=== PATIENT | female | born 1950 | race Caucasian/White ===

== ENCOUNTER 2017-04-05 18:33 | Inpatient (IN) | payer OTHER ==
[~2017-04-05] VITALS: Ht 167.6 cm; Wt 95.3 kg
--- NOTE | 2017-04-05 18:33 | NUR ---
BIBRA FROM HOME DUE TO SOB X 1 HOUR WITH NO RELIEF AFTER BREATHING TX. PATIENT WITH HX OF ASTHMA. AAO4, APPEARS IN MILD DISTRESS DUE TO SOB. SKIN IS WARM TO TOUCH AND NON DIAPHORETIC. PATIENT IS AFEBRILE. PLACED PT ON O2 WITH RELIEF. IV NOTED ON RFA. GOWNED AND PLACED PT ON TELE MONITOR. PENDING MD JOYNER
[2017-04-05] MEDS ORDERED: Magnesium 1GM/D5W 100ML PREMIX 200 ML IV ONE (18:34)
[2017-04-05] MEDS ORDERED: Magnesium 1GM/D5W 100ML PREMIX 100 ML IV ONE ×2 (18:39→19:03)
[2017-04-05] MEDS ORDERED: methylPREDNISolone SOD SUCC 125 MG/2ML VIAL ONE (18:39)
[2017-04-05] MEDS ORDERED: TERBUTALINE SULFATE 1 MG/ML VIAL ONE (18:39)
--- NOTE | 2017-04-05 18:49 | NUR ---
CALLED NURSING SUP. FOR ICU BED
--- NOTE | 2017-04-05 18:50 | NUR ---
SECURITY CHECKER AT FOR LAB DRAW
[2017-04-05 18:58] LABS: BASOPHILS % (AUTO) 0.1 % (0.0-2.0); EOSINOPHILS % (AUTO) 0.2 % (0.0-6.0); HEMATOCRIT 45 % (33-45); HEMOGLOBIN 14.9 g/dL (11.5-14.8); LYMPHOCYTES # (AUTO) 0.9 /CMM (0.8-4.8); LYMPHOCYTES % (AUTO) 9.4 % (20.0-44.0); MEAN CORPUSCULAR HEMOGLOBIN 32 PG (26.0-33.0); MEAN CORPUSCULAR HGB CONC 33 g/dl (31.0-36.0); MEAN CORPUSCULAR VOLUME 97 fL (82-100); MONOCYTES # (AUTO) 1.1 /CMM (0.1-1.30); MONOCYTES % (AUTO) 11.2 % (2.0-12.0); NEUTROPHILS # (AUTO) 7.7 /CMM (1.8-8.9); NEUTROPHILS % (AUTO) 79.1 % (43.0-81.0); PLATELET COUNT (AUTO) 228 /CMM (150-450); RDW COEFFICIENT OF VARIATION 13.1 (11.5-15.0); RED BLOOD CELL COUNT(AUTO) 4.68 MIL/uL (4.0-5.2); WHITE BLOOD COUNT (AUTO) 9.7 K/uL (4.3-11.0)
[2017-04-05] MEDS ORDERED: methylPREDNISolone SOD SUCC 125 MG/2ML VIAL IV ONE (19:00)
[2017-04-05] MEDS ORDERED: IPRATROPIUM NEB FS 0.5 MG/2.5 ML AMPUL.NEB NEB ONE (19:00)
[2017-04-05] MEDS ORDERED: ALBUTEROL FS 2.5 MG/3 ML VIAL.NEB CONTNEB ONE (19:00)
[2017-04-05] MEDS ORDERED: TERBUTALINE SULFATE 1 MG/ML VIAL SQ ONE (19:00)
--- NOTE | 2017-04-05 19:00 | NUR ---
RT AT BS
[2017-04-05] MEDS ORDERED: IV SET PRIMARY PUMP SET 1 EA INFUS.SET MC ONE ×2 (19:03→22:36)
--- NOTE | 2017-04-05 19:05 | NUR ---
NEXT DOSE OF MAG ENDORSED
[2017-04-05 19:09] LABS: CALCIUM, SERUM 8.5 mg/dL (8.5-10.1); CARBON DIOXIDE 27 mmol/L (21-32); CHLORIDE 101 mmol/L (98-107); CREATININE 0.9 mg/dL (0.6-1.3); GLUCOSE 190 mg/dL (74-106); SODIUM SERUM 137 mmol/L (136-145); UREA NITROGEN, BLOOD 14 mg/dL (7-18)
[2017-04-05 19:09] LABS: ABG BASE EXCESS -2.7 mmol/L; ABG OXYGEN SATURATION 97.9 % (92.0-98.5); ABG PCO2 39.2 mmHg (35.0-45.0); ABG PH 7.371 (7.350-7.450); ABG PO2 128.6 mmHg (75.0-100.0); AaDO2 256.1 mmHg; COHb 2.6 % (0.5-1.5); MetHb 0.5 % (0.0-1.5); O2Hb 94.9 % (94.0-97.0); SITE, ABG Right Radial
--- NOTE | 2017-04-05 19:10 | NUR ---
REPORT GIVEN TO NURSE SIEGEL FOR MYRNA
--- NOTE | 2017-04-05 19:10 | NUR ---
RT AT BEDSIDE - ABG IN PROGRESS.
[2017-04-05 19:12] LABS: INR 0.95 (0.87-1.13); PROTHROMBIN TIME 9.9 SECS (9.5-12.7)
--- NOTE | 2017-04-05 19:12 | NUR ---
CXR IN PROGRESS AT THE BEDSIDE.
[2017-04-05 19:17] LABS: TROPONIN I < 0.017 ng/mL (0.00-0.056)
[2017-04-05] MEDS ORDERED: ATOR10TA PO (19:17)
[2017-04-05] MEDS ORDERED: IPRA12.9 INH (19:17)
[2017-04-05] MEDS ORDERED: METF500T4 PO (19:17)
[2017-04-05] MEDS ORDERED: LEVO100T9 PO (19:17)
[2017-04-05] MEDS ORDERED: FLUT1DIS5 INH (19:17)
[2017-04-05] MEDS ORDERED: MONT10TA22 PO (19:17)
[2017-04-05] MEDS ORDERED: ALBU8.5H2 INH (19:17)
[2017-04-05 19:22] LABS: ALANINE AMINOTRANSFERASE 18 U/L (12-78); ALBUMIN 3.8 g/dL (3.4-5.0); ALKALINE PHOSPHATASE 109 U/L (46-116); ASPARTATE AMINOTRANSFERASE 13 U/L (15-37); B-TYPE NATRIURETIC PEPTIDE 149 PG/ML (0-125); BILIRUBIN,TOTAL 0.2 mg/dL (0.2-1.0)
--- NOTE | 2017-04-05 19:24 | NUR ---
BREATHING TX FINISHED. PT IS SATURATING AT 97% ON RA. PT STILL SOUNDS TIGHT. AUDIBLE WHEEZES NOTED
--- NOTE | 2017-04-05 19:55 | NUR ---
CALLED NURSING SUP. FOR CLARA BED
[2017-04-05 20:00] VITALS: BP 128/64
--- NOTE | 2017-04-05 20:00 | NUR ---
REPORT GIVEN TO NANCY COY
[2017-04-05 20:27] VITALS: BP 128/64
[2017-04-05] MEDS ORDERED: ZOLPIDEM TARTRATE 5 MG TABLET PO PRN (22:00)
[2017-04-05] MEDS ORDERED: FLUTICASONE/SALMETEROL DISKUS IH SCH (22:00)
[2017-04-05] MEDS ORDERED: ONDANSETRON HCL/PF 4 MG/2 ML VIAL IVP PRN (22:00)
[2017-04-05] MEDS ORDERED: MAGNESIUM HYDROXIDE 30 ML UDC PO PRN (22:00)
[2017-04-05] MEDS ORDERED: ACETAMINOPHEN 325 MG TABLET ONE (22:02)
[2017-04-05] MEDS ORDERED: ATORVASTATIN 10 MG TABLET ONE (22:03)
[2017-04-05] MEDS: ATORVASTATIN 10 MG TABLET PO SCH (22:07)
[2017-04-05] MEDS: ACETAMINOPHEN 325 MG TABLET PO PRN (22:07)
[2017-04-05] MEDS ORDERED: LEVOFLOXACIN 500 MG /D5W 100ML 100 ML IV ONE (22:27)
[2017-04-05] MEDS ORDERED: DEXTROSE 50%-WATER 50 ML DISP.SYRIN IV PRN (22:30)
[2017-04-05] MEDS ORDERED: IV NS 0.9% 250 ML IV ONE (22:36)
[2017-04-05] MEDS ORDERED: SECONDARY IV SET 1 EA INFUS.SET MC ONE (22:37)
--- NOTE | 2017-04-05 22:38 | NUR ---
MED NOTE: ALL MEDS ADMINISTERED UNDER UNVERIFIED.
[2017-04-05] MEDS: LEVOFLOXACIN 500 MG /D5W 100ML 500 MG in PREMIX 1 EA IV SCH (22:46)
[2017-04-06] VITALS: BP 112/55
[2017-04-06] MEDS: methylPREDNISolone SOD SUCC 40 MG/ML VIAL IV SCH ×3 (05:00→21:11)
[2017-04-06] MEDS ORDERED: methylPREDNISolone SOD SUCC 40 MG/ML VIAL ONE (05:15)
--- NOTE | 2017-04-06 05:47 | NUR ---
MED NOTE: SOLU-MEDROL ADMINISTERED ON DOWN TIME EMAR.
[2017-04-06 07:10] LABS: HEMATOCRIT 41 % (33-45); HEMOGLOBIN 13.7 g/dL (11.5-14.8); LYMPHOCYTES # (AUTO) 0.4 /CMM (0.8-4.8); LYMPHOCYTES % (AUTO) 7.7 % (20.0-44.0); MEAN CORPUSCULAR HEMOGLOBIN 33 PG (26.0-33.0); MEAN CORPUSCULAR HGB CONC 34 g/dl (31.0-36.0); MEAN CORPUSCULAR VOLUME 96 fL (82-100); MONOCYTES # (AUTO) 0.3 /CMM (0.1-1.30); NEUTROPHILS # (AUTO) 4.3 /CMM (1.8-8.9); NEUTROPHILS % (AUTO) 86.3 % (43.0-81.0); PLATELET COUNT (AUTO) 192 /CMM (150-450); RDW COEFFICIENT OF VARIATION 13.9 (11.5-15.0); RED BLOOD CELL COUNT(AUTO) 4.21 MIL/uL (4.0-5.2)
[2017-04-06 07:29] LABS: CHOLESTEROL 150 mg/dL (<200); HDL CHOLESTEROL 62 mg/dL (40-60); LDL 68 mg/dL (0-99); THYROID STIMULATING HORMONE 0.391 uIU/mL (0.358-3.74); TRIGLYCERIDES 66 mg/dL (30-150)
--- NOTE | 2017-04-06 07:30 | NUR ---
RN INITIAL NOTES PT IN BED, A/O X4, ON NC 3L, TOLERATING WELL, NO SOB OR DISTRESS NOTED. DENIES CHEST PAIN. ON TELE MONITOR WITH SR 85. PT HAS BRP. SKIN CDI. IV ON LFA 20G, SALINE FLUSHED, CDI, NO SIGNS OF INFECTION/INFILTRATION. CALL LIGHT WITHIN EASY REACH, SAFETY MEASURES MAINTAINED, WILL CONTINUE TO MONITOR AND FOLLOW MD ORDERS. PT IN OVERALL STABLE CONDITION.
[2017-04-06 07:38] LABS: ALANINE AMINOTRANSFERASE 25 U/L (12-78); ALBUMIN 3.1 g/dL (3.4-5.0); ALKALINE PHOSPHATASE 93 U/L (46-116); ASPARTATE AMINOTRANSFERASE 14 U/L (15-37); BILIRUBIN,TOTAL 0.2 mg/dL (0.2-1.0); CALCIUM, SERUM 8.3 mg/dL (8.5-10.1); CARBON DIOXIDE 26 mmol/L (21-32); CHLORIDE 104 mmol/L (98-107); CREATININE 0.9 mg/dL (0.6-1.3); GLUCOSE 203 mg/dL (74-106); MAGNESIUM 2.2 mg/dL (1.8-2.4); POTASSIUM 4.7 mmol/L (3.5-5.1); SODIUM SERUM 140 mmol/L (136-145); TOTAL PROTEIN, SERUM 6.3 g/dL (6.4-8.2); UREA NITROGEN, BLOOD 16 mg/dL (7-18)
[2017-04-06 07:41] LABS: TROPONIN I < 0.017 ng/mL (0.00-0.056)
[2017-04-06 08:00] VITALS: BP 122/59
[2017-04-06] MEDS: PANTOPRAZOLE 40 MG TABLET.DR PO SCH (08:29)
[2017-04-06] MEDS: DOCUSATE SODIUM 100 MG CAPSULE PO SCH ×2 (08:29→16:17)
[2017-04-06] MEDS: METFORMIN 500 MG TABLET PO SCH ×2 (08:29→16:17)
[2017-04-06] MEDS: LEVOTHYROXINE SODIUM 100 MCG TABLET PO SCH (08:29)
[2017-04-06] MEDS: BLOOD SUGAR DIAGNOSTIC 1 EACH STRIP IN SCH ×4 (08:29→21:13)
[2017-04-06] MEDS: ACETAMINOPHEN 325 MG TABLET PO PRN (08:41)
[2017-04-06] MEDS: INSULIN REGULAR, HUMAN 100 UNIT/ML 3 ML VIAL SQ PRN ×4 (08:42→21:15)
[2017-04-06] MEDS: FLUTICASONE/SALMETEROL 1 DISK IH SCH ×2 (08:49→21:13)
[2017-04-06] MEDS ORDERED: FLUTICASONE/SALMETEROL DISKUS IH SCH (09:00)
[2017-04-06 12:00] VITALS: BP 109/58
[2017-04-06] MEDS: HYDROCODONE/APAP 5/325MG 1 EACH TABLET PO PRN ×2 (12:14→21:13)
[2017-04-06] MEDS: GUAIFENESIN/CODEINE 10 ML UDC PO PRN ×2 (12:19→23:41)
[2017-04-06 16:00] VITALS: BP 11/59
--- NOTE | 2017-04-06 19:09 | NUR ---
RN CLOSING NOTES PT IN STABLE CONDITION, ALL MD ORDERS CARRIED OUT, TOLERATING NC 3L WELL, IV'S CDI, NO SIGNS OF INFECTION/INFECTION. CALL LIGHT WITHIN EASY REACH, SAFETY MEASURES MAINTAINED, REPORT GIVEN TO NIGHT NURSE FOR MYRNA.
--- NOTE | 2017-04-06 19:30 | NUR ---
CLARA RN INITIAL NOTE RCD PT A/O x4 DX COPD; ON O2 2L VIA NC PT NOTED W/SOB ON EXERTION; PT NOTED TO BE USING INHALERS FROM HOME; EDUCATED PT THAT THERE IS NO ORDER TO USE THOSE WHILE IN THE HOSPITAL PER PT HOSPITAL BREATHING TREATMENTS INEFFECTIVE FOR HER. SKIN INTACT. LFA 20 SL PATENT AND FLUSHING WELL. HOB ELEVATED. BED LOCKED AND IN LOW POSITION. CALL LIGHT WITHIN REACH.
[2017-04-06 20:00] VITALS: BP 132/62
[2017-04-06] MEDS: LEVOFLOXACIN 500 MG /D5W 100ML 500 MG in PREMIX 1 EA IV SCH (21:11)
[2017-04-06] MEDS: MONTELUKAST SODIUM (10MG) 10 MG TABLET PO SCH (21:12)
[2017-04-06] MEDS: ATORVASTATIN 10 MG TABLET PO SCH (21:12)
--- NOTE | 2017-04-06 21:13 | NUR ---
CLARA RN PAIN MGMT PT MEDICATED FOR LOW BACK PAIN THAT PT ATTRIBUTES TO COUGHING; PAIN 4/10. MEDICATED WITH NORCO. EDUCATED PT PAIN MEDICATION IS NECESSARY AND WILL NOT BE ROUTINELY GIVEN TO HER UNLESS NEEDED; PT VERBALIZED UNDERSTANDING. CONTINUE TO MONITOR.
--- NOTE | 2017-04-06 21:15 | NUR ---
CLARA RN BLOD GLUCOSE 230; 4 UNITS REGULAR INSULIN ADMINISTERED. CONTINUE TO MONITOR.
[2017-04-06] MEDS: ALBUTEROL FS 2.5 MG/3 ML VIAL.NEB NEB PRN (21:36)
[2017-04-06] MEDS: IPRATROPIUM NEB FS 0.5 MG/2.5 ML AMPUL.NEB NEB PRN (21:36)
--- NOTE | 2017-04-06 21:40 | NUR ---
CLARA RN PT NOTED WITH RESP DIST ON O2 2L NC BREATHING TX ADMINISTERED BY RT. CONTINUE TO MONITOR.
--- NOTE | 2017-04-06 23:41 | NUR ---
CLARA RN PT NOTED WITH COUGH MEDICATED WITH ROBITUSSIN. CONTINUE TO MONITOR.
[2017-04-07] VITALS (8 sets, daily range): BP systolic 103–124; BP diastolic 53–78
[2017-04-07] MEDS: methylPREDNISolone SOD SUCC 40 MG/ML VIAL IV SCH ×3 (05:39→21:52)
[2017-04-07] MEDS: HYDROCODONE/APAP 5/325MG 1 EACH TABLET PO PRN ×2 (05:39→21:53)
--- NOTE | 2017-04-07 05:39 | NUR ---
CLARA RN PAIN MGMT PT MEDICATED FOR LOW BACK PAIN THAT PT ATTRIBUTES TO COUGHING; PAIN 4/10. MEDICATED WITH NORCO. CONTINUE TO MONITOR. BED ALARM REMAINS ON.
--- NOTE | 2017-04-07 07:00 | NUR ---
CLARA RN CLOSING NOTES PT EXPRESSING SHE IS TIRED AND WAS NOT ABLE TO REST WELL DURING THE NIGHT; PT NOTED WITH INTERMITTENT PERIODS OF SLEEPING. PT DENIES PAIN AT THIS TIME. PT STATES THAT PRIOR TO ADMISSION PT HAS BEEN HAVING PERIODS OF CONFUSION IN BEING UNABLE TO FIND HER HOME AND FORGETTING WORK PASSWORDS; PT VERBALIZES CONFUSION IS DECREASING. WILL ENDORSE TO NEXT SHIFT.
--- NOTE | 2017-04-07 07:38 | NUR ---
CLARA/RN INITIAL NOTES,AM RECEIVED PT ALERT, AWAKE ORIENTED TO PERSON, PLACE, AND TIME. PT RESTING IN BED COMFORTABLY, ON 3 VIA NASAL CANULA,NO ACUTE DISTRESS NOTED AT THIS TIME. PT ON TELE, SINUS. SKIN INTACT, PT ABLE TO AMBULATE. LEFT FA PIV C/D/I, NO S/S OF INFECTION OR INFILTRATION NOTED. ALL NEEDS WILL BE ATTENDED TO, SAFETY MEASURES TAKEN, BED IN LOW POSITION, SIDE RAILS UP, CALL LIGHT WITHIN REACH. WILL CONTINUE CARE.
[2017-04-07] MEDS: DOCUSATE SODIUM 100 MG CAPSULE PO SCH ×2 (08:01→17:42)
[2017-04-07] MEDS: LEVOTHYROXINE SODIUM 100 MCG TABLET PO SCH (08:01)
[2017-04-07] MEDS: PANTOPRAZOLE 40 MG TABLET.DR PO SCH (08:01)
[2017-04-07] MEDS: METFORMIN 500 MG TABLET PO SCH ×2 (08:01→17:42)
[2017-04-07] MEDS: BLOOD SUGAR DIAGNOSTIC 1 EACH STRIP IN SCH ×4 (08:01→21:55)
[2017-04-07] MEDS: INSULIN REGULAR, HUMAN 100 UNIT/ML 3 ML VIAL SQ PRN ×3 (08:02→17:39)
[2017-04-07] MEDS: FLUTICASONE/SALMETEROL 1 DISK IH SCH ×2 (08:04→21:54)
[2017-04-07] MEDS: IPRATROPIUM NEB FS 0.5 MG/2.5 ML AMPUL.NEB NEB PRN ×3 (08:30→13:57)
[2017-04-07] MEDS: ALBUTEROL FS 2.5 MG/3 ML VIAL.NEB NEB PRN ×3 (08:30→13:57)
--- NOTE | 2017-04-07 11:00 | NUR ---
CLARA/RN: PT SEEN BY PHYSICAL THERAPY. PT OUT OF BED AND WALKED IN [place]. SEE PT NOTES FOR DETAILED DESCRIPTION.
--- NOTE | 2017-04-07 18:17 | NUR ---
CLARA/RN ENDING NOTES,AM REPORT WILL BE ENDORSED TO NIGHT NURSE FOR CONTINUATION OF CARE. PT RESTING IN BED ON 2 LITERS NASAL CANULA, NO ACUTE DISTRESS NOTED. ALL NEEDS ATTENDED TO, PT BATHED. SAFETY MEASURES TAKEN, WILL CONTINUE CARE
--- NOTE | 2017-04-07 21:00 | NUR ---
CLARA RN RCD PT A/O x4 W/DX SOB; NSR ON MONITOR. ON O2 2L NC; PT VERBALIZING SHE HAD A ROUGH DAY TODAY AND IS VERY UNHAPPY WITH HOW HER DAY WENT. THEN PT JOKINGLY ASKS FOR A DRINK/WINE. S/W MD AND INFORMED OF PTS PERIODS OF CONFUSION ALTHOUGH PT IS A/O x4 AND MD ORDERED HEAD CT. PT REQUESTING COUGH MEDICATION/ PAIN MEDICINE HOWEVER WISHES TO WAIT UNTIL AFTER CT SHE WOULD LIKE TO GET SOME SLEEP. CONTINUE TO MONITOR.
[2017-04-07] MEDS: ATORVASTATIN 10 MG TABLET PO SCH (21:53)
[2017-04-07] MEDS: GUAIFENESIN/CODEINE 10 ML UDC PO PRN (21:54)
[2017-04-07] MEDS: MONTELUKAST SODIUM (10MG) 10 MG TABLET PO SCH (21:54)
[2017-04-07] MEDS: LEVOFLOXACIN 500 MG /D5W 100ML 500 MG in PREMIX 1 EA IV SCH (21:55)
--- NOTE | 2017-04-07 21:55 | NUR ---
CLARA RN PT NOTED WITH COUGH MEDICATED WITH ROBITUSSIN REQUESTED. CONTINUE TO MONITOR.
[2017-04-08 04:00] VITALS: BP 117/63
[2017-04-08] MEDS: methylPREDNISolone SOD SUCC 40 MG/ML VIAL IV SCH (05:18)
[2017-04-08 06:37] LABS: HEMATOCRIT 40 % (33-45); HEMOGLOBIN 13.6 g/dL (11.5-14.8); LYMPHOCYTES # (AUTO) 0.6 /CMM (0.8-4.8); LYMPHOCYTES % (AUTO) 9.7 % (20.0-44.0); MEAN CORPUSCULAR HEMOGLOBIN 32 PG (26.0-33.0); MEAN CORPUSCULAR HGB CONC 34 g/dl (31.0-36.0); MEAN CORPUSCULAR VOLUME 96 fL (82-100); MONOCYTES # (AUTO) 0.6 /CMM (0.1-1.30); MONOCYTES % (AUTO) 8.9 % (2.0-12.0); NEUTROPHILS # (AUTO) 5.4 /CMM (1.8-8.9); NEUTROPHILS % (AUTO) 81.4 % (43.0-81.0); PLATELET COUNT (AUTO) 183 /CMM (150-450); RDW COEFFICIENT OF VARIATION 13.9 (11.5-15.0); WHITE BLOOD COUNT (AUTO) 6.7 K/uL (4.3-11.0)
[2017-04-08 07:01] LABS: CALCIUM, SERUM 8.4 mg/dL (8.5-10.1); CREATININE 0.9 mg/dL (0.6-1.3); POTASSIUM 4.6 mmol/L (3.5-5.1)
--- NOTE | 2017-04-08 07:05 | NUR ---
CLARA INITIAL NOTE RECEIVED PT A/O X4. ON 2L NC, RESPIRATIONS EVEN AND UNLABORED, NO SOB OR DISTRESS PRESENT. TELE MONITOR REVEALS SINUS BRADYCARDIA, HR= 59. LEFT HAND 22G HL FLUSHED, PATENT, INTACT AND FREE OF REDNESS, SWELLING AND INFLAMMATION. SAFETY MEASURES TAKEN: BED LOCKED AND IN LOW POSITION, SIDE RAILS UP X2, BED ALARM ON AND CALL LIGHT WITHIN REACH, WILL CONTINUE TO MONITOR.
[2017-04-08] MEDS: PANTOPRAZOLE 40 MG TABLET.DR PO SCH (07:47)
[2017-04-08] MEDS: LEVOTHYROXINE SODIUM 100 MCG TABLET PO SCH (07:47)
[2017-04-08] MEDS: BLOOD SUGAR DIAGNOSTIC 1 EACH STRIP IN SCH (07:50)
[2017-04-08] MEDS: INSULIN REGULAR, HUMAN 100 UNIT/ML 3 ML VIAL SQ PRN (07:50)
[2017-04-08 08:00] VITALS: BP 111/60
[2017-04-08] MEDS: METFORMIN 500 MG TABLET PO SCH (08:57)
[2017-04-08] MEDS: DOCUSATE SODIUM 100 MG CAPSULE PO SCH (08:58)
[2017-04-08] MEDS: FLUTICASONE/SALMETEROL 1 DISK IH SCH (08:58)
[2017-04-08] MEDS ORDERED: PRED50TA PO (10:17)
--- NOTE | 2017-04-08 11:30 | NUR ---
CLARA DISCHARGE NOTE PT DISCHARGED TO HOME IN STABLE CONDITION VIA TAXI. VITAL SIGNS STABLE. IV REMOVED. ALL BELONGINGS SENT WITH PATIENT. PRESCRIPTION GIVEN TO PATIENT WELL. DISCHARGE INSTRUCTIONS REVIEWED WITH PATIENT. ALL QUESTIONS ANSWERED.
== END 2017-04-08 11:40 | disposition home or self-care (01) | DRG 191 ==
LOC: ER 18:35 → TELE-TD 19:58
PROVIDERS: ADMIT Internal Medicine; ATTEND Internal Medicine
DX: J44.1 Chronic obstructive pulmonary disease with (acute) exacerbation (principal); E44.0 Moderate protein-calorie malnutrition; T38.0X5A Adverse effect of glucocorticoids and synthetic analogues, initial encounter; F32.9 Major depressive disorder, single episode, unspecified; F41.9 Anxiety disorder, unspecified; F17.210 Nicotine dependence, cigarettes, uncomplicated; E03.9 Hypothyroidism, unspecified; Z68.33 Body mass index [BMI] 33.0-33.9, adult; Y92.89 Other specified places as the place of occurrence of the external cause; E09.9 Drug or chemical induced diabetes mellitus without complications; E78.5 Hyperlipidemia, unspecified; J44.0 Chronic obstructive pulmonary disease with (acute) lower respiratory infection; J20.8 Acute bronchitis due to other specified organisms; I10 Essential (primary) hypertension; E66.9 Obesity, unspecified; Z86.73 Personal history of transient ischemic attack (TIA), and cerebral infarction without residual deficits; Z79.899 Other long term (current) drug therapy; Z79.84 Long term (current) use of oral hypoglycemic drugs
CPT/HCPCS: 36415; 36600; 70450-TC; 71010-TC; 80048-TC; 80053-TC; 80061-TC; 80076-TC; 82962-TC; 83605-TC; 83735-TC; 83880; 84100-TC; 84443-TC; 84484-TC; 85025-TC; 85730-TC; 87040-TC; 87081-TC; 94799-TC; 97001-TC; A4216; A4606; J1815; J1956; J2920; J2930; J3105; J3475; J7050; Z7610

== ENCOUNTER 2017-10-31 19:36 | Inpatient (IN) | payer OTHER ==
[~2017-10-31] VITALS: Ht 157.5 cm; Wt 81.6 kg
[~2017-10-31 19:36] MED LIST: ALBU8.5H8 INH; ATOR10TA PO; FLUT1DIS5 INH; IPRA12.9 INH; LEVO100T9 PO; METF500T4 PO; MONT10TA22 PO; PRED50TA PO
--- NOTE | 2017-10-31 19:45 | NUR ---
TO BED 4 A 66 YO FEMALE PATIENT BBRA; SOB, GRADUAL ONSET X 1 DAY. PATIENT IS TACHYPNEIC WITH LABORED BREATHING. WITH ONGOING BREATHING TREATMENT BY EMS. PLACED ON CARDIAC AND VS MONITORING. GOWNED. DR BATISTA AT BEDSIDE TO EVALUATE PATIENT. RT AT BEDSIDE.
[2017-10-31] MEDS ORDERED: methylPREDNISolone SOD SUCC 125 MG/2ML VIAL ONE (19:47)
[2017-10-31] MEDS ORDERED: ALBUTEROL FS 2.5 MG/0.5 ML VIAL.NEB ONE ×2 (19:51→23:16)
[2017-10-31] MEDS ORDERED: ALBUTEROL FS 2.5 MG/3 ML VIAL.NEB CONTNEB ONE (20:00)
[2017-10-31] MEDS ORDERED: ALBUTEROL FS 2.5 MG/3 ML VIAL.NEB NEB ONE (20:00)
[2017-10-31] MEDS ORDERED: IPRATROPIUM NEB FS 0.5 MG/2.5 ML AMPUL.NEB NEB ONE (20:00)
[2017-10-31] MEDS ORDERED: methylPREDNISolone SOD SUCC 125 MG/2ML VIAL IV ONE (20:00)
[2017-10-31 20:02] LABS: BASOPHILS # (AUTO) 0.1 /CMM (0.0-0.2); BASOPHILS % (AUTO) 0.5 % (0.0-2.0); EOSINOPHILS # (AUTO) 0.1 /CMM (0.0-0.7); EOSINOPHILS % (AUTO) 0.8 % (0.0-6.0); HEMATOCRIT 45 % (33-45); HEMOGLOBIN 15.3 g/dL (11.5-14.8); LYMPHOCYTES # (AUTO) 1.6 /CMM (0.8-4.8); LYMPHOCYTES % (AUTO) 12.3 % (20.0-44.0); MEAN CORPUSCULAR HEMOGLOBIN 33 PG (26.0-33.0); MEAN CORPUSCULAR HGB CONC 34 g/dl (31.0-36.0); MEAN CORPUSCULAR VOLUME 97 fL (82-100); MONOCYTES # (AUTO) 0.9 /CMM (0.1-1.30); NEUTROPHILS # (AUTO) 10.6 /CMM (1.8-8.9); NEUTROPHILS % (AUTO) 79.4 % (43.0-81.0); PLATELET COUNT (AUTO) 253 /CMM (150-450); RDW COEFFICIENT OF VARIATION 13.5 (11.5-15.0); RED BLOOD CELL COUNT(AUTO) 4.64 MIL/uL (4.0-5.2); WHITE BLOOD COUNT (AUTO) 13.3 K/uL (4.3-11.0)
--- NOTE | 2017-10-31 20:12 | NUR ---
Dr Siddiqui revaluated patient, called rt to initiate Bipap inh. ongoing close monitoring.
[2017-10-31 20:14] LABS: CALCIUM, SERUM 8.8 mg/dL (8.5-10.1); CARBON DIOXIDE 29 mmol/L (21-32); CHLORIDE 104 mmol/L (98-107); GLUCOSE 263 mg/dL (74-106); POTASSIUM 3.7 mmol/L (3.5-5.1); SODIUM SERUM 141 mmol/L (136-145); UREA NITROGEN, BLOOD 34 mg/dL (7-18)
[2017-10-31 20:22] LABS: TROPONIN I < 0.017 ng/mL (0.00-0.056)
[2017-10-31 20:27] LABS: ALANINE AMINOTRANSFERASE 30 U/L (12-78); ALBUMIN 3.4 g/dL (3.4-5.0); ALKALINE PHOSPHATASE 87 U/L (46-116); ASPARTATE AMINOTRANSFERASE 11 U/L (15-37); B-TYPE NATRIURETIC PEPTIDE 150 PG/ML (0-125); BILIRUBIN,TOTAL 0.2 mg/dL (0.2-1.0); TOTAL PROTEIN, SERUM 6.3 g/dL (6.4-8.2)
[2017-10-31] MEDS ORDERED: LEVOFLOXACIN 750 MG /D5W 150ML 750 MG in PREMIX 1 EA IV SCH (21:00)
[2017-10-31] MEDS ORDERED: LEVOFLOXACIN 750 MG /D5W 150ML 150 ML IV ONE (21:17)
--- NOTE | 2017-10-31 21:27 | NUR ---
patient refused to be placed on bipap at this time, and reports, "i feel much better. i dont want it. im claustrophobic." Dr Siddiqui at bedside and was notified.
[2017-10-31] MEDS ORDERED: MAGNESIUM HYDROXIDE 30 ML UDC PO PRN (21:30)
[2017-10-31] MEDS ORDERED: Z GUARD REMEDY 2 OZ OINT TP PRN (21:30)
[2017-10-31] MEDS ORDERED: ZOLPIDEM TARTRATE 5 MG TABLET PO PRN (21:30)
[2017-10-31] MEDS ORDERED: ACETAMINOPHEN 325 MG TABLET PO PRN (21:30)
[2017-10-31] MEDS ORDERED: ONDANSETRON HCL/PF 4 MG/2 ML VIAL IVP PRN (21:30)
[2017-10-31] MEDS: ENOXAPARIN SODIUM 40 MG/0.4 ML DISP.SYRIN SQ SCH ×2 (21:30→22:06)
[2017-10-31] MEDS ORDERED: MAG HYDROX/AL HYDROX/SIMETH 30 ML UDC PO PRN (21:30)
[2017-10-31] MEDS ORDERED: DEXTROSE 50%-WATER 50 ML DISP.SYRIN IV PRN (21:30)
[2017-10-31] MEDS ORDERED: HYDROCODONE/APAP 5/325MG 1 EACH TABLET PO PRN (21:30)
[2017-10-31] MEDS: LEVOFLOXACIN 750 MG /D5W 150ML 750 MG in PREMIX 1 EA IV SCH (21:30)
--- NOTE | 2017-10-31 21:40 | NUR ---
Report given to Ed RN for ICU admission and rupesh.
[2017-10-31 21:53] LABS: ABG BASE EXCESS 2.7 mmol/L; ABG OXYGEN SATURATION 97.8 % (92.0-98.5); ABG PCO2 46.1 mmHg (35.0-45.0); ABG PH 7.403 (7.350-7.450); ABG PO2 125.5 mmHg (75.0-100.0); AaDO2 106.7 mmHg; COHb 2.1 % (0.5-1.5); MetHb 0.5 % (0.0-1.5); O2Hb 95.3 % (94.0-97.0); SITE, ABG Left Radial; VENT MODE, BG TX 5L
--- NOTE | 2017-10-31 22:02 | NUR ---
Transferred patient to icu bed via als protocol, no incident noted.
[2017-10-31] MEDS ORDERED: ENOXAPARIN SODIUM 40 MG/0.4 ML DISP.SYRIN SQ ONE (22:05)
[2017-10-31 22:07] VITALS: BP 115/52
--- NOTE | 2017-10-31 22:20 | NUR ---
OVEN BUILDER - NOTES - ADMISSION - PT ADMITTED FROM HOME FOR SOB, COPD EXACERBATION. PT IS AWAKE ALERT AND ORIENTED X 4. PT IS ABLE TO WALK TO BATHROOM, BUT GETS SOB WITH EXERTION, NEEDS 2L NC EVERYWHERE, ALL THE TIME. PT IS ON 2L NC RIGHT NOW TOLERATING WELL, GETTING BREATHING TX. PT IS IN ST 110S, BP WNL. PT IS ON CONSISTENT CARB DIET ABLE TO EAT WELL. PT HAS BATHROOM PRIVILEGES. SKIN IS INTACT. PT HAS L AC 18G AND R AC 20G IV. WILL CONTINUE TO MONITOR
[2017-10-31 22:30] VITALS: BP 107/81
--- NOTE | 2017-10-31 22:38 | NUR ---
RT PT ABG NORMAL INFORMED DR LYNNE DR ORDERED TO BE PLACE ON BIPAP 10/5 RR12 30% O2. PT REFUSING TO BE PLACED ON BIPAP DUE TO CLAUSTROPHOBIA EDUCATED THAT SHE NEEDS IT TO REDUCE WORK OF BREATHING PT STAYED ON BIPAP FOR 20MINS AND REFUSED TO STAY ON IT. PT TRANSFERRED TO ICU WITH BIPAP ON STANDBY
[2017-10-31] MEDS: BLOOD SUGAR DIAGNOSTIC 1 EACH STRIP IN SCH (22:50)
[2017-10-31] MEDS: INSULIN REGULAR, HUMAN 100 UNIT/ML 3 ML VIAL SQ PRN (22:54)
[2017-10-31 23:00] VITALS: BP 124/46
[2017-10-31] MEDS ORDERED: methylPREDNISolone SOD SUCC 40 MG/ML VIAL ONE (23:13)
[2017-10-31] MEDS ORDERED: IPRATROPIUM NEB FS 0.5 MG/2.5 ML AMPUL.NEB ONE (23:16)
[2017-10-31] MEDS: ALBUTEROL FS 2.5 MG/0.5 ML VIAL.NEB NEB PRN (23:19)
[2017-10-31] MEDS: IPRATROPIUM NEB FS 0.5 MG/2.5 ML AMPUL.NEB NEB PRN (23:19)
[2017-10-31] MEDS: methylPREDNISolone SOD SUCC 40 MG/ML VIAL IV SCH (23:22)
[2017-10-31 23:30] VITALS: BP 124/70
--- NOTE | 2017-10-31 23:56 | NUR ---
PT REFUSING LOVENOX INJ, PT EDUCATED ON IMPORTANCE, STILL REFUSING LOVENOX INJ
[2017-11-01] VITALS (17 sets, daily range): BP systolic 106–141; BP diastolic 58–88
[2017-11-01] MEDS ORDERED: methylPREDNISolone SOD SUCC 125 MG/2ML VIAL IV SCH
[2017-11-01] MEDS ORDERED: ALBUTEROL FS 2.5 MG/0.5 ML VIAL.NEB ONE (03:01)
[2017-11-01] MEDS ORDERED: IPRATROPIUM NEB FS 0.5 MG/2.5 ML AMPUL.NEB ONE (03:01)
[2017-11-01] MEDS: IPRATROPIUM NEB FS 0.5 MG/2.5 ML AMPUL.NEB NEB PRN ×2 (03:06→08:23)
[2017-11-01] MEDS: ALBUTEROL FS 2.5 MG/0.5 ML VIAL.NEB NEB PRN ×2 (03:07→08:23)
[2017-11-01] MEDS ORDERED: methylPREDNISolone SOD SUCC 40 MG/ML VIAL ONE (04:39)
[2017-11-01] MEDS: methylPREDNISolone SOD SUCC 40 MG/ML VIAL IV SCH ×4 (05:18→23:37)
[2017-11-01 05:32] LABS: HEMATOCRIT 44 % (33-45); LYMPHOCYTES # (AUTO) 0.4 /CMM (0.8-4.8); LYMPHOCYTES % (AUTO) 4.4 % (20.0-44.0); MEAN CORPUSCULAR HEMOGLOBIN 34 PG (26.0-33.0); MEAN CORPUSCULAR HGB CONC 34 g/dl (31.0-36.0); MEAN CORPUSCULAR VOLUME 99 fL (82-100); MONOCYTES # (AUTO) 0.1 /CMM (0.1-1.30); MONOCYTES % (AUTO) 1.2 % (2.0-12.0); NEUTROPHILS # (AUTO) 8.8 /CMM (1.8-8.9); NEUTROPHILS % (AUTO) 94.4 % (43.0-81.0); PLATELET COUNT (AUTO) 228 /CMM (150-450); RDW COEFFICIENT OF VARIATION 14.2 (11.5-15.0); RED BLOOD CELL COUNT(AUTO) 4.48 MIL/uL (4.0-5.2); WHITE BLOOD COUNT (AUTO) 9.3 K/uL (4.3-11.0)
[2017-11-01 05:48] LABS: CREATININE 0.9 mg/dL (0.6-1.3); MAGNESIUM 2.2 mg/dL (1.8-2.4); PHOSPHORUS 4.1 mg/dL (2.5-4.9); POTASSIUM 4.6 mmol/L (3.5-5.1)
[2017-11-01 05:58] LABS: THYROID STIMULATING HORMONE 0.764 uIU/mL (0.358-3.74)
--- NOTE | 2017-11-01 06:50 | NUR ---
HOGSHEAD WEIGHERPULMONARY DISEASE SPECIALIST NOTES: RECEIVED PATIENT FROM ICU, TRANSFERRED TO TELE FLOOR VIA GURROBERTO, AOX4, APPEARS CALM. BREATHING WITH EVEN EXPANSION, AT RATE OF 22-24/MIN, ON O2 AT 2 LPM VIA NC. AUSCULTATED WHEEZING, HEARD MOSTLY OVER R UPPER LUNG CHANEL. MAINTAINED HOB ELEVATED. ON TELE MONITORING. PROVIDED FOR COMFORT AND SAFETY. WILL CONT TO MONITOR.
--- NOTE | 2017-11-01 07:07 | NUR ---
pt transferred to [facility]-2 tele. pt is stable, vss, nad. pt transferred with monitor and o2 tank
--- NOTE | 2017-11-01 07:25 | NUR ---
RN INITIAL NOTES REPORT RECEIVED AT THE BEDSIDE. PATIENT IS RESTING COMFORTABLY IN BED. NO SOB OR DISTRESS NOTED AT THIS TIME. PATIENT DENIES PAIN, BUT STATES THAT SHE IS HAVING TROUBLE CATCHING HER BREATH. ASSISTED PATIENT TO A SITTING POSITION AND CALLED RT TO DO A BREATHING TREATMENT WHEN ABLE. WILL CALL MD TO CHANGE TREATMENT SCHEDULE IF ABLE. BED IN A LOW POSITION, CALL LIGHT WITHIN PATIENT REACH. WILL CONTINUE TO MONITOR.
--- NOTE | 2017-11-01 07:54 | NUR ---
RN NOTES: BLOOD SUGAR CHECKED AT 301 MG/DL, ADMINISTERED 8 UNITS REGULAR INSULIN PER SCALE. ENDORSED TO IRVIN MIDDLETON FOR MYRNA.
[2017-11-01] MEDS: BLOOD SUGAR DIAGNOSTIC 1 EACH STRIP IN SCH ×4 (07:55→21:50)
[2017-11-01] MEDS: INSULIN REGULAR, HUMAN 100 UNIT/ML 3 ML VIAL SQ PRN ×4 (08:00→22:20)
[2017-11-01] MEDS: LEVOTHYROXINE SODIUM 100 MCG TABLET PO SCH (08:43)
[2017-11-01] MEDS: ATORVASTATIN 10 MG TABLET PO SCH (08:43)
[2017-11-01] MEDS: MONTELUKAST SODIUM (10MG) 10 MG TABLET PO SCH (08:43)
[2017-11-01] MEDS: METFORMIN 500 MG TABLET PO SCH ×2 (08:43→17:25)
--- NOTE | 2017-11-01 09:43 | NUR ---
CALLED DR BRYAN AND ASKED IF PT BREATHING TREATMENT COULD BE CHANGED TO Q4H SCHEDULED. STATES THE CHANGE IS FINE. ORDERS PLACED.
[2017-11-01] MEDS: ALBUTEROL FS 2.5 MG/0.5 ML VIAL.NEB NEB SCH ×4 (11:19→23:07)
[2017-11-01] MEDS: IPRATROPIUM NEB FS 0.5 MG/2.5 ML AMPUL.NEB NEB SCH ×4 (11:20→23:07)
--- NOTE | 2017-11-01 20:00 | NUR ---
MS RN NOTE: PATIENT RESTING IN BED, NO ACUTE DISTRESS NOTED, FAMILY AT BEDSIDE. BREATHING EVEN AND UNLABORED, NO SOB NOTED. IV TO RAC AND LAC IN PLACE. NO S/S OF HYPER/HYPOGLYCEMIA NOTED. BED LOCKED AND IN LOWEST POSITION, CALL LIGHT IN REACH. WILL CONTINUE TO MONITOR.
[2017-11-01] MEDS: ENOXAPARIN SODIUM 40 MG/0.4 ML DISP.SYRIN SQ SCH (21:00)
[2017-11-01] MEDS: LEVOFLOXACIN 750 MG /D5W 150ML 750 MG in PREMIX 1 EA IV SCH (21:49)
--- NOTE | 2017-11-01 22:00 | NUR ---
MS MIDDLETON NOTE: PATIENT BLOOD SUGAR LEVEL 317 MG/DL, PATIENT TO RECEIVE 8 UNITS OF INSULIN PER SLIDING SCALE. NO S/S OF HYPERGLYCEMIA NOTED. WILL CONTINUE TO MONITOR. Addendum: 11/02/17 at 0128 by GEETHA LAWRENCE RN PATIENT ALSO REFUSE LOVENOX, PATIENT STATES THAT SHE DOESN'T NEED BLOOD THINNERS AND THAT SHE IS BRUISING EASILY. EXPLAINED RISK AND BENEFITS, BUT STILL REFUSED MEDICATION.
--- NOTE | 2017-11-02 00:45 | NUR ---
MS RN NOTE: PATIENT NOTED THAT IV TO LAC WAS LEAKING. IV REMOVED, COVERED WITH GAUZE, PRESSURE APPLIED AND SECURED WITH TAPE. PATIENT STILL WITH PATENT IV TO RAC IN PLACE. WILL CONTINUE TO MONITOR.
[2017-11-02] MEDS: ALBUTEROL FS 2.5 MG/0.5 ML VIAL.NEB NEB SCH ×6 (03:37→23:05)
[2017-11-02] MEDS: IPRATROPIUM NEB FS 0.5 MG/2.5 ML AMPUL.NEB NEB SCH ×6 (03:37→23:05)
--- NOTE | 2017-11-02 06:35 | NUR ---
MS RN NOTE: PATIENT RESTING IN BED, NO ACUTE DISTRESS NOTED. BREATHING EVEN AND UNLABORED, NO SOB NOTED. IV TO RAC IN PLACE. PATIENT BLOOD SUGAR LEVEL 238 MG/DL, PATIENT TO RECEIVE 4 UNITS OF INSULIN PER SLIDING SCALE. NO S/S OF HYPER/HYPOGLYCEMIA NOTED. BED LOCKED AND IN LOWEST POSITION, CALL LIGHT IN REACH. WILL ENDORSE TO DAY NURSE TO CONTINUE WITH PLAN OF CARE.
[2017-11-02] MEDS: methylPREDNISolone SOD SUCC 40 MG/ML VIAL IV SCH ×4 (06:37→23:52)
[2017-11-02] MEDS: BLOOD SUGAR DIAGNOSTIC 1 EACH STRIP IN SCH ×4 (06:37→21:00)
[2017-11-02] MEDS: INSULIN REGULAR, HUMAN 100 UNIT/ML 3 ML VIAL SQ PRN ×4 (06:42→21:03)
--- NOTE | 2017-11-02 07:50 | NUR ---
MS RN:INITIAL NOTE RECEIVED PT A/OX3. MS. BRP WITH ASSIST. ON 2L NC SATING AT96%. SKIN INTACT. R AC#20. NO IV FLUIDS RUNNING. NO DISTRESS NOTED. NO SOB NOTED. NO PAIN NOTED. RESTING COMFORTABLY IN BED. CALL LIGHT WITHIN REACH.
[2017-11-02 08:00] VITALS: BP 133/80
[2017-11-02] MEDS: METFORMIN 500 MG TABLET PO SCH ×2 (08:09→17:05)
[2017-11-02] MEDS: ATORVASTATIN 10 MG TABLET PO SCH (08:09)
[2017-11-02] MEDS: LEVOTHYROXINE SODIUM 100 MCG TABLET PO SCH (08:09)
[2017-11-02] MEDS: MONTELUKAST SODIUM (10MG) 10 MG TABLET PO SCH (08:09)
[2017-11-02 08:54] LABS: HEMATOCRIT 40 % (33-45); HEMOGLOBIN 13.5 g/dL (11.5-14.8); LYMPHOCYTES # (AUTO) 0.6 /CMM (0.8-4.8); LYMPHOCYTES % (AUTO) 5.5 % (20.0-44.0); MEAN CORPUSCULAR HEMOGLOBIN 34 PG (26.0-33.0); MEAN CORPUSCULAR HGB CONC 34 g/dl (31.0-36.0); MEAN CORPUSCULAR VOLUME 99 fL (82-100); MONOCYTES # (AUTO) 0.4 /CMM (0.1-1.30); NEUTROPHILS # (AUTO) 10.3 /CMM (1.8-8.9); NEUTROPHILS % (AUTO) 90.5 % (43.0-81.0); PLATELET COUNT (AUTO) 200 /CMM (150-450); RDW COEFFICIENT OF VARIATION 14.4 (11.5-15.0); RED BLOOD CELL COUNT(AUTO) 4.01 MIL/uL (4.0-5.2); WHITE BLOOD COUNT (AUTO) 11.3 K/uL (4.3-11.0)
[2017-11-02 08:56] LABS: CALCIUM, SERUM 8.6 mg/dL (8.5-10.1); CREATININE 0.7 mg/dL (0.6-1.3); MAGNESIUM 2.5 mg/dL (1.8-2.4); PHOSPHORUS 3.3 mg/dL (2.5-4.9); POTASSIUM 4.4 mmol/L (3.5-5.1)
[2017-11-02 16:00] VITALS: BP 154/69
--- NOTE | 2017-11-02 18:39 | NUR ---
MS RN: CLOSING NOTE PT TOOK ALL MEDICATIONS ON TIME. MS. NO ADVERSE REACTIONS NOTED. NO PAIN NOTED. NO SOB NOTED. ON 3L NC SATING AT 94%. BRP WITH ASSIST. USES PORTABLE OXYGEN TANK TO GO TO RESTROOM. R AC #20 SL. NO REDNESS NOTED. NO BLEEDING NOTED. INSULIN GIVEN PER SLIDING SCALE. RESTING COMFORTABLY IN BED. CALL LIGHT WITHIN REACH.
--- NOTE | 2017-11-02 19:57 | NUR ---
Recieving Notes: Recieved Ms. Humphrey sitting on the edge of the bed, alert and orientated X4. Talkative and loud. Noted SOB when convsersing. O2 at 3 liters, O2 dependent at home as well. Smiling and talking about taking a shower and possibly going home tomorrow. . at the bedside at this time stated she could shower with a chair in the shower.
[2017-11-02 20:00] VITALS: BP 112/63
[2017-11-02] MEDS: ENOXAPARIN SODIUM 40 MG/0.4 ML DISP.SYRIN SQ SCH (20:54)
[2017-11-02] MEDS: LEVOFLOXACIN 750 MG /D5W 150ML 750 MG in PREMIX 1 EA IV SCH (21:03)
--- NOTE | 2017-11-02 21:12 | NUR ---
Refusing Lovenox stated it causes her to bruise. Explained the purpose and reason the MD ordered this and she adamentily refused.
[2017-11-03] MEDS: IPRATROPIUM NEB FS 0.5 MG/2.5 ML AMPUL.NEB NEB SCH ×3 (03:11→11:19)
[2017-11-03] MEDS: ALBUTEROL FS 2.5 MG/0.5 ML VIAL.NEB NEB SCH ×3 (03:11→11:19)
--- NOTE | 2017-11-03 03:25 | NUR ---
SLEEPING SOUNDLY AMBIEN TABLET EFFECTIVE RESP EVEN AND UNLABORED
[2017-11-03] MEDS: methylPREDNISolone SOD SUCC 40 MG/ML VIAL IV SCH ×2 (06:24→12:28)
[2017-11-03] MEDS: INSULIN REGULAR, HUMAN 100 UNIT/ML 3 ML VIAL SQ PRN ×2 (06:26→12:25)
--- NOTE | 2017-11-03 06:46 | NUR ---
QUIET AND UNEVENTFUL NIGHT. AFTER BEING GIVEN AN AMBIEN SHE SLPT, WAKING UP EASILY THIS AM. PATIENT IS TALKATIVE AND ANXIOUS, RECIEVING SOLUMEDROL.SPEAKIK OF GOING HOME TODAY NOTED SHE WILL AT TIMES BECOME SOB AND WILL REQUISTE A RESP TX WHICH DOES HELP
--- NOTE | 2017-11-03 07:10 | NUR ---
RN NOTES: PATIENT AOX4. RESTING IN BED. NO SIGNS OF DISTRESS NOTED. DENIES PAIN, NO SOB ON 2 L NASAL CANNULA. IV SITE PATENT AND INTACT.BED IN LOWEST LOCKED POSITION. WILL CONTINUE TO MONITOR
[2017-11-03] MEDS: BLOOD SUGAR DIAGNOSTIC 1 EACH STRIP IN SCH ×2 (07:30→12:27)
[2017-11-03 08:00] VITALS: BP 129/81
[2017-11-03 08:22] LABS: HEMATOCRIT 39 % (33-45); HEMOGLOBIN 13.2 g/dL (11.5-14.8); LYMPHOCYTES # (AUTO) 0.6 /CMM (0.8-4.8); MEAN CORPUSCULAR HEMOGLOBIN 33 PG (26.0-33.0); MEAN CORPUSCULAR HGB CONC 34 g/dl (31.0-36.0); MEAN CORPUSCULAR VOLUME 99 fL (82-100); MONOCYTES # (AUTO) 0.4 /CMM (0.1-1.30); MONOCYTES % (AUTO) 3.9 % (2.0-12.0); NEUTROPHILS # (AUTO) 8.9 /CMM (1.8-8.9); NEUTROPHILS % (AUTO) 90.1 % (43.0-81.0); PLATELET COUNT (AUTO) 187 /CMM (150-450); RDW COEFFICIENT OF VARIATION 13.9 (11.5-15.0); RED BLOOD CELL COUNT(AUTO) 3.94 MIL/uL (4.0-5.2); WHITE BLOOD COUNT (AUTO) 9.9 K/uL (4.3-11.0)
[2017-11-03 08:49] LABS: CALCIUM, SERUM 8.7 mg/dL (8.5-10.1); CREATININE 0.7 mg/dL (0.6-1.3); MAGNESIUM 2.3 mg/dL (1.8-2.4); POTASSIUM 4.6 mmol/L (3.5-5.1)
[2017-11-03] MEDS: LEVOTHYROXINE SODIUM 100 MCG TABLET PO SCH (09:01)
[2017-11-03] MEDS: MONTELUKAST SODIUM (10MG) 10 MG TABLET PO SCH (09:02)
[2017-11-03] MEDS: ATORVASTATIN 10 MG TABLET PO SCH (09:02)
[2017-11-03] MEDS: METFORMIN 500 MG TABLET PO SCH (09:02)
[2017-11-03] MEDS ORDERED: LEVO500T75 PO (09:17)
--- NOTE | 2017-11-03 16:00 | NUR ---
RN NOTES: PATIENT AOX4. PATIENT DISCHARGED HOME PER MD ORDERS. PATIENT STABLE. NO SIGNS OF DISTRESS. DENIES PAIN. NO SOB ON 2 L NASAL CANNULA. IV LINE REMOVED. PATIENT ON 2L OF OXYGEN UPON DISCHARGE AND USING HER OXYGEN MACHINE THAT WAS BROUGHT BY PATIENT'S SON. VALUABLES GIVEN TO PATIENT. EXISTCARE DISCUSSED WITH PATIENT. PATIENT VERBALIZES UNDERSTANDING OF MEDICATIONS AND INSTRUCTIONS. PATIENT REFUSING FLU VACCINE. BENEFITS AND RISKS EXPLAINED. PATIENT LEFT WITH SON AND GRANDCHILDREN. ACCOMPANIED BY STAFF MEMBER TO CAR.
[2017-11-03] MEDS ORDERED: LEVOFLOXACIN (750 MG) 750 MG TABLET PO SCH (21:00)
== END 2017-11-03 16:08 | disposition home or self-care (01) | DRG 189 ==
LOC: ER 19:37 → ICU 21:28 → MED 11-01 06:44
PROC: 5A09357 Assistance with Respiratory Ventilation, Less than 24 Consecutive Hours, Continuous Positive Airway Pressure (ICD-10-PCS; principal; 2017-10-31)
DX: J96.01 Acute respiratory failure with hypoxia (principal); N17.0 Acute kidney failure with tubular necrosis; J44.1 Chronic obstructive pulmonary disease with (acute) exacerbation; J96.02 Acute respiratory failure with hypercapnia; E11.65 Type 2 diabetes mellitus with hyperglycemia; F17.210 Nicotine dependence, cigarettes, uncomplicated; I10 Essential (primary) hypertension; Z79.84 Long term (current) use of oral hypoglycemic drugs; Z79.899 Other long term (current) drug therapy; Z85.828 Personal history of other malignant neoplasm of skin; Z86.73 Personal history of transient ischemic attack (TIA), and cerebral infarction without residual deficits
CPT/HCPCS: 36415; 36600; 71010-TC; 80048-TC; 80061-TC; 80076-TC; 82803-TC; 82962-TC; 83735-TC; 83880; 84100-TC; 84443-TC; 84484-TC; 85025-TC; 87040-TC; 87081-TC; 87400; 93307-TC; 94660; A4216; A4606; J1650; J1815; J1956; J2920; J2930; Z7610

== ENCOUNTER 2017-11-21 10:08 | Inpatient (IN) | payer OTHER ==
[~2017-11-21] VITALS: Ht 160 cm; Wt 77.1 kg
[~2017-11-21 10:08] MED LIST changes: +LEVO500T75 PO
[2017-11-21 10:16] VITALS: BP 108/42
[2017-11-21] MEDS ORDERED: Magnesium 1GM/D5W 100ML PREMIX 200 ML IV ONE ×2 (10:16→10:21)
[2017-11-21] MEDS ORDERED: methylPREDNISolone SOD SUCC 125 MG/2ML VIAL ONE (10:21)
[2017-11-21] MEDS ORDERED: ALBUTEROL FS 2.5 MG/3 ML VIAL.NEB ONE (10:27)
[2017-11-21] MEDS ORDERED: IPRATROPIUM NEB FS 0.5 MG/2.5 ML AMPUL.NEB ONE (10:27)
[2017-11-21] MEDS ORDERED: ALBUTEROL FS 2.5 MG/3 ML VIAL.NEB CONTNEB ONE (10:30)
[2017-11-21] MEDS ORDERED: methylPREDNISolone SOD SUCC 125 MG/2ML VIAL IV ONE (10:30)
[2017-11-21] MEDS ORDERED: IPRATROPIUM NEB FS 0.5 MG/2.5 ML AMPUL.NEB NEB ONE (10:30)
[2017-11-21] MEDS ORDERED: PRED10TA PO (10:35)
[2017-11-21] MEDS ORDERED: CLON1TAB4 PO (10:35)
[2017-11-21] MEDS ORDERED: LISI2.5T2 PO (10:35)
[2017-11-21 10:36] LABS: BASOPHILS # (AUTO) 0.1 /CMM (0.0-0.2); BASOPHILS % (AUTO) 1.7 % (0.0-2.0); EOSINOPHILS % (AUTO) 0.5 % (0.0-6.0); HEMATOCRIT 45 % (33-45); HEMOGLOBIN 15.3 g/dL (11.5-14.8); LYMPHOCYTES # (AUTO) 1.1 /CMM (0.8-4.8); LYMPHOCYTES % (AUTO) 15.7 % (20.0-44.0); MEAN CORPUSCULAR HEMOGLOBIN 33 PG (26.0-33.0); MEAN CORPUSCULAR HGB CONC 34 g/dl (31.0-36.0); MEAN CORPUSCULAR VOLUME 97 fL (82-100); MONOCYTES # (AUTO) 0.4 /CMM (0.1-1.30); MONOCYTES % (AUTO) 4.9 % (2.0-12.0); NEUTROPHILS # (AUTO) 5.7 /CMM (1.8-8.9); NEUTROPHILS % (AUTO) 77.2 % (43.0-81.0); PLATELET COUNT (AUTO) 297 /CMM (150-450); RDW COEFFICIENT OF VARIATION 13.5 (11.5-15.0); RED BLOOD CELL COUNT(AUTO) 4.69 MIL/uL (4.0-5.2); WHITE BLOOD COUNT (AUTO) 7.3 K/uL (4.3-11.0)
[2017-11-21 10:45] LABS: CARBON DIOXIDE 26 mmol/L (21-32); CHLORIDE 103 mmol/L (98-107); CREATININE 0.7 mg/dL (0.6-1.3); GLUCOSE 199 mg/dL (74-106); POTASSIUM 4.6 mmol/L (3.5-5.1); SODIUM SERUM 139 mmol/L (136-145); UREA NITROGEN, BLOOD 23 mg/dL (7-18)
[2017-11-21 10:49] LABS: INR 0.89 (0.87-1.13)
[2017-11-21 10:53] LABS: TROPONIN I < 0.017 ng/mL (0.00-0.056)
[2017-11-21 10:58] LABS: ALANINE AMINOTRANSFERASE 25 U/L (12-78); ALBUMIN 3.3 g/dL (3.4-5.0); ALKALINE PHOSPHATASE 103 U/L (46-116); ASPARTATE AMINOTRANSFERASE 12 U/L (15-37); B-TYPE NATRIURETIC PEPTIDE 75 PG/ML (0-125); BILIRUBIN,TOTAL 0.3 mg/dL (0.2-1.0); TOTAL PROTEIN, SERUM 6.7 g/dL (6.4-8.2)
[2017-11-21 11:35] LABS: ABG PCO2 41.3 mmHg (35.0-45.0); ABG PH 7.398 (7.350-7.450); ABG PO2 65.4 mmHg (75.0-100.0); AaDO2 34.9 mmHg; SITE, ABG Left Brachial; VENT MODE, BG ROOM AIR
[2017-11-21 12:00] VITALS: BP 123/70
[2017-11-21] MEDS ORDERED: ACETAMINOPHEN 325 MG TABLET PO PRN (12:00)
[2017-11-21 13:13] VITALS: BP 123/70
[2017-11-21] MEDS: IPRATROPIUM NEB FS 0.5 MG/2.5 ML AMPUL.NEB NEB SCH ×3 (15:05→21:21)
[2017-11-21] MEDS: ALBUTEROL FS 2.5 MG/0.5 ML VIAL.NEB NEB SCH ×3 (15:05→21:21)
[2017-11-21] MEDS: LEVOFLOXACIN 750 MG /D5W 150ML 750 MG in PREMIX 1 EA IV SCH (16:16)
[2017-11-21] MEDS: PANTOPRAZOLE 40 MG VIAL IV SCH (16:16)
[2017-11-21] MEDS: LEVOTHYROXINE SODIUM 100 MCG TABLET PO SCH (16:16)
[2017-11-21] MEDS: METFORMIN 500 MG TABLET PO SCH ×2 (16:16→17:05)
[2017-11-21] MEDS: LISINOPRIL (5MG) 5 MG TABLET PO SCH (16:16)
[2017-11-21] MEDS: clonazePAM 1 MG TABLET PO SCH ×2 (16:16→17:06)
[2017-11-21] MEDS: ATORVASTATIN 10 MG TABLET PO SCH (16:17)
[2017-11-21] MEDS: GUAIFENESIN LA 600 MG TABLET.SA PO SCH ×2 (16:17→21:10)
[2017-11-21] MEDS: methylPREDNISolone SOD SUCC 125 MG/2ML VIAL IV SCH (17:05)
[2017-11-21 20:08] VITALS: BP 129/65
[2017-11-21 23:44] VITALS: BP 102/56
[2017-11-22] VITALS (8 sets, daily range): BP systolic 90–107; BP diastolic 47–60
[2017-11-22] MEDS: IPRATROPIUM NEB FS 0.5 MG/2.5 ML AMPUL.NEB NEB SCH ×6 (00:36→22:45)
[2017-11-22] MEDS: ALBUTEROL FS 2.5 MG/0.5 ML VIAL.NEB NEB SCH ×6 (00:36→22:45)
[2017-11-22] MEDS ORDERED: IV NS 0.9% 1,000 ML IV PRN (05:30)
[2017-11-22] MEDS: ATORVASTATIN 10 MG TABLET PO SCH (08:17)
[2017-11-22] MEDS: METFORMIN 500 MG TABLET PO SCH ×2 (08:17→16:32)
[2017-11-22] MEDS: GUAIFENESIN LA 600 MG TABLET.SA PO SCH ×2 (08:17→21:28)
[2017-11-22] MEDS: clonazePAM 1 MG TABLET PO SCH ×2 (08:17→16:32)
[2017-11-22] MEDS: LEVOTHYROXINE SODIUM 100 MCG TABLET PO SCH (08:17)
[2017-11-22] MEDS: LISINOPRIL (5MG) 5 MG TABLET PO SCH (08:24)
[2017-11-22 09:34] LABS: BASOPHILS % (AUTO) 0.2 % (0.0-2.0); EOSINOPHILS % (AUTO) 0.2 % (0.0-6.0); HEMATOCRIT 40 % (33-45); HEMOGLOBIN 13.4 g/dL (11.5-14.8); LYMPHOCYTES # (AUTO) 1.2 /CMM (0.8-4.8); LYMPHOCYTES % (AUTO) 12.9 % (20.0-44.0); MEAN CORPUSCULAR HEMOGLOBIN 33 PG (26.0-33.0); MEAN CORPUSCULAR HGB CONC 34 g/dl (31.0-36.0); MEAN CORPUSCULAR VOLUME 99 fL (82-100); MONOCYTES # (AUTO) 0.8 /CMM (0.1-1.30); MONOCYTES % (AUTO) 9.1 % (2.0-12.0); NEUTROPHILS # (AUTO) 7.1 /CMM (1.8-8.9); NEUTROPHILS % (AUTO) 77.6 % (43.0-81.0); PLATELET COUNT (AUTO) 258 /CMM (150-450); RDW COEFFICIENT OF VARIATION 14.4 (11.5-15.0); RED BLOOD CELL COUNT(AUTO) 4.01 MIL/uL (4.0-5.2); WHITE BLOOD COUNT (AUTO) 9.1 K/uL (4.3-11.0)
[2017-11-22 10:05] LABS: ALBUMIN 3.1 g/dL (3.4-5.0); BILIRUBIN,TOTAL 0.2 mg/dL (0.2-1.0); CREATININE 0.8 mg/dL (0.6-1.3); PHOSPHORUS 3.1 mg/dL (2.5-4.9); POTASSIUM 4.2 mmol/L (3.5-5.1)
[2017-11-22] MEDS ORDERED: hydrOXYzine 10 MG TABLET PO PRN (10:30)
[2017-11-22] MEDS: methylPREDNISolone SOD SUCC 125 MG/2ML VIAL IV SCH ×4 (10:50→16:32)
[2017-11-22] MEDS: PANTOPRAZOLE 40 MG VIAL IV SCH (10:50)
[2017-11-22] MEDS: LEVOFLOXACIN 750 MG /D5W 150ML 750 MG in PREMIX 1 EA IV SCH (12:28)
[2017-11-23] VITALS (8 sets, daily range): BP systolic 92–116; BP diastolic 55–77
[2017-11-23] MEDS: ALBUTEROL FS 2.5 MG/0.5 ML VIAL.NEB NEB SCH ×7 (03:12→23:00)
[2017-11-23] MEDS: IPRATROPIUM NEB FS 0.5 MG/2.5 ML AMPUL.NEB NEB SCH ×7 (03:12→23:00)
[2017-11-23] MEDS: PANTOPRAZOLE 40 MG VIAL IV SCH (07:57)
[2017-11-23] MEDS: GUAIFENESIN LA 600 MG TABLET.SA PO SCH ×2 (07:57→20:55)
[2017-11-23] MEDS: clonazePAM 1 MG TABLET PO SCH ×2 (07:57→16:17)
[2017-11-23] MEDS: ATORVASTATIN 10 MG TABLET PO SCH (07:58)
[2017-11-23] MEDS: methylPREDNISolone SOD SUCC 125 MG/2ML VIAL IV SCH ×3 (07:58→16:17)
[2017-11-23] MEDS: LISINOPRIL (5MG) 5 MG TABLET PO SCH (07:59)
[2017-11-23] MEDS: LEVOTHYROXINE SODIUM 100 MCG TABLET PO SCH (07:59)
[2017-11-23] MEDS: METFORMIN 500 MG TABLET PO SCH ×2 (07:59→16:17)
[2017-11-23] MEDS: LEVOFLOXACIN 750 MG /D5W 150ML 750 MG in PREMIX 1 EA IV SCH (12:00)
[2017-11-23] MEDS ORDERED: LORAZEPAM INJ 2 MG/ML VIAL IV ONE (13:00)
[2017-11-24] MEDS: ALBUTEROL FS 2.5 MG/0.5 ML VIAL.NEB NEB SCH ×6 (03:11→23:30)
[2017-11-24] MEDS: IPRATROPIUM NEB FS 0.5 MG/2.5 ML AMPUL.NEB NEB SCH ×6 (03:11→23:30)
[2017-11-24 04:00] VITALS: BP 114/71
[2017-11-24 08:00] VITALS: BP 105/58
[2017-11-24] MEDS: ATORVASTATIN 10 MG TABLET PO SCH (08:58)
[2017-11-24] MEDS: GUAIFENESIN LA 600 MG TABLET.SA PO SCH ×2 (08:58→20:15)
[2017-11-24] MEDS: clonazePAM 1 MG TABLET PO SCH ×2 (08:59→17:00)
[2017-11-24] MEDS: LISINOPRIL (5MG) 5 MG TABLET PO SCH (08:59)
[2017-11-24] MEDS: PANTOPRAZOLE 40 MG VIAL IV SCH (08:59)
[2017-11-24] MEDS: methylPREDNISolone SOD SUCC 125 MG/2ML VIAL IV SCH ×2 (08:59→17:00)
[2017-11-24] MEDS: METFORMIN 500 MG TABLET PO SCH ×2 (08:59→17:00)
[2017-11-24] MEDS: LEVOTHYROXINE SODIUM 100 MCG TABLET PO SCH (08:59)
[2017-11-24] MEDS: LEVOFLOXACIN (750 MG) 750 MG TABLET PO SCH (12:23)
[2017-11-24 16:00] VITALS: BP 120/65
[2017-11-24 20:00] VITALS: BP 109/57
[2017-11-25] MEDS: IPRATROPIUM NEB FS 0.5 MG/2.5 ML AMPUL.NEB NEB SCH ×6 (03:18→23:30)
[2017-11-25] MEDS: ALBUTEROL FS 2.5 MG/0.5 ML VIAL.NEB NEB SCH ×6 (03:18→23:30)
[2017-11-25 04:00] VITALS: BP 114/55
[2017-11-25 07:41] LABS: BASOPHILS % (AUTO) 0.5 % (0.0-2.0); EOSINOPHILS # (AUTO) 0.2 /CMM (0.0-0.7); EOSINOPHILS % (AUTO) 3.1 % (0.0-6.0); HEMATOCRIT 40 % (33-45); HEMOGLOBIN 13.6 g/dL (11.5-14.8); LYMPHOCYTES % (AUTO) 33.4 % (20.0-44.0); MEAN CORPUSCULAR HEMOGLOBIN 34 PG (26.0-33.0); MEAN CORPUSCULAR HGB CONC 35 g/dl (31.0-36.0); MEAN CORPUSCULAR VOLUME 99 fL (82-100); MONOCYTES # (AUTO) 0.6 /CMM (0.1-1.30); MONOCYTES % (AUTO) 9.8 % (2.0-12.0); NEUTROPHILS # (AUTO) 3.2 /CMM (1.8-8.9); NEUTROPHILS % (AUTO) 53.2 % (43.0-81.0); PLATELET COUNT (AUTO) 223 /CMM (150-450); RDW COEFFICIENT OF VARIATION 13.9 (11.5-15.0); RED BLOOD CELL COUNT(AUTO) 3.97 MIL/uL (4.0-5.2)
[2017-11-25 07:59] LABS: CALCIUM, SERUM 8.2 mg/dL (8.5-10.1); CREATININE 0.6 mg/dL (0.6-1.3); MAGNESIUM 1.9 mg/dL (1.8-2.4); PHOSPHORUS 3.5 mg/dL (2.5-4.9); POTASSIUM 3.7 mmol/L (3.5-5.1)
[2017-11-25 08:00] VITALS: BP 121/63
[2017-11-25] MEDS: LEVOTHYROXINE SODIUM 100 MCG TABLET PO SCH (08:29)
[2017-11-25] MEDS: PANTOPRAZOLE 40 MG VIAL IV SCH (08:29)
[2017-11-25] MEDS: METFORMIN 500 MG TABLET PO SCH ×2 (08:29→16:44)
[2017-11-25] MEDS: methylPREDNISolone SOD SUCC 125 MG/2ML VIAL IV SCH (08:29)
[2017-11-25] MEDS: clonazePAM 1 MG TABLET PO SCH ×2 (08:29→16:44)
[2017-11-25] MEDS: GUAIFENESIN LA 600 MG TABLET.SA PO SCH ×2 (08:30→21:00)
[2017-11-25] MEDS: ATORVASTATIN 10 MG TABLET PO SCH (08:30)
[2017-11-25] MEDS: LISINOPRIL (5MG) 5 MG TABLET PO SCH (08:30)
[2017-11-25] MEDS: LEVOFLOXACIN (750 MG) 750 MG TABLET PO SCH (11:49)
[2017-11-25] MEDS ORDERED: PRED10TA23 PO (14:30)
[2017-11-25] MEDS ORDERED: MORPHINE SULFATE INJ 4 MG/ML DISP.SYRIN IV ONE (14:30)
[2017-11-25] MEDS ORDERED: ACET325T53 PO (14:30)
[2017-11-25 16:00] VITALS: BP 112/67
[2017-11-25 20:00] VITALS: BP 113/60
[2017-11-26] MEDS: ALBUTEROL FS 2.5 MG/0.5 ML VIAL.NEB NEB SCH ×2 (02:46→08:03)
[2017-11-26] MEDS: IPRATROPIUM NEB FS 0.5 MG/2.5 ML AMPUL.NEB NEB SCH ×2 (02:46→08:03)
[2017-11-26 04:00] VITALS: BP 105/70
[2017-11-26 08:00] VITALS: BP 116/71
[2017-11-26] MEDS: GUAIFENESIN LA 600 MG TABLET.SA PO SCH (08:36)
[2017-11-26 08:37] VITALS: BP 116/71
[2017-11-26] MEDS: METFORMIN 500 MG TABLET PO SCH (08:37)
[2017-11-26] MEDS: ATORVASTATIN 10 MG TABLET PO SCH (08:37)
[2017-11-26] MEDS: clonazePAM 1 MG TABLET PO SCH (08:37)
[2017-11-26] MEDS: LEVOTHYROXINE SODIUM 100 MCG TABLET PO SCH (08:37)
[2017-11-26] MEDS: LISINOPRIL (5MG) 5 MG TABLET PO SCH (08:37)
== END 2017-11-26 10:11 | disposition home or self-care (01) | DRG 189 ==
LOC: ER 10:09 → ICU 11:51 → TELE-TD 12:46 → TELE1 13:08 → MEDSG1 11-23 10:47
PROVIDERS: ADMIT Internal Medicine; ATTEND Internal Medicine
PROC: 05H533Z Insertion of Infusion Device into Right Subclavian Vein, Percutaneous Approach (ICD-10-PCS; principal; 2017-11-22)
DX: J96.21 Acute and chronic respiratory failure with hypoxia (principal); N17.0 Acute kidney failure with tubular necrosis; J44.1 Chronic obstructive pulmonary disease with (acute) exacerbation; E11.9 Type 2 diabetes mellitus without complications; E86.0 Dehydration; F17.210 Nicotine dependence, cigarettes, uncomplicated; I10 Essential (primary) hypertension; Z85.828 Personal history of other malignant neoplasm of skin; Z86.73 Personal history of transient ischemic attack (TIA), and cerebral infarction without residual deficits; Z79.84 Long term (current) use of oral hypoglycemic drugs
CPT/HCPCS: 36415; 36600; 71045-TC; 80048-TC; 80053-TC; 80076-TC; 82803-TC; 83605-TC; 83735-TC; 83880; 84100-TC; 84484-TC; 85025-TC; 85730-TC; 87040-TC; 87081-TC; A4216; A4606; C9113; J1956; J2060; J2270; J2930; J3475; J7030; J7050; Z7610

== ENCOUNTER 2017-12-13 19:58 | Inpatient (IN) | payer OTHER ==
[~2017-12-13] VITALS: Ht 160 cm; Wt 73.7 kg
[~2017-12-13 19:58] MED LIST changes: +ACET325T53 PO; +CLON1TAB4 PO; -LEVO500T75 PO; +LISI2.5T2 PO; +PRED10TA23 PO; -PRED50TA PO
--- NOTE | 2017-12-13 20:02 | NUR ---
BIBSELF C/O SOB SINCE LAST NIGHT. AT HOME ON 2L NC. PT PLACED IN HOSPITAL GOWN AND ON MONITOR WITH POX. PT AAOX4. PT STATES TO SMOKING 5 STICKS A DAY. PT IS NOTED TO HAVE MILD RESPIRATORY DISTRESS. PT IS PLACED ON A NR AT 15L/M WITH POX 98. SKIN IS WNL. PT IS ABLE TO SPEAK FULL SENTENCES WITH NO DISTRESS. AWAITING MD FOR EVAL.
[2017-12-13] MEDS ORDERED: methylPREDNISolone SOD SUCC 125 MG/2ML VIAL ONE (20:10)
[2017-12-13] MEDS: IPRATROPIUM NEB FS 0.5 MG/2.5 ML AMPUL.NEB NEB ONE ×2 (20:21→20:26)
[2017-12-13] MEDS: ALBUTEROL FS 2.5 MG/3 ML VIAL.NEB NEB ONE ×2 (20:21→20:26)
[2017-12-13 20:22] LABS: BASOPHILS # (AUTO) 0.2 /CMM (0.0-0.2); BASOPHILS % (AUTO) 1.6 % (0.0-2.0); EOSINOPHILS # (AUTO) 0.1 /CMM (0.0-0.7); EOSINOPHILS % (AUTO) 0.7 % (0.0-6.0); HEMATOCRIT 46 % (33-45); HEMOGLOBIN 15.6 g/dL (11.5-14.8); LYMPHOCYTES # (AUTO) 0.6 /CMM (0.8-4.8); MEAN CORPUSCULAR HEMOGLOBIN 33 PG (26.0-33.0); MEAN CORPUSCULAR HGB CONC 34 g/dl (31.0-36.0); MEAN CORPUSCULAR VOLUME 98 fL (82-100); MONOCYTES # (AUTO) 0.8 /CMM (0.1-1.30); MONOCYTES % (AUTO) 8.1 % (2.0-12.0); NEUTROPHILS # (AUTO) 8.6 /CMM (1.8-8.9); NEUTROPHILS % (AUTO) 83.6 % (43.0-81.0); PLATELET COUNT (AUTO) 184 /CMM (150-450); RDW COEFFICIENT OF VARIATION 13.3 (11.5-15.0); RED BLOOD CELL COUNT(AUTO) 4.76 MIL/uL (4.0-5.2); WHITE BLOOD COUNT (AUTO) 10.3 K/uL (4.3-11.0)
--- NOTE | 2017-12-13 20:25 | NUR ---
RT BEDSIDE FOR BREATHING TREATMENT
[2017-12-13] MEDS ORDERED: IPRATROPIUM NEB FS 0.5 MG/2.5 ML AMPUL.NEB ONE (20:27)
[2017-12-13] MEDS ORDERED: ALBUTEROL FS 2.5 MG/3 ML VIAL.NEB ONE (20:27)
[2017-12-13] MEDS ORDERED: ALBUTEROL FS 2.5 MG/0.5 ML VIAL.NEB ONE (20:27)
[2017-12-13] MEDS ORDERED: methylPREDNISolone SOD SUCC 125 MG/2ML VIAL IV ONE (20:30)
[2017-12-13 20:31] LABS: CALCIUM, SERUM 8.6 mg/dL (8.5-10.1); CARBON DIOXIDE 29 mmol/L (21-32); CHLORIDE 102 mmol/L (98-107); CREATININE 0.7 mg/dL (0.6-1.3); GLUCOSE 159 mg/dL (74-106); POTASSIUM 3.5 mmol/L (3.5-5.1); SODIUM SERUM 136 mmol/L (136-145); UREA NITROGEN, BLOOD 20 mg/dL (7-18)
[2017-12-13 20:39] LABS: TROPONIN I < 0.017 ng/mL (0.00-0.056)
[2017-12-13 20:44] LABS: ALANINE AMINOTRANSFERASE 25 U/L (12-78); ALBUMIN 3.3 g/dL (3.4-5.0); ALKALINE PHOSPHATASE 80 U/L (46-116); ASPARTATE AMINOTRANSFERASE 11 U/L (15-37); B-TYPE NATRIURETIC PEPTIDE 123 PG/ML (0-125); BILIRUBIN,DIRECT 0.1 mg/dL (0.0-0.2); BILIRUBIN,TOTAL 0.3 mg/dL (0.2-1.0); TOTAL PROTEIN, SERUM 6.4 g/dL (6.4-8.2)
[2017-12-13] MEDS ORDERED: ZOLPIDEM TARTRATE 5 MG TABLET PO PRN (21:30)
[2017-12-13] MEDS ORDERED: ONDANSETRON HCL/PF 4 MG/2 ML VIAL IVP PRN (21:30)
[2017-12-13] MEDS ORDERED: ALBUTEROL FS 2.5 MG/3 ML VIAL.NEB NEB PRN (21:30)
[2017-12-13] MEDS ORDERED: IPRATROPIUM NEB FS 0.5 MG/2.5 ML AMPUL.NEB NEB PRN (21:30)
[2017-12-13] MEDS ORDERED: MORPHINE SULFATE INJ 2 MG/ML DISP.SYRIN IV PRN (21:30)
[2017-12-13] MEDS ORDERED: ACETAMINOPHEN 325 MG TABLET PO PRN (21:30)
[2017-12-13] MEDS ORDERED: LEVALBUTEROL HCL NEB 1.25 MG/0.5 ML VIAL.NEB NEB PRN (22:00)
[2017-12-13] MEDS ORDERED: DEXTROSE 50%-WATER 50 ML DISP.SYRIN IV PRN (22:00)
[2017-12-13] MEDS ORDERED: methylPREDNISolone SOD SUCC 40 MG/ML VIAL IV ONE (22:00)
--- NOTE | 2017-12-13 22:12 | NUR ---
Marla to in ED - 12/13/17 at 2213 by FILOMENA GAVE REPORT TO ALEX BRANHAM OF [facility]. PT TRANSFERRED WITH ACLS PROTOCOL
--- NOTE | 2017-12-13 22:14 | NUR ---
GAVE REPORT TO PRINTING PLATE SETTEREMI BRANHAM OF [facility]. PT TRANSFERRED WITH ACLS PROTOCOL
--- NOTE | 2017-12-13 22:15 | NUR ---
SEAMLESS TUBE MILL OPERATOR NOTES PT ARRIVED TO TELE UNIT, BROUGHT BY ER NURSE ASHLEY VIA GURNEY. PT IS A/O X4, CURRENTLY EXPERIENCING SOB, ON O2 @2L/MIN VIA NC, SATURATING AT 94%. PT IS AFEBRILE. DENIES ANY CHEST PAIN, N/V. PER PT, SHE HAS BEEN HERE BEFORE FOR SOB. PUPILS ARE REACTIVE TO LIGHT. BILATERAL HAND TELESALES CONSULTANT ARE STRONG AND EQUAL. ABDOMEN IS SOFT AND NONDISTENDED, BOWEL SOUNDS PRESENT IN ALL 4 QUADRANTS UPON AUSCULTATION. DENIES ANY BLADDER DISCOMFORT. PT IS CONTINENT OF BOTH BOWEL AND BLADDER. CAN AMBULATE WITH ASSISTANCE. NO SKIN ISSUES NOTED. VITAL SIGNS ARE WNL. IV TO RAC G18 INTACT, NO INFILTRATION NOTED. DRESSING KEPT CLEAN AND DRY. TELE LEADS APPLIED TO PT AND IS SR 97. SAFETY MEASURES IN PLACE. INSTRUCTED PT TO USE CALL LIGHT WHEN ASSISTANCE IS NEEDED, CALL LIGHT LEFT WITHIN REACH. WILL CONTINUE TO MONITOR THROUGHOUT SHIFT.
[2017-12-13 22:30] VITALS: BP 106/71
[2017-12-13] MEDS: BLOOD SUGAR DIAGNOSTIC 1 EACH STRIP IN SCH (23:14)
[2017-12-13] MEDS ORDERED: LEVOFLOXACIN 500 MG /D5W 100ML 100 ML IV ONE (23:26)
[2017-12-13] MEDS ORDERED: ALBUTEROL FS 2.5 MG/3 ML VIAL.NEB NEB SCH (23:30)
[2017-12-13] MEDS: LEVOFLOXACIN 500 MG /D5W 100ML 500 MG in PREMIX 1 EA IV SCH (23:38)
[2017-12-14] MEDS: LEVALBUTEROL HCL NEB 1.25 MG/0.5 ML VIAL.NEB NEB SCH ×6 (00:19→22:48)
[2017-12-14] MEDS: IPRATROPIUM NEB FS 0.5 MG/2.5 ML AMPUL.NEB NEB SCH ×6 (00:19→22:48)
[2017-12-14] MEDS: IV NS 0.9% 1,000 ML IV PRN (00:24)
--- NOTE | 2017-12-14 00:45 | NUR ---
ATTEMPTED TO DO ARTERIAL BLOOD GAS, PT REFUSED. EMI BRANHAM NOTIFIED
[2017-12-14 04:00] VITALS: BP 95/57
[2017-12-14] MEDS: methylPREDNISolone SOD SUCC 40 MG/ML VIAL IV SCH ×3 (05:50→20:57)
--- NOTE | 2017-12-14 06:57 | NUR ---
RN Closing Notes All due meds given, needs met and rendered. Pt is awake and responsive. Pt continues to appear short of breath, shallow respirations. Currently on O2 @2L/min via NC, saturating at 95%. HOB kept elevated to enhance breathing. Denies any chest pain, n/v. On continuous monitoring on tele for sinus tachycardia. pt able to ambulate to bathroom, but noted with minimal exertion upon ambulating. tolerated breathing txs well. Educated pt on pursed lip breathing and taking slow, deep breaths to maxmize lung expansion. pt able to perform return demonstration. Safety measures in place. Will endorse to next shift for continuity of care.
[2017-12-14] MEDS: BLOOD SUGAR DIAGNOSTIC 1 EACH STRIP IN SCH ×4 (07:30→22:17)
[2017-12-14 07:38] LABS: HEMATOCRIT 38 % (33-45); HEMOGLOBIN 13.1 g/dL (11.5-14.8); LYMPHOCYTES # (AUTO) 0.2 /CMM (0.8-4.8); LYMPHOCYTES % (AUTO) 4.7 % (20.0-44.0); MEAN CORPUSCULAR HEMOGLOBIN 34 PG (26.0-33.0); MEAN CORPUSCULAR HGB CONC 34 g/dl (31.0-36.0); MEAN CORPUSCULAR VOLUME 98 fL (82-100); MONOCYTES # (AUTO) 0.2 /CMM (0.1-1.30); MONOCYTES % (AUTO) 5.5 % (2.0-12.0); NEUTROPHILS # (AUTO) 3.9 /CMM (1.8-8.9); NEUTROPHILS % (AUTO) 89.8 % (43.0-81.0); PLATELET COUNT (AUTO) 139 /CMM (150-450); RDW COEFFICIENT OF VARIATION 14.1 (11.5-15.0); RED BLOOD CELL COUNT(AUTO) 3.89 MIL/uL (4.0-5.2); WHITE BLOOD COUNT (AUTO) 4.3 K/uL (4.3-11.0)
[2017-12-14 07:58] LABS: ALBUMIN 2.8 g/dL (3.4-5.0); BILIRUBIN,TOTAL 0.2 mg/dL (0.2-1.0); CALCIUM, SERUM 8.4 mg/dL (8.5-10.1); CREATININE 0.7 mg/dL (0.6-1.3); MAGNESIUM 2.1 mg/dL (1.8-2.4); PHOSPHORUS 3.9 mg/dL (2.5-4.9); POTASSIUM 4.5 mmol/L (3.5-5.1); TOTAL PROTEIN, SERUM 5.7 g/dL (6.4-8.2)
[2017-12-14 08:00] VITALS: BP 101/73
--- NOTE | 2017-12-14 08:15 | NUR ---
ms rn received on bed,awake,alert,oriented x4,not in any form of distress, respirations even and unlabored,no sob noted, lungs both ronchis,abdomen soft,positive bowel sounds, denies pain at this time. will monitor patient's condition.
[2017-12-14 08:17] LABS: THYROID STIMULATING HORMONE 0.909 uIU/mL (0.358-3.74)
--- NOTE | 2017-12-14 09:45 | NUR ---
ms chin breakfast served,due meds given,tolerated well.
[2017-12-14] MEDS: METFORMIN 500 MG TABLET PO SCH ×2 (10:46→17:36)
[2017-12-14] MEDS: LEVOTHYROXINE SODIUM 100 MCG TABLET PO SCH (10:47)
[2017-12-14] MEDS: NICOTINE PATCH (14MG) 14 MG PATCH.TD24 TD SCH ×2 (10:47→11:06)
[2017-12-14] MEDS: ATORVASTATIN 10 MG TABLET PO SCH (10:47)
[2017-12-14] MEDS: clonazePAM 1 MG TABLET PO SCH ×2 (10:47→17:36)
[2017-12-14] MEDS: PANTOPRAZOLE 40 MG TABLET.DR PO SCH (10:47)
[2017-12-14] MEDS: FLUTICASONE/VILANTEROL 1 EACH BLST.W.DEV IH SCH (10:49)
[2017-12-14] MEDS: LISINOPRIL (5MG) 5 MG TABLET PO SCH (10:54)
[2017-12-14] MEDS: MONTELUKAST SODIUM (10MG) 10 MG TABLET PO SCH (10:56)
[2017-12-14 10:59] LABS: ABG BASE EXCESS 2.5 mmol/L; ABG OXYGEN SATURATION 95.6 % (92.0-98.5); ABG PCO2 40.3 mmHg (35.0-45.0); ABG PH 7.441 (7.350-7.450); ABG PO2 84.3 mmHg (75.0-100.0); AaDO2 67.8 mmHg; COHb 1.3 % (0.5-1.5); MetHb 0.5 % (0.0-1.5); O2Hb 93.9 % (94.0-97.0); SITE, ABG Left Femoral
[2017-12-14 12:00] VITALS: BP 119/73
[2017-12-14] MEDS: INSULIN REGULAR, HUMAN 100 UNIT/ML 3 ML VIAL SQ PRN ×3 (12:26→22:52)
[2017-12-14 16:00] VITALS: BP 123/70
--- NOTE | 2017-12-14 16:00 | NUR ---
MS RN WAS SEEN BY DR. MOISE, WILL HAVE SURGERY IN AM.
--- NOTE | 2017-12-14 17:56 | NUR ---
MS RN ON BED, NO CHANGE OF CONDITION.
--- NOTE | 2017-12-14 19:20 | NUR ---
RN OPENING NOTES PATIENT IN BED, SLEEPING COMFORTABLY IN BED BUT EASILY AROUSABLE, ALERT AND ORIENTED X 3, PATIENT NOTED WITH NO SOB, VERBALLY RESPONSIVE, BREATHING EVEN AND UNLABORED,NO C/O PAIN AT THIS TIME AND IS IN NO ACUTE DISTRESS. ALL PATIENT'S NEEDS ATTENDED TO AT THIS TIME. PT ON TELE MONITORING WITH SR @ 86 BPM. WILL CONTINUE TO MONITOR.
[2017-12-14 20:00] VITALS: BP 134/64
[2017-12-14] MEDS ORDERED: GUAIFENESIN/D-METHORPHAN HB 5 ML UDC PO PRN (22:00)
--- NOTE | 2017-12-14 22:15 | NUR ---
RN NOTE PATIENT BACK IN UNIT FROM SMOKING A CIGARETTE, IN STABLE CONDITION. WILL CONTINUE TO MONITOR.
--- NOTE | 2017-12-14 22:15 | NUR ---
RN NOTE PATIENT REQUESTED TO GO DOWN TO SMOKE, INFORMED PT OF THE RISKS OF SMOKING, PATIENT NOTED TO BE AGITATED BUT VERBALIZED UNDERSTANDING OF RISKS OF SMOKING AND CONTINUES TO VERBALIZE DESIRE TO SMOKE A CIGARETTE. PATIENT ACCOMPANIED BY TYPING CHECKER TO GO DOWN AND SMOKE. WILL CONTINUE TO MONITOR. Addendum: 12/15/17 at 0217 by SARA KENYON RN PATIENT WENT TO SMOKE A CIGARETTE AT 2200 AND CAME BACK AT 2215.
[2017-12-14] MEDS: LEVOFLOXACIN 500 MG /D5W 100ML 500 MG in PREMIX 1 EA IV SCH (22:17)
[2017-12-15] VITALS: BP 122/74
[2017-12-15] MEDS: LEVALBUTEROL HCL NEB 1.25 MG/0.5 ML VIAL.NEB NEB SCH ×4 (02:47→15:30)
[2017-12-15] MEDS: IPRATROPIUM NEB FS 0.5 MG/2.5 ML AMPUL.NEB NEB SCH ×4 (02:47→15:30)
[2017-12-15 03:40] LABS: APPEARANCE,URINE CLEAR (CLEAR); BILIRUBIN,URINE NEGATIVE (NEGATIVE); BLOOD, URINE NEGATIVE Ery/uL (NEGATIVE); COLOR,URINE YELLOW (YELLOW); KETONES,URINE NEGATIVE (NEGATIVE); LEUKOCYTE ESTERASE ,URINE NEGATIVE (NEGATIVE); NITRITE, URINE NEGATIVE (NEGATIVE); PH,URINE 5.5 (5.0-8.0); PROTEIN,URINE NEGATIVE (NEGATIVE); UGLUCOSE 3+ mg/dL (NEGATIVE); UROBILINOGEN,URINE 0.2 EU/dL (0.2)
[2017-12-15 03:45] LABS: BACTERIA,URINE None seen /HPF (None Seen); RBC,URINE 0-2 /HPF (0-2); WBC,URINE 0-2 /HPF (0-3)
[2017-12-15 03:46] LABS: MUCUS,URINE Few /LPF (None Seen); SQUAMOUS EPITHELIAL CELL,UR Few /HPF (None Seen); YEAST,URINE Few /HPF (None Seen)
[2017-12-15 04:00] VITALS: BP 108/55
[2017-12-15] MEDS: methylPREDNISolone SOD SUCC 40 MG/ML VIAL IV SCH ×2 (04:20→12:03)
[2017-12-15] MEDS: IV NS 0.9% 1,000 ML IV PRN (04:20)
[2017-12-15] MEDS: LEVOTHYROXINE SODIUM 100 MCG TABLET PO SCH (06:32)
[2017-12-15] MEDS: PANTOPRAZOLE 40 MG TABLET.DR PO SCH (06:32)
[2017-12-15] MEDS: BLOOD SUGAR DIAGNOSTIC 1 EACH STRIP IN SCH ×3 (06:32→17:59)
[2017-12-15] MEDS: INSULIN REGULAR, HUMAN 100 UNIT/ML 3 ML VIAL SQ PRN ×2 (06:40→12:04)
--- NOTE | 2017-12-15 06:41 | NUR ---
RN CLOSING NOTES PATIENT IN BED, AWAKE, ALERT AND ORIENTED X 4, ABLE TO MAKE NEEDS KNOWN, NO SOB NOTED, BREATHING EVEN AND UNLABORED, IN NO ACUTE DISTRESS, WITH NO C/O PAIN. ALL PATIENT'S NEEDS ATTENDED TO AT THIS TIME. PT CONTINUES TO RECEIVE O2 VIA NC @2LPM, IVF ORDERED INFUSING ON IV PERIPHERAL LINE ON RAC G 18. CALL LIGHT PLACED WITHIN EASY REACH. WILL CONTINUE TO MONITOR PT.
--- NOTE | 2017-12-15 07:47 | NUR ---
RT NOTE PT REFUSED BREATHING TX AT THIS TIME
[2017-12-15 08:00] VITALS: BP 106/66
--- NOTE | 2017-12-15 08:30 | NUR ---
ms rn refused accucheck, patient is so noncompliant.
--- NOTE | 2017-12-15 08:30 | NUR ---
MS RN RECEIVED ON BED, AWAKE,ALERT,ORIENTED X3,NOT IN ANY FORM OF DISTRESS, RESPIRATIONS EVEN AND UNLABORED,NO SOB NOTED.LUNGS A RE CLEAR,ABDOMEN SOFT,POSITIVE BOWEL SOUNDS, DENIES PAIN AT THIS TIME, WILL MONITOR PATIENT.
[2017-12-15 09:00] VITALS: BP 101/60
[2017-12-15] MEDS: METFORMIN 500 MG TABLET PO SCH ×2 (09:00→17:59)
[2017-12-15] MEDS: ATORVASTATIN 10 MG TABLET PO SCH (09:00)
[2017-12-15] MEDS: clonazePAM 1 MG TABLET PO SCH ×2 (09:00→17:59)
[2017-12-15] MEDS: MONTELUKAST SODIUM (10MG) 10 MG TABLET PO SCH (09:00)
[2017-12-15] MEDS: LISINOPRIL (5MG) 5 MG TABLET PO SCH (09:00)
[2017-12-15] MEDS: FLUTICASONE/VILANTEROL 1 EACH BLST.W.DEV IH SCH (09:00)
--- NOTE | 2017-12-15 09:00 | NUR ---
MS MIDDLETON BREAKFAST SERVED,DUE MEDS GIVEN,TOLERATED WELL.
[2017-12-15] MEDS ORDERED: LEVO750T21 PO (10:45)
[2017-12-15] MEDS ORDERED: PRED20TA GT (10:45)
[2017-12-15] MEDS ORDERED: PRED20TA PO (10:45)
--- NOTE | 2017-12-15 12:00 | NUR ---
ms chin bs - 375 - 10 units of regular insulin given.
--- NOTE | 2017-12-15 16:00 | NUR ---
ms rn ready to go home, waiting for son.
--- NOTE | 2017-12-15 18:00 | NUR ---
ms rn bs -165 - refused coverage, wants to go home.
--- NOTE | 2017-12-15 18:45 | NUR ---
ms rn went home accompanied by son, discharge instructions given.
== END 2017-12-15 18:15 | disposition home health service (06) | DRG 190 ==
LOC: ER 19:59 → TELE 21:40 → MED 12-15 09:27
PROVIDERS: ADMIT Nurse Practitioner Acute Care; ATTEND Nurse Practitioner Acute Care
DX: J44.1 Chronic obstructive pulmonary disease with (acute) exacerbation (principal); N17.0 Acute kidney failure with tubular necrosis; J96.10 Chronic respiratory failure, unspecified whether with hypoxia or hypercapnia; J44.0 Chronic obstructive pulmonary disease with (acute) lower respiratory infection; Z99.81 Dependence on supplemental oxygen; Z86.73 Personal history of transient ischemic attack (TIA), and cerebral infarction without residual deficits; Z87.01 Personal history of pneumonia (recurrent); F17.210 Nicotine dependence, cigarettes, uncomplicated; I10 Essential (primary) hypertension; Z85.828 Personal history of other malignant neoplasm of skin; R00.0 Tachycardia, unspecified; E11.65 Type 2 diabetes mellitus with hyperglycemia; J20.9 Acute bronchitis, unspecified; Z91.19 Patient's noncompliance with other medical treatment and regimen; Z79.84 Long term (current) use of oral hypoglycemic drugs
CPT/HCPCS: 36415; 36600; 71045-TC; 80048-TC; 80053-TC; 80061-TC; 80076-TC; 81000-TC; 82962-TC; 83735-TC; 83880; 84100-TC; 84443-TC; 84484-TC; 85025-TC; 85378-TC; 87081-TC; 87086-TC; 94799-TC; A4216; A4606; J1956; J2920; J7030; J7050; Z7610

== ENCOUNTER 2017-12-17 22:15 | Inpatient (IN) | payer OTHER ==
[~2017-12-17] VITALS: Ht 162.6 cm; Wt 74.8 kg
[~2017-12-17 22:15] MED LIST changes: +LEVO750T21 PO; -PRED10TA23 PO; +PRED20TA GT; +PRED20TA PO
--- NOTE | 2017-12-17 22:15 | NUR ---
BIBRA 60 FROM FOR SOB. PER RA BARFIELD ALBUTEROL. PT SOB WITH TACHYCARDIA INTO 190'S. NO PAIN NOTED. WILL CONTINUE TO MONITOR FOR ANY CHANGES
[2017-12-17] MEDS ORDERED: Magnesium 1GM/D5W 100ML PREMIX 200 ML IV ONE ×2 (22:17→22:21)
[2017-12-17] MEDS ORDERED: methylPREDNISolone SOD SUCC 125 MG/2ML VIAL ONE (22:21)
--- NOTE | 2017-12-17 22:27 | NUR ---
CO FOUNDER & CEO AT BEDSIDE
--- NOTE | 2017-12-17 22:28 | NUR ---
EKG AT BEDSIDE
[2017-12-17] MEDS ORDERED: ALBUTEROL FS 2.5 MG/3 ML VIAL.NEB CONTNEB ONE (22:30)
[2017-12-17] MEDS ORDERED: methylPREDNISolone SOD SUCC 125 MG/2ML VIAL IV ONE (22:30)
[2017-12-17] MEDS ORDERED: IPRATROPIUM NEB FS 0.5 MG/2.5 ML AMPUL.NEB NEB ONE (22:30)
--- NOTE | 2017-12-17 22:51 | NUR ---
Marla to in [facility] - 12/17/[address] at [address] SAM GARCIA 2ND TIME.
--- NOTE | 2017-12-17 22:52 | NUR ---
PT IS MORE ALERT. DECIDING BETWEEN INTUBATION IF SHE CANNOT BREATH ANYMORE OF USING BIPAP
[2017-12-17 22:57] LABS: BASOPHILS % (AUTO) 0.1 % (0.0-2.0); EOSINOPHILS % (AUTO) 0.1 % (0.0-6.0); HEMATOCRIT 45 % (33-45); HEMOGLOBIN 15.3 g/dL (11.5-14.8); LYMPHOCYTES # (AUTO) 2.8 /CMM (0.8-4.8); MEAN CORPUSCULAR HEMOGLOBIN 33 PG (26.0-33.0); MEAN CORPUSCULAR HGB CONC 34 g/dl (31.0-36.0); MEAN CORPUSCULAR VOLUME 98 fL (82-100); MONOCYTES # (AUTO) 2.4 /CMM (0.1-1.30); MONOCYTES % (AUTO) 12.2 % (2.0-12.0); NEUTROPHILS # (AUTO) 14.6 /CMM (1.8-8.9); NEUTROPHILS % (AUTO) 73.6 % (43.0-81.0); PLATELET COUNT (AUTO) 211 /CMM (150-450); RDW COEFFICIENT OF VARIATION 14.1 (11.5-15.0); WHITE BLOOD COUNT (AUTO) 19.8 K/uL (4.3-11.0)
[2017-12-17 23:08] LABS: CALCIUM, SERUM 9.2 mg/dL (8.5-10.1); CARBON DIOXIDE 29 mmol/L (21-32); CHLORIDE 100 mmol/L (98-107); GLUCOSE 186 mg/dL (74-106); POTASSIUM 3.9 mmol/L (3.5-5.1); SODIUM SERUM 139 mmol/L (136-145); UREA NITROGEN, BLOOD 26 mg/dL (7-18)
[2017-12-17 23:15] LABS: BAND % (MANUAL) 4 % (0.0-5.0); LYMPHOCYTES % (MANUAL) 16 % (16-48); MONOCYTES % (MANUAL) 10 % (0-11.0); NEUTROPHILS % (MANUAL) 70 (42-76)
[2017-12-17 23:16] LABS: TROPONIN I < 0.017 ng/mL (0.00-0.056)
--- NOTE | 2017-12-17 23:17 | NUR ---
BED 255
[2017-12-17 23:21] LABS: ALANINE AMINOTRANSFERASE 27 U/L (12-78); ALBUMIN 3.1 g/dL (3.4-5.0); ALKALINE PHOSPHATASE 80 U/L (46-116); ASPARTATE AMINOTRANSFERASE 13 U/L (15-37); B-TYPE NATRIURETIC PEPTIDE 180 PG/ML (0-125); BILIRUBIN,DIRECT 0.1 mg/dL (0.0-0.2); BILIRUBIN,TOTAL 0.4 mg/dL (0.2-1.0); TOTAL PROTEIN, SERUM 6.8 g/dL (6.4-8.2)
--- NOTE | 2017-12-17 23:30 | NUR ---
PT REC'D ON NEBULIZER TX 8L. SOB AND RESP DISTRESS NOTED. PT PLACED ON BIPAP PER DR LOVELACE REQUEST. BIPAP PLUGGED INTO RED OUTLET. ALARMS ARE SET AND AUDIBLE. JOSUÉU LUIS ARMANDO BEDSIDE. WILL CONTINUE TO MONITOR. Addendum: 12/17/17 at 3047 by NU WALTERS RT Amended: Links added.
--- NOTE | 2017-12-17 23:44 | NUR ---
CALLED ICU REPORT. AWAITING CALL BACK FROM EMI
[2017-12-17 23:49] LABS: ABG BASE EXCESS 1.9 mmol/L; ABG PCO2 41.3 mmHg (35.0-45.0); ABG PH 7.425 (7.350-7.450); ABG PO2 98.1 mmHg (75.0-100.0); AaDO2 139.6 mmHg; MetHb 0.3 % (0.0-1.5); O2Hb 93.7 % (94.0-97.0); SITE, ABG Right Brachial
--- NOTE | 2017-12-17 23:49 | NUR ---
ER AT BEDSIDE
[2017-12-17 23:53] VITALS: BP 134/89
--- NOTE | 2017-12-17 23:58 | NUR ---
REPORT GIVEN TO LEILA
[2017-12-18] VITALS (19 sets, daily range): BP systolic 80–136; BP diastolic 51–87
[2017-12-18] MEDS ORDERED: LEVALBUTEROL HCL NEB 1.25 MG/0.5 ML VIAL.NEB ONE (01:51)
[2017-12-18] MEDS ORDERED: IPRATROPIUM NEB FS 0.5 MG/2.5 ML AMPUL.NEB ONE (01:51)
[2017-12-18] MEDS: IPRATROPIUM NEB FS 0.5 MG/2.5 ML AMPUL.NEB NEB SCH ×7 (01:55→23:30)
[2017-12-18] MEDS: LEVALBUTEROL HCL NEB 1.25 MG/0.5 ML VIAL.NEB NEB SCH ×2 (01:55→05:49)
[2017-12-18] MEDS ORDERED: ONDANSETRON HCL/PF 4 MG/2 ML VIAL IVP PRN (02:00)
[2017-12-18] MEDS ORDERED: TEMAZEPAM 7.5 MG CAPSULE PO PRN (02:00)
[2017-12-18] MEDS ORDERED: DEXTROSE 50%-WATER 50 ML DISP.SYRIN IV PRN (02:00)
[2017-12-18] MEDS ORDERED: MAG HYDROX/AL HYDROX/SIMETH 30 ML UDC PO PRN (02:00)
[2017-12-18] MEDS ORDERED: methylPREDNISolone SOD SUCC 40 MG/ML VIAL IV SCH (02:00)
[2017-12-18] MEDS ORDERED: HYDROCODONE/APAP 5/325MG 1 EACH TABLET PO PRN (02:00)
[2017-12-18] MEDS ORDERED: hydrALAZINE HCL 25 MG TABLET PO PRN (02:00)
[2017-12-18] MEDS ORDERED: ACETAMINOPHEN 325 MG TABLET PO PRN (02:00)
[2017-12-18] MEDS ORDERED: LEVOFLOXACIN 500 MG /D5W 100ML 100 ML IV ONE (02:11)
[2017-12-18] MEDS ORDERED: methylPREDNISolone SOD SUCC 40 MG/ML VIAL ONE (02:11)
[2017-12-18] MEDS: LEVOFLOXACIN 500 MG /D5W 100ML 500 MG in PREMIX 1 EA IV SCH (02:13)
--- NOTE | 2017-12-18 04:15 | NUR ---
AERIAL SPRAYER: RECEIVED PT A/O X 3 FROM CHARGE NURSE ED. ON 6L 02 VIA NC WT NO ACUTE DISTRESS. REFUSED BIPAP 5 MINUTES AFTER ADMISSION PER CHARGE NURSE ED. NON-COMPLIANT WT CARE. PER REPORT, PT HAS NOT VOIDED SINCE ADMISSION. WT STANDING ORDER FOR URINE CULTURE, KRISHNAN CATH BUT REFUSED EVEN AT THIS TIME. NO C/O ABDOMINAL DISCOMFORT. UNABLE TO ASSESS AT THIS TIME. PT VERBALIZED SHE WANTS TO SLEEP AND NOT BE BOTHERED. IV SITE ON LEFT HAND INFILTRATED, OFFERED TO PLACE ANOTHER IV BUT REFUSED. EXPLAINED RISKS AND BENEFITS. SAFETY PRECAUTION NOTED. WILL CONTINUE TO MONITOR.
[2017-12-18 05:01] LABS: EOSINOPHILS % (AUTO) 0.1 % (0.0-6.0); HEMATOCRIT 40 % (33-45); HEMOGLOBIN 13.7 g/dL (11.5-14.8); LYMPHOCYTES # (AUTO) 0.3 /CMM (0.8-4.8); LYMPHOCYTES % (AUTO) 2.7 % (20.0-44.0); MEAN CORPUSCULAR HEMOGLOBIN 34 PG (26.0-33.0); MEAN CORPUSCULAR HGB CONC 35 g/dl (31.0-36.0); MEAN CORPUSCULAR VOLUME 97 fL (82-100); MONOCYTES # (AUTO) 0.3 /CMM (0.1-1.30); NEUTROPHILS % (AUTO) 94.2 % (43.0-81.0); PLATELET COUNT (AUTO) 140 /CMM (150-450); RED BLOOD CELL COUNT(AUTO) 4.09 MIL/uL (4.0-5.2); WHITE BLOOD COUNT (AUTO) 9.6 K/uL (4.3-11.0)
[2017-12-18 05:27] LABS: ALBUMIN 2.7 g/dL (3.4-5.0); BILIRUBIN,TOTAL 0.3 mg/dL (0.2-1.0); CALCIUM, SERUM 8.3 mg/dL (8.5-10.1); CREATININE 0.6 mg/dL (0.6-1.3); MAGNESIUM 2.4 mg/dL (1.8-2.4); PHOSPHORUS 3.6 mg/dL (2.5-4.9); TOTAL PROTEIN, SERUM 5.9 g/dL (6.4-8.2)
[2017-12-18 05:32] LABS: THYROID STIMULATING HORMONE 0.887 uIU/mL (0.358-3.74)
[2017-12-18] MEDS: methylPREDNISolone SOD SUCC 40 MG/ML VIAL IV SCH ×4 (05:53→23:03)
--- NOTE | 2017-12-18 05:53 | NUR ---
ROBOTIC MAINTENANCE TECHNICIAN: SOLUMEDROL NOT ADMINISTERED FOR 0600 DOSE BECAUSE ED, RN GAVE IT AT 0200 (TOO SOON TOO GIVE). PER VANESSA (PHARMACIST), OK TO GIVE NEXT DOSE AT 1200. PT INSISTED TO AMBULATE TO THE RESTROOM AND ABLE TO VOID TEA COLORED [id number]. STILL AT 6L 02 VIA NC WT OCCASIONAL NON-PRODUCTIVE COUGH. STILL REFUSED TO HAVE NEW IV ACCESS AT THIS TIME. PT WT EPISODES OF OUTBURSTS OF ANGER TOWARDS STAFF. VS WITHIN HER BASELINE. SAFETY PRECAUTION NOTED AT ALL TIMES.
[2017-12-18 06:39] LABS: APPEARANCE,URINE CLEAR (CLEAR); BILIRUBIN,URINE NEGATIVE (NEGATIVE); BLOOD, URINE NEGATIVE Ery/uL (NEGATIVE); COLOR,URINE YELLOW (YELLOW); KETONES,URINE 1+ (NEGATIVE); LEUKOCYTE ESTERASE ,URINE NEGATIVE (NEGATIVE); NITRITE, URINE NEGATIVE (NEGATIVE); PH,URINE 5.5 (5.0-8.0); PROTEIN,URINE NEGATIVE (NEGATIVE); UGLUCOSE 3+ mg/dL (NEGATIVE); UROBILINOGEN,URINE 0.2 EU/dL (0.2)
[2017-12-18] MEDS: glipiZIDE 5 MG TABLET PO SCH ×2 (08:18→17:13)
[2017-12-18] MEDS: METFORMIN 500 MG TABLET PO SCH ×2 (08:19→17:14)
[2017-12-18] MEDS: PANTOPRAZOLE 40 MG TABLET.DR PO SCH (08:19)
[2017-12-18] MEDS: LEVOTHYROXINE SODIUM 100 MCG TABLET PO SCH (08:19)
[2017-12-18] MEDS: clonazePAM 1 MG TABLET PO SCH ×2 (08:20→17:14)
[2017-12-18] MEDS: LISINOPRIL (5MG) 5 MG TABLET PO SCH (08:20)
[2017-12-18] MEDS: MONTELUKAST SODIUM (10MG) 10 MG TABLET PO SCH (08:20)
--- NOTE | 2017-12-18 08:40 | NUR ---
@ 0840. pt. sitting on edge of bed. awake and alert. tachypneic but in no distress. on O2 at 6L NC. sat. 98%. breakfast tray offered. pt. got mad and yelling at this RN that the food has been sitting there x 10 min. and is now cold. @0842. RN went back to the pt. room with warm breakfast. pt. started complaining that she can not breathe and this hosp. is not doing anything to help her. She said she is not getting the exact meds that she commonly takes at the right time. She said she has not had a bath and clean herself. She wants to go to [facility] and see Dr. Garcia. She wants her Proair but this med. was not ordered by her MD. Pt. is very mad and will not listen to no explanation. EMI Marin in charge, here to talk to the pt. will refer to director of casework. @0906. Dr. Saldana here to check on the pt. She told this RN that she just sent this pt. home 2 days ago and started smoking again. MD said that this pt. needs psyche consult. RN told Dr. Ramirez that pt. wants to go to [facility]. She talked to EMI Marintransmitter engineer in charge. @0915. sitting on edge of bed. meds. taken. pt. still very upset that nothing has been done re. her wish to go to [facility]. c/o multiple bruises on her arm. She wants her breathing tx. but RT said it is not due and will give it on time. RT said that pt. takes a lot of inhalers and she takes them anytime she wants. She wants to talk to the securities vault supervisor. @0955. EMI Marintransmitter engineer in charge, paged the nursing securities vault supervisor to let her know. @1017. called pharmacy re. Advair inhaler. phar. said they are switching to new product and will bring it up as soon as available. @1027. EMI Marin, talked to the pt. again. pt. only ate about 30% breakfast.
[2017-12-18] MEDS ORDERED: FLUTICASONE/SALMETEROL DISKUS IH SCH (09:00)
[2017-12-18] MEDS: INSULIN REGULAR, HUMAN 100 UNIT/ML 3 ML VIAL SQ PRN ×4 (09:24→23:09)
[2017-12-18] MEDS: BLOOD SUGAR DIAGNOSTIC 1 EACH STRIP IN SCH ×4 (09:25→22:58)
[2017-12-18] MEDS: FLUTICASONE/VILANTEROL 1 EACH BLST.W.DEV IH SCH (10:50)
--- NOTE | 2017-12-18 10:55 | NUR ---
@1055. RT was here to give breathing tx. to pt. @1106. nursing car installations supervisor here and said case packer is coming to talk to pt. @1125. pt. is extremely anxious. she said she is texting her son so she can take her to [facility]. breathing tx. was finished and RT told pt. to calm down and relax. pt. got very mad and said, " How would you feel if you can not breathe and they want you out?". She said she can not go home w/o O2, she is by herself her son is coming home at 1800 and she can not climb up the stairs to her apt. offered to ambulate pt to lower her anxiety but pt. said she does not have enough energy to do it.
--- NOTE | 2017-12-18 11:57 | NUR ---
@1157. still waiting for telephonic case manager. pt. said she is not ready to go home. afraid to stay home alone. now pt. is tearful. she said her son thinks that she is crazy and he also said that she is driving everybody crazy. pt. has smoker's cough. Tania RN in charge, is talking to pt. son via phone re. pt. situation. pt. is refusing to see a psychiatrist. pt. is hungry. jello and crackers given. pt. said hungry and very tired. has not been able to sleep for days. @1201. telephonic case manager here to see pt. psych consult being arranged by EMI Marin, and telephonic case manager. @1232. lunch served. pt. said that she is being moved somewhere in the hosp. pt. was told that she might go to tele. so she will be able to move around more w/o worrying about the EKG cables. pt. has the desire to smoke and go outside to have fresh air. pt. was told that that this is a non smoking hospital and that this is [facility] and not [facility].
--- NOTE | 2017-12-18 13:30 | NUR ---
@1330. did not eat well again at lunch. said has been losing weight due to loss of appetite. said she feels tired and wants to rest. RN reassured pt. that she can rest and sleep and she will be watched constantly. @1430. pt. is dozing. VSS. @1506. Dr. Triplett, psych, here to see pt. on consult. EMI Marindry charge process attendant, talked to Dr. Triplett re. pt. situation. per pt. is refusing psych consult and said she is not crazy. EMI Marin, is aware.
[2017-12-18] MEDS: ALBUTEROL HALF STRENGTH 1.25 MG/3 ML VIAL.NEB NEB SCH ×3 (15:29→23:30)
--- NOTE | 2017-12-18 16:32 | NUR ---
@1600. awake. resting in bed. very upset that Dr. Triplett woke her up when she was sleeping. she said very unprofessional. she said she does not want her son to know what is going on with her and she told everybody and it should be on her chart. now she said she wants to see Dr. Triplett. informed Tania, chargeback specialist.
--- NOTE | 2017-12-18 17:09 | NUR ---
Although pt refused psych consult with Dr Triplett earlier pt now wants MD to come back to hospital. I explained that we would contact MD to come tomorrow. Pt angry, disruptive, uncooperative. Keeps saying we are discharging her against her will even though I have explained to her 4 times that she is not being discharged but transferred to telemetry. I have at various times involved case loader operator and nursing fuel system maintenance supervisor and Meche Deras and psych intake. But will not cooperate and yells out angrily. I have supplied pt with essentially a one to one RN today and asked materials assistant charge nurse Leah Rg to freq. attend the pt. I spoke to pt's son telephonically as he called me. All above r/v'd with Dr Triplett. I have no further ideas at how to appease pt and realize that pt's behavior is becoming more aggressive with use of profanity and shouting. I asked Clementine Myers nursing fuel system maintenance supervisor to attend
--- NOTE | 2017-12-18 17:29 | NUR ---
@1700. walked pt. the BR and voided. gait steady though SOB. pt. is very furious when she was told that Dr. Triplett can not come back again to see her. She was told that the doctor will come tomorrow if she, the pt., will agree to talk to the psychiatrist. pt. was talking loud and almost yelling. pt.tried to call her son but the pt. son will not answer. pt. was upset upon learning that her son was updated with what was going on with her. she wants to talk to the tellers supervisor. @1723. nursing tellers supervisor, Genesis, here to talk to the pt.
--- NOTE | 2017-12-18 18:08 | NUR ---
@1800. pt. is calmer and tearful after talking to the diving supervisor. she said she does not understand why people keep on ignoring her and thinks that she is rude. pt. is going to telemetry and this RN told her that maybe she just need to have a different room where she can be more active. dinner served.
--- NOTE | 2017-12-18 18:55 | NUR ---
TELE/RN OPENING NOTES PT RECEIVED TO UNIT FROM ICU. PT UPSET, YELLING AT STAFF SAYING THAT HOSPITAL STAFF HAS STOLEN $3,000 AND HER CIGARETTES. CHECKED BELONGINGS LIST AND NEITHER IS LISTED. PT REFUSING TO GET SITUATED IN THE BED AND WANTS TO STAY IN WHEELCHAIR UNTIL WE FIND HER THINGS. THREATENING TO LEAVE AMA. BRIDGE WORKER APPRENTICE AND NURSING STEAM PRESSER NOTIFIED. WILL CONTINUE TO MONITOR
--- NOTE | 2017-12-18 19:06 | NUR ---
@182. telephone report given to EMI Hills. @183. ate well tonite 100%. pt. claimed that she brought her own oxygen tank with her but not in the room all day. now getting very upset. belongings inventory in the pt. chart shows no portable O2 device. pt. is cussing and said that there are thieves in this hospital who just takes away your belongings. @184. transferred to [address] via WC. with all her belongings, cell phone and set up machinist, clothes, slippers and her purse. as soon as she gets to her room pt. said she wants to go outside. when she was told that we can not allow her to do that she became belligerent and started screaming and said she will go AMA. pt. also said that her cigarette is missing. told EMI Hills, to call the nursing fountain supervisor. @185. EMI Hills, stayed with the pt. updated EMI Luu in charge, of what is going on and pt. said she will go AMA.
[2017-12-18] MEDS: ATORVASTATIN 10 MG TABLET PO SCH (22:58)
[2017-12-19] VITALS: BP 102/61
[2017-12-19] MEDS: ALBUTEROL HALF STRENGTH 1.25 MG/3 ML VIAL.NEB NEB SCH ×6 (02:49→23:34)
[2017-12-19] MEDS: IPRATROPIUM NEB FS 0.5 MG/2.5 ML AMPUL.NEB NEB SCH ×6 (02:49→23:34)
[2017-12-19] MEDS: *INSULIN REGULAR(HUMULIN R)HUM 100 UNIT/ML VIAL SQ PRN ×2 (03:00→23:13)
[2017-12-19] MEDS ORDERED: LEVOFLOXACIN 500 MG /D5W 100ML 100 ML IV ONE (03:02)
[2017-12-19] MEDS: LEVOFLOXACIN 500 MG /D5W 100ML 500 MG in PREMIX 1 EA IV SCH (03:11)
[2017-12-19 04:00] VITALS: BP 102/64
[2017-12-19] MEDS: methylPREDNISolone SOD SUCC 40 MG/ML VIAL IV SCH ×4 (06:32→23:08)
[2017-12-19] MEDS: BLOOD SUGAR DIAGNOSTIC 1 EACH STRIP IN SCH ×4 (06:32→22:30)
[2017-12-19] MEDS: INSULIN REGULAR, HUMAN 100 UNIT/ML 3 ML VIAL SQ PRN ×3 (06:38→17:08)
--- NOTE | 2017-12-19 07:00 | NUR ---
TELE/RN CLOSING NOTES PT AWAKE, SITTING UP IN BED. A/OX3. ON 1L O2 VIA NC, BREATHING EVEN AND UNLABORED. SOB UPON EXERTION. NON PRODUCTIVE COUGH NOTED THROUGHOUT SHIFT. IV CHANGED TO RIGHT HAND. PATENT AND INTACT. ON TELE MONITOR SHOWING SR WITH HR 73. MADE PT COMFORTABLE POSSIBLE. ALL NEEDS MET. PT ON/OFF AGITATED AND YELLING. BED IN LOW/LOCKED POSITION WITH CALL LIGHT IN REACH. SIDE RAILS UPX2. ENDORSED TO DAY SHIFT RN MYRNA.
--- NOTE | 2017-12-19 07:20 | NUR ---
telephone order supervisor initial notes Received patient in bed, awake, head of bed elevated, no SOB or distress noted on 02 @1lpm via NC with 02 saturation of 95%. On tel monitor SR heart rate of 70, Patient is alert and oriented x 3, verbally responsive and able to make needs known. IV intact and patent. Kept patient clean and comfortable in bed, call light with in patient reach, will continue to monitor accordingly.
[2017-12-19 07:30] LABS: HEMATOCRIT 39 % (33-45); HEMOGLOBIN 13.1 g/dL (11.5-14.8); LYMPHOCYTES # (AUTO) 0.6 /CMM (0.8-4.8); LYMPHOCYTES % (AUTO) 7.2 % (20.0-44.0); MEAN CORPUSCULAR HEMOGLOBIN 34 PG (26.0-33.0); MEAN CORPUSCULAR HGB CONC 34 g/dl (31.0-36.0); MEAN CORPUSCULAR VOLUME 99 fL (82-100); MONOCYTES # (AUTO) 0.5 /CMM (0.1-1.30); MONOCYTES % (AUTO) 6.8 % (2.0-12.0); NEUTROPHILS # (AUTO) 6.6 /CMM (1.8-8.9); PLATELET COUNT (AUTO) 160 /CMM (150-450); RDW COEFFICIENT OF VARIATION 14.1 (11.5-15.0); RED BLOOD CELL COUNT(AUTO) 3.91 MIL/uL (4.0-5.2); WHITE BLOOD COUNT (AUTO) 7.7 K/uL (4.3-11.0)
[2017-12-19 07:48] LABS: CREATININE 0.8 mg/dL (0.6-1.3); POTASSIUM 4.4 mmol/L (3.5-5.1)
[2017-12-19 08:00] VITALS: BP 105/71
[2017-12-19 08:18] LABS: MAGNESIUM 2.3 mg/dL (1.8-2.4); PHOSPHORUS 2.8 mg/dL (2.5-4.9)
[2017-12-19] MEDS: glipiZIDE 5 MG TABLET PO SCH ×2 (08:42→16:14)
[2017-12-19] MEDS: MONTELUKAST SODIUM (10MG) 10 MG TABLET PO SCH (08:42)
[2017-12-19] MEDS: LEVOTHYROXINE SODIUM 100 MCG TABLET PO SCH (08:42)
[2017-12-19] MEDS: PANTOPRAZOLE 40 MG TABLET.DR PO SCH (08:42)
[2017-12-19] MEDS: clonazePAM 1 MG TABLET PO SCH ×2 (08:42→16:14)
[2017-12-19] MEDS: METFORMIN 500 MG TABLET PO SCH ×2 (08:42→16:14)
[2017-12-19] MEDS: LISINOPRIL (5MG) 5 MG TABLET PO SCH (08:43)
[2017-12-19] MEDS: FLUTICASONE/VILANTEROL 1 EACH BLST.W.DEV IH SCH (08:44)
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
[2017-12-19] MEDS: GUAIFENESIN 300 MG/15 ML UDC PO PRN (13:57)
--- NOTE | 2017-12-19 14:30 | NUR ---
ms rn notes Informed MD regarding patient having SOB and MD ordered ABG stat. Patient refused ABG and very angry tried to redirect patient and verbalized to be transfer to [place] and charge nurse and pillowcase sewer assigned to patient made aware.
--- NOTE | 2017-12-19 14:42 | NUR ---
ms metal furniture panel coverer notes Discharge instructions given to Abraham and able to understand instructions. Signed discharge paper and belonging list. Informed to follow up with primary health care physician in 1-2 weeks. Skin is intact no need for picture. Pneumonia and flu vaccine not given due to already received 06/2017 for both vaccines. Patient left via wheelchair accompanied by and daughter and SUPERVISOR SMOKE CONTROL assigned. left in stable condition. No complaint of pain or discomfort, nor chest pain. MD and charge nurse aware. Vital sings checked and recorded. Addendum: 12/19/17 at 1451 by NOAM ARTEAGA Discharge notes not for this patient.
[2017-12-19 16:00] VITALS: BP 102/56
--- NOTE | 2017-12-19 19:14 | NUR ---
ms rn closing notes All needs provided, attended, and anticipated, kept patient clean and comfortable in bed, call light with in patient reach, endorsed to next shift RN to continue care.
--- NOTE | 2017-12-19 19:15 | NUR ---
RN OPENING NOTES RECEIVED PATIENT IN BED, ASLEEP BUT EASILY AROUSABLE, CONTINUES TO RECEIVE O2 VIA NC @2LPM, NOTED PT WITH NO SOB, BREATHING EVEN AND UNLABORED, WITH NO C/O PAIN AND IS IN NO ACUTE DISTRESS AT THIS TIME. ALL PATIENT'S NEEDS ATTENDED TO, PLACED CALL LIGHT WITHIN EASY REACH. WILL CONTINUE TO MONITOR PT.
[2017-12-19 20:00] VITALS: BP 120/63
[2017-12-19] MEDS: ATORVASTATIN 10 MG TABLET PO SCH (22:26)
[2017-12-20] MEDS: LEVOFLOXACIN 500 MG /D5W 100ML 500 MG in PREMIX 1 EA IV SCH (01:32)
[2017-12-20] MEDS: IPRATROPIUM NEB FS 0.5 MG/2.5 ML AMPUL.NEB NEB SCH ×6 (05:21→23:37)
[2017-12-20] MEDS: ALBUTEROL HALF STRENGTH 1.25 MG/3 ML VIAL.NEB NEB SCH ×6 (05:21→23:37)
--- NOTE | 2017-12-20 05:22 | NUR ---
BREATHING TX TRIAGED DUE TO BUSY RT FROM CODE BLUE
[2017-12-20] MEDS: methylPREDNISolone SOD SUCC 40 MG/ML VIAL IV SCH ×3 (05:42→17:11)
[2017-12-20] MEDS: GUAIFENESIN 300 MG/15 ML UDC PO PRN (05:45)
[2017-12-20] MEDS: BLOOD SUGAR DIAGNOSTIC 1 EACH STRIP IN SCH ×4 (06:21→21:44)
[2017-12-20] MEDS: INSULIN REGULAR, HUMAN 100 UNIT/ML 3 ML VIAL SQ PRN ×3 (06:42→17:17)
--- NOTE | 2017-12-20 07:00 | NUR ---
RN CLOSING NOTE PATIENT IN BED, ASLEEP BUT EASILY AROUSABLE, ALERT AND ORIENTED X 3. NO SOB, BREATHING EVEN AND UNLABORED, IN NO ACUTE DISTRESS A THIS TIME,. ALL PATIENT'S NEEDS ATTENDED TO. WILL ENDORSE TO AM SHIFT NURSE FOR CONTINUITY OF CARE.
--- NOTE | 2017-12-20 07:10 | NUR ---
RN NOTES PT IS SITTING UP IN BED, AGITATED, WAITING FOR BREAKFAST TO COME. PT ON 1L O2, RESPIRATIONS ARE EVEN AND UNLABORED. IV ON R WRIST INTACT AND SL. SAFETY MEASURES ARE IN PLACE, CALL LIGHT IS IN REACH. WILL CONTINUE TO MONITOR.
[2017-12-20] MEDS: PANTOPRAZOLE 40 MG TABLET.DR PO SCH (07:30)
[2017-12-20] MEDS: glipiZIDE 5 MG TABLET PO SCH ×2 (07:30→16:01)
[2017-12-20] MEDS: LEVOTHYROXINE SODIUM 100 MCG TABLET PO SCH (07:30)
[2017-12-20] MEDS: clonazePAM 1 MG TABLET PO SCH ×2 (09:00→16:00)
[2017-12-20] MEDS: MONTELUKAST SODIUM (10MG) 10 MG TABLET PO SCH (09:00)
[2017-12-20] MEDS: METFORMIN 500 MG TABLET PO SCH ×2 (09:00→16:01)
[2017-12-20] MEDS: LISINOPRIL (5MG) 5 MG TABLET PO SCH (09:00)
--- NOTE | 2017-12-20 09:30 | NUR ---
RN NOTES PT IS AGITATED, REFUSED TO TAKE MORNING MEDICATIONS. PT STATES SHE WANTS COFFEE AND HAS BEEN WAITING FOR HOURS. COFFEE WAS BROUGHT AT BREAKFAST TIME, BUT DIDNT WANT IT. PT BEGAN YELLING, ASKING TO SPEAK WITH MEDICAL ANTHROPOLOGIST. WILL NOTIFY MEDICAL ANTHROPOLOGIST WHEN BACK FROM MEETING.
[2017-12-20] MEDS ORDERED: DOXYCYCLINE 200 MG in IV NS 0.9% 250 ML IV SCH (11:30)
[2017-12-20 16:00] VITALS: BP_SYST 125; BP_SYST 128; BP_DIAS 65
--- NOTE | 2017-12-20 17:25 | NUR ---
RN NOTES PT IS REFUSING TO HAVE SINUS X-RAY DONE, BECAME VERY AGITATED AT X-RAY PUBLIC RELATIONS COUNSELOR.
--- NOTE | 2017-12-20 17:30 | NUR ---
PT REFUSED XRAYS, EMI PETER IS AWARE.
--- NOTE | 2017-12-20 18:31 | NUR ---
RN NOTES PT IS SITTING UP IN BED, RESTING COMFORTABLY. PT ON 1L O2, RESPIRATIONS ARE EVEN AND UNLABORED. IV ON R WRIST INTACT AND PATENT. PT NEEDS MET AND MEDS GIVEN ORDERED. 1730 ACCUCHECK WAS 249, 8 UNITS GIVEN. BREATHING TREATMENTS GIVEN ORDERED. SAFETY MEASURES ARE IN PLACE, CALL LIGHT IS IN REACH. WILL ENDORSE TO MEDIA TRAFFIC MANAGER RN FOR CONTINUITY OF CARE.
--- NOTE | 2017-12-20 19:28 | NUR ---
tele/rn opening notes received patient in bed, alert, oriented x3, on room air, respirations even and unlabored, family at bedside, denies pain and reported want to go home in am, will follow up in am and will monitor patient . Call lights within reach.
[2017-12-20 20:00] VITALS: BP 104/54
[2017-12-20] MEDS: ATORVASTATIN 10 MG TABLET PO SCH (21:07)
[2017-12-20] MEDS: DOXYCYCLINE HYCLATE (100 MG) 100 MG TABLET PO SCH (21:07)
[2017-12-20] MEDS: *INSULIN REGULAR(HUMULIN R)HUM 100 UNIT/ML VIAL SQ PRN (21:49)
[2017-12-21] MEDS: methylPREDNISolone SOD SUCC 40 MG/ML VIAL IV SCH ×4 (02:15→17:01)
[2017-12-21] MEDS: LEVOFLOXACIN (500MG) 500 MG TABLET PO SCH (02:30)
[2017-12-21 03:29] LABS: HEMATOCRIT 38 % (33-45); HEMOGLOBIN 12.9 g/dL (11.5-14.8); LYMPHOCYTES # (AUTO) 0.8 /CMM (0.8-4.8); LYMPHOCYTES % (AUTO) 8.1 % (20.0-44.0); MEAN CORPUSCULAR HEMOGLOBIN 33 PG (26.0-33.0); MEAN CORPUSCULAR HGB CONC 34 g/dl (31.0-36.0); MEAN CORPUSCULAR VOLUME 98 fL (82-100); MONOCYTES # (AUTO) 0.6 /CMM (0.1-1.30); MONOCYTES % (AUTO) 6.5 % (2.0-12.0); NEUTROPHILS # (AUTO) 8.4 /CMM (1.8-8.9); NEUTROPHILS % (AUTO) 85.4 % (43.0-81.0); PLATELET COUNT (AUTO) 169 /CMM (150-450); RDW COEFFICIENT OF VARIATION 13.7 (11.5-15.0); WHITE BLOOD COUNT (AUTO) 9.8 K/uL (4.3-11.0)
[2017-12-21] MEDS: ALBUTEROL HALF STRENGTH 1.25 MG/3 ML VIAL.NEB NEB SCH ×5 (03:30→21:01)
[2017-12-21] MEDS: IPRATROPIUM NEB FS 0.5 MG/2.5 ML AMPUL.NEB NEB SCH ×5 (03:31→21:01)
[2017-12-21 03:56] LABS: CALCIUM, SERUM 8.9 mg/dL (8.5-10.1); CREATININE 0.7 mg/dL (0.6-1.3); MAGNESIUM 2.2 mg/dL (1.8-2.4); PHOSPHORUS 3.4 mg/dL (2.5-4.9); POTASSIUM 4.2 mmol/L (3.5-5.1)
--- NOTE | 2017-12-21 04:21 | NUR ---
ms/rn notes patient called and reported "Im having difficulty breathing", o2 sat check at 84, , per rt, last breathing tx given 15 minutes ago, and desaturating, assisted patient in comfortable position, order by abottoniel and will monitor, o2 sat at 90%, prefer to have nasal canula, with copd.
--- NOTE | 2017-12-21 06:44 | NUR ---
ms/rn notes patient in bed, hob elevated, resting comfortably in bed, had episode of sob , position change and oxygen at 2l at 90%, denies pain, able to tolerate medication, will endorse to am rn for rupesh..
[2017-12-21] MEDS: BLOOD SUGAR DIAGNOSTIC 1 EACH STRIP IN SCH ×4 (06:59→21:50)
[2017-12-21] MEDS: INSULIN REGULAR, HUMAN 100 UNIT/ML 3 ML VIAL SQ PRN ×3 (07:03→17:05)
--- NOTE | 2017-12-21 07:04 | NUR ---
RN NOTES: ADMINISTERED 4 UNITS REGULAR INSULIN PER SCALE FOR BLOOD SUGAR: 188 MG/DL.
--- NOTE | 2017-12-21 07:10 | NUR ---
RN NOTES PT IS SITTING UP IN BED, ALERT AND ORIENTED. PT ON 1L O2, RESPIRATIONS ARE EVEN AND UNLABORED. IV ON R WRIST INTACT AND SL. NO SIGNS OF DISTRESS NOTED. SAFETY MEASURES ARE IN PLACE, CALL LIGHT IS IN REACH. WILL CONTINUE TO MONITOR.
[2017-12-21] MEDS: LEVOTHYROXINE SODIUM 100 MCG TABLET PO SCH (07:59)
[2017-12-21] MEDS: glipiZIDE 5 MG TABLET PO SCH ×2 (07:59→16:11)
[2017-12-21 08:00] VITALS: BP 128/74
[2017-12-21] MEDS: MONTELUKAST SODIUM (10MG) 10 MG TABLET PO SCH (08:00)
[2017-12-21] MEDS: METFORMIN 500 MG TABLET PO SCH ×2 (08:00→16:11)
[2017-12-21] MEDS: PANTOPRAZOLE 40 MG TABLET.DR PO SCH (08:00)
[2017-12-21] MEDS: DOXYCYCLINE HYCLATE (100 MG) 100 MG TABLET PO SCH ×2 (08:00→21:30)
[2017-12-21] MEDS: clonazePAM 1 MG TABLET PO SCH ×2 (08:00→16:11)
[2017-12-21] MEDS: LISINOPRIL (5MG) 5 MG TABLET PO SCH (08:00)
[2017-12-21 16:00] VITALS: BP 108/58
--- NOTE | 2017-12-21 18:30 | NUR ---
RN NOTES PT IS RESTING IN BED, NO SIGNS OF DISTRESS NOTED. PT ON 2L O2,RESPIRATIONS ARE EVEN AND UNLABORED. IV ON R WRIST INTACT AND PATENT. ALL MEDS WERE GIVEN ORDERED. 1730 ACCUCHECK WAS 340, 16 UNITS OF INSULIN GIVEN. PT NEEDS MET. SAFETY MEASURES ARE IN PLACE, CALL LIGHT IS IN REACH. WILL ENDORSE TO PHYSICIAN RELATIONS MANAGER RN FOR CONTINUITY OF CARE.
[2017-12-21 20:00] VITALS: BP 117/72
--- NOTE | 2017-12-21 20:00 | NUR ---
ms/rn opening notes patient sitting in bed, respirations even and unlabored, assist with needs, require oxygen via nc for respiratory comfort, received report from am rn for rupesh, call lights within reach, bed in lock position will continue to monitor.
[2017-12-21] MEDS: ATORVASTATIN 10 MG TABLET PO SCH (21:30)
[2017-12-21] MEDS: *INSULIN REGULAR(HUMULIN R)HUM 100 UNIT/ML VIAL SQ PRN (21:53)
[2017-12-22] MEDS: IPRATROPIUM NEB FS 0.5 MG/2.5 ML AMPUL.NEB NEB SCH ×6 (00:17→20:26)
[2017-12-22] MEDS: ALBUTEROL HALF STRENGTH 1.25 MG/3 ML VIAL.NEB NEB SCH ×6 (00:17→20:26)
[2017-12-22] MEDS: methylPREDNISolone SOD SUCC 40 MG/ML VIAL IV SCH ×4 (00:36→17:20)
[2017-12-22] MEDS: LEVOFLOXACIN (500MG) 500 MG TABLET PO SCH (02:54)
--- NOTE | 2017-12-22 06:44 | NUR ---
ms/rn closing notes patient in bed, able to sleep during the night with routine breathing treatment, assist and provide comfort, keep safe, require oxygen via nc for comfort, bed in lock shauna conrad set, for safety, will endorse to am rn for rupesh. some inhalers from home observe, and patient refused to have it turned iwill follow up for am endorsement .
[2017-12-22] MEDS: BLOOD SUGAR DIAGNOSTIC 1 EACH STRIP IN SCH ×4 (06:57→21:41)
[2017-12-22] MEDS: INSULIN REGULAR, HUMAN 100 UNIT/ML 3 ML VIAL SQ PRN ×3 (07:07→17:23)
[2017-12-22 08:00] VITALS: BP 129/70
--- NOTE | 2017-12-22 08:20 | NUR ---
ms rn received on bed, awake,alert,oriented x3,not in any form of distress, o2 2 liters, bilateral lungs have wheezes, not in distress, will monitor patient's condition.
--- NOTE | 2017-12-22 10:30 | NUR ---
ms rn was seen by rebecca galeana/ ,due meds given,tolerated well.
[2017-12-22] MEDS: clonazePAM 1 MG TABLET PO SCH ×2 (10:47→17:21)
[2017-12-22] MEDS: PANTOPRAZOLE 40 MG TABLET.DR PO SCH (10:47)
[2017-12-22] MEDS: glipiZIDE 5 MG TABLET PO SCH ×2 (10:48→17:21)
[2017-12-22] MEDS: LEVOTHYROXINE SODIUM 100 MCG TABLET PO SCH (10:48)
[2017-12-22] MEDS: MONTELUKAST SODIUM (10MG) 10 MG TABLET PO SCH (10:48)
[2017-12-22] MEDS: METFORMIN 500 MG TABLET PO SCH ×2 (10:48→17:21)
[2017-12-22] MEDS: LISINOPRIL (5MG) 5 MG TABLET PO SCH (10:49)
[2017-12-22] MEDS: GUAIFENESIN 300 MG/15 ML UDC PO PRN (10:49)
[2017-12-22] MEDS: DOXYCYCLINE HYCLATE (100 MG) 100 MG TABLET PO SCH ×2 (10:56→21:41)
--- NOTE | 2017-12-22 14:00 | NUR ---
ms rn patient is mad again(bipolar).
[2017-12-22 16:00] VITALS: BP 131/75
--- NOTE | 2017-12-22 18:46 | NUR ---
ms rn on bed, no change of condition.
[2017-12-22 20:00] VITALS: BP 151/65
--- NOTE | 2017-12-22 20:00 | NUR ---
MS STUCCO MASON INITIAL NOTES SEEN PT IN BED AWAKE AND ALERT SITTING AT THE SIDE OF THE BED AND SAYING SHE'S READY TO GO HOME. I SPOKE TO HER AND EXPLAINED BUT SHE'S NOT DISCHARGES TODAY, ON PLANNING TO BE D/C BUT IT DEPENDS ON HER MD . PT THEN STATED "OK". KEPT HER WARM AND COMFORTABLE AT ALL TIMES. STILL WITH O2 AND RT CAME TO CHECKED HER WELL. ENCOURAGE HER TO USED THE CALL LIGHT SYSTEM . BED ALARM SET FOR SAFETY. WILL CONTINUE TO MONITOR.
[2017-12-22] MEDS: ATORVASTATIN 10 MG TABLET PO SCH (21:41)
[2017-12-22] MEDS: *INSULIN REGULAR(HUMULIN R)HUM 100 UNIT/ML VIAL SQ PRN (22:27)
[2017-12-23] MEDS: IPRATROPIUM NEB FS 0.5 MG/2.5 ML AMPUL.NEB NEB SCH ×4 (00:18→11:57)
[2017-12-23] MEDS: ALBUTEROL HALF STRENGTH 1.25 MG/3 ML VIAL.NEB NEB SCH ×4 (00:18→11:57)
[2017-12-23] MEDS: methylPREDNISolone SOD SUCC 40 MG/ML VIAL IV SCH ×3 (00:30→12:18)
[2017-12-23] MEDS: LEVOFLOXACIN (500MG) 500 MG TABLET PO SCH (02:19)
[2017-12-23] MEDS: GUAIFENESIN 300 MG/15 ML UDC PO PRN (05:47)
[2017-12-23] MEDS: BLOOD SUGAR DIAGNOSTIC 1 EACH STRIP IN SCH ×2 (06:15→12:18)
[2017-12-23] MEDS: INSULIN REGULAR, HUMAN 100 UNIT/ML 3 ML VIAL SQ PRN ×2 (06:16→12:29)
--- NOTE | 2017-12-23 07:25 | NUR ---
MS RN OPENING NOTES RECEIVED PT FROM NIGHTSHIFT NURSE IN SITTING BEDSIDE. PT IS A/O X3, ANXIOUS, WITH LIABLE MOOD. NO SOB OR PHYSICAL SIGNS OF DISTRESS NOTED. BREATHING IS EVEN AND UNLABORED. IV NOTED TO BE PATENT AND INTACT. NO REDNESS OR SIGNS OF INFILTRATION NOTED. BED IN LOW LOCKED POSITION, SIDE RAILS UP X2, CALL LIGHT WITHIN REACH. WILL CONTINUE TO MONITOR
--- NOTE | 2017-12-23 07:37 | NUR ---
MS SUPERVISOR PUBLIC MESSAGE SERVICE CLOSING NOTES PT SITTING IN HER BED WITHOUT ANY ACUTE DISTRESS NOTED. STILL WITH O2 AT 3 LITERS VIA NC. SLEPT WELL AND STABLE AARON THE NIGHT. BLOOD SUGAR 245 , 8 UNITS OF INSULIN GIVEN ORDERED. NO SIGNS OF HYPER GLYCEMIA NOTED. KEPT HER WARM AND COMFORTABLE AT ALL TIMES. ENDORSE TO AM NURSE FOR CONTINUITY OF CARE. PLACE CALL LIGHT AT REACH.
[2017-12-23 07:50] LABS: HEMATOCRIT 41 % (33-45); HEMOGLOBIN 13.9 g/dL (11.5-14.8); LYMPHOCYTES # (AUTO) 0.5 /CMM (0.8-4.8); LYMPHOCYTES % (AUTO) 5.1 % (20.0-44.0); MEAN CORPUSCULAR HEMOGLOBIN 33 PG (26.0-33.0); MEAN CORPUSCULAR HGB CONC 34 g/dl (31.0-36.0); MEAN CORPUSCULAR VOLUME 98 fL (82-100); MONOCYTES # (AUTO) 0.3 /CMM (0.1-1.30); MONOCYTES % (AUTO) 3.1 % (2.0-12.0); NEUTROPHILS # (AUTO) 8.3 /CMM (1.8-8.9); NEUTROPHILS % (AUTO) 91.8 % (43.0-81.0); PLATELET COUNT (AUTO) 189 /CMM (150-450); RDW COEFFICIENT OF VARIATION 13.7 (11.5-15.0); RED BLOOD CELL COUNT(AUTO) 4.23 MIL/uL (4.0-5.2); WHITE BLOOD COUNT (AUTO) 9.1 K/uL (4.3-11.0)
[2017-12-23 07:54] LABS: CALCIUM, SERUM 8.9 mg/dL (8.5-10.1); CREATININE 0.7 mg/dL (0.6-1.3); POTASSIUM 4.8 mmol/L (3.5-5.1)
[2017-12-23 08:00] VITALS: BP 123/73
[2017-12-23] MEDS: MONTELUKAST SODIUM (10MG) 10 MG TABLET PO SCH (08:45)
[2017-12-23] MEDS: METFORMIN 500 MG TABLET PO SCH (08:45)
[2017-12-23] MEDS: PANTOPRAZOLE 40 MG TABLET.DR PO SCH (08:46)
[2017-12-23] MEDS: glipiZIDE 5 MG TABLET PO SCH (08:46)
[2017-12-23] MEDS: DOXYCYCLINE HYCLATE (100 MG) 100 MG TABLET PO SCH (08:46)
[2017-12-23] MEDS: clonazePAM 1 MG TABLET PO SCH (08:46)
[2017-12-23] MEDS: LEVOTHYROXINE SODIUM 100 MCG TABLET PO SCH (08:46)
[2017-12-23 08:52] VITALS: BP 123/73
[2017-12-23] MEDS: LISINOPRIL (5MG) 5 MG TABLET PO SCH (08:52)
[2017-12-23] MEDS ORDERED: LEVO500T2 PO (15:00)
[2017-12-23] MEDS ORDERED: DOXY100T2 PO (15:00)
--- NOTE | 2017-12-23 16:34 | NUR ---
MS PAYER SPECIALIST NOTES PT WAS DISCHARGED FROM FACILITY IN STABLE CONDITION. ALL NEEDS WERE MET DURING SHIFT AND ORDERS CARRIED OUT ACCORDINGLY. AL DUE MEDS GIVE. DISCHARGE INSTRUCTIONS PROVIDED VIA EXIT CARE. PT SIGNED ALL RESPECTIVE PAPERWORK. PT FORGOT HER CELLPHONE BEFORE LEAVING. CHARGE NURSE WAS MADE AWARE AND PLACED IT IN THE SAFE AT THE BACK OF THE NURSES STATION. IV WAS SUCCESSFULLY REMOVED WITHOUT AN COMPLICATIONS. SHE SAFELY LEFT VIA TAXI.
== END 2017-12-23 16:58 | disposition home health service (06) | DRG 193 ==
LOC: ER 22:15 → ICU 23:31 → TELE 12-18 18:57 → MED 12-19 09:37
PROVIDERS: ADMIT Internal Medicine; ATTEND Internal Medicine
PROC: 5A09357 Assistance with Respiratory Ventilation, Less than 24 Consecutive Hours, Continuous Positive Airway Pressure (ICD-10-PCS; principal; 2017-12-17)
DX: J18.9 Pneumonia, unspecified organism (principal); N17.0 Acute kidney failure with tubular necrosis; J96.20 Acute and chronic respiratory failure, unspecified whether with hypoxia or hypercapnia; E44.0 Moderate protein-calorie malnutrition; F33.2 Major depressive disorder, recurrent severe without psychotic features; D68.59 Other primary thrombophilia; E09.65 Drug or chemical induced diabetes mellitus with hyperglycemia; J44.0 Chronic obstructive pulmonary disease with (acute) lower respiratory infection; J98.11 Atelectasis; T76.91XA Unspecified adult maltreatment, suspected, initial encounter; J44.1 Chronic obstructive pulmonary disease with (acute) exacerbation; Z99.81 Dependence on supplemental oxygen; F17.210 Nicotine dependence, cigarettes, uncomplicated; E78.5 Hyperlipidemia, unspecified; E03.9 Hypothyroidism, unspecified; J06.9 Acute upper respiratory infection, unspecified; E66.9 Obesity, unspecified; Z68.33 Body mass index [BMI] 33.0-33.9, adult; Z79.51 Long term (current) use of inhaled steroids; Z79.52 Long term (current) use of systemic steroids; Z79.84 Long term (current) use of oral hypoglycemic drugs; Z79.899 Other long term (current) drug therapy; E11.9 Type 2 diabetes mellitus without complications; Z86.73 Personal history of transient ischemic attack (TIA), and cerebral infarction without residual deficits; Z85.828 Personal history of other malignant neoplasm of skin; T38.0X5A Adverse effect of glucocorticoids and synthetic analogues, initial encounter; Z90.710 Acquired absence of both cervix and uterus; I10 Essential (primary) hypertension; F41.9 Anxiety disorder, unspecified; Z91.19 Patient's noncompliance with other medical treatment and regimen; J40 Bronchitis, not specified as acute or chronic
CPT/HCPCS: 36415; 36600; 71045-TC; 80048-TC; 80053-TC; 80061-TC; 80076-TC; 81000-TC; 82962-TC; 83735-TC; 83880; 84100-TC; 84443-TC; 84484-TC; 85025-TC; 85378-TC; 87081-TC; 87086-TC; 94799-TC; A4216; A4606; J1815; J1956; J2920; J2930; J3475; J3490; J7040; J7050; Z7610

== ENCOUNTER 2018-02-15 19:21 | Inpatient (IN) | payer MEDICARE, OTHER ==
[~2018-02-15] VITALS: Ht 167.6 cm; Wt 71.2 kg
[~2018-02-15 19:21] MED LIST changes: +ALBUTEROL FS 2.5 MG/3 ML VIAL.NEB NEB SCH; -CLON1TAB4 PO; +CLON1TAB5 PO; +DOXY100T2 PO; +LEVO500T2 PO; +METF-440 PO; -METF500T4 PO; -PRED20TA GT; -PRED20TA PO
--- NOTE | 2018-02-15 19:25 | NUR ---
PT A/OX4, PT STATES SHE HAS BEEN HVAING SOB X 1 DAY, PT STATES SHE TOOK 6 TREATMENTS AT HOME WITH NO RELIEF, PT GIVEN 5MG OF ALBUTEROL IN ROUTE TO ER BY EMS, PT PUT ON MONITOR, IV PLACED SECURITY CONTROLS ASSESSOR, RT CALLED, MD MADE AWARE, WILL CONTINUE TO MONITOR.
[2018-02-15] MEDS ORDERED: ALBUTEROL FS 2.5 MG/3 ML VIAL.NEB CONTNEB ONE (19:30)
[2018-02-15] MEDS ORDERED: methylPREDNISolone SOD SUCC 125 MG/2ML VIAL IV ONE (19:30)
[2018-02-15] MEDS ORDERED: IPRATROPIUM NEB FS 0.5 MG/2.5 ML AMPUL.NEB NEB ONE (19:30)
[2018-02-15] MEDS ORDERED: Magnesium 1GM/D5W 100ML PREMIX 200 ML IV ONE ×2 (19:30→19:40)
[2018-02-15] MEDS ORDERED: ALBUTEROL FS 2.5 MG/3 ML VIAL.NEB ONE (19:34)
[2018-02-15] MEDS ORDERED: IPRATROPIUM NEB FS 0.5 MG/2.5 ML AMPUL.NEB ONE (19:34)
[2018-02-15] MEDS ORDERED: methylPREDNISolone SOD SUCC 125 MG/2ML VIAL ONE (19:40)
[2018-02-15 20:04] LABS: BASOPHILS # (AUTO) 0.1 /CMM (0.0-0.2); BASOPHILS % (AUTO) 0.6 % (0.0-2.0); EOSINOPHILS % (AUTO) 1.5 % (0.0-6.0); HEMATOCRIT 44 % (33-45); HEMOGLOBIN 14.9 g/dL (11.5-14.8); LYMPHOCYTES # (AUTO) 3.4 /CMM (0.8-4.8); MEAN CORPUSCULAR HGB CONC 34 g/dl (31.0-36.0); MEAN CORPUSCULAR VOLUME 98 fL (82-100); MONOCYTES # (AUTO) 1.3 /CMM (0.1-1.30); MONOCYTES % (AUTO) 11.3 % (2.0-12.0); NEUTROPHILS # (AUTO) 6.4 /CMM (1.8-8.9); NEUTROPHILS % (AUTO) 56.6 % (43.0-81.0); PLATELET COUNT (AUTO) 306 /CMM (150-450); RDW COEFFICIENT OF VARIATION 14.4 (11.5-15.0); WHITE BLOOD COUNT (AUTO) 11.4 K/uL (4.3-11.0)
[2018-02-15 20:15] LABS: CALCIUM, SERUM 9.1 mg/dL (8.5-10.1); CREATININE 0.8 mg/dL (0.6-1.3); POTASSIUM 3.6 mmol/L (3.5-5.1)
--- NOTE | 2018-02-15 20:47 | NUR ---
PT STATES SHE IS FEELING MUCH BETTER AND PT TRANSFERED TO A TX ON 2 L, PT GIVEN WARM BLANKET, VSS WILL CONTINUE TO MONITOR.
--- NOTE | 2018-02-15 20:47 | NUR ---
CALLED NURSING TIMBER REPAIRER AND REQUESTED A TELE BED FOR THIS PT
--- NOTE | 2018-02-15 21:00 | NUR ---
CALLED [facility] FOR PANEL CALL AND DR WREN WAS PAGED.
--- NOTE | 2018-02-15 21:12 | NUR ---
PT IS ASSIGNED TO [facility]#: [id number], PT IS DIAGNOSED WITH ASTHMA, AND DR WREN IS THE ACCEPTING MD
[2018-02-15 21:32] LABS: ABG BASE EXCESS -1.1 mmol/L; ABG OXYGEN SATURATION 94.1 % (92.0-98.5); ABG PCO2 42.2 mmHg (35.0-45.0); ABG PH 7.375 (7.350-7.450); ABG PO2 75.7 mmHg (75.0-100.0); AaDO2 74.1 mmHg; MetHb 0.5 % (0.0-1.5); O2Hb 90.8 % (94.0-97.0); SITE, ABG Left Radial; VENT MODE, BG 2L NC
[2018-02-15 21:42] VITALS: BP 112/82
--- NOTE | 2018-02-15 21:42 | NUR ---
tele/rn notes RECEIVED NEW ADMIT PATIENT FROM ER, REPORT GIVEN BY MILLICENT, ARRIVED ON A GURNEY, ABLE TO WALK W/ ASSISTANCE TO BED/WEAK, DX WITH COPD EXACERBATION, REFUSE SMOKING CESSATION, ALERT, ORIENTED X3, LIVES ALONE, PREVIOUS HOSPITALIZATION 6 MONTHS AGO, NO OPEN WOUND, NOTED BLE EDEMA +2, REQUIRE 2L OXYGEN , BREATHING TX ROUTINE/ NEEDED, WHEEZES AND DIMINISHED BREATH SOUNDS, HX. SKIN CANCER, ASTHMA, CVA, DM, ORDER CARDIAC DIET, ON TELE MONITORING AT SR. RIGHT HAND GAUGE 20 PATENT W/ NO INFILTRATION, WBC ELEVATED, ON LEVAQUIN iv AND DVT PPX LOVENOX, ROOM ORIENTATION PROVIDED, BELONGINGS CHECK, SOME INHALERS AT BEDSIDE, PATIENT REFUSE TO HAVE IT CHECK IN TO PHARMACY, BED IN LOCK POSITION, OFFERED FLUIDS, IV NS AT 75 ML MD ORDER, WILL MONITOR FOR ANY CHANGES.
[2018-02-15] MEDS ORDERED: HYDROCODONE/APAP 5/325MG 1 EACH TABLET PO PRN (22:00)
[2018-02-15] MEDS ORDERED: ZOLPIDEM TARTRATE 5 MG TABLET PO PRN (22:00)
[2018-02-15] MEDS ORDERED: MAGNESIUM HYDROXIDE 30 ML UDC PO PRN (22:00)
[2018-02-15] MEDS ORDERED: ALBUTEROL FS 2.5 MG/3 ML VIAL.NEB NEB SCH ×2 (22:00→23:00)
[2018-02-15] MEDS ORDERED: MAG HYDROX/AL HYDROX/SIMETH 30 ML UDC PO PRN (22:00)
[2018-02-15] MEDS ORDERED: ACETAMINOPHEN 325 MG TABLET PO PRN (22:00)
[2018-02-15] MEDS ORDERED: Z GUARD REMEDY 2 OZ OINT TP PRN (22:00)
[2018-02-15] MEDS ORDERED: MORPHINE SULFATE INJ 2 MG/ML DISP.SYRIN IV PRN (22:00)
[2018-02-15] MEDS ORDERED: ONDANSETRON HCL/PF 4 MG/2 ML VIAL IVP PRN (22:00)
[2018-02-15] MEDS ORDERED: BISACODYL (5 MG) 5 MG TABLET.DR PO PRN (22:30)
[2018-02-15] MEDS ORDERED: LORAZEPAM INJ 2 MG/ML VIAL IV PRN (22:30)
[2018-02-15] MEDS ORDERED: BISACODYL SUPP (10 MG) 10 MG/SUPP.RECT SUPP.RECT RC PRN (22:30)
[2018-02-15] MEDS ORDERED: POLYETHYLENE GLYCOL 3350 17 GM POWD.PACK PO PRN (22:30)
[2018-02-15] MEDS ORDERED: LEVOFLOXACIN 500 MG /D5W 100ML 100 ML IV ONE (22:40)
[2018-02-15] MEDS: IV NS 0.9% 1,000 ML IV PRN (22:57)
[2018-02-15 23:00] VITALS: BP 112/82
[2018-02-15] MEDS: LEVOFLOXACIN 500 MG /D5W 100ML 500 MG in PREMIX 1 EA IV SCH (23:00)
[2018-02-15] MEDS: ENOXAPARIN SODIUM 40 MG/0.4 ML DISP.SYRIN SQ SCH (23:02)
[2018-02-15] MEDS: IPRATROPIUM NEB FS 0.5 MG/2.5 ML AMPUL.NEB NEB SCH (23:10)
[2018-02-16] VITALS: BP_SYST 106; BP_SYST 129; BP_DIAS 67; BP_DIAS 73
[2018-02-16] MEDS ORDERED: ALBUTEROL FS 2.5 MG/3 ML VIAL.NEB NEB SCH (01:00)
[2018-02-16] MEDS: ALBUTEROL FS 2.5 MG/3 ML VIAL.NEB NEB SCH ×5 (01:21→20:25)
[2018-02-16] MEDS: IPRATROPIUM NEB FS 0.5 MG/2.5 ML AMPUL.NEB NEB SCH ×5 (02:58→20:25)
[2018-02-16 04:00] VITALS: BP 106/67
[2018-02-16 05:30] VITALS: BP 106/67
--- NOTE | 2018-02-16 06:39 | NUR ---
315-2 PATIETN ABLE TO SLEEP, RESTED, ON BREATHING TREATMENT DUE TO SOB, REQUIRE OXYGEN FOR SUPPORTMARYA NC. OFFERED FLUIDS AND SNACKS,SKIN WARM TO TOUCH,COOPERATIVE TO CARE, BED IN LOCK POSITION, WILL CONTINUE TO MONITOR AND REPORT ANY CHANGES.
[2018-02-16 06:57] VITALS: BP 111/65
[2018-02-16 07:13] LABS: BASOPHILS % (AUTO) 0.4 % (0.0-2.0); EOSINOPHILS % (AUTO) 0.2 % (0.0-6.0); HEMATOCRIT 41 % (33-45); HEMOGLOBIN 13.9 g/dL (11.5-14.8); LYMPHOCYTES # (AUTO) 0.3 /CMM (0.8-4.8); LYMPHOCYTES % (AUTO) 7.4 % (20.0-44.0); MEAN CORPUSCULAR HGB CONC 34 g/dl (31.0-36.0); MEAN CORPUSCULAR VOLUME 98 fL (82-100); MONOCYTES % (AUTO) 1.1 % (2.0-12.0); NEUTROPHILS # (AUTO) 3.6 /CMM (1.8-8.9); NEUTROPHILS % (AUTO) 90.9 % (43.0-81.0); PLATELET COUNT (AUTO) 232 /CMM (150-450); RDW COEFFICIENT OF VARIATION 14.5 (11.5-15.0); RED BLOOD CELL COUNT(AUTO) 4.14 MIL/uL (4.0-5.2); WHITE BLOOD COUNT (AUTO) 3.9 K/uL (4.3-11.0)
[2018-02-16 07:25] LABS: CALCIUM, SERUM 8.7 mg/dL (8.5-10.1); CREATININE 0.8 mg/dL (0.6-1.3); MAGNESIUM 2.3 mg/dL (1.8-2.4); PHOSPHORUS 3.4 mg/dL (2.5-4.9); POTASSIUM 3.8 mmol/L (3.5-5.1)
--- NOTE | 2018-02-16 08:00 | NUR ---
SWIMMING POOL SALESPERSON AM NOTES RECEIVED PT UNABLE TO WALK DUE TO WEAKNESS DX WITH COPD EXACERBATION, ALERT, ORIENTED X3, LIVES ALONE,NO OPEN WOUND, NOTED BLE EDEMA +2, REQUIRE 2L OXYGEN , BREATHING TX ROUTINE/ NEEDED, WHEEZES AND DIMINISHED BREATH SOUNDS, HX. ON TELE MONITORING AT SR. RIGHT HAND GAUGE 20 PATENT W/ NO INFILTRATION.WILL MONITOR FOR ANY CHANGES. CALL LIGHT PLACED WITHIN REACH.
[2018-02-16] MEDS ORDERED: FLUTICASONE/VILANTEROL 1 EACH BLST.W.DEV IH SCH (09:00)
[2018-02-16] MEDS: methylPREDNISolone SOD SUCC 40 MG/ML VIAL IV SCH ×3 (09:50→17:56)
[2018-02-16] MEDS: ATORVASTATIN 10 MG TABLET PO SCH (09:50)
[2018-02-16] MEDS: METFORMIN 500 MG TABLET PO SCH ×2 (09:50→17:56)
[2018-02-16] MEDS: LISINOPRIL (5MG) 5 MG TABLET PO SCH (09:51)
[2018-02-16] MEDS: clonazePAM 1 MG TABLET PO SCH ×2 (09:51→17:56)
[2018-02-16] MEDS: MONTELUKAST SODIUM (10MG) 10 MG TABLET PO SCH (09:51)
[2018-02-16] MEDS: LEVOTHYROXINE SODIUM 100 MCG TABLET PO SCH (09:53)
[2018-02-16] MEDS ORDERED: DEXTROSE 50%-WATER 50 ML DISP.SYRIN IV PRN (10:30)
--- NOTE | 2018-02-16 12:29 | NUR ---
CANCELLED ECHO STUDY. LAST ECHO 11/01/17. APPROVED BY [facility] NURSE ([facility]).
[2018-02-16] MEDS: BLOOD SUGAR DIAGNOSTIC 1 EACH STRIP IN SCH ×3 (13:40→21:28)
[2018-02-16] MEDS: INSULIN REGULAR, HUMAN 100 UNIT/ML 3 ML VIAL SQ PRN ×3 (13:40→21:38)
[2018-02-16] MEDS ORDERED: THEOPHYLLINE ANHYDROUS 300 MG CAP.SR.24H PO SCH (14:30)
[2018-02-16] MEDS: ACETYLCYSTEINE 10% SOLN 400 MG/4 ML VIAL NEB SCH ×2 (15:30→23:30)
[2018-02-16] MEDS: FAMOTIDINE (20 MG) 20 MG TABLET PO SCH (15:49)
[2018-02-16 16:09] VITALS: BP 105/56
--- NOTE | 2018-02-16 16:28 | NUR ---
ALBUTEROL + ATROVENT HHN TX GIVEN. MUCOMYST NOT GIVEN NOT AV. WILL S/U WITH PHARMACY.
--- NOTE | 2018-02-16 19:00 | NUR ---
PT RESTING IN BED DENYING ANY PAIN OR DISTRESS BUT WANTING TO SMOKE AND EAT "MUNCHIES".SMOKING AND DIABETIC TEACHING DONE FREQUENTLY.CALL LIGHT PLACED WITHIN REACH.
--- NOTE | 2018-02-16 19:30 | NUR ---
MS RN OPENING NOTES: PATIENT IN BED, AOX4, ON O2 AT 2 LPM VIA NC, BREATHING WITH EVEN EXPANSION, NO SOB NOTED, BUT HEARD MODERATE EXPIRATORY WHEEZING ON AUSCULTATION. HOB ELEVATED. PATIENT APPEARS CALM AND IN NO DISTRESS, BUT STATES THAT SHE IS HUNGRY AND WANTS A SANDWICH. PIV OVER L HAND G 22 INTACT AND PATENT TO FLUSH. PROVIDED FOR COMFORT AND SAFETY. BED IN LOWEST AND LOCKED POSITION, SIDERAILS UP X 3, CALL LIGHT WITHIN REACH. WILL CONT TO MONITOR.
[2018-02-16 20:00] VITALS: BP 95/57
--- NOTE | 2018-02-16 21:27 | NUR ---
RN NOTES: PATIENT'S BLOOD SUGAR CHECKED AT 178 MG/DL, ADMINISTERED 3 UNITS REGULAR INSULIN. LIGHT SNACK GIVEN. ALSO, PATIENT REFUSED THE LOVENOX 40 MG SQ, EXPLAINED RISKS AND BENEFITS, PATIENT STILL REFUSING, SAYING "I DON'T WANT THAT. IT HURTS."
[2018-02-16] MEDS: LEVOFLOXACIN 500 MG /D5W 100ML 500 MG in PREMIX 1 EA IV SCH (21:28)
[2018-02-16] MEDS: ENOXAPARIN SODIUM 40 MG/0.4 ML DISP.SYRIN SQ SCH (21:34)
[2018-02-16] MEDS: GUAIFENESIN/D-METHORPHAN HB 5 ML UDC PO PRN (23:07)
[2018-02-16] MEDS: IV NS 0.9% 1,000 ML IV PRN (23:07)
[2018-02-17] MEDS: IPRATROPIUM NEB FS 0.5 MG/2.5 ML AMPUL.NEB NEB SCH ×7 (00:20→23:08)
[2018-02-17] MEDS: ALBUTEROL FS 2.5 MG/3 ML VIAL.NEB NEB SCH ×7 (00:20→23:07)
[2018-02-17] MEDS: GUAIFENESIN/D-METHORPHAN HB 5 ML UDC PO PRN (04:12)
[2018-02-17] MEDS: BLOOD SUGAR DIAGNOSTIC 1 EACH STRIP IN SCH ×4 (06:42→21:59)
[2018-02-17] MEDS: LEVOTHYROXINE SODIUM 100 MCG TABLET PO SCH (06:42)
--- NOTE | 2018-02-17 07:11 | NUR ---
MS RN CLOSING NOTES: PATIENT IN BED, AOX4, ON O2 AT 2 LPM VIA NC, BREATHING EVEN AND UNLABORED. APPEARS CALM AND IN NO DISTRESS. PIV OVER L HAND G 22 STARTED TO SWELL, D'HO LINE AND REINSERTED NEW IV LINE OVER R WRIST G22, WITH GOOD BLOOD RETURN, RESTARTED THE IV FLUID. DUE MEDS GIVEN. PROVIDED FOR COMFORT AND SAFETY. BED IN LOWEST AND LOCKED POSITION, SIDERAILS UP X 3,CALL LIGHT WITHIN REACH. WILL ENDORSE TO AM RN FOR MYRNA.
--- NOTE | 2018-02-17 07:41 | NUR ---
MS/RN OPENING NOTE PATIENT IN BED IN STABLE CONDITION. A/O X 4. NO SIGNS OF ACUTE DISTRESS. NO COMPLAIN OF PAIN OR DISCOMFORT. ALL NEEDS ATTENDED TO. CALL LIGHT WITHIN REACH. WILL CONTINUE TO MONITOR TO ENSURE SAFETY.
[2018-02-17 08:00] VITALS: BP 112/67
[2018-02-17] MEDS: ACETYLCYSTEINE 10% SOLN 400 MG/4 ML VIAL NEB SCH ×3 (08:02→23:08)
[2018-02-17] MEDS: MONTELUKAST SODIUM (10MG) 10 MG TABLET PO SCH (08:43)
[2018-02-17] MEDS: methylPREDNISolone SOD SUCC 40 MG/ML VIAL IV SCH ×3 (08:43→17:09)
[2018-02-17] MEDS: clonazePAM 1 MG TABLET PO SCH ×2 (08:43→17:09)
[2018-02-17] MEDS: ATORVASTATIN 10 MG TABLET PO SCH (08:43)
[2018-02-17] MEDS: FAMOTIDINE (20 MG) 20 MG TABLET PO SCH (08:43)
[2018-02-17] MEDS: THEOPHYLLINE TAB 24HR 400 MG TAB.SR. PO SCH (08:43)
[2018-02-17] MEDS: METFORMIN 500 MG TABLET PO SCH ×2 (08:43→17:09)
[2018-02-17] MEDS: LISINOPRIL (5MG) 5 MG TABLET PO SCH (08:44)
[2018-02-17] MEDS: INSULIN REGULAR, HUMAN 100 UNIT/ML 3 ML VIAL SQ PRN ×3 (12:47→22:08)
[2018-02-17 16:00] VITALS: BP 121/71
[2018-02-17] MEDS: IV NS 0.9% 1,000 ML IV PRN (17:10)
--- NOTE | 2018-02-17 18:18 | NUR ---
MS/RN CLOSING NOTE PATIENT IN BED IN STABLE CONDITION. A/O X 4. NO SIGNS OF ACUTE DISTRESS. NO COMPLAIN OF PAIN OR DISCOMFORT. ALL NEEDS ATTENDED TO. CALL LIGHT WITHIN REACH. WILL ENDORSE TO NEXT SHIFT FOR CONTINUITY OF CARE.
--- NOTE | 2018-02-17 19:30 | NUR ---
MS RN NOTED RECEIVED PATIENT FROM DAY SHIFT, PATIENT IS ALERT AND ORIENTEDX4, DENIES PAIN AND CURRENTLY ON O2 SAT DUE TO COPD. IV ON RIGHT FA IS PATENT AND INTACT. SRX2, BED IN LOW POSITION, CALL LIGHT WITHIN REACH, WILL CONTINUE TO MONITOR PATIENT.
[2018-02-17 20:00] VITALS: BP 107/55
[2018-02-17] MEDS: LEVOFLOXACIN 500 MG /D5W 100ML 500 MG in PREMIX 1 EA IV SCH (21:58)
[2018-02-17] MEDS: ENOXAPARIN SODIUM 40 MG/0.4 ML DISP.SYRIN SQ SCH (22:00)
--- NOTE | 2018-02-17 22:00 | NUR ---
MS RN NOTE PATIENT REFUSED TO GET LOVENOX SQ SHOT. EXPLAINED BENEFITS AND RISKS, AND EDUCATION PROVIDED. BUT PATIENT STILL REFUSED IT.
[2018-02-17] MEDS ORDERED: ALBUTEROL HALF STRENGTH 1.25 MG/3 ML VIAL.NEB NEB PRN (23:00)
[2018-02-17] MEDS ORDERED: ALBUTEROL HALF STRENGTH 1.25 MG/3 ML VIAL.NEB NEB SCH (23:30)
[2018-02-18] MEDS: ALBUTEROL FS 2.5 MG/3 ML VIAL.NEB NEB SCH ×6 (03:30→22:39)
[2018-02-18] MEDS: IPRATROPIUM NEB FS 0.5 MG/2.5 ML AMPUL.NEB NEB SCH ×6 (03:30→22:39)
[2018-02-18] MEDS: BLOOD SUGAR DIAGNOSTIC 1 EACH STRIP IN SCH ×4 (06:40→21:09)
--- NOTE | 2018-02-18 06:55 | NUR ---
MS RN NOTE PATIENT IS RESTING IN BED COMFORTABLY, NO S/S OF RESPIRATORY DISTRESS AND NO PAIN REPORTED. IV ON RIGHT FA IS PATENT AND INTACT, REFUSED TO GET FLUID. MORNING CARE RENDERED. WILL ENDORSE TO DAY SHIFT NURSE FOR MYRNA.
[2018-02-18] MEDS: ACETYLCYSTEINE 10% SOLN 400 MG/4 ML VIAL NEB SCH ×3 (07:35→23:28)
[2018-02-18 08:00] VITALS: BP 101/80
--- NOTE | 2018-02-18 08:00 | NUR ---
MS RN AM NOTES RECEIVED ALERT, ORIENTED X3, LIVES ALONE,NO OPEN WOUND, NOTED BLE EDEMA +2, REQUIRE 2L OXYGEN , BREATHING TX ROUTINE/ NEEDED,NO SOB NOTED.RIGHT WRIST GAUGE 22 PATENT W/ NO INFILTRATION REFUSING IVF INFUSION OF NS.WILL MONITOR FOR ANY CHANGES. INSISTS TO SMOKE.SMOKING CESSATION TEACHING GIVEN BUT PT WAS SO UPSET AND CAN'T WAIT TO SMOKE.PT FORGETS THE URGE TO SMOKE MOST OF THE TIME.GOES BACK TO SLEEP.CALL LIGHT PLACED WITHIN REACH.
[2018-02-18] MEDS: LISINOPRIL (5MG) 5 MG TABLET PO SCH (09:00)
[2018-02-18] MEDS: methylPREDNISolone SOD SUCC 40 MG/ML VIAL IV SCH ×3 (09:06→17:30)
[2018-02-18] MEDS: MONTELUKAST SODIUM (10MG) 10 MG TABLET PO SCH (09:07)
[2018-02-18] MEDS: METFORMIN 500 MG TABLET PO SCH ×2 (09:07→17:30)
[2018-02-18] MEDS: LEVOTHYROXINE SODIUM 100 MCG TABLET PO SCH (09:07)
[2018-02-18] MEDS: clonazePAM 1 MG TABLET PO SCH ×2 (09:07→17:30)
[2018-02-18] MEDS: ATORVASTATIN 10 MG TABLET PO SCH (09:07)
[2018-02-18] MEDS: FAMOTIDINE (20 MG) 20 MG TABLET PO SCH (09:07)
[2018-02-18] MEDS: THEOPHYLLINE TAB 24HR 400 MG TAB.SR. PO SCH (09:12)
[2018-02-18] MEDS: INSULIN REGULAR, HUMAN 100 UNIT/ML 3 ML VIAL SQ PRN ×3 (13:10→21:14)
[2018-02-18] MEDS: GUAIFENESIN LA 600 MG TABLET.SA PO SCH ×2 (13:13→20:27)
[2018-02-18 16:00] VITALS: BP 126/75
--- NOTE | 2018-02-18 19:10 | NUR ---
PT RESTING IN BED C/O NERVOUSNESS DENYING ANY PAIN OR DISTRESS.KLONOPIN GIVEN AND WILL MONITOR.PT REFUSED IVF SAYING SHE IS GOING TO EAT.WILL RESUME IVF AND ENDORSED TO NIGHT NURSE.
--- NOTE | 2018-02-18 19:13 | NUR ---
PT IS ABLE TO GO TO [facility] WITH MINIMAL ASSIST.PT HAS RT FOOTDROP.
--- NOTE | 2018-02-18 19:53 | NUR ---
MS/RN OPENING NOTES PATIENT IN BED, ALERT, ORIENTED, ABLE TO VERBALIZE NEEDS, USES PHONE, RESTING COMFORTABLY IN BED REQUESTED FOR HOME MEDICATIONS LIST AND FOLLOW UP PRESCRIPTIONS THAT CAN BE REFILLED BEFORE GOING HOME, WILL INFORM CHARGE NURSE FOR INQUIRY AND CREDIT RISK MODELER FOLLOW UP D/C PLANNING WITH MD ORDER. RECEIVE ENDORSEMENT FROM AM RN FOR MYRNA, WILL MONITOR AND PROVIDE CARE, INSTRUCTED TO CALL FOR ASSISTANCE, ON BREATHING TREATMENT AND MONITORING FOR ANY CHANGES.CALL LIGHTS WITHIN REACH, BED IN LOCK POSITION.
[2018-02-18 20:00] VITALS: BP 132/68
--- NOTE | 2018-02-18 20:00 | NUR ---
ms/rn notes PATIENT VERBALIZES NEEDS AND CONCERNS, REQUEST FOR FOLLOW UP ON MEDICATION PRESCRIPTION REFILL UPON DISCHARGE, MD FOLLOW UP, CONCERN WITH RIGHT FOOT DROP, AND DESIRE TO SMOKE ALSO CONCERNS AND REQUIRE SADDLE CUTTER FOR HOME CARE, REPORTED PATIENT LIVES BY HER SELF.
[2018-02-18] MEDS: LEVOFLOXACIN (500MG) 500 MG TABLET PO SCH (21:09)
[2018-02-18] MEDS: ENOXAPARIN SODIUM 40 MG/0.4 ML DISP.SYRIN SQ SCH (21:10)
--- NOTE | 2018-02-18 21:11 | NUR ---
MS/RN NOTES PATIENT REFUSE LOVENOX SQ, INFORMED THE BENEFIT OF TAKING IT, AND THE RISK NOT TAKING IT, PATIENT REFUSE AND SAID NO. VERBALIZED UNDERSTANDING.
[2018-02-19] MEDS: ALBUTEROL FS 2.5 MG/3 ML VIAL.NEB NEB SCH ×6 (03:15→23:07)
[2018-02-19] MEDS: IPRATROPIUM NEB FS 0.5 MG/2.5 ML AMPUL.NEB NEB SCH ×6 (03:15→23:07)
[2018-02-19] MEDS: INSULIN REGULAR, HUMAN 100 UNIT/ML 3 ML VIAL SQ PRN ×4 (07:02→21:09)
[2018-02-19] MEDS: ACETYLCYSTEINE 10% SOLN 400 MG/4 ML VIAL NEB SCH ×4 (07:16→23:22)
--- NOTE | 2018-02-19 07:38 | NUR ---
MS/RN NOTES PATIENT IN BED, ALERT, ORIENTED X3, ABLE TO VERBALIZE NEEDS, REQUIRE FREQUENT REORIENTATION, KEPT COMFORTABLE WILL KEEP COMFORTABLE. ENDORSE TO AM RN FOR MYRNA.
--- NOTE | 2018-02-19 07:54 | NUR ---
MS MIDDLETON OPENING NOTES RECEIVED PATIENT IN STABLE CONDITION. PATIENT IS AGITATED BECAUSE SHE WANTS TO GO OUT FOR A CIGARETTE. ENSURED PATIENTS SMOKING WAIVER FORM WAS SIGNED. INFORMED THE PATIENT SHE CAN GO OUT WITH THE COMPANY OF [employer] BY 0830. BEDSIDE RAILS ARE UPX2. BED IS LOCKED AND LOWERED. CALL LIGHT IS WITHIN REACH. IV LINE IS INTACT AND PATENT. WILL CONTINUE TO MONITOR. Addendum: 02/19/18 at 1809 by AQUILES MITCHELL RN INCORRECT BEAD FORMING MACHINE OPERATOR CHARTED. CORRECTION. PATIENT WENT OUTSIDE WITH [employer] [facility].
[2018-02-19 08:00] VITALS: BP 121/74
[2018-02-19 08:19] VITALS: BP 121/74
[2018-02-19] MEDS: LEVOTHYROXINE SODIUM 100 MCG TABLET PO SCH (08:45)
[2018-02-19] MEDS: FAMOTIDINE (20 MG) 20 MG TABLET PO SCH (08:45)
[2018-02-19] MEDS: LISINOPRIL (5MG) 5 MG TABLET PO SCH (08:45)
[2018-02-19] MEDS: clonazePAM 1 MG TABLET PO SCH ×2 (08:46→17:13)
[2018-02-19] MEDS: METFORMIN 500 MG TABLET PO SCH ×2 (08:46→17:13)
[2018-02-19] MEDS: MONTELUKAST SODIUM (10MG) 10 MG TABLET PO SCH (08:46)
[2018-02-19] MEDS: GUAIFENESIN LA 600 MG TABLET.SA PO SCH ×2 (08:46→20:27)
[2018-02-19] MEDS: THEOPHYLLINE TAB 24HR 400 MG TAB.SR. PO SCH (08:47)
[2018-02-19] MEDS: ATORVASTATIN 10 MG TABLET PO SCH (08:47)
[2018-02-19] MEDS: BLOOD SUGAR DIAGNOSTIC 1 EACH STRIP IN SCH ×4 (08:48→21:01)
[2018-02-19] MEDS: methylPREDNISolone SOD SUCC 40 MG/ML VIAL IV SCH ×3 (08:48→17:14)
--- NOTE | 2018-02-19 09:44 | NUR ---
PATIENT IS NON COMPLIANT WITH MEDICAL TREATMENT. PATIENT WAS TAKEN TO SMOKE. DOES NOT WANT TO BE DISCHARGED. CORK INSULATOR HELPER HANG CONTACTED TO SPEAK TO PATIENT.
--- NOTE | 2018-02-19 11:00 | NUR ---
PATIENT CONTINUES BEING AGITATED. PATIENT STATES THAT "NOBODY IS DOING ANYTHING FOR HER." PATIENT VERBALLY ABUSIVE. BRETT CHARGE NURSE SPOKE TO THE PATIENT ABOUT HER TREATMENT. PATIENT IS STILL UPSET. EDUCATION PROVIDED TO THE PATIENT ABOUT SMOKING CESSATION. PATIENT STATES THAT SHE WANTS TO GO AGAIN TO SMOKE. PATIENT IS NON COMPLIANT WITH CONSTRUCTION LABORER, NURSE, OR CHARGE NURSE.
--- NOTE | 2018-02-19 12:00 | NUR ---
PATIENT DOES NOT WANT TO LEAVE THE HOSPITAL [facility] SHE HAS A DICHARGE ORDER. CASE MANAGEMENT CONTACTED.
--- NOTE | 2018-02-19 12:17 | NUR ---
BLOOD SUGAR 273. 6 UNITS OF INSULIN GIVEN. UNABLE TO INPUT COMMENT ON ACCU CHECK MACHINE.
--- NOTE | 2018-02-19 13:39 | NUR ---
PATIENT INSISTED ON GOING TO SMOKE FOR THE SECOND TIME TODAY. PATIENT ESCORTED TO SMOKE OUTSIDE WITH MALGORZATA PRETTY.
--- NOTE | 2018-02-19 15:04 | NUR ---
SPOKE TO PATIENTS SON OSBALDO DUNBAR. SON IS REQUESTING TO KEEP PATIENT IN THE HOSPITAL ONE MORE DAY. I RECOMMENDED HE SPEAK TO CASE MANAGEMENT. CALLED [employer]ANG TELECOMMUNICATION LINES REPAIRER TO CALL SON AND DISCUSS WITH HIM OPTIONS. [facility] WILL CONTACT SON.
[2018-02-19 16:00] VITALS: BP 114/77
--- NOTE | 2018-02-19 16:05 | NUR ---
PATIENT WAS TAKEN TO SMOKE FOR THE THIRD TIME TODAY AT 1600.
--- NOTE | 2018-02-19 18:31 | NUR ---
MS RN CLOSING NOTES PATIENT IS ALERT AND ORIENTED X4. ALL NEEDS WERE MET. BEDSIDE RAILS ARE UPX2. BED IS LOCKED AND LOWERED. CALL LIGHT IS WITHIN REACH. VITAL SIGNS ARE WNL. WILL ENDORSE CARE TO SYSTEMS SOFTWARE SPECIALIST NURSE FOR MYRNA.
--- NOTE | 2018-02-19 19:38 | NUR ---
MS/RN OPENING NOTES PATIENT IN BED, ALERT,ORIENTED X3, ABLE TO VERBALIZE NEEDS, VERBALIZE CONCERNS AND REPORTED" I WANT TO SMOKE". LISTENED AND INFORMED NEEDS, ABLE TO COOPERATE AFTE VENTING OUT FRUSTRATIONS AND ABLE TO RECEIVE BREATHING TREATMENTS, INFORMED AND WILL ASSIST WITH SMOKE BREAK. PATIENT SITTING IN WHEELCHAIR, ON OXYGEN VIA 3L AT 97% O2 SATURATIONS.
--- NOTE | 2018-02-19 19:40 | NUR ---
MS/RN NOTES PATIENT WAS ASSISTED ON A WHEELCHAIR TO SMOKE ACCOMPANIED BY TEXTILES AND CLOTHING TEACHER, KEEP SAFE BY WEARING NON SKID SOCKS, INSTRUCTED THE RISK OF SMOKING WITH COPD EXACERBATION. PATIENT VERBALIZED UNDERSTANDING .
[2018-02-19 20:00] VITALS: BP 116/78
--- NOTE | 2018-02-19 20:30 | NUR ---
MS/RN NOTES PATIENT REFUSE TO HAVE PHOTO DONE.
[2018-02-19] MEDS: LEVOFLOXACIN (500MG) 500 MG TABLET PO SCH (20:57)
[2018-02-19] MEDS: ENOXAPARIN SODIUM 40 MG/0.4 ML DISP.SYRIN SQ SCH (21:12)
--- NOTE | 2018-02-19 21:13 | NUR ---
ms/rn notes PATIENT NON COMPLIANT, REFUSE TO TAKE LOVENOX 40SUBCUTANEOUS, INFORMED THE RISK AND BENEFITS, PATIENT VERBALIZE UNDERSTANDING.
[2018-02-20] MEDS: IPRATROPIUM NEB FS 0.5 MG/2.5 ML AMPUL.NEB NEB SCH ×4 (02:35→15:57)
[2018-02-20] MEDS: ALBUTEROL FS 2.5 MG/3 ML VIAL.NEB NEB SCH ×4 (02:35→15:57)
--- NOTE | 2018-02-20 06:30 | NUR ---
315-2MS/RN NOTES PATIENT IN BED, REPORTED BEHAVIOR AND CONSTANT NEED TO SMOKE, CHARGE NURSE MADE AWARE WITH PATIENT'S CONCERN , WILL FOLLOW UP AND ENDORSE TO AM RN FOR MYRNA. CALL LIGHTS WITHIN REACH, WILL MONITOR.
[2018-02-20] MEDS: ACETYLCYSTEINE 10% SOLN 400 MG/4 ML VIAL NEB SCH ×2 (07:26→15:57)
--- NOTE | 2018-02-20 07:30 | NUR ---
m/s research development director: initial assessment received pt in bed awake, a/ox3. pt immediately c/o that she needs her atrovent and pro air inhalers prescriptions; also c/o about her right foot drop. pt easily irritated and gets agitated. reality orientation provided prn. listened attentively. instructed to call for assistance. will continue to monitor. Addendum: 02/20/18 at 1433 by MARY ANN WINN LVN pt refused full body assessment, but noted with discoloration on both arms.
[2018-02-20] MEDS: LEVOTHYROXINE SODIUM 100 MCG TABLET PO SCH (07:47)
[2018-02-20] MEDS: BLOOD SUGAR DIAGNOSTIC 1 EACH STRIP IN SCH ×3 (07:53→17:22)
[2018-02-20] MEDS: INSULIN REGULAR, HUMAN 100 UNIT/ML 3 ML VIAL SQ PRN (07:58)
[2018-02-20 08:00] VITALS: BP_SYST 110; BP_SYST 119; BP_DIAS 70
--- NOTE | 2018-02-20 08:10 | NUR ---
m/s woods rider: md visit informed md that pt takes 3 different inhalers at home and need prescriptions. seen by dr. sifuentes at this time and discussed her inhalers and will write prescriptions today as stated. pt remains sarcastic towards md and staff. instructed to call for assistance. will continue to monitor.
[2018-02-20] MEDS: METFORMIN 500 MG TABLET PO SCH ×2 (09:22→17:22)
[2018-02-20] MEDS: FAMOTIDINE (20 MG) 20 MG TABLET PO SCH (09:22)
[2018-02-20] MEDS: MONTELUKAST SODIUM (10MG) 10 MG TABLET PO SCH (09:22)
[2018-02-20] MEDS: GUAIFENESIN LA 600 MG TABLET.SA PO SCH (09:22)
[2018-02-20] MEDS: clonazePAM 1 MG TABLET PO SCH ×2 (09:22→17:22)
--- NOTE | 2018-02-20 09:22 | NUR ---
m/s navy senior officer: notes due meds reviewed and educated in front of pt, but stated, "whatever, just give them to me." pt ask me if her prescriptions will be filled here and informed her that she has or her son has to go to pharmacy to get them, pt got irritated and stated, "my son doesn't do shit for me, i want them filled here or i am not going to get them, tell them to shove them in their ass, whatever." emotional support rendered, but pt remains sarcastic and difficult to educate. instructed to call for assistance. will continue to monitor.
[2018-02-20 09:23] VITALS: BP 119/70
[2018-02-20] MEDS: ATORVASTATIN 10 MG TABLET PO SCH (09:23)
[2018-02-20] MEDS: THEOPHYLLINE TAB 24HR 400 MG TAB.SR. PO SCH (09:23)
[2018-02-20] MEDS: LISINOPRIL (5MG) 5 MG TABLET PO SCH (09:23)
--- NOTE | 2018-02-20 10:00 | NUR ---
m/s solid die cutter: notes pt still insisting to get a special boot/brace on her right foot drop. dr. sifuentes here and said okay to get a special boot. showed special boot and educated pt on how to walk with it, but pt got more irritated and wants a brace now. cn educated pt on brace, but pt more irritated and asked us (primary nurse and cn) to leave.
--- NOTE | 2018-02-20 10:10 | NUR ---
m/s top bottom attaching machine operator: notes pt walked out by the door and asked me to have the cn go back to her room. cn at bedside at this time.
--- NOTE | 2018-02-20 10:40 | NUR ---
m/s advanced manufacturing vice president: notes nancy (case management) at bedside at this time.
--- NOTE | 2018-02-20 11:00 | NUR ---
m/s boatswains mate: notes dr. sifuentes here and informed md that pt got accepted at [facility] and ask md re: home medications, stated, "continue home meds and prescriptions as prescribed.
--- NOTE | 2018-02-20 11:15 | NUR ---
m/s retail business development manager: notes pt called and demanded to talk to nancy (case management) re: social security check. called nancy and handed the phone to pt.
--- NOTE | 2018-02-20 11:30 | NUR ---
m/s contour sander: notes anita (son) notified, left message via voice mail re: d'c to [facility]. report given to davidson (rn preparation department supervisor) for continuity of care.
--- NOTE | 2018-02-20 11:50 | NUR ---
m/s x ray technician: notes ambulance here and report given to one of the crew. pt made aware and about to give discharge instructions with prescriptions, but pt change her mind and doesn't want to go, instead wants to go home. cn and case management made aware.
--- NOTE | 2018-02-20 12:00 | NUR ---
m/s tailer off: notes nancy (case management) in room and talking to pt, pt started screaming and yelling at staff. pt refused to listen and asked him to leave. pt insisted on going home.
--- NOTE | 2018-02-20 12:15 | NUR ---
m/s firearms assembly supervisor: notes rohan and nancy (case management) at bedside. educated pt on safety, but pt refusing to listen and continue to yell and scream at them. adilene is on will call at this time. dr. sifuentes notified by cn. will continue to monitor.
[2018-02-20] MEDS ORDERED: LORAZEPAM 0.5 MG TABLET PO PRN (12:30)
--- NOTE | 2018-02-20 13:40 | NUR ---
m/s venetian blind assembler: notes pt taken down to smoke break, pt continue to insist that she wants to go home, stated, "i can take care of myself." crisis team called by gavin.
--- NOTE | 2018-02-20 14:40 | NUR ---
m/s therapy assistant: kanchan madrigal (crisis team) at bedside for eval.
--- NOTE | 2018-02-20 15:15 | NUR ---
m/s software engineer kernel: notes rohan spoke to son and on his way to pick her up at 1730. per rohan, pt is not holdable. will continue to monitor. discussed case with dr. martinez (psych) by rohan. nancy (case management) will arrange home health p.t. at home.
--- NOTE | 2018-02-20 15:37 | NUR ---
m/s planning assistant: notes reminded case management to call [facility] and also p.t. home health, spoke to him over the phone.
--- NOTE | 2018-02-20 17:00 | NUR ---
m/s trains dispatcher supervisor: notes home health has been arranged and will come after lunch tomorrow per case management. pt made aware.
--- NOTE | 2018-02-20 17:50 | NUR ---
m/s optician apprentice: d'c instructions son called and on his way here, but he doesn't want to come up. discharged instructions with prescriptions given to pt and verbalized understanding. h/l removed with tip intact with no bleeding, no redness, and no swelling noted.
--- NOTE | 2018-02-20 18:00 | NUR ---
m/s warehouse shipping associate: discharged discharged home in stable condition with all valuables and d'c papers accompanied by son.
[2018-02-21] MEDS ORDERED: methylPREDNISolone SOD SUCC 40 MG/ML VIAL IV SCH (09:00)
[2018-06-27] MEDS ORDERED: METH4TAB17 PO (11:51)
== END 2018-02-20 18:07 | disposition home health service (06) | DRG 189 ==
LOC: ER 19:22 → TELE 21:30 → MED 02-16 08:33
PROVIDERS: ADMIT Internal Medicine; ATTEND Internal Medicine
DX: J96.01 Acute respiratory failure with hypoxia (principal); J44.0 Chronic obstructive pulmonary disease with (acute) lower respiratory infection; E03.9 Hypothyroidism, unspecified; J32.0 Chronic maxillary sinusitis; E11.9 Type 2 diabetes mellitus without complications; E78.5 Hyperlipidemia, unspecified; J44.1 Chronic obstructive pulmonary disease with (acute) exacerbation; J20.9 Acute bronchitis, unspecified; Z79.84 Long term (current) use of oral hypoglycemic drugs; F17.200 Nicotine dependence, unspecified, uncomplicated; I10 Essential (primary) hypertension; K21.9 Gastro-esophageal reflux disease without esophagitis; Z90.710 Acquired absence of both cervix and uterus; Z71.6 Tobacco abuse counseling
CPT/HCPCS: 36415; 36600; 70220-TC; 70486-TC; 71045-TC; 80048-TC; 82962-TC; 83735-TC; 84100-TC; 84484-TC; 85025-TC; 87081-TC; 94799-TC; A4216; A4606; J1650; J1815; J1956; J2920; J2930; J3475; J7030; Z7610

== ENCOUNTER 2018-04-10 23:44 | Inpatient (IN) | payer MEDICARE, OTHER ==
[~2018-04-10] VITALS: Ht 167.6 cm; Wt 66.7 kg
[~2018-04-10 23:44] MED LIST changes: -ALBUTEROL FS 2.5 MG/3 ML VIAL.NEB NEB SCH; -DOXY100T2 PO; -IPRA12.9 INH
--- NOTE | 2018-04-10 23:45 | NUR ---
PT NILSA FROM HOME PT STATES "SOB AT HOME; SELF TREATED WITH 6MG OF ALBUTEROL; BREATHING TX BY RA 102" PT AOX3 SOB NOTED. NO NVD AT THIS TIME. PT GOWNED AND PLACED ON MONITOR. RT AND DR. LOVELACE AT BEDSIDE FOR EVAL. PER RA PLACED IV ON LEFT HAND 20G, INTACT AND PATENT. NO S/S INFECTION OR INFILTRATION NOTED AT THIS TIME.
[2018-04-10] MEDS ORDERED: IPRATROPIUM NEB FS 0.5 MG/2.5 ML AMPUL.NEB ONE (23:50)
[2018-04-10] MEDS ORDERED: ALBUTEROL FS 2.5 MG/3 ML VIAL.NEB ONE (23:50)
[2018-04-10] MEDS ORDERED: Magnesium 1GM/D5W 100ML PREMIX 200 ML IV ONE (23:51)
[2018-04-10] MEDS ORDERED: methylPREDNISolone SOD SUCC 125 MG/2ML VIAL ONE (23:51)
[2018-04-10] MEDS ORDERED: ONDANSETRON HCL/PF 4 MG/2 ML VIAL ONE (23:57)
[2018-04-11] VITALS (21 sets, daily range): BP systolic 73–150; BP diastolic 34–83
[2018-04-11] MEDS ORDERED: ALBUTEROL FS 2.5 MG/3 ML VIAL.NEB CONTNEB ONE
[2018-04-11] MEDS ORDERED: methylPREDNISolone SOD SUCC 125 MG/2ML VIAL IV ONE
[2018-04-11] MEDS ORDERED: ONDANSETRON HCL/PF - ER 4 MG/2 ML VIAL IV ONE
[2018-04-11] MEDS ORDERED: IPRATROPIUM NEB FS 0.5 MG/2.5 ML AMPUL.NEB NEB ONE
[2018-04-11] MEDS ORDERED: TERBUTALINE SULFATE 1 MG/ML VIAL SQ ONE
[2018-04-11] MEDS: Magnesium 1GM/D5W 100ML PREMIX 100 ML IV SCH ×2 (00:02→02:36)
--- NOTE | 2018-04-11 00:03 | NUR ---
RT AT BEDSIDE FOR BREATHING TX.
[2018-04-11 00:08] LABS: BASOPHILS % (AUTO) 0.5 % (0.0-2.0); EOSINOPHILS % (AUTO) 1.5 % (0.0-6.0); HEMATOCRIT 43 % (33-45); HEMOGLOBIN 14.4 g/dL (11.5-14.8); LYMPHOCYTES # (AUTO) 2.4 /CMM (0.8-4.8); LYMPHOCYTES % (AUTO) 26.4 % (20.0-44.0); MEAN CORPUSCULAR HGB CONC 34 g/dl (31.0-36.0); MEAN CORPUSCULAR VOLUME 97 fL (82-100); MONOCYTES # (AUTO) 0.9 /CMM (0.1-1.30); MONOCYTES % (AUTO) 9.7 % (2.0-12.0); NEUTROPHILS # (AUTO) 5.7 /CMM (1.8-8.9); NEUTROPHILS % (AUTO) 61.9 % (43.0-81.0); PLATELET COUNT (AUTO) 304 /CMM (150-450); RDW COEFFICIENT OF VARIATION 13.7 (11.5-15.0); RED BLOOD CELL COUNT(AUTO) 4.41 MIL/uL (4.0-5.2); WHITE BLOOD COUNT (AUTO) 9.2 K/uL (4.3-11.0)
[2018-04-11 00:18] LABS: CALCIUM, SERUM 8.5 mg/dL (8.5-10.1); CARBON DIOXIDE 28 mmol/L (21-32); CHLORIDE 106 mmol/L (98-107); CREATININE 0.7 mg/dL (0.6-1.3); GLUCOSE 167 mg/dL (74-106); POTASSIUM 3.6 mmol/L (3.5-5.1); SODIUM SERUM 144 mmol/L (136-145); UREA NITROGEN, BLOOD 14 mg/dL (7-18)
[2018-04-11] MEDS ORDERED: TERBUTALINE SULFATE 1 MG/ML VIAL ONE (00:21)
[2018-04-11 00:23] LABS: TROPONIN I < 0.017 ng/mL (0.00-0.056)
--- NOTE | 2018-04-11 00:26 | NUR ---
RADIOLOGY AT BEDSIDE FOR CXR
[2018-04-11 00:33] LABS: ABG BASE EXCESS 0.4 mmol/L; ABG OXYGEN SATURATION 98.3 % (92.0-98.5); ABG PCO2 51.6 mmHg (35.0-45.0); ABG PH 7.338 (7.350-7.450); ABG PO2 162.8 mmHg (75.0-100.0); AaDO2 135.7 mmHg; COHb 1.9 % (0.5-1.5); MetHb 0.5 % (0.0-1.5); O2Hb 95.9 % (94.0-97.0); SITE, ABG Right Brachial; VENT MODE, BG 8L SIMPLE MASK
[2018-04-11 00:37] LABS: ALANINE AMINOTRANSFERASE 20 U/L (12-78); ALBUMIN 3.5 g/dL (3.4-5.0); ALKALINE PHOSPHATASE 94 U/L (46-116); ASPARTATE AMINOTRANSFERASE 10 U/L (15-37); B-TYPE NATRIURETIC PEPTIDE 81 PG/ML (0-125); BILIRUBIN,TOTAL 0.2 mg/dL (0.2-1.0); TOTAL PROTEIN, SERUM 6.8 g/dL (6.4-8.2)
--- NOTE | 2018-04-11 00:59 | NUR ---
INFLUENZA SWAB COLLECTED. CALLED LAB FOR CIRCULAR GANG SAW OPERATOR.
--- NOTE | 2018-04-11 01:00 | NUR ---
DR. LOVELACE AND RYLEY VANN SPOKE REGARDING ADMISSION.
[2018-04-11 01:22] LABS: THYROID STIMULATING HORMONE 14.47 uIU/mL (0.358-3.74)
--- NOTE | 2018-04-11 01:22 | NUR ---
RN NOTES RECEIVED REPORT FROM TRACTOR TRAILER OPERATOR ADDIE
--- NOTE | 2018-04-11 01:23 | NUR ---
REPORT GIVEN TO EMI GEORGES FOR MYRNA.
[2018-04-11] MEDS ORDERED: HYDROCODONE/APAP 5/325MG 1 EACH TABLET PO PRN (01:30)
[2018-04-11] MEDS ORDERED: ZOLPIDEM TARTRATE 5 MG TABLET PO PRN (01:30)
[2018-04-11] MEDS ORDERED: MAG HYDROX/AL HYDROX/SIMETH 30 ML UDC PO PRN (01:30)
[2018-04-11] MEDS ORDERED: MAGNESIUM HYDROXIDE 30 ML UDC PO PRN (01:30)
[2018-04-11] MEDS ORDERED: MORPHINE SULFATE INJ 4 MG/ML DISP.SYRIN IV PRN (01:30)
[2018-04-11] MEDS ORDERED: DEXTROSE 50%-WATER 50 ML DISP.SYRIN IV PRN (01:30)
[2018-04-11] MEDS ORDERED: ONDANSETRON HCL/PF 4 MG/2 ML VIAL IVP PRN (01:30)
[2018-04-11] MEDS ORDERED: Z GUARD REMEDY 2 OZ OINT TP PRN (01:30)
[2018-04-11] MEDS ORDERED: BISACODYL SUPP (10 MG) 10 MG/SUPP.RECT SUPP.RECT RC PRN (01:30)
[2018-04-11] MEDS ORDERED: ENOXAPARIN SODIUM 40 MG/0.4 ML DISP.SYRIN SQ SCH (01:30)
--- NOTE | 2018-04-11 01:45 | NUR ---
PT TRANSFERRED PER ACLS PROTOCOL.
--- NOTE | 2018-04-11 01:46 | NUR ---
RN NOTES PATIENT ARRIVED VIA GURNEY. A/O X4, VERY ANXIOUS. ON 2L NASAL CANNULA, NOTED TACHYPNEA AND LABORED BREATHING BUT SATURATING WELL. CURRENTLY ST ON THE MONITOR, HR 100-110'S. PT IS CONTINENT AND INSISTING ON WALKING TO THE BATHROOM TO VOID. SKIN IS INTACT. LEFT HAND 20G AND RIGHT HAND 20G PERIPHERAL IV FLUSHED AND PATENT, NO S/S OF INFILTRATION/INFECTION, DRESSINGS CDI. BED LOW AND LOCKED, SIDERAILS UP, CALL LIGHT WITHIN REACH.
--- NOTE | 2018-04-11 02:30 | NUR ---
RN NOTES NOTIFIED BEHAVIOR SUPPORT SPECIALIST TRADING ASSISTANT SOO THAT PATIENT IS INSISTING ON HAVING SOME FOOD. REASON FOR NPO STATUS PROVIDED TO PATIENT BUT IS SHE IS THREATENING TO GO HOME INSTEAD. PER TRADING ASSISTANT, OK FOR SOME SNACKS NOW BUT HAS TO REMAIN NPO AFTER FOR AIRWAY PROTECTION ALSO INFORMED TRADING ASSISTANT THAT PATIENT STILL REFUSES BIPAP. PER TRADING ASSISTANT, MONITOR PATIENT CLOSELY. IF PATIENT DETERIORATES, WILL LIKELY INTUBATE
[2018-04-11] MEDS ORDERED: Magnesium 1GM/D5W 100ML PREMIX 100 ML IV ONE (02:35)
--- NOTE | 2018-04-11 03:00 | NUR ---
RN NOTES RT JANY IN ROOM TO EXPLAIN TO PATIENT THE IMPORTANCE OF HAVING THE BIPAP. PATIENT CONTINUES TO REFUSE. WILL MONITOR
[2018-04-11 05:27] LABS: EOSINOPHILS % (AUTO) 0.1 % (0.0-6.0); HEMATOCRIT 39 % (33-45); LYMPHOCYTES # (AUTO) 0.2 /CMM (0.8-4.8); LYMPHOCYTES % (AUTO) 2.8 % (20.0-44.0); MEAN CORPUSCULAR HGB CONC 34 g/dl (31.0-36.0); MEAN CORPUSCULAR VOLUME 98 fL (82-100); MONOCYTES % (AUTO) 0.4 % (2.0-12.0); NEUTROPHILS # (AUTO) 8.6 /CMM (1.8-8.9); NEUTROPHILS % (AUTO) 96.7 % (43.0-81.0); PLATELET COUNT (AUTO) 245 /CMM (150-450); RDW COEFFICIENT OF VARIATION 14.1 (11.5-15.0); RED BLOOD CELL COUNT(AUTO) 3.97 MIL/uL (4.0-5.2); WHITE BLOOD COUNT (AUTO) 8.9 K/uL (4.3-11.0)
[2018-04-11 05:46] LABS: TROPONIN I < 0.017 ng/mL (0.00-0.056)
[2018-04-11 05:54] LABS: CHOLESTEROL 176 mg/dL (<200); HDL CHOLESTEROL 60 mg/dL (40-60); LDL 98 mg/dL (0-99); TRIGLYCERIDES 67 mg/dL (30-150)
[2018-04-11 05:56] LABS: CALCIUM, SERUM 8.4 mg/dL (8.5-10.1); CARBON DIOXIDE 27 mmol/L (21-32); CHLORIDE 104 mmol/L (98-107); GLUCOSE 335 mg/dL (74-106); MAGNESIUM 2.7 mg/dL (1.8-2.4); PHOSPHORUS 2.8 mg/dL (2.5-4.9); POTASSIUM 3.8 mmol/L (3.5-5.1); SODIUM SERUM 140 mmol/L (136-145); UREA NITROGEN, BLOOD 13 mg/dL (7-18)
--- NOTE | 2018-04-11 06:20 | NUR ---
RN CLOSING NOTES PT REMAINS STABLE OF THE MOMENT. ALL DUE MEDS GIVEN. WILL ENDORSE MYRNA TO AM RN
[2018-04-11] MEDS: BLOOD SUGAR DIAGNOSTIC 1 EACH STRIP IN SCH ×4 (07:56→21:01)
[2018-04-11] MEDS: INSULIN REGULAR, HUMAN 100 UNIT/ML 3 ML VIAL SQ PRN ×4 (08:04→21:10)
[2018-04-11] MEDS: PANTOPRAZOLE 40 MG VIAL IV SCH (08:13)
[2018-04-11] MEDS: methylPREDNISolone SOD SUCC 40 MG/ML VIAL IV SCH ×4 (08:13→17:33)
[2018-04-11] MEDS: GUAIFENESIN LA 600 MG TABLET.SA PO SCH ×2 (08:13→21:01)
[2018-04-11] MEDS ORDERED: LEVOFLOXACIN 500 MG /D5W 100ML 500 MG/100 ML PIGGYBACK IV SCH (09:00)
[2018-04-11] MEDS: ALBUTEROL FS 2.5 MG/0.5 ML VIAL.NEB NEB PRN ×2 (09:09→11:23)
[2018-04-11] MEDS: IPRATROPIUM NEB FS 0.5 MG/2.5 ML AMPUL.NEB NEB PRN ×2 (09:09→11:23)
--- NOTE | 2018-04-11 13:47 | NUR ---
RN NOTES CLARIFIED SOLUMEDROL ORDER WITH DR DE LEON. WILL GIVE 20 MG SOLUMEDROL WHEN MED VERIFIED BY PHARMACIST TO COMPLETE 60 MG DOSE. PT RECEIVED 40 MG SOLUMEDROL AT 1216.
[2018-04-11] MEDS ORDERED: methylPREDNISolone SOD SUCC 40 MG/ML VIAL IV ONE (14:00)
[2018-04-11] MEDS: ALBUTEROL FS 2.5 MG/0.5 ML VIAL.NEB NEB SCH ×4 (14:30→23:46)
[2018-04-11] MEDS: IPRATROPIUM NEB FS 0.5 MG/2.5 ML AMPUL.NEB NEB SCH ×4 (14:30→23:46)
[2018-04-11] MEDS ORDERED: IPRA12.9 IH (15:08)
[2018-04-11] MEDS: ACETAMINOPHEN 325 MG TABLET PO PRN (17:43)
--- NOTE | 2018-04-11 18:30 | NUR ---
tele replanting machine crew: notes received pt from icu via bed awake, a/ox3. settled in room and immediately complained that she doesn't want any roommate otherwise she will leave the hospital. staff listened attentively and emotional support rendered. pt continue to complain despite staff being supportive. place pt on tele sr=90's and immediately refusing tele monitor; teaching and educational provided prn.
--- NOTE | 2018-04-11 18:30 | NUR ---
RN NOTES TRANSFERRED PT TO ROOM 309. REPORT GIVEN TO
--- NOTE | 2018-04-11 18:40 | NUR ---
tele continuous improvement engineer: notes pt refusing to be examined. icu staff brought her dinner and refused to eat, stated, "it's not warm enough." warmed her food, but still refused to eat and request for ham and cheese sandwich. called kitchen and informed me that they don't have it. informed pt and got very angry and making a threat to leave, but when staff listened attentively, pt calm down and request for salad.
--- NOTE | 2018-04-11 18:50 | NUR ---
tele salary and wage administrator: notes brought salad with ranch dressing and also brought chopped turkey sandwich. hob elevated. instructed to call for assistance. will continue to monitor.
--- NOTE | 2018-04-11 19:00 | NUR ---
tele deck mechanic: notes report given to feng trivedi) for continuity of care. pt still having dinner. call light within reach.
--- NOTE | 2018-04-11 19:00 | NUR ---
RN OPENING NOTES PT AWAKE AND ALERT IN BED. PT AGITATED. PT REQUESTED BREATHING TREATMENT. WILL FOLLOW UP WITH RT FOR SCHEDULED TREATMENTS. PT IS TELE MONITORED AT SR AT RATE OF 95. PT HAS A RIGHT WRIST IV #20 AND A LEFT HAND IV #20 BOTH INTACT AND PATENT. SAFETY PRECAUTIONS IN PLACE. BED IN LOWEST LOCKED POSITION, X2 SIDE RAILS UP, CALL LIGHT WITHIN REACH. WILL CONTINUE TO MONITOR.
[2018-04-11] MEDS: LORAZEPAM INJ 2 MG/ML VIAL IV PRN (20:03)
--- NOTE | 2018-04-11 20:03 | NUR ---
RN NOTES ADMINISTERED PRN ATIVAN. WILL CONTINUE TO MONITOR.
[2018-04-11] MEDS: ENOXAPARIN SODIUM 40 MG/0.4 ML DISP.SYRIN SQ SCH (21:00)
[2018-04-11] MEDS: INSULIN GLARGINE, 100 UNIT/ML CARTRIDGE SQ SCH (21:08)
[2018-04-12] VITALS: BP 113/60
[2018-04-12 01:06] VITALS: BP 113/60
[2018-04-12] MEDS: ALBUTEROL FS 2.5 MG/0.5 ML VIAL.NEB NEB SCH ×6 (03:45→23:16)
[2018-04-12] MEDS: IPRATROPIUM NEB FS 0.5 MG/2.5 ML AMPUL.NEB NEB SCH ×6 (03:45→23:16)
[2018-04-12 04:00] VITALS: BP_SYST 113; BP_SYST 121; BP_DIAS 60; BP_DIAS 71
--- NOTE | 2018-04-12 06:30 | NUR ---
RN NOTES ACCUCHECK DOWN. IT DEPARTMENT NOTIFIED, UNABLE TO RESOLVE AT THIS TIME. WILL ENDORSE TO DAY SHIFT NURSE FOR CONTINUITY OF CARE.
[2018-04-12 06:43] LABS: CALCIUM, SERUM 8.6 mg/dL (8.5-10.1); CREATININE 0.8 mg/dL (0.6-1.3); POTASSIUM 4.1 mmol/L (3.5-5.1)
--- NOTE | 2018-04-12 07:14 | NUR ---
RN CLOSING NOTES PT AWAKE, ALERT AND RESTING IN BED. PT REQUESTED BREATHING TREATMENT. PT IS TELE MONITORED NSR. PT HAS A RIGHT WRIST IV #20 AND A LEFT HAND IV #20 BOTH INTACT AND PATENT. SAFETY PRECAUTIONS IN PLACE. BED IN LOWEST LOCKED POSITION, X2 SIDE RAILS UP, CALL LIGHT WITHIN REACH. ALL PT NEEDS MET OVERNIGHT. WILL ENDORSE TO DAY SHIFT FOR CONTINUITY OF CARE.
[2018-04-12 07:23] LABS: HEMATOCRIT 36 % (33-45); HEMOGLOBIN 12.3 g/dL (11.5-14.8); LYMPHOCYTES # (AUTO) 0.7 /CMM (0.8-4.8); LYMPHOCYTES % (AUTO) 5.9 % (20.0-44.0); MEAN CORPUSCULAR HGB CONC 34 g/dl (31.0-36.0); MEAN CORPUSCULAR VOLUME 98 fL (82-100); MONOCYTES # (AUTO) 0.6 /CMM (0.1-1.30); MONOCYTES % (AUTO) 5.2 % (2.0-12.0); NEUTROPHILS # (AUTO) 10.8 /CMM (1.8-8.9); NEUTROPHILS % (AUTO) 88.9 % (43.0-81.0); PLATELET COUNT (AUTO) 230 /CMM (150-450); RDW COEFFICIENT OF VARIATION 13.8 (11.5-15.0); RED BLOOD CELL COUNT(AUTO) 3.68 MIL/uL (4.0-5.2); WHITE BLOOD COUNT (AUTO) 12.1 K/uL (4.3-11.0)
--- NOTE | 2018-04-12 07:30 | NUR ---
TIRE REPAIRER OPENING NOTE PATIENT IS ALERT AND ORIENTED X4. NO PAIN AT THIS TIME. NO SOB OR DISTRESS NOTED. CALL LIGHT WITHIN REACH. SAFETY MEASURES IMPLEMENTED. ABLE TO COMMUNICATE NEEDS. ON 2L/MIN VIA NASAL CANNULA AND TOLERATING WELL. AMBULATORY WITH WALKER AND STANDBY ASSISTANCE. IV ON LEFT HAND AND RIGHT WRIST INTACT AND PATENT, NO REDNESS OR SWELLING NOTED. BLOOD SUGAR TO BE MONITORED THROUGHOUT SHIFT. LABS PENDING THIS MORNING. WILL CONTINUE TO MONITOR THROUGHOUT SHIFT
[2018-04-12 08:00] VITALS: BP 110/75
[2018-04-12] MEDS: GUAIFENESIN LA 600 MG TABLET.SA PO SCH ×2 (08:45→21:10)
[2018-04-12] MEDS: methylPREDNISolone SOD SUCC 40 MG/ML VIAL IV SCH ×3 (08:45→17:11)
[2018-04-12] MEDS: LEVOFLOXACIN (500MG) 500 MG TABLET PO SCH (08:45)
[2018-04-12] MEDS: BLOOD SUGAR DIAGNOSTIC 1 EACH STRIP IN SCH ×4 (08:46→21:10)
[2018-04-12] MEDS: PANTOPRAZOLE 40 MG VIAL IV SCH (08:46)
[2018-04-12] MEDS: INSULIN REGULAR, HUMAN 100 UNIT/ML 3 ML VIAL SQ PRN ×4 (08:55→21:40)
[2018-04-12] MEDS: ACETAMINOPHEN 325 MG TABLET PO PRN (09:06)
--- NOTE | 2018-04-12 09:08 | NUR ---
SOFTWARE PUBLISHER NOTE PATIENT REFUSED PROTONIX, EXPLAINED RISKS AND BENEFITS STILL REFUSED. ALL OTHER MEDICATIONS GIVEN ORDERED, TYLENOL PRN GIVEN FOR HEADACHE, 4 UNITS OF INSULIN GIVEN FOR BLOOD SUGAR 231. WILL CONTINUE TO MONITOR THROUGHOUT SHIFT
--- NOTE | 2018-04-12 09:11 | NUR ---
DRY CHAIN WORKER NOTE LEFT HAND AND RIGHT WRIST REMOVED, BOTH LEAKING AND INFILTRATED. WILL START NEW IV
--- NOTE | 2018-04-12 13:03 | NUR ---
MS RN NOTE PATIENT REFUSING IV AND MEDICATIONS AT THIS TIME.
--- NOTE | 2018-04-12 14:51 | NUR ---
MS RN NOTE PATIENT CAME OUT OF ROOM WITH WALKER SCREAMING ABOUT HOW SHE WANTS ADMINISTRATION TO [facility] FOR NEGLECT OF CARE. EXPLAINED TO PATIENT IN REGARDS TO CARE, AND THAT CASE MANAGEMENT WAS WORKING WITH US TO FIND THE BEST CARE FOR HER OUTPATIENT. PATIENT BECAME MORE ANXIOUS AND AGITATED. CHARGE NURSE SPOKE WITH PATIENT AND PATIENT IS NOW IN ROOM CALM
[2018-04-12 16:00] VITALS: BP 139/60
[2018-04-12] MEDS: LORAZEPAM INJ 2 MG/ML VIAL IV PRN (17:12)
--- NOTE | 2018-04-12 17:23 | NUR ---
MS RN NOTE BLOOD SUGAR CHECKED 131 INSULIN TO BE GIVEN ONCE FOOD AT BEDSIDE
--- NOTE | 2018-04-12 17:25 | NUR ---
MS RN NOTE ATIVAN 0.5MG FOR ANXIETY. WILL MONITOR FOR SIDE EFFECTS
--- NOTE | 2018-04-12 18:34 | NUR ---
MS RN CLOSING NOTE PATIENT RESTING COMFORTABLY AT THIS TIME. ABLE TO COMMUNICATE NEEDS. NO PAIN AT THIS TIME. NO SOB OR DISTRESS NOTED, ON 2L/MIN OF OXYGEN VIA NASAL CANNULA TOLERATING WELL. Q4 BREATHING TREATMENT. IV ON RIGHT AC INTACT AND PATENT NO REDNESS OR SWELLING NOTED. ALL DUE MEDICATIONS GIVEN ORDERED BY MD. ALL NURSING CARE NEEDS ATTENDED TO NEEDED. BLOOD SUGARS CHECKED THROUGHOUT SHIFT AND INSULIN GIVEN NEEDED. WILL ENDORSE TO SUGAR REFINER FOR MYRNA
[2018-04-12 20:00] VITALS: BP 125/78
[2018-04-12] MEDS: ENOXAPARIN SODIUM 40 MG/0.4 ML DISP.SYRIN SQ SCH ×2 (21:00→21:09)
[2018-04-12] MEDS: INSULIN GLARGINE, 100 UNIT/ML CARTRIDGE SQ SCH (21:39)
[2018-04-13] MEDS: IPRATROPIUM NEB FS 0.5 MG/2.5 ML AMPUL.NEB NEB SCH ×6 (03:27→23:17)
[2018-04-13] MEDS: ALBUTEROL FS 2.5 MG/0.5 ML VIAL.NEB NEB SCH ×6 (03:27→23:17)
[2018-04-13] MEDS: BLOOD SUGAR DIAGNOSTIC 1 EACH STRIP IN SCH ×4 (05:53→21:51)
--- NOTE | 2018-04-13 06:21 | NUR ---
MS RN NOTES AWAKE & RESPONSIVE. NOT IN ANY DISTRESS. NO SOB NOTED. DENIES ANY PAIN OR DISCOMFORT AT THIS TIME. WITH IV-HL PATENT & INTACT. MONITORED ACCORDINGLY. CALL LIGHT WITHIN REACH. BED IN LOWEST POSITION. SR UP X 2 FOR SAFETY. WILL ENDORSE TO NEXT SHIFT.
[2018-04-13] MEDS: INSULIN REGULAR, HUMAN 100 UNIT/ML 3 ML VIAL SQ PRN ×4 (06:32→20:56)
--- NOTE | 2018-04-13 07:48 | NUR ---
MS RN OPENING NOTES RECEIVED PT LAYING IN BED WITH HOB ELEVATED. AWAKE AND RESPONSIVE. RESPIRATIONS ARE EVEN AND UNLABORED AT THIS TIME. DENIES ANY PAIN, N/V. BREATHING TX ADMINISTERED IN A TIMELY MANNER BY RT AND IS TOLERATING WELL. IV SITE INTACT, NO INFILTRATION NOTED. DRESSING KEPT CLEAN AND DRY. SAFETY MEASURES ARE IN PLACE. INSTRUCTED PT TO USE CALL LIGHT WHEN ASSISTANCE IS NEEDED, CALL LIGHT IS LEFT WITHIN REACH. WILL CONTINUE TO MONITOR THROUGHOUT SHIFT.
[2018-04-13 08:00] VITALS: BP 120/92
--- NOTE | 2018-04-13 08:40 | NUR ---
MS RN NOTES PT SEEN AND EXAMINED BY DR. MOISES Pugh/ ORDERS TO BE DISCHARGED TODAY. PT AGREED.
[2018-04-13] MEDS ORDERED: IPRA0.2S9 NEB (08:48)
[2018-04-13] MEDS ORDERED: ALBU2.5V13 NEB (08:48)
[2018-04-13] MEDS ORDERED: LEVO500T2 PO (08:48)
[2018-04-13] MEDS ORDERED: PRED20TA PO (08:48)
[2018-04-13] MEDS: methylPREDNISolone SOD SUCC 40 MG/ML VIAL IV SCH ×3 (08:52→16:40)
[2018-04-13] MEDS: GUAIFENESIN LA 600 MG TABLET.SA PO SCH ×2 (08:52→22:14)
[2018-04-13] MEDS: PANTOPRAZOLE 40 MG VIAL IV SCH (08:52)
[2018-04-13] MEDS: LEVOFLOXACIN (500MG) 500 MG TABLET PO SCH (08:52)
--- NOTE | 2018-04-13 09:41 | NUR ---
MS RN NOTES PT STATED SHE DOES NOT WANT TO GO TO A SNF WHEN BEING DISCHARGED. EXPLAINED TO THE PT THAT SHE WILL GET CONTINUOUS HELP THERE THAN AT HOME WHERE SHE IS ALONE. PT STATED SHE WOULD RATHER BE AT HOME. PT ALSO STATED THAT SHE IS AWARE THAT IT MAY NOT BE SAFE FOR HER TO BE AT HOME ALONE AND PT STILL REFUSES TO GO TO A SNF. EXPLAINED THE BENEFITS OF GOING TO A SNF AND NOTED WITH REFUSAL. PT IS STARTING TO HAVE SOB AND ABLE TO CALM PATIENT DOWN AND EDUCATE ON BREATHING TECHNIQUES. WILL CONTINUE TO MONITOR.
--- NOTE | 2018-04-13 11:45 | NUR ---
MS RN NOTES PT SEEN BY CASE MANAGEMENT.
[2018-04-13 16:00] VITALS: BP 116/67
--- NOTE | 2018-04-13 18:54 | NUR ---
MS RN CLOSING NOTES ALL DUE MEDS GIVEN, NEEDS MET AND RENDERED. AWAKE AND RESPONSIVE. RESPIRATIONS ARE EVEN AND UNLABORED, NOT IN ANY ACUTE DISTRESS NOTED. DENIES ANY PAIN AT THIS TIME, NO C/O N/V. IV SITE INTACT, NO INFILTRATION NOTED. DRESSING KEPT CLEAN AND DRY. SAFETY MEASURES ARE IN PLACE. EDUCATED PT ON DEEP BREATHING AND ENERGY CONSERVATION. WILL ENDORSE TO NEXT SHIFT FOR CONTINUITY OF CARE.
[2018-04-13 20:00] VITALS: BP 131/74
[2018-04-13] MEDS: ENOXAPARIN SODIUM 40 MG/0.4 ML DISP.SYRIN SQ SCH (21:00)
[2018-04-13] MEDS ORDERED: INSULIN GLARGINE, 100 UNIT/ML CARTRIDGE SQ ONE (22:09)
[2018-04-13] MEDS: INSULIN GLARGINE, 100 UNIT/ML CARTRIDGE SQ SCH (22:15)
[2018-04-14] MEDS: ALBUTEROL FS 2.5 MG/0.5 ML VIAL.NEB NEB SCH ×6 (03:30→23:41)
[2018-04-14] MEDS: IPRATROPIUM NEB FS 0.5 MG/2.5 ML AMPUL.NEB NEB SCH ×6 (03:30→23:41)
--- NOTE | 2018-04-14 04:55 | NUR ---
RN NOTES RECEIVED PT. AWAKE ON BED, A/OX4. DENIES PAIN,. NO SOB, CALL LIGHT WITHIN REACH, [id number], CONTINUE TO MONITOR Addendum: 04/14/18 at 0459 by SHIRA LAURA RN RIGHT TIME 04/13/18 @ 4080
[2018-04-14] MEDS: BLOOD SUGAR DIAGNOSTIC 1 EACH STRIP IN SCH ×4 (06:48→21:13)
[2018-04-14] MEDS: INSULIN REGULAR, HUMAN 100 UNIT/ML 3 ML VIAL SQ PRN ×4 (06:49→21:14)
--- NOTE | 2018-04-14 07:25 | NUR ---
MS RN OPENING NOTES RECEIVED PT SITTING UPRIGHT IN BED. AWAKE AND RESPONSIVE. RESPIRATIONS ARE EVEN AND UNLABORED AT THIS TIME. DENIES ANY PAIN, N/V. BREATHING TX ADMINISTERED IN A TIMELY MANNER BY RT AND IS TOLERATING WELL. IV SITE INTACT, NO INFILTRATION NOTED. DRESSING KEPT CLEAN AND DRY. SAFETY MEASURES ARE IN PLACE. INSTRUCTED PT TO USE CALL LIGHT WHEN ASSISTANCE IS NEEDED, CALL LIGHT IS LEFT WITHIN REACH. WILL CONTINUE TO MONITOR THROUGHOUT SHIFT.
[2018-04-14 08:00] VITALS: BP 127/73
[2018-04-14] MEDS: GUAIFENESIN LA 600 MG TABLET.SA PO SCH ×2 (08:12→21:13)
[2018-04-14] MEDS: methylPREDNISolone SOD SUCC 40 MG/ML VIAL IV SCH (08:12)
[2018-04-14] MEDS: LEVOFLOXACIN (500MG) 500 MG TABLET PO SCH (08:12)
[2018-04-14] MEDS: PANTOPRAZOLE 40 MG VIAL IV SCH (08:12)
--- NOTE | 2018-04-14 10:34 | NUR ---
MS RN NOTES PT SEEN AND EXAMINED BY DR. DE LEON. NOTIFIED DR. DE LEON OF IV INFILTRATION. PER DR. DE LEON, NO IV INSERTION NEEDED. CHANGE IV MEDS TO PO. NOTED AND CARRIED OUT. PT MADE AWARE AND AGREED.
--- NOTE | 2018-04-14 11:04 | NUR ---
MS RN NOTES PT DECIDED TO CALL [facility] TO REPEAL. CASE NUMBER GIVEN TO [facility]EN[facility] RESEARCH AND DEVELOPMENT TESTER.
[2018-04-14] MEDS: predniSONE 20 MG TABLET PO SCH (12:13)
--- NOTE | 2018-04-14 15:00 | NUR ---
MS RN NOTES PT CONTINUES TO SHOW ANGER AND SAD EMOTIONS ABOUT BEING DISCHARGED AND BEING HOME ALONE. REEDUCATED PT THE NEED FOR SAFETY WHEN AT HOME AND THAT A SNF OR AL WOULD BE MORE OF A FIT FOR HER OPTIONS. PT STILL WANTS TO GO HOME. INFORMED PT THAT CASE MANAGEMENT IS WORKING ON HER CASE D/T CASE NUMBER FROM [facility]. PT AGREED AND DECIDED TO STAY.
--- NOTE | 2018-04-14 15:00 | NUR ---
MS [place] CLOSING NOTES ALL DUE MEDS GIVEN. AWAKE AND RESPONSIVE. RESPIRATIONS ARE EVEN AND UNLABORED, NOT IN ANY ACUTE DISTRESS NOTED. DENIES ANY PAIN AT THIS TIME, NO C/O N/V. SAFETY MEASURES ARE IN PLACE. REEDUCATED PT ON DEEP BREATHING AND ENERGY CONSERVATION. WILL ENDORSE TO NEXT SHIFT FOR CONTINUITY OF CARE. Addendum: 04/14/18 at 1855 by ERNST TORRES RN MS [place] CLOSING NOTES-- [id number]
[2018-04-14 16:00] VITALS: BP 114/66
--- NOTE | 2018-04-14 19:30 | NUR ---
rn initial notes: received report from milan chin, pt in bed, awake, a/o x3 on 2l vai nc respiration even and unlabored. pt for dc but she appealed, no iv access as she's been refusing for reinsertion, aware, pt also requesting to talk to catalytic case operator and make sure oxygen and transportation will be settle as she decided to just go home tomorrow am, informed pt that rn will call cm tomorrow to made them aware. pt also requesting if she could have cigarette informed pt that smoking is prohibited in the hospital and with her case it is not safe for her to go downstair to smoke. education provided to the pt. discuss plan of care for tonight. safety precautions for fall initiated, call light in reach, will continue monitoring pt.
--- NOTE | 2018-04-14 19:40 | NUR ---
rn notes: significant other from another pt in 309-2 came to approach rn, while rn was in the room, this significant other of another pt came to approach 309-1 and told her that she needs to make the room warm,as her mother is old and feeling cold, the pt in 309-1 felt disrespected on the way this man approached her, she stated this man jumped off to her and just yelled, he could have asked him politely to please turn the heater on and it would be okay with her, but not the way this man talked to her. Being in the room, I politely asked the 2 parties to calm down, and settle things, the significant other of 309-2 doesn't stop and instead turned the volume of the tv so loud that made the pt in 309-1 more upset." she claimed she never felt disrespected ever". I personally talked to the significant other of 309-2 to please try to consider the patient's condition, otherwise I will escort him out of the room. I also went to tell 2rn charge (from day and night) about the incident, giuseppe valdovinos came to the room, and given warning to significant other of 309-2 as what he's behavior isnt tolerable. Also made him aware that he cannot treat anybody like what he just did. also the fact that he will be escorted if he doesnt behave well.
--- NOTE | 2018-04-14 19:40 | NUR ---
rn notes: a visitor came, he stated he's a family member, but this significant other shows inappropriate behavior that needs immediate attention of the charge nurses. He was told that if he will continues to behave inappropriately, he will be escorted out of the facility. The significant other stayed for a while but after few minutes he left.
[2018-04-14 20:00] VITALS: BP 119/76
[2018-04-14] MEDS: ENOXAPARIN SODIUM 40 MG/0.4 ML DISP.SYRIN SQ SCH (21:00)
[2018-04-14] MEDS: INSULIN GLARGINE, 100 UNIT/ML CARTRIDGE SQ SCH (21:15)
--- NOTE | 2018-04-14 21:16 | NUR ---
bs 208: bs 208, 4units of insulin given per sliding scale, pt also refused lovenox stated she doesn't need it, education provided to the pt.
--- NOTE | 2018-04-14 22:10 | NUR ---
RN NOTES: PT BEEN ASKING TO GO DOWN TO SMOKE, SHE STATED SHE DOESN'T HAVE ANY CIGARETTE WITH HER, BUT IF WE LET HER GO DOWN SHE STATED THAT SHE KNOWS THERE'S SO MANY PEOPLE THERE WHO WILL GIVE HER CIGARETTE. INFORMED PT IT IS NOT SAFE FOR HER TO GO DOWN TO SMOKE DUE TO HER USING OXYGEN AND SHE HAS COPD, AND WERE CONCERNED OF HER OXYGENATION STATUS. SHE COMPLAINED THAT DUE TO HER STRESS IT MADE HER CRAVE TO SMOKE AND HER FINGERNAILS SHE ADDED TO BE FEELING NUMB AND TINGLING, SHE SAID SHE HASN'T SMOKE FOR 3DAYS NOW, OFFERED NICOTINE PATCH I INFORM HER I CAN ORDER FROM THE MD, BUT SHE'S REFUSING NICOTINE PATCH, ALSO SHE REFUSED ANXIOLYTICS.
--- NOTE | 2018-04-15 01:11 | NUR ---
RN NOTES: SEEN PT SLEEPING AT THIS TIME, APPEARS COMFORTABLE, REMAINS ON 2L OXYGEN VIA NC, NO SOB NOTED,WILL CONTINUE MONITORING PT
[2018-04-15] MEDS: ALBUTEROL FS 2.5 MG/0.5 ML VIAL.NEB NEB SCH ×6 (03:30→23:38)
[2018-04-15] MEDS: IPRATROPIUM NEB FS 0.5 MG/2.5 ML AMPUL.NEB NEB SCH ×6 (03:30→23:38)
--- NOTE | 2018-04-15 03:48 | NUR ---
RN NOTES: PT SLEEPING, APPEARS COMFORTABLE, REMAINS ON 2L OXYGEN
--- NOTE | 2018-04-15 04:21 | NUR ---
RN NOTES: PT STILL SLEEPING, RESPIRATIONS EVEN AND UNLABORED
--- NOTE | 2018-04-15 05:41 | NUR ---
rn notes: pt was moved to [facility]- via bed, all belongings was moved with the pt upon transfer.
[2018-04-15] MEDS: BLOOD SUGAR DIAGNOSTIC 1 EACH STRIP IN SCH ×4 (06:09→22:29)
[2018-04-15] MEDS: INSULIN REGULAR, HUMAN 100 UNIT/ML 3 ML VIAL SQ PRN ×3 (06:10→22:57)
--- NOTE | 2018-04-15 06:10 | NUR ---
BS 110: BS 110, NO INSULIN COVERAGE GIVEN PER SLIDING SCALE
--- NOTE | 2018-04-15 06:10 | NUR ---
RN NOTES: CONTACTED NU RT, REGARDING PT WANTING HER BREATHING TREATMENT, SHE STATED SHE'S HAVING A HARD TIME BREATHING, PT DIDN'T RECEIVED 0330AM BREATHING TREATMENT SHE TOLD THE RT NOT TO WAKE HER UP WHEN SHE'S SLEEPING.
--- NOTE | 2018-04-15 06:20 | NUR ---
RN NOTES: RECEIVED CALL FROM RT REGARDING PT'S BREATHING TREATMENT, STATED THE EARLIER HE CAN GIVE THE BREATHING TREATMENT IS 0635, INFORMED RT PT NEEDS IT PT CLAIMED SHE NEEDS IT "DESPERATELY"
--- NOTE | 2018-04-15 06:41 | NUR ---
RN NOTES: PT DECIDED TO RECEIVED THE BREATHING TREATMENT
--- NOTE | 2018-04-15 06:43 | NUR ---
RN CLOSING NOTES: PT REMAINS ON 2L VIA NC RESPIRATION EVEN AND UNLABORED, REMAINS TO HAVE WHEEZING, BREATHING TREATMENT Q4HRS SCHEDULED, NO IV ACCESS, MD AWARE. PENDING DC PT APPEALED. PT REQUESTED TO SPEAK WITH CASE MANAGEMENT AND HAVE TRANSPORTATION AND OXYGEN SET UP PRIOR TO HER GOING HOME, WILL RELAY THIS TO DAY RN FOR FOLLOW UP. VS REMAINS STABLE, NEEDS ATTENDED. PT REMAINS TO ASK FOR CIGARETTE BUT SHE DOESN'T HAVE ONE. SAFETY PRECAUTIONS FOR FALL REMAINS ENGAGED, CALL LIGHT IN REACH, WILL ENDORSE TO DAY RN FOR MYRNA.
[2018-04-15 08:00] VITALS: BP 144/77
--- NOTE | 2018-04-15 08:00 | NUR ---
MS RN RECEIVED ON BED, AWAKE,ALERT, ORIENTED X4,NOT IN DISTRESS, ON 2 LITERS O2, NASAL CANNULA, NO SOB NOTED. DENIED PAIN AT THIS TIME.WILL MONITOR PATIENT AT THIS TIME,ALL NEEDS ATTENDED.
--- NOTE | 2018-04-15 09:00 | NUR ---
MS MIDDLETON BREAKFAST SERVED, DUE MEDS GIVEN,TOLERATED WELL.
[2018-04-15] MEDS: PANTOPRAZOLE 40 MG TABLET.DR PO SCH (10:16)
[2018-04-15] MEDS: predniSONE 20 MG TABLET PO SCH (10:16)
[2018-04-15] MEDS: LEVOFLOXACIN (500MG) 500 MG TABLET PO SCH (10:16)
[2018-04-15] MEDS: GUAIFENESIN LA 600 MG TABLET.SA PO SCH ×2 (10:16→21:07)
--- NOTE | 2018-04-15 12:00 | NUR ---
RN BS - 106 - NO COVERAGE NOTED.
[2018-04-15 16:00] VITALS: BP 136/95
--- NOTE | 2018-04-15 17:30 | NUR ---
MS MIDDLETON BS - 204 - 4 UNITS SQ GIVEN.
--- NOTE | 2018-04-15 19:25 | NUR ---
MS RN NOTE RECEIVED PATIENT FROM DAY SHIFT, PATIENT IS ALERT AND ORIENTEDX3, ON O2 VIA CANNULA 2L/MIN, MILD WHEEZING PRESENT, BUT WILL GET BREATHING TX SOON. NO IV ACCESS NOTED, PATIENT REFUSED TO HAVE ANOTHER ONE, AWARE PER DAY SHIFT RN. SRX2, BED IN LOW POSITION, CALL LIGHT WITHIN REACH, WILL CONTINUE TO MONITOR PATIENT.
[2018-04-15 20:00] VITALS: BP 129/79
[2018-04-15] MEDS: ENOXAPARIN SODIUM 40 MG/0.4 ML DISP.SYRIN SQ SCH (21:00)
--- NOTE | 2018-04-15 21:00 | NUR ---
MS RN NOTE PATIENT REFUSED LOVENOX 40MG SQ, EXPLAINED RISKS AND BENEFITS OF MEDICATION. STILL PATIENT REFUSED.
--- NOTE | 2018-04-15 21:50 | NUR ---
MS RN NOTE PATIENT WENT DOWN WITH OXYGEN TANK TO THE [place]IA WITH TORCH STRAIGHTENER AND HEATER'S ESCORT TO GET SOME FRESH AIR.
[2018-04-15] MEDS: INSULIN GLARGINE, 100 UNIT/ML CARTRIDGE SQ SCH (22:31)
[2018-04-16] MEDS: IPRATROPIUM NEB FS 0.5 MG/2.5 ML AMPUL.NEB NEB SCH ×3 (03:38→10:17)
[2018-04-16] MEDS: ALBUTEROL FS 2.5 MG/0.5 ML VIAL.NEB NEB SCH ×3 (03:38→10:17)
[2018-04-16] MEDS: BLOOD SUGAR DIAGNOSTIC 1 EACH STRIP IN SCH (06:25)
--- NOTE | 2018-04-16 06:57 | NUR ---
MS RN NOTE PATIENT IS RESTING IN BED COMFORTABLY, NO COMPLAINS OF PAIN OR RESPIRATORY DISTRESS NOTED. ALL DUE MEDS GIVEN, MORNING CARE RENDERED. WILL ENDORSE TO DAY SHIFT NURSE FOR MYRNA.
--- NOTE | 2018-04-16 07:45 | NUR ---
MS RN NOTES PATIENT RECEIVED RESTING INSIDE ROOM. AWAKE, ALERT AND ORIENTED, VERBALLY RESPONSIVE AND RESPONDS TO VERBAL AND TACTILE STIMULI. ABLE TO MAKE NEEDS KNOWN AND FOLLOW SI BREATHING EVEN AND UNLABORED. NO SOB OR ACUTE DISTRESS NOTED AT THIS TIME. PATIENT DENIES ANY PAIN OR DISCOMFORT. NO CHANGES IN LOC NOTED. WILL CONTINUE TO MONITOR. BED LOCKED AND IN LOW POSITION. BILATERAL UPPER SIDE RAILS UP AND LOCKED. MILTON LIGHT WITHIN EASY REACH
[2018-04-16 08:00] VITALS: BP 118/70
[2018-04-16] MEDS: predniSONE 20 MG TABLET PO SCH (08:24)
[2018-04-16] MEDS: PANTOPRAZOLE 40 MG TABLET.DR PO SCH (08:24)
[2018-04-16] MEDS: LEVOFLOXACIN (500MG) 500 MG TABLET PO SCH (08:24)
[2018-04-16] MEDS: GUAIFENESIN LA 600 MG TABLET.SA PO SCH (08:24)
--- NOTE | 2018-04-16 10:19 | NUR ---
PT WANTED BREATHING TX EARLY DUE TO SOB & WHEEZING. Addendum: 04/16/18 at 1020 by LAMIN KU RT Amended: Links added.
--- NOTE | 2018-04-16 12:10 | NUR ---
MS RN NOTES PATIENT SEEN AND EXAMINED BY DR. DE LEON AT PATIENT BEDSIDE. PATIENY CLEARED FOR DISCHARGE. PATIENT TO DISCHARGE HOME. DISCHARGE INSTRUCTIONS AND EDUCATION PROVIDED. DISCHARGE MEDICATIONS GIVEN TO PATIENT INCLUDING: IPRATROPIUM BROMIDE X 1 BOX, ALBUTEROL X 1 BOX, LEVAQUIN 500MG X 5 TABS, PREDNISONE 20MG X 15 TABS. ALL BELONGINGS COMPLETE UPON DISCHARGE. NO REPORT OF MISSING BELONGINGS. PATIENT LEFT AT 1200 VIA WHEELCHAIR TRANSPORTATION, PROVIDED BY [facility]. NO ACUTE DISTRESS NOTED. PATIENT DENIES PAIN OR DISCOMFORT. NO CHANGES IN LOC. O2 AT 2L/MIN VIA NC, O2 SAT 98%. NO IVs. MD AWARE OF DISCHARGE.
--- NOTE | 2018-04-16 15:05 | NUR ---
PT IS ALREADY DISCHARGED, BUT STATUS HAS NOT CHANGED IN THE SYSTEM.
== END 2018-04-16 12:00 | disposition home health service (06) | DRG 189 ==
LOC: ER 23:45 → ICU 04-11 01:35 → MED 04-11 18:33 → TELE 04-11 23:07 → MED 04-12 09:05 → UNDODISIN 04-13 13:54 → MED 04-15 05:45
PROVIDERS: ADMIT Hospitalist; ATTEND Hospitalist
DX: J96.22 Acute and chronic respiratory failure with hypercapnia (principal); J45.902 Unspecified asthma with status asthmaticus; J44.1 Chronic obstructive pulmonary disease with (acute) exacerbation; J96.21 Acute and chronic respiratory failure with hypoxia; F17.210 Nicotine dependence, cigarettes, uncomplicated; I10 Essential (primary) hypertension; E78.5 Hyperlipidemia, unspecified; Z86.73 Personal history of transient ischemic attack (TIA), and cerebral infarction without residual deficits; F40.240 Claustrophobia; E11.65 Type 2 diabetes mellitus with hyperglycemia; E03.9 Hypothyroidism, unspecified; K21.9 Gastro-esophageal reflux disease without esophagitis; Z91.14 Patient's other noncompliance with medication regimen; Z91.19 Patient's noncompliance with other medical treatment and regimen; Z99.81 Dependence on supplemental oxygen
CPT/HCPCS: 36415; 36600; 71045-TC; 80048-TC; 80061-TC; 80076-TC; 82803-TC; 82962-TC; 83605-TC; 83735-TC; 83880; 84100-TC; 84439-TC; 84443-TC; 84484-TC; 85025-TC; 85378-TC; 87040-TC; 87081-TC; 94799-TC; A4606; C9113; J1650; J1815; J1956; J2060; J2405; J2920; J2930; J3105; J3475; Z7610

== ENCOUNTER 2018-05-22 03:41 | Inpatient (IN) | payer MEDICARE, OTHER ==
[~2018-05-22] VITALS: Ht 167.6 cm; Wt 68.0 kg
[~2018-05-22 03:41] MED LIST changes: -ACET325T53 PO; +ALBU2.5V13 NEB; +IPRA0.2S9 NEB; +IPRA12.9 IH; -LEVO750T21 PO; -METF-440 PO; +METF500T6 PO; +PRED20TA PO
--- NOTE | 2018-05-22 03:41 | NUR ---
BB RA C/O SOB AT HOME WITH 02 SAT 86%. HAND HELD NEBULIZER GIVEN EN ROUTE BY RA. PT IS HYPERTENSIVE WITH NST AND TACHYPNIC. A/OX4 ABLE TO MAKE NEEDS KNOWN. WILL CONNTINUE TO MONITOR FOR ANY CHANEGS DURING THE SHIFT.
--- NOTE | 2018-05-22 03:42 | NUR ---
ER MD ADAMS AT BEDSIDE FOR EVAL
--- NOTE | 2018-05-22 03:49 | NUR ---
EKG AT BEDSIDE
[2018-05-22] MEDS ORDERED: ALBUTEROL FS 2.5 MG/3 ML VIAL.NEB ONE (03:53)
[2018-05-22] MEDS ORDERED: methylPREDNISolone SOD SUCC 125 MG/2ML VIAL ONE (03:57)
[2018-05-22] MEDS ORDERED: methylPREDNISolone SOD SUCC 125 MG/2ML VIAL IV ONE (04:00)
[2018-05-22] MEDS ORDERED: ALBUTEROL FS 2.5 MG/3 ML VIAL.NEB NEB ONE (04:00)
[2018-05-22 04:27] LABS: CALCIUM, SERUM 9.1 mg/dL (8.5-10.1); CARBON DIOXIDE 31 mmol/L (21-32); CHLORIDE 105 mmol/L (98-107); CREATININE 0.9 mg/dL (0.6-1.3); GLUCOSE 154 mg/dL (74-106); SODIUM SERUM 144 mmol/L (136-145); UREA NITROGEN, BLOOD 16 mg/dL (7-18)
[2018-05-22 04:35] LABS: TROPONIN I < 0.017 ng/mL (0.00-0.056)
[2018-05-22 04:40] LABS: ALANINE AMINOTRANSFERASE 18 U/L (12-78); ALBUMIN 3.4 g/dL (3.4-5.0); ALKALINE PHOSPHATASE 106 U/L (46-116); ASPARTATE AMINOTRANSFERASE 13 U/L (15-37); B-TYPE NATRIURETIC PEPTIDE 42 PG/ML (0-125); BILIRUBIN,TOTAL 0.2 mg/dL (0.2-1.0); TOTAL PROTEIN, SERUM 6.5 g/dL (6.4-8.2)
--- NOTE | 2018-05-22 05:20 | NUR ---
PT STATES "FEELING MUCH BETTER. I CAN BREATH NOW"
[2018-05-22 05:25] LABS: BASOPHILS % (AUTO) 0.2 % (0.0-2.0); EOSINOPHILS % (AUTO) 0.4 % (0.0-6.0); HEMATOCRIT 44 % (33-45); HEMOGLOBIN 14.8 g/dL (11.5-14.8); LYMPHOCYTES # (AUTO) 2.1 /CMM (0.8-4.8); MEAN CORPUSCULAR HEMOGLOBIN 33 PG (26.0-33.0); MEAN CORPUSCULAR HGB CONC 34 g/dl (31.0-36.0); MEAN CORPUSCULAR VOLUME 98 fL (82-100); MONOCYTES % (AUTO) 7.9 % (2.0-12.0); NEUTROPHILS # (AUTO) 7.9 /CMM (1.8-8.9); NEUTROPHILS % (AUTO) 72.5 % (43.0-81.0); PLATELET COUNT (AUTO) 239 /CMM (150-450); RDW COEFFICIENT OF VARIATION 14.7 (11.5-15.0); RED BLOOD CELL COUNT(AUTO) 4.48 MIL/uL (4.0-5.2)
[2018-05-22 05:26] LABS: MONOCYTES # (AUTO) 0.9 /CMM (0.1-1.30)
[2018-05-22 06:00] VITALS: BP 122/82
--- NOTE | 2018-05-22 06:30 | NUR ---
SHORER ADMITTING NOTES 0600RECEIVED PATIENT VIA GURNEY,AWAKE ALERT AND ORIENTED X 4 ABLE TO MAKE NEEDS KNOWN, NOTED WITH SOB AT REST AND MORE ON EXERTION, RESPIRATIONS NOTED WITH EQUAL RISE AND FALL OF CHEST ON 2 LITERS VIA NC O2 SAT AT 96%, IV SITE TO LEFT AC #20 GAUGE INTACT AND PATENT, NO REDNESS, NO INFILTRATION PRESENT, BODY ASSESSMENT DONE NOTED INTACT. ASSISTED TO BATHROOM, BELONGING LIST DONE, MATCHES PLACED IN NURSING STATION WITH LABEL. ORIENTED TO STAFF AND ORIENTED TO ROOM AND CALL LIGHT, CALL LIGHT KEPT WITHIN REACH, SAFETY PRECAUTIONS RENDERED, 0630 DR. SINGH AWARE OF ADMISSION WAITING NEW ORDERS, NOTED AND CARRIED OUT, NOTED BLOOD SUGAR 194, WILL CONTINUE TO MONITOR AND ENDORSE TO NEXT SHIFT. PATIENT REMAINS COMFORTABLE AT THIS TIME.
[2018-05-22] MEDS ORDERED: DEXTROSE 50%-WATER 50 ML DISP.SYRIN IV PRN (07:00)
[2018-05-22] MEDS ORDERED: ONDANSETRON HCL/PF 4 MG/2 ML VIAL IVP PRN (07:00)
[2018-05-22] MEDS ORDERED: clonazePAM 1 MG TABLET PO PRN (07:00)
[2018-05-22] MEDS ORDERED: HYDROCODONE/APAP 5/325MG 1 EACH TABLET PO PRN (07:00)
[2018-05-22] MEDS ORDERED: MAGNESIUM HYDROXIDE 30 ML UDC PO PRN (07:00)
--- NOTE | 2018-05-22 07:28 | NUR ---
TELE OPENING NOTES RECEIVED PATIENT IN BED RESTING. A/OX4, ABLE TO MAKE NEEDS KNOWN. ON 2LPM OXYGEN, SATING AT 96%. NO ACUTE DISTRESS, NO SOB, DENIED PAIN OR DISCOMFORT AT THE MOMENT. IV SITE INTACT AND PATENT. KEPT PATIENT SAFE AND COMFORTABLE. BED IN LOW/LOCKED POSITION, SIDERAILS UPX2, CALL LIGHT IN REACH. WILL CONTINUE TO MONITOR ACCORDINGLY.
[2018-05-22] MEDS: BLOOD SUGAR DIAGNOSTIC 1 EACH STRIP IN SCH ×4 (07:37→21:02)
[2018-05-22] MEDS: PANTOPRAZOLE 40 MG TABLET.DR PO SCH (07:58)
[2018-05-22] MEDS: LEVOTHYROXINE SODIUM 100 MCG TABLET PO SCH (07:59)
[2018-05-22] MEDS: ALBUTEROL FS 2.5 MG/0.5 ML VIAL.NEB NEB PRN ×3 (08:01→19:43)
[2018-05-22] MEDS: IPRATROPIUM NEB FS 0.5 MG/2.5 ML AMPUL.NEB NEB PRN ×3 (08:01→19:43)
[2018-05-22] MEDS: FLUTICASONE/VILANTEROL 1 EACH BLST.W.DEV IH SCH (08:01)
[2018-05-22] MEDS: MONTELUKAST SODIUM (10MG) 10 MG TABLET PO SCH (08:12)
[2018-05-22] MEDS: LISINOPRIL (5MG) 5 MG TABLET PO SCH (08:13)
[2018-05-22] MEDS: METFORMIN 500 MG TABLET PO SCH ×2 (08:13→16:55)
[2018-05-22] MEDS: DOCUSATE SODIUM 100 MG CAPSULE PO SCH ×2 (08:14→16:55)
[2018-05-22 08:26] VITALS: BP 112/60
[2018-05-22] MEDS: LEVOFLOXACIN 500 MG /D5W 100ML 500 MG in PREMIX 1 EA IV SCH (08:52)
[2018-05-22] MEDS: methylPREDNISolone SOD SUCC 40 MG/ML VIAL IV SCH ×2 (12:44→21:02)
[2018-05-22] MEDS: INSULIN REGULAR, HUMAN 100 UNIT/ML 3 ML VIAL SQ PRN ×3 (12:54→21:10)
[2018-05-22 16:27] VITALS: BP 105/57
[2018-05-22] MEDS: ACETAMINOPHEN 325 MG TABLET PO PRN (16:55)
--- NOTE | 2018-05-22 19:20 | NUR ---
RN CLOSING NOTES PATIENT IN STABLE CONDITION. ALL NEEDS ATTENDED AND PROVIDED. KEPTP PATIENT SAFE AND COMFORTABLE. BED IN LOW/LOCKED POSITION, SIDERAILS UPX2, CALL LIGHT IN REACH. ENDORSED TO NIGHT RN FOR MYRNA.
--- NOTE | 2018-05-22 19:25 | NUR ---
MS RN OPENING NOTES: RECEIVED PT IN BED AND IS SITTING UP IN BED. PT ON THE PHONE AT THE MOMENT. PT ON 2LPM VIA NC. NO SOB NOTED. NO S/S OF DISTRESS NOTED. IV REMAINS INTACT AND CURRENTLY S/L. OFFERED PT TO WEAR SOCKS BUT PT REFUSES. CALL LIGHT WITHIN PT'S REACH. BED KEPT IN LOW, LOCKED POSITION, AND SIDE RAILSX 2UP. WILL CONTINUE TO MONITOR PT.
--- NOTE | 2018-05-22 19:37 | NUR ---
MS RN NOTES: PT REFUSING TO HAVE RAIL ON RIGHT SIDE OF BED UP. PT SAID SHE IS CLAUSTROPHOBIC. EXPLAINED TO PT RISKS AND BENEFITS THAT SHE MAY FALL.. PT STILL SAYING SHE DOES NOT WANT IT UP.
[2018-05-22 20:05] VITALS: BP 120/68
--- NOTE | 2018-05-22 20:42 | NUR ---
MS RN NOTES: SENDY SOSA AT BEDSIDE.
--- NOTE | 2018-05-22 20:55 | NUR ---
MS RN NOTES: SECURITY AT BEDSIDE SINCE PT DOES NOT WANT VICKI DUNBAR, HER SON, TO VISIT HER. LETTING SECURITY KNOW HER CONCERNS.
--- NOTE | 2018-05-22 20:56 | NUR ---
MS RN NOTES: PER LIQUID LOADER CRISTIAN SOSA OK TO CHANGE BREATHING TX TO SCHEDULED TX INSTEAD OF PRN.
[2018-05-22] MEDS ORDERED: LORAZEPAM 0.5 MG TABLET PO PRN (21:00)
[2018-05-22] MEDS: ATORVASTATIN 10 MG TABLET PO SCH (21:02)
--- NOTE | 2018-05-22 21:15 | NUR ---
MS RN NOTES: BLOOD SUGAR WAS 187. 3 UNITS OF INSULIN WAS ADMINISTERED. JELLO WAS GIVEN.
[2018-05-22] MEDS: IPRATROPIUM NEB FS 0.5 MG/2.5 ML AMPUL.NEB NEB SCH (23:58)
[2018-05-22] MEDS: ALBUTEROL FS 2.5 MG/0.5 ML VIAL.NEB NEB SCH (23:58)
--- NOTE | 2018-05-23 00:10 | NUR ---
MS RN NOTES: PT COMPLAINING OF HEADACHE. PT WAS ADMINISTERED TYLENOL 650MG PO. WILL CONTINUE TO MONITOR PT.
[2018-05-23] MEDS: ACETAMINOPHEN 325 MG TABLET PO PRN (00:11)
--- NOTE | 2018-05-23 00:31 | NUR ---
MS RN NOTES: PT'S IPHONE CHARGING IN CHARGE NURSE STATION. WILL RETURN ONCE CHARGED.
[2018-05-23] MEDS: IPRATROPIUM NEB FS 0.5 MG/2.5 ML AMPUL.NEB NEB SCH ×6 (03:30→23:09)
[2018-05-23] MEDS: ALBUTEROL FS 2.5 MG/0.5 ML VIAL.NEB NEB SCH ×6 (03:30→23:09)
--- NOTE | 2018-05-23 03:38 | NUR ---
MS RN NOTES: PT'S IPHONE RETURNED TO HER TABLE IT IS FULLY CHARGED.
[2018-05-23] MEDS: methylPREDNISolone SOD SUCC 40 MG/ML VIAL IV SCH ×3 (05:48→21:08)
[2018-05-23] MEDS: BLOOD SUGAR DIAGNOSTIC 1 EACH STRIP IN SCH ×4 (06:03→22:00)
[2018-05-23] MEDS: INSULIN REGULAR, HUMAN 100 UNIT/ML 3 ML VIAL SQ PRN ×4 (06:24→23:38)
--- NOTE | 2018-05-23 06:26 | NUR ---
MS RN NOTES: BLOOD SUGAR WAS 157. 2 UNITS OF INSULIN WAS ADMINISTERED. JOS PROVIDED. WILL ENDORSE TO AM NURSE.
--- NOTE | 2018-05-23 06:36 | NUR ---
MS RN CLOSING NOTES: ALL NEEDS WERE ATTENDED AND ANTICIPATED FOR. PT ASLEEP AT THIS TIME AND IS ON 2LPM VIA NC. IV REMAINS INTACT AND CURRENTLY S/L. NO SOB NOTED. NO S/S OF DISTRESS. CALL LIGHT WITHIN PT'S REACH. BED KEPT IN LOW, LOCKED POSITION, AND SIDE RAILS X 2UP. WILL ENDORSE TO AM NURSE FOR MYRNA.
--- NOTE | 2018-05-23 07:30 | NUR ---
AM RN NOTE Received patient awake, lying in her bed. No acute distress noted. On O2 2L/min via NC, Resp even and non-labored. IV site intact and patent. Bed in low locked position. Will continue to monitor.
[2018-05-23] MEDS: LEVOTHYROXINE SODIUM 100 MCG TABLET PO SCH (07:57)
[2018-05-23] MEDS: LEVOFLOXACIN 500 MG /D5W 100ML 500 MG in PREMIX 1 EA IV SCH (07:58)
[2018-05-23] MEDS: PANTOPRAZOLE 40 MG TABLET.DR PO SCH (07:58)
[2018-05-23] MEDS: FLUTICASONE/VILANTEROL 1 EACH BLST.W.DEV IH SCH (08:01)
[2018-05-23] MEDS: MONTELUKAST SODIUM (10MG) 10 MG TABLET PO SCH (08:02)
[2018-05-23] MEDS: METFORMIN 500 MG TABLET PO SCH ×2 (08:02→17:05)
[2018-05-23] MEDS: DOCUSATE SODIUM 100 MG CAPSULE PO SCH ×2 (08:03→17:05)
[2018-05-23] MEDS: LISINOPRIL (5MG) 5 MG TABLET PO SCH (08:03)
[2018-05-23 08:25] VITALS: BP 119/50
[2018-05-23] MEDS: ASPIRIN EC 325 MG TABLET.DR PO SCH (11:58)
--- NOTE | 2018-05-23 14:10 | NUR ---
AM RN NOTE Ativan PRN was given due to anxiety prior to MRI procedure as requested by pt. Pt went downstairs with Deniz (Tech) but pt still refused MRI. Marco A MOLD SHEET CLEANER made aware with NNO at this time.
[2018-05-23 16:00] VITALS: BP 111/76
--- NOTE | 2018-05-23 18:52 | NUR ---
AM RN NOTE Pt awake, sitting in the hallway in front of nurses station. Will endorse care to next shift.
--- NOTE | 2018-05-23 19:00 | NUR ---
RECIEVED MS. VIRGEN IN AN ANXIOUS STATE LOUDLY TALKING STATING SHE WANTS THE MD PHONE NUMBER SHE IS GOING HOME SHE WANTS TO SMOKE AND THE NURSES ARE TALKING ABOUT HER, SHE SIGNED THE CONSENT TO GO OUT TO SMOKE WITH HOSPITAL PERSONAL. SHE WILL WHEEL HERSELF OUT TO THE ELEVATOR AND NOT HAVE SOMEONE WITH HER STATING I DONT CARE. SHE DOES RETURN SHE THEN APOLAGIZES FOR YELLING AT EVERYONE
--- NOTE | 2018-05-23 19:17 | NUR ---
AM RN NOTE Notified CN Kvng) regarding pt's Levaquin medication concern.
[2018-05-23 20:34] VITALS: BP 119/79
[2018-05-23 20:39] VITALS: BP 119/79
[2018-05-23] MEDS: ATORVASTATIN 10 MG TABLET PO SCH (21:09)
[2018-05-24] MEDS: ALBUTEROL FS 2.5 MG/0.5 ML VIAL.NEB NEB SCH ×6 (03:30→23:14)
[2018-05-24] MEDS: IPRATROPIUM NEB FS 0.5 MG/2.5 ML AMPUL.NEB NEB SCH ×6 (03:30→23:14)
[2018-05-24] MEDS: methylPREDNISolone SOD SUCC 40 MG/ML VIAL IV SCH ×3 (04:54→21:15)
--- NOTE | 2018-05-24 05:22 | NUR ---
CLOSING NOTES: AT THE BEGINNIN OF THE SHIFT 1899 SHE WAS TALKING LOUDLY AND SAYING SHE NEED THE DOCTORS PHONE NUMBER SHE IS GETTING OUT OF HERE. SHE IS C/O SHE NEED TO GO DOWN AND SMOKE, I HAD HER SIN THE PAPER THAT STATES SHE CAN GO SMOKE BUT WITH A HOSPITAL PERSONAL WITH HER, SHE SIGNED THE PAPER THEN STATED I WILL GO TO SMOKE QWHEN EVER I WANT TO ,WITH SOMEONE OR W/O SOMEONE. SHE STATED THAT THE NURSE ARE TALKING TO HER BEHIND HER BACK. I MADE THE ATTEMPT TO TELL HER STERIODS CAN HAVE YOU BELIEVING THIS ARE GOING WRONG PARANOIA SHE WOULD NOT LISTEN SHE CAN BE ARGUMENTATIVE REFUSING MEDICATION TO CALM HER DOWN, THEN IN A MINUTE SHE CAN BE FUNNY AND NICE. WITH AMBULATION SHE BECOMES SOB AND WILL REQUISTE HHN TX THRU THE NIGHT. 02 2LIOTER SATS 98% ON ROOM AIR SHE SATS 90%
[2018-05-24] MEDS: BLOOD SUGAR DIAGNOSTIC 1 EACH STRIP IN SCH ×4 (06:41→21:16)
[2018-05-24] MEDS: INSULIN REGULAR, HUMAN 100 UNIT/ML 3 ML VIAL SQ PRN ×4 (06:45→21:55)
[2018-05-24] MEDS: ACETAMINOPHEN 325 MG TABLET PO PRN (06:46)
--- NOTE | 2018-05-24 07:10 | NUR ---
MS RN NOTES PATIENT SITTING IN BED, ALERT ORIENTED X4. NO ACUTE DISTRESS NOTED, BREATHING UNLABORED. ON O2 @ 2LPM VIA NC. IV ACCESS PATENT AND INTACT, NO REDNESS OR SWELLING NOTED. SAFETY MEASURES IN PLACE. CALL LIGHT WITHIN REACH. WILL CONTINUE TO MONITOR ACCORDINGLY.
[2018-05-24 08:00] VITALS: BP 119/68
[2018-05-24] MEDS: MONTELUKAST SODIUM (10MG) 10 MG TABLET PO SCH (08:09)
[2018-05-24] MEDS: PANTOPRAZOLE 40 MG TABLET.DR PO SCH (08:09)
[2018-05-24] MEDS: LEVOTHYROXINE SODIUM 100 MCG TABLET PO SCH (08:09)
[2018-05-24] MEDS: ASPIRIN EC 325 MG TABLET.DR PO SCH (08:09)
[2018-05-24] MEDS: METFORMIN 500 MG TABLET PO SCH ×2 (08:09→18:00)
[2018-05-24] MEDS: DOCUSATE SODIUM 100 MG CAPSULE PO SCH ×2 (08:09→18:00)
[2018-05-24] MEDS: LISINOPRIL (5MG) 5 MG TABLET PO SCH (08:10)
[2018-05-24] MEDS: LEVOFLOXACIN 500 MG /D5W 100ML 500 MG in PREMIX 1 EA IV SCH (08:21)
[2018-05-24] MEDS ORDERED: LORAZEPAM 1 MG TABLET PO PRN (15:00)
--- NOTE | 2018-05-24 15:25 | NUR ---
MS RN NOTES SEEN AND EVALUATED BY SENDY SOSA [facility] NEW ORDERS MADE, NOTED AND CARRIED OUT. PATIENT TRANSPORTED FOR MRI IN STABLE CONDITION.
--- NOTE | 2018-05-24 15:59 | NUR ---
RT PT NOT IN ROOM IN MRI INFORMED RN
[2018-05-24 16:00] VITALS: BP 115/63
--- NOTE | 2018-05-24 19:00 | NUR ---
MS RN NOTES PATIENT SITTING IN BED, ALERT ORIENTED X3. NO ACUTE DISTRESS NOTED, BREATHING UNLABORED. ON O2 @ 2LPM VIA NC. IV ACCESS PATENT AND INTACT, NO REDNESS OR SWELLING NOTED. NEEDS ATTENDED AND ANTICIPATED. KEPT CLEAN AND DRY AND COMFORTABLE. DUE MEDICATIONS GIVEN, NO ASE NOTED. SAFETY MEASURES IN PLACE. CALL LIGHT WITHIN REACH. ENDORSED TO NIGHT NURSE FOR CONTINUITY OF CARE.
[2018-05-24 20:00] VITALS: BP 107/65
[2018-05-24] MEDS: ATORVASTATIN 10 MG TABLET PO SCH (21:16)
[2018-05-25] MEDS: IPRATROPIUM NEB FS 0.5 MG/2.5 ML AMPUL.NEB NEB SCH ×3 (02:40→11:30)
[2018-05-25] MEDS: ALBUTEROL FS 2.5 MG/0.5 ML VIAL.NEB NEB SCH ×3 (02:40→11:30)
[2018-05-25] MEDS: methylPREDNISolone SOD SUCC 40 MG/ML VIAL IV SCH ×2 (05:14→13:52)
[2018-05-25] MEDS: BLOOD SUGAR DIAGNOSTIC 1 EACH STRIP IN SCH ×2 (06:12→12:44)
[2018-05-25] MEDS: INSULIN REGULAR, HUMAN 100 UNIT/ML 3 ML VIAL SQ PRN ×2 (06:22→12:47)
--- NOTE | 2018-05-25 06:54 | NUR ---
MS RN NOTES AWAKE & RESPONSIVE. NOT IN ANY DISTRESS. NO SOB NOTED. DENIES ANY PAIN OR DISCOMFORT AT THIS TIME. WITH IV-HL PATENT & INTACT. MONITORED ACCORDINGLY. CALL LIGHT WITHIN REACH. BED IN LOWEST POSITION. SR UP X2 FOR SAFETY. WILL ENDORSE TO NEXT SHIFT.
[2018-05-25 08:00] VITALS: BP 118/70
[2018-05-25] MEDS: METFORMIN 500 MG TABLET PO SCH (08:22)
[2018-05-25] MEDS: MONTELUKAST SODIUM (10MG) 10 MG TABLET PO SCH (08:22)
[2018-05-25] MEDS: PANTOPRAZOLE 40 MG TABLET.DR PO SCH (08:22)
[2018-05-25] MEDS: LEVOTHYROXINE SODIUM 100 MCG TABLET PO SCH (08:22)
[2018-05-25 08:23] VITALS: BP 118/70
[2018-05-25] MEDS: LISINOPRIL (5MG) 5 MG TABLET PO SCH (08:23)
[2018-05-25] MEDS: LEVOFLOXACIN 500 MG /D5W 100ML 500 MG in PREMIX 1 EA IV SCH (08:23)
[2018-05-25] MEDS: ASPIRIN EC 325 MG TABLET.DR PO SCH (08:23)
[2018-05-25] MEDS: DOCUSATE SODIUM 100 MG CAPSULE PO SCH (08:23)
--- NOTE | 2018-05-25 11:53 | NUR ---
MS RN NOTES SEEN AND EVALUATED BY SENDY SOSA WITH NEW ORDERS MADE. NOTED AND CARRIED.
[2018-05-25] MEDS ORDERED: GADODIAMIDE 2.5 MMOL/5 ML VIAL IJ ONE (14:06)
--- NOTE | 2018-05-25 15:10 | NUR ---
MS RN ENDOSCOPY NOTES PATIENT DISCHARGED HOME IN STABLE CONDITION. ALERT ORIENTED X4. NO ACUTE DISTRESS NOTED, BREATHING UNLABORED. ON O2 @ 2LPM VIA NC. IV ACCESS REMOVED,NO BLEEDING, NO REDNESS OR SWELLING NOTED. DISCHARGE INSTRUCTIONS GIVEN TO THE PATIENT INCLUDING FOLLOW UP APPOINTMENTS, VERBALIZED UNDERSTANDING. WHEELED TO THE LOBBY, WITH O2. ASSISTED TO A PRIVATE CAR, PICKED UP BY SON VICKI DUNBAR WITH PORTABLE O2 VIA NC. ALL BELONGINGS ACCOUNTED FOR. NEEDS ATTENDED AND ANTICIPATED.
== END 2018-05-25 15:10 | disposition home or self-care (01) | DRG 189 ==
LOC: ER 03:42 → TELE 04:58 → MED 08:49
PROVIDERS: ADMIT Internal Medicine; ATTEND Internal Medicine
DX: J96.01 Acute respiratory failure with hypoxia (principal); J44.1 Chronic obstructive pulmonary disease with (acute) exacerbation; J96.02 Acute respiratory failure with hypercapnia; I10 Essential (primary) hypertension; E11.9 Type 2 diabetes mellitus without complications; E78.5 Hyperlipidemia, unspecified; F17.210 Nicotine dependence, cigarettes, uncomplicated; K21.9 Gastro-esophageal reflux disease without esophagitis; M21.371 Foot drop, right foot; Z79.84 Long term (current) use of oral hypoglycemic drugs; Z86.73 Personal history of transient ischemic attack (TIA), and cerebral infarction without residual deficits; R29.6 Repeated falls; E03.9 Hypothyroidism, unspecified; I70.90 Unspecified atherosclerosis; Z85.828 Personal history of other malignant neoplasm of skin; M54.16 Radiculopathy, lumbar region; Z99.81 Dependence on supplemental oxygen; Z71.6 Tobacco abuse counseling
CPT/HCPCS: 36415; 70553-TC; 71045-TC; 72148-TC; 73630-TC; 80048-TC; 80076-TC; 82962-TC; 83880; 84484-TC; 85025-TC; 87081-TC; 94799-TC; 97110-TC; 97116-TC; 97530-TC; A4216; A4606; J1815; J1956; J2920; J2930; Z7610

== ENCOUNTER 2018-06-24 19:07 | Inpatient (IN) | payer MEDICARE ==
[2018-06-24] VITALS: BP 108/64
[~2018-06-24] VITALS: Ht 162.6 cm; Wt 64.9 kg
--- NOTE | 2018-06-24 19:15 | NUR ---
NILSA 89 FROM HOME C/O SOB & ASTHMA ATTACK. BREATHING TREATMENT X 1 GIVEN IN FIELD BY EMS. PT BROUGHT IN BY NV 3L/M. PT IS AAOX4 AND ABLE TO SPEAK 3-5 WORDS. AUDIBLE WHEEZING NOTED. PT NOTED TO BE IN DISTRESS, USING ACCESSORY MUSCLES TO BREATH, TACHYPNIC AND SOB WITH RR 32-36PER MINUTE. SKIN WNL. PT PLACED ON BRICK SIDING APPLICATOR AND POX. PT SAFETY AND COMFORT MEASURES IN PLACE. BEDSIDE FOR EVAL.WILL CONTINUE TO MONITOR PT.
--- NOTE | 2018-06-24 19:16 | NUR ---
PT DENIES CHEST PAIN AT THIS TIME. WILL CONTINUE TO MONITOR PT
[2018-06-24] MEDS ORDERED: Magnesium 1GM/D5W 100ML PREMIX 200 ML IV ONE ×2 (19:23→19:37)
[2018-06-24] MEDS ORDERED: methylPREDNISolone SOD SUCC 125 MG/2ML VIAL IV ONE (19:30)
[2018-06-24] MEDS ORDERED: CLONIDINE HCL 0.1 MG TABLET PO ONE (19:30)
[2018-06-24] MEDS ORDERED: ALBUTEROL FS 2.5 MG/3 ML VIAL.NEB CONTNEB ONE (19:30)
[2018-06-24] MEDS ORDERED: IPRATROPIUM NEB FS 0.5 MG/2.5 ML AMPUL.NEB NEB ONE (19:30)
[2018-06-24] MEDS ORDERED: ASPIRIN 325 MG TABLET PO ONE (19:30)
[2018-06-24] MEDS ORDERED: IPRATROPIUM NEB FS 0.5 MG/2.5 ML AMPUL.NEB ONE (19:32)
[2018-06-24] MEDS ORDERED: ALBUTEROL FS 2.5 MG/3 ML VIAL.NEB ONE (19:32)
[2018-06-24 19:34] LABS: BASOPHILS # (AUTO) 0.2 /CMM (0.0-0.2); BASOPHILS % (AUTO) 1.6 % (0.0-2.0); EOSINOPHILS % (AUTO) 1.1 % (0.0-6.0); HEMATOCRIT 46 % (33-45); HEMOGLOBIN 15.1 g/dL (11.5-14.8); LYMPHOCYTES # (AUTO) 1.8 /CMM (0.8-4.8); LYMPHOCYTES % (AUTO) 17.9 % (20.0-44.0); MEAN CORPUSCULAR HEMOGLOBIN 32 PG (26.0-33.0); MEAN CORPUSCULAR HGB CONC 33 g/dl (31.0-36.0); MEAN CORPUSCULAR VOLUME 96 fL (82-100); MONOCYTES # (AUTO) 0.7 /CMM (0.1-1.30); MONOCYTES % (AUTO) 6.6 % (2.0-12.0); NEUTROPHILS # (AUTO) 7.3 /CMM (1.8-8.9); NEUTROPHILS % (AUTO) 72.8 % (43.0-81.0); PLATELET COUNT (AUTO) 263 /CMM (150-450); RDW COEFFICIENT OF VARIATION 14.5 (11.5-15.0); RED BLOOD CELL COUNT(AUTO) 4.79 MIL/uL (4.0-5.2); WHITE BLOOD COUNT (AUTO) 10.1 K/uL (4.3-11.0)
[2018-06-24] MEDS ORDERED: methylPREDNISolone SOD SUCC 125 MG/2ML VIAL ONE (19:36)
[2018-06-24] MEDS ORDERED: ASPIRIN 325 MG TABLET ONE (19:37)
[2018-06-24 19:45] LABS: CALCIUM, SERUM 9.3 mg/dL (8.5-10.1); CREATININE 0.7 mg/dL (0.6-1.3); POTASSIUM 3.9 mmol/L (3.5-5.1)
[2018-06-24 19:51] LABS: ALBUMIN 3.4 g/dL (3.4-5.0); BILIRUBIN,TOTAL 0.1 mg/dL (0.2-1.0); TOTAL PROTEIN, SERUM 6.5 g/dL (6.4-8.2)
[2018-06-24 19:53] LABS: TROPONIN I 0.105 ng/mL (0.00-0.056)
--- NOTE | 2018-06-24 19:55 | NUR ---
PT RECEIVING BREATHING TREATMENT. RT BEDSIDE WITH PT
--- NOTE | 2018-06-24 20:31 | NUR ---
PAGED EPIC FOR PANEL - MEAT BUTCHER IS DONN VANN
--- NOTE | 2018-06-24 20:46 | NUR ---
CALLED NURSE SUP FOR TELE BED
[2018-06-24 20:56] LABS: ABG BASE EXCESS 1.7 mmol/L; ABG OXYGEN SATURATION 95.8 % (92.0-98.5); ABG PCO2 41.8 mmHg (35.0-45.0); ABG PH 7.418 (7.350-7.450); ABG PO2 85.4 mmHg (75.0-100.0); AaDO2 93.9 mmHg; COHb 3.4 % (0.5-1.5); MetHb 0.3 % (0.0-1.5); O2Hb 92.3 % (94.0-97.0); SITE, ABG Right Brachial; VENT MODE, BG 3 L N/C
--- NOTE | 2018-06-24 21:34 | NUR ---
VERBAL ORDER RECEIVED FROM MD MOORE FOR NS 1L IV NOW.
--- NOTE | 2018-06-24 22:13 | NUR ---
REPORT GIVEN TO EMI ALVAREZ FOR MYRNA.
--- NOTE | 2018-06-24 22:20 | NUR ---
MADE AWARE OF PT'S BP, OKAY WITH TELE ADMIT
[2018-06-24 22:30] VITALS: BP 94/62
[2018-06-24] MEDS ORDERED: IV NS 0.9% 1,000 ML BAG IV ONE (22:30)
--- NOTE | 2018-06-24 22:50 | NUR ---
WOMEN'S SWIM COACHHEAD WRESTLING COACH NOTES Patient came to unit via pool. Alert, oriented x 4. Patient on supplemental O2 at 2L via NC. SOB on exertion. Patient able to make needs known. No complaints of paint or discomfort as of this time. Oriented to call gauthier. Tele monitor in place, sinus rhythm 90. Skin assessment done. Picture in chart. Patient able to walk to bathroom with assist. Informed her to ask for help when she goes to the toilet. Safety measures in place. Call gauthier within reach. Bed in low, locked position. Will monitor accordingly
[2018-06-25] VITALS (7 sets, daily range): BP systolic 101–108; BP diastolic 53–76
[2018-06-25] MEDS ORDERED: ZOLPIDEM TARTRATE 5 MG TABLET PO PRN
[2018-06-25] MEDS ORDERED: ONDANSETRON HCL/PF 4 MG/2 ML VIAL IVP PRN
[2018-06-25] MEDS ORDERED: MAG HYDROX/AL HYDROX/SIMETH 30 ML UDC PO PRN
[2018-06-25] MEDS ORDERED: HYDROCODONE/APAP 5/325MG 1 EACH TABLET PO PRN
[2018-06-25] MEDS ORDERED: LORAZEPAM 0.5 MG TABLET PO PRN
[2018-06-25] MEDS ORDERED: DEXTROSE 50%-WATER 50 ML DISP.SYRIN IV PRN
[2018-06-25] MEDS ORDERED: MAGNESIUM HYDROXIDE 30 ML UDC PO PRN
[2018-06-25] MEDS ORDERED: ALBUTEROL FS 2.5 MG/3 ML VIAL.NEB NEB PRN
[2018-06-25] MEDS ORDERED: Z GUARD REMEDY 2 OZ OINT TP PRN
--- NOTE | 2018-06-25 00:30 | NUR ---
RN NOTES Assisted patient to the toilet. Patient became short of breath. Informed RT patient has breathing treatment PRN.
[2018-06-25] MEDS: IPRATROPIUM NEB FS 0.5 MG/2.5 ML AMPUL.NEB NEB PRN ×3 (00:45→14:05)
--- NOTE | 2018-06-25 01:10 | NUR ---
RN NOTES Patient's IV came out. New IV g#24 inserted on left forearm.
--- NOTE | 2018-06-25 05:27 | NUR ---
RN NOTES Patient's repeat trop at 02:30 is 0.233, Dash Miranda made aware.
[2018-06-25] MEDS: BLOOD SUGAR DIAGNOSTIC 1 EACH STRIP IN SCH ×4 (06:37→21:43)
[2018-06-25] MEDS: INSULIN REGULAR, HUMAN 100 UNIT/ML 3 ML VIAL SQ PRN ×4 (06:38→21:47)
--- NOTE | 2018-06-25 06:54 | NUR ---
OBSTETRICS NURSE PRACTITIONER CLOSING NOTES Patient sitting up in bed, not in any distress. On O2 at 2Lpm via NC. Not in any distress. Breathing even and unlabored. Tele monitor in place, sinus rhythm 70. No complaints of pain or discomfort as of this time. Safety measures in place. Call gauthier within reach. Bed in low locked position. All needs attended to. All due medications given as ordered. Will endorse MYRNA to AM shift RN
[2018-06-25] MEDS: PANTOPRAZOLE 40 MG TABLET.DR PO SCH ×2 (07:30→09:55)
[2018-06-25] MEDS: LEVOTHYROXINE SODIUM 100 MCG TABLET PO SCH ×2 (07:30→09:55)
--- NOTE | 2018-06-25 07:35 | NUR ---
AUTHOR AGENT OPENING NOTE RECEIVED PATIENT IN BED, ALERT ORIENTED X4, ON 2L O2 VIA NC. TOLERATING WELL. IN NO APPARENT DISTRESS OR DISCOMFORT AT THIS TIME. RESPIRATIONS EVEN AND UNLABORED. ABLE TO COMMUNICATE NEEDS. PATIENT ON TELE MONITORING WITH SINUS RHYTHM. AMBULATES WITH ASSIST. LEFT FOREARM IV 24G, SALINE LOCK. PATENT AND INTACT. KEPT CLEAN AND COMFORTABLE. ALL NEEDS ATTENDED. SAFETY MEASURES IN PLACE, BED IN LOW LOCKED POSITION, SIDE RAILS UP X2, CALL LIGHT WITHIN EASY REACH. WILL CONTINUE TO MONITOR.
--- NOTE | 2018-06-25 08:03 | NUR ---
PATIENT IS AGITATED. REFUSES VITAL SIGNS CHECK. NON-COMPLIANT WITH TREATMENT AT THIS TIME. EXPLAINED ALL RISKS AND BENEFITS. WILL CONTINUE TO MONITOR.
[2018-06-25] MEDS: methylPREDNISolone SOD SUCC 40 MG/ML VIAL IV SCH ×4 (08:28→16:39)
[2018-06-25] MEDS: FLUTICASONE/VILANTEROL 1 EACH BLST.W.DEV IH SCH ×2 (08:28→11:39)
[2018-06-25] MEDS: LISINOPRIL (5MG) 5 MG TABLET PO SCH ×2 (08:29→09:46)
[2018-06-25] MEDS: ATORVASTATIN 10 MG TABLET PO SCH ×2 (08:29→09:45)
[2018-06-25] MEDS: MONTELUKAST SODIUM (10MG) 10 MG TABLET PO SCH ×2 (08:29→09:45)
[2018-06-25] MEDS: ASPIRIN EC 325 MG TABLET.DR PO SCH ×2 (08:29→09:45)
--- NOTE | 2018-06-25 08:29 | NUR ---
PATIENT IS NON-COMPLIANT. REFUSED MORNING MEDS. HAS TWO BRONCHODILATORS AT BEDSIDE. REFUSES TO GIVE TEMPORARILY TO THE PHARMACY. EXPLAINED ALL RISKS AND BENEFITS. MD AWARE. WILL CONTINUE TO MONITOR.
[2018-06-25] MEDS ORDERED: ALBUTEROL FS 2.5 MG/3 ML VIAL.NEB ONE (09:45)
[2018-06-25] MEDS: ALBUTEROL FS 2.5 MG/3 ML VIAL.NEB NEB SCH ×6 (09:47→22:25)
--- NOTE | 2018-06-25 09:56 | NUR ---
RT NOTE: I WAS CALLED STAT TO PATIENT'S ROOM FOR RESPIRATORY TREATMENT PER . PHARMACY([facility]) CALLED TO VERIFY MEDICATION. AFTER WAITING 5-10 MINUTES ALBUTEROL WAS PULLED OUT OF OMNICELL PER DR. GAYTAN TREATMENT WAS STAT DUE TO DISTRESS AND WHEEZING. PATIENT FOUND IN DISTRESS THEN PLACED ON ALBUTEROL/ATROVENT TREATMENT. WILL CONTINUE TO MONITOR.
--- NOTE | 2018-06-25 10:06 | NUR ---
MEDICATION BREO ELLIPTA HAS NO YET BEEN ADMINISTERED IT IS NOT AVAILABLE ON THE UNIT.MEDICATION REQUESTED FROM PHARMACY, WILL ADMINISTER SOON IT IS AVAILABLE.
[2018-06-25 12:23] LABS: HEMATOCRIT 40 % (33-45); HEMOGLOBIN 12.9 g/dL (11.5-14.8); LYMPHOCYTES # (AUTO) 0.4 /CMM (0.8-4.8); LYMPHOCYTES % (AUTO) 5.5 % (20.0-44.0); MEAN CORPUSCULAR HEMOGLOBIN 32 PG (26.0-33.0); MEAN CORPUSCULAR HGB CONC 32 g/dl (31.0-36.0); MEAN CORPUSCULAR VOLUME 99 fL (82-100); MONOCYTES # (AUTO) 0.3 /CMM (0.1-1.30); MONOCYTES % (AUTO) 3.1 % (2.0-12.0); NEUTROPHILS # (AUTO) 7.5 /CMM (1.8-8.9); NEUTROPHILS % (AUTO) 91.4 % (43.0-81.0); PLATELET COUNT (AUTO) 218 /CMM (150-450); RDW COEFFICIENT OF VARIATION 15.2 (11.5-15.0); RED BLOOD CELL COUNT(AUTO) 4.05 MIL/uL (4.0-5.2); WHITE BLOOD COUNT (AUTO) 8.2 K/uL (4.3-11.0)
[2018-06-25 12:26] LABS: CALCIUM, SERUM 8.5 mg/dL (8.5-10.1); CREATININE 0.7 mg/dL (0.6-1.3); MAGNESIUM 2.1 mg/dL (1.8-2.4); POTASSIUM 4.1 mmol/L (3.5-5.1)
--- NOTE | 2018-06-25 18:52 | NUR ---
MS RN CLOSING NOTE PATIENT IN BED, ALERT ORIENTED X4, ON 2L O2 VIA NC. TOLERATING WELL. IN NO APPARENT DISTRESS OR DISCOMFORT AT THIS TIME. RESPIRATIONS EVEN AND UNLABORED. ABLE TO COMMUNICATE NEEDS. PATIENT ON TELE MONITORING WITH SINUS RHYTHM. AMBULATES WITH ASSIST. LEFT FOREARM IV 24G, SALINE LOCK. PATENT AND INTACT. KEPT CLEAN AND COMFORTABLE. ALL NEEDS ATTENDED ORDERS CARRIED OUT. SAFETY MEASURES IN PLACE, BED IN LOW LOCKED POSITION, SIDE RAILS UP X2, CALL LIGHT WITHIN EASY REACH. WILL ENDORSE TO PM NURSE FOR MYRNA.
--- NOTE | 2018-06-25 19:35 | NUR ---
MS RN OPENING NOTES: RECEIVED PT IN BED AND IS CURRENTLY ON THE PHONE. PT ON 2LPM VIA NC. IV REMAINS INTACT. PT IS A/OX4. IV REMAINS INTACT AND CURRENTLY H/L. CALL LIGHT WITHIN PT'S REACH. BED KEPT IN LOW, LOCKED POSITION, AND SIDE RAILS X 2UP. WILL CONTINUE TO MONITOR PT.
[2018-06-25] MEDS: ACETAMINOPHEN 325 MG TABLET PO PRN (20:10)
--- NOTE | 2018-06-25 20:10 | NUR ---
MS RN NOTES: PT COMPLAINING OF A HEADACHE. PT WAS ADMINISTERED TYLENOL 650MG PO. WILL CONTINUE TO MONITOR PT.
[2018-06-25] MEDS: INSULIN GLARGINE, 100 UNIT/ML CARTRIDGE SQ SCH (21:47)
--- NOTE | 2018-06-25 23:06 | NUR ---
MS RN NOTES: PT VERY AGITATED. INFORMED CHARGE NURSE. PT WENT DOWN FOR A SMOKE BREAK. INFORMED HER IT WILL ONLY BE ONCE AND THAT WILL BE IT. BLANKA MCGARRY, BROUGHT PT DOWN FOR A SMOKE BREAK.
--- NOTE | 2018-06-25 23:40 | NUR ---
MS MIDDLETON NOTES: PT BACK FROM SMOKE BREAK IN STABLE CONDITION. Addendum: 06/26/18 at 0000 by KALA SKELTON RN PT REFUSING TO GIVE HER CIGARETTES TO STATION. PLACED IN HER PURSE.
--- NOTE | 2018-06-25 23:57 | NUR ---
MS RN NOTES: PT'S PERSONAL HOT PINK IPHONE CHARGING AT CHARGE NURSE STATION.
[2018-06-26] VITALS: BP 111/52
--- NOTE | 2018-06-26 | NUR ---
MS RN NOTES: PT REFUSING TO HAVE SIDE RAILS UP. EXPLAINED RISKS AND BENEFITS. PT AWARE AND UNDERSTOOD AND STILL WOULD LIKE IT DOWN.
--- NOTE | 2018-06-26 01:18 | NUR ---
MS RN NOTES: PT'S PHONE RETURNED BACK TO PT.
[2018-06-26] MEDS: ALBUTEROL FS 2.5 MG/3 ML VIAL.NEB NEB SCH ×6 (04:01→23:09)
[2018-06-26 04:19] VITALS: BP 108/62
[2018-06-26] MEDS: ACETAMINOPHEN 325 MG TABLET PO PRN ×2 (04:19→23:38)
--- NOTE | 2018-06-26 04:19 | NUR ---
MS RN NOTES: PT COMPLAINING OF A HEADACHE. PT ADMINISTERED TYLENOL 650MG PO. WILL CONTINUE TO MONITOR PT.
[2018-06-26] MEDS: BLOOD SUGAR DIAGNOSTIC 1 EACH STRIP IN SCH ×4 (06:23→22:23)
[2018-06-26] MEDS: INSULIN REGULAR, HUMAN 100 UNIT/ML 3 ML VIAL SQ PRN ×4 (06:24→22:27)
[2018-06-26 06:28] LABS: HEMATOCRIT 39 % (33-45); HEMOGLOBIN 12.8 g/dL (11.5-14.8); LYMPHOCYTES # (AUTO) 1.1 /CMM (0.8-4.8); LYMPHOCYTES % (AUTO) 7.7 % (20.0-44.0); MEAN CORPUSCULAR HEMOGLOBIN 33 PG (26.0-33.0); MEAN CORPUSCULAR HGB CONC 33 g/dl (31.0-36.0); MEAN CORPUSCULAR VOLUME 100 fL (82-100); MONOCYTES # (AUTO) 1.1 /CMM (0.1-1.30); MONOCYTES % (AUTO) 7.7 % (2.0-12.0); NEUTROPHILS # (AUTO) 12.4 /CMM (1.8-8.9); NEUTROPHILS % (AUTO) 84.6 % (43.0-81.0); PLATELET COUNT (AUTO) 211 /CMM (150-450); RDW COEFFICIENT OF VARIATION 15.7 (11.5-15.0); RED BLOOD CELL COUNT(AUTO) 3.93 MIL/uL (4.0-5.2); WHITE BLOOD COUNT (AUTO) 14.7 K/uL (4.3-11.0)
--- NOTE | 2018-06-26 06:33 | NUR ---
MS RN NOTES: BLOOD SUGAR WAS 139. 2 UNITS OF INSULIN WAS ADMINISTERED. SNACK WAS PROVIDED. PT VERY PERSISTENT ABOUT SMOKE BREAK.
[2018-06-26 06:49] LABS: BILIRUBIN,TOTAL 0.2 mg/dL (0.2-1.0); CALCIUM, SERUM 8.5 mg/dL (8.5-10.1); CREATININE 0.8 mg/dL (0.6-1.3); POTASSIUM 4.4 mmol/L (3.5-5.1); TOTAL PROTEIN, SERUM 5.7 g/dL (6.4-8.2)
--- NOTE | 2018-06-26 07:02 | NUR ---
MS RN NOTES: PT WENT DOWN FOR A SMOKE BREAK WITH LICENSED REAL ESTATE BROKER.
[2018-06-26 07:14] LABS: TROPONIN I 0.081 ng/mL (0.00-0.056)
--- NOTE | 2018-06-26 07:20 | NUR ---
MS RN NOTES: PT BACK FROM SMOKE BREAK IN STABLE CONDITION. PT DOES NOT WANT TO GIVE CIGARETTES AND BLOCK HANDLER UP. WAS PLACED IN HER PURSE.
--- NOTE | 2018-06-26 07:40 | NUR ---
MS RN CLOSING NOTES: ALL NEEDS WERE ATTENDED AND ANTICIPATED FOR. PT ANXIOUS AND AGITATED AND WANTS TO LEAVE THE HOSPITAL. IV REMAINS INTACT. CURRENTLY H/L. PT ON 2LPM VIA NC AND IS TOLERATING WELL. NO SOB NOTED. NO S/S OF DISTRESS. PT REFUSING TO HAVE SIDE RAILS PUT UP. CALL LIGHT WITHIN PT'S REACH. BED KEPT IN LOW, LOCKED POSITION. ENDORSED TO AM NURSE FOR MYRNA. Addendum: 06/26/18 at 0742 by KALA SKELTON RN PT ON TELE OBSERVATION AND IS SR 60-70S.
--- NOTE | 2018-06-26 07:49 | NUR ---
RN OPENING NOTES PT IN BED AT LOWEST AND LOCKED POSITION, A/O X4, BREATHING EVEN AND UNLABORED, ON OXYGEN 3L VIA NASAL CANNULA, DENIES PAIN, LEFT FOREARM IV PATENT AND INTACT, SKIN IS DRY AND INTACT, NO SIGNS OF DISTRESS, PT IS STABLE, CALL LIGHT WITHIN REACH AND WILL CONTINUE TO MONITOR.
[2018-06-26 08:00] VITALS: BP 109/66
[2018-06-26] MEDS: MONTELUKAST SODIUM (10MG) 10 MG TABLET PO SCH (08:11)
[2018-06-26] MEDS: ASPIRIN EC 325 MG TABLET.DR PO SCH (08:11)
[2018-06-26] MEDS: PANTOPRAZOLE 40 MG TABLET.DR PO SCH (08:12)
[2018-06-26] MEDS: LEVOTHYROXINE SODIUM 100 MCG TABLET PO SCH (08:12)
[2018-06-26] MEDS: ATORVASTATIN 10 MG TABLET PO SCH (08:16)
[2018-06-26] MEDS: LISINOPRIL (5MG) 5 MG TABLET PO SCH (08:16)
[2018-06-26] MEDS: methylPREDNISolone SOD SUCC 40 MG/ML VIAL IV SCH ×3 (08:17→17:25)
[2018-06-26] MEDS: FLUTICASONE/VILANTEROL 1 EACH BLST.W.DEV IH SCH (09:29)
--- NOTE | 2018-06-26 11:00 | NUR ---
MS RN NOTES PATIENT SEEN AND EVALUATED BY DR. WREN, PATIENT OBSERVED YELLING ANS INSULTING DR. WREN STATING SHE IS A GROWN WOMEN AND SHE CAN DO WHAT EVER SHE WISHES TO, AND SHE WILL GO SMOKING IF SHE WISHES TOO.
--- NOTE | 2018-06-26 11:30 | NUR ---
MS RN NOTES PATIENT NOTED YELLING AND SCREAMING IN THE HALLWAY. PATIENT THREATENING TO LEAVE AND GO DOWNSTAIRS SMOKING WITHOUT ANY SUPERVISION. STATES NURSES HAVE BEEN IGNORING HER SINCE SHE WAS CALLING TO GO DOWNSTAIR TO SMOKE. PATIENT INFORMED DR WREN AND DR. LOGAN ORDERS ARE FOR HER TO ABSOLUTELY ABSTAIN FROM SMOKING DUE TO HER BEING ON OXYGEN AND COPD. PATIENT REFUSES TO FOLLOW DIRECTIONS OR RECOMMENDATIONS CHARGE NURSE MADE AWARE. SECURITY CALLED PATIENT ESCORTED TO SMOKING AREA BY SECURITY. DR WREN MADE AWARE OF PATIENTS BEHAVIOR.
[2018-06-26] MEDS: IPRATROPIUM NEB FS 0.5 MG/2.5 ML AMPUL.NEB NEB SCH ×4 (12:34→23:09)
[2018-06-26] MEDS: LEVOFLOXACIN (500MG) 500 MG TABLET PO SCH (12:49)
[2018-06-26 16:07] VITALS: BP 108/60
--- NOTE | 2018-06-26 18:50 | NUR ---
MS RN NOTES PATIENT IN BED RESTING NO SOB OR ACUTE DISTRESS NOTED. ALL DUE MEDICATIONS ADMINISTERED. ALL NEEDS MET WILL ENDORSE CARE TO PM SHIFT.
--- NOTE | 2018-06-26 19:42 | NUR ---
MS/RN OPENING NOTES PT RECEIVED AWAKE AND SITTING UP IN BED. ON 2L OF O2, BREATHING IS EVEN AND UNLABORED AT THIS TIME. PT IS UPSET, SAYING SHE WANTS TO LEAVE TONIGHT. STATES THAT EVERYTHING WE ARE DOING HERE CAN BE DONE AT HOME AND WE ARE NOT HELPING HER. ALSO MENTIONED THAT HER INSURANCE HAS CHANGED AND SHE NEEDS A NEW COMPANY TO SET UP O2 AT HOME. INFORMED HER THAT I WILL CHECK THE COMPUTER TO SEE IF CASE MANAGEMENT IS ON BOARD AND WILL FOLLOW UP ACCORDINGLY. EMOTIONAL SUPPORT PROVIDED AND PT VERBALIZED UNDERSTANDING. 1 UPPER SIDE RAILS IS UP AND ASKED TO PUT UP THE OTHER UPPER SIDE RAILS, HOWEVER PT REFUSED DESPITE EDUCATION OF SAFETY. IV TO RIGHT HAND PATENT AND INTACT. BED IN LOW/LOCKED POSITION, CALL LIGHT IN REACH. WILL CONTINUE TO MONITOR
[2018-06-26 20:00] VITALS: BP 112/65
--- NOTE | 2018-06-26 20:57 | NUR ---
MS/RN NOTES PT WENT DOWN TO SMOKE ACCOMPANIED BY MALGORZATA BARNES IN PINK CASE CHARGING AT NURSING STATION Addendum: 06/26/18 at 2104 by ITALO VILLA RN PT DID NOT GO DOWN TO SMOKE. PT STILL ON UNIT.
[2018-06-26] MEDS: INSULIN GLARGINE, 100 UNIT/ML CARTRIDGE SQ SCH (22:27)
--- NOTE | 2018-06-26 23:00 | NUR ---
MS/RN NOTES PT INSISTING ON SMOKING. EDUCATION PROVIDED X3 REGARDING IMPORTANCE OF SMOKING CESSATION, RISKS AND BENEFITS. INFORMED HER PULMOLOGIST AND HOSPITALIST ARE ADAMANT ABOUT SMOKING CESSATION. BECOMING INCREASINGLY AGITATED AND FRUSTRATED. ASKED TO GO OUTSIDE FOR FRESH AIR. PT WENT DOWN AND RETURNED TO UNIT AND WAS ACCOMPANIED WITH CHIEF LIBRARIAN BRANCH OR DEPARTMENT, IN STABLE CONDITION. PHONE WAS RETURNED TO PT. WILL CONTINUE TO MONITOR
[2018-06-27] MEDS: ALBUTEROL FS 2.5 MG/3 ML VIAL.NEB NEB SCH ×5 (02:52→19:08)
[2018-06-27] MEDS: IPRATROPIUM NEB FS 0.5 MG/2.5 ML AMPUL.NEB NEB SCH ×5 (02:52→19:08)
[2018-06-27] MEDS: BLOOD SUGAR DIAGNOSTIC 1 EACH STRIP IN SCH ×3 (06:56→17:41)
[2018-06-27] MEDS: INSULIN REGULAR, HUMAN 100 UNIT/ML 3 ML VIAL SQ PRN ×3 (06:57→17:50)
--- NOTE | 2018-06-27 07:01 | NUR ---
MS/RN CLOSING NOTES PT AWAKE, RESTING COMFORTABLY IN BED. A/OX3. ON 2L O2 VIA NC, BREATHING EVEN AND UNLABORED AT THIS TIME. NO SOB OR WHEEZING NOTED. DENIES PAIN AT THIS TIME. IV TO RIGHT HAND PATENT AND INTACT. ALL NEEDS MET. MADE PT COMFORTABLE POSSIBLE DURING SHIFT. BREATHING TX PROVIDED ORDERED. SLEPT WELL DURING THE SHIFT. BED IN LOW/LOCKED POSITION WITH CALL LIGHT IN REACH. 1 UPPER SIDE RAIL UP, REFUSING TO PUT UP OTHER RAIL DESPITE EDUCATION REGARDING SAFETY. NO SIGNIFICANT CHANGES OVERNIGHT. WILL ENDORSE TO DAY SHIFT
--- NOTE | 2018-06-27 07:57 | NUR ---
MS RN OPENING NOTE RECEIVED PATIENT IN BED, ALERT ORIENTED X4, ON 2L O2 VIA NC. TOLERATING WELL. IN NO APPARENT DISTRESS OR DISCOMFORT AT THIS TIME. RESPIRATIONS EVEN AND UNLABORED. ABLE TO COMMUNICATE NEEDS. DENIES PAIN AND SOB. IS IN STABLE CONDITION AT THIS TIME. AMBULATES WITH ASSIST. RIGHT HAND IV 24G, SALINE LOCK. PATENT AND INTACT. KEPT CLEAN AND COMFORTABLE. ALL NEEDS ATTENDED. SAFETY MEASURES IN PLACE, BED IN LOW LOCKED POSITION, SIDE RAILS UP X2, CALL LIGHT WITHIN EASY REACH. WILL CONTINUE TO MONITOR.
[2018-06-27 08:00] VITALS: BP 125/58
[2018-06-27] MEDS: MONTELUKAST SODIUM (10MG) 10 MG TABLET PO SCH (08:27)
[2018-06-27] MEDS: methylPREDNISolone SOD SUCC 40 MG/ML VIAL IV SCH ×3 (08:27→17:41)
[2018-06-27] MEDS: PANTOPRAZOLE 40 MG TABLET.DR PO SCH (08:27)
[2018-06-27] MEDS: ATORVASTATIN 10 MG TABLET PO SCH (08:27)
[2018-06-27] MEDS: ASPIRIN EC 325 MG TABLET.DR PO SCH (08:27)
[2018-06-27] MEDS: LEVOTHYROXINE SODIUM 100 MCG TABLET PO SCH (08:30)
[2018-06-27] MEDS: LISINOPRIL (5MG) 5 MG TABLET PO SCH (08:36)
[2018-06-27] MEDS ORDERED: METH4TAB17 PO (11:51)
[2018-06-27] MEDS: LEVOFLOXACIN (500MG) 500 MG TABLET PO SCH (12:05)
[2018-06-27 16:00] VITALS: BP 120/75
--- NOTE | 2018-06-27 19:10 | NUR ---
MS RN CLOSING NOTE PATIENT IN BED, ALERT ORIENTED X4, ON 2L O2 VIA NC. TOLERATING WELL. IN NO APPARENT DISTRESS OR DISCOMFORT AT THIS TIME. RESPIRATIONS EVEN AND UNLABORED. ABLE TO COMMUNICATE NEEDS. DENIES PAIN AND SOB. IS IN STABLE CONDITION AT THIS TIME. AMBULATES WITH ASSIST. RIGHT WRIST IV 24G, SALINE LOCK. PATENT AND INTACT. KEPT CLEAN AND COMFORTABLE. ALL NEEDS ATTENDED. SAFETY MEASURES IN PLACE, BED IN LOW LOCKED POSITION, SIDE RAILS UP X2, CALL LIGHT WITHIN EASY REACH. WILL ENDORSE TO PM NURSE FOR MYRNA.
--- NOTE | 2018-06-27 20:04 | NUR ---
PT LEFT UNIT VIA WHEELCHAIR AND PICKED UP BY SON.PT REFUSED TO SIGH D/C PAPERWORK.
== END 2018-06-27 20:00 | disposition home or self-care (01) | DRG 189 ==
LOC: ER 19:08 → TELE 21:10 → MED 06-26 11:36
PROVIDERS: ADMIT Hospitalist; ATTEND Hospitalist
DX: J96.01 Acute respiratory failure with hypoxia (principal); I21.A1 Myocardial infarction type 2; J44.1 Chronic obstructive pulmonary disease with (acute) exacerbation; E11.65 Type 2 diabetes mellitus with hyperglycemia; E03.9 Hypothyroidism, unspecified; E78.5 Hyperlipidemia, unspecified; F17.210 Nicotine dependence, cigarettes, uncomplicated; F41.9 Anxiety disorder, unspecified; I10 Essential (primary) hypertension; K21.9 Gastro-esophageal reflux disease without esophagitis; Z79.84 Long term (current) use of oral hypoglycemic drugs; Z79.899 Other long term (current) drug therapy; Z85.828 Personal history of other malignant neoplasm of skin; Z86.73 Personal history of transient ischemic attack (TIA), and cerebral infarction without residual deficits
CPT/HCPCS: 36415; 36600; 71045-TC; 80048-TC; 80053-TC; 80061-TC; 80076-TC; 82962-TC; 83735-TC; 83880; 84100-TC; 84484-TC; 85025-TC; 87081-TC; 93307-TC; 94760-TC; 94799-TC; A4606; J1815; J2920; J2930; J3475; J7030; Z7610

== ENCOUNTER 2018-08-09 03:00 | Inpatient (IN) | payer MEDICARE ==
[~2018-08-09] VITALS: Ht 162.6 cm; Wt 63.5 kg
[~2018-08-09 03:00] MED LIST changes: +METF-440 PO; -METF500T6 PO; +METH4TAB17 PO; -PRED20TA PO
[2018-08-09] MEDS ORDERED: IPRATROPIUM NEB FS 0.5 MG/2.5 ML AMPUL.NEB ONE (03:10)
[2018-08-09] MEDS ORDERED: ALBUTEROL FS 2.5 MG/3 ML VIAL.NEB ONE (03:10)
--- NOTE | 2018-08-09 03:20 | NUR ---
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 5MG ALBUTEROL GIVEN BY EMS EN ROUTE. BILATERAL DIMINSHED BREATH SOUNDS. PT IS ABLE TO SPEAK 3-5 SENTENCE WORDS. SKIN WARM AND DRY. PT NOTED TO BE IN MILD RESPIRATORY DISTRESS. RT BEDSIDE. MD BEDSIDE. PT NOTED TO BE TACHYPNIC WITH RR OF 24-30. PT PLACED ON GLASS BULB SILVERER AND POX. PT SAFETY AND COMFORT MEASURES IN PLACE.
--- NOTE | 2018-08-09 03:22 | NUR ---
PT PLACED ON BREATHING TREATMENT
[2018-08-09] MEDS ORDERED: methylPREDNISolone SOD SUCC 125 MG/2ML VIAL ONE (03:23)
[2018-08-09] MEDS ORDERED: ALBUTEROL FS 2.5 MG/3 ML VIAL.NEB CONTNEB ONE (03:30)
[2018-08-09] MEDS ORDERED: methylPREDNISolone SOD SUCC 125 MG/2ML VIAL IV ONE (03:30)
[2018-08-09] MEDS ORDERED: IPRATROPIUM NEB FS 0.5 MG/2.5 ML AMPUL.NEB NEB ONE (03:30)
[2018-08-09 03:33] LABS: BASOPHILS % (AUTO) 0.4 % (0.0-2.0); EOSINOPHILS % (AUTO) 1.1 % (0.0-6.0); HEMATOCRIT 46 % (33-45); HEMOGLOBIN 14.9 g/dL (11.5-14.8); LYMPHOCYTES # (AUTO) 2.4 /CMM (0.8-4.8); LYMPHOCYTES % (AUTO) 24.3 % (20.0-44.0); MEAN CORPUSCULAR HGB CONC 33 g/dl (31.0-36.0); MEAN CORPUSCULAR VOLUME 99 fL (82-100); MONOCYTES # (AUTO) 0.8 /CMM (0.1-1.30); MONOCYTES % (AUTO) 8.3 % (2.0-12.0); NEUTROPHILS # (AUTO) 6.6 /CMM (1.8-8.9); NEUTROPHILS % (AUTO) 65.9 % (43.0-81.0); PLATELET COUNT (AUTO) 261 /CMM (150-450); RDW COEFFICIENT OF VARIATION 14.9 (11.5-15.0); RED BLOOD CELL COUNT(AUTO) 4.65 MIL/uL (4.0-5.2); WHITE BLOOD COUNT (AUTO) 10.1 K/uL (4.3-11.0)
[2018-08-09 03:43] LABS: CALCIUM, SERUM 8.9 mg/dL (8.5-10.1); CREATININE 0.9 mg/dL (0.6-1.3); POTASSIUM 3.7 mmol/L (3.5-5.1)
--- NOTE | 2018-08-09 04:24 | NUR ---
EMT BEDISDE FOR ECG
[2018-08-09] MEDS ORDERED: IV NS 0.9% 1,000 ML BAG IV ONE (04:30)
--- NOTE | 2018-08-09 04:56 | NUR ---
REPORT GIVEN TO TELETYPE OR VARITYPE KEYBOARD OPERATOREMI SPENCER FOR MYRNA
[2018-08-09] MEDS ORDERED: IV NS 0.9% 1,000 ML IV PRN (05:53)
--- NOTE | 2018-08-09 05:55 | NUR ---
MS/TELE/RN RECEIVE PATIENT FROM [facility]. PATIENT IS AWAKE, ALERT, ORIENTED, COMFORTABLE, NO C/O PAIN, NO DISTRESS NOTED, PLACED ON 2L OF O2, NASAL CANULA, MADE COMFORTABLE IN BED, ADMISSION DONE PER PROTOCOL, PLAN OF CARE DISCUSSED, VERBALIZED UNDERSTANDING AND AGREEMENT. WILL MONITOR.
[2018-08-09] MEDS ORDERED: ZOLPIDEM TARTRATE 5 MG TABLET PO PRN (06:00)
[2018-08-09] MEDS ORDERED: MAG HYDROX/AL HYDROX/SIMETH 30 ML UDC PO PRN (06:00)
[2018-08-09] MEDS ORDERED: HYDROCODONE/APAP 5/325MG 1 EACH TABLET PO PRN (06:00)
[2018-08-09] MEDS ORDERED: ONDANSETRON HCL/PF 4 MG/2 ML VIAL IVP PRN (06:00)
[2018-08-09] MEDS ORDERED: Z GUARD REMEDY 2 OZ OINT TP PRN (06:00)
[2018-08-09] MEDS ORDERED: MAGNESIUM HYDROXIDE 30 ML UDC PO PRN (06:00)
[2018-08-09] MEDS ORDERED: ACETAMINOPHEN 325 MG TABLET PO PRN (06:00)
[2018-08-09 06:37] VITALS: BP 121/61
[2018-08-09 06:56] VITALS: BP 121/61
[2018-08-09] MEDS: IPRATROPIUM NEB FS 0.5 MG/2.5 ML AMPUL.NEB NEB SCH ×5 (07:19→23:53)
--- NOTE | 2018-08-09 07:30 | NUR ---
MS/RN OPENING NOTE PATIENT ALERT AND ORIENTED X4. DENIES PAIN. PATIENT IN RECEIVING OXYGEN AT 2L/MIN VIA NASAL CANNULA AND DENIES SOB AT THIS TIME. RESPIRATION REGULAR AND UNLABORED. LEFT HAND G 20 PATENT AND SALINE LOCKED. BED LOW AND LOCKED. SIDE RAILS UP X3. CALL LIGHT WITHIN REACH. WILL CONTINUE TO MONITOR.
[2018-08-09] MEDS ORDERED: ALBUTEROL FS 2.5 MG/3 ML VIAL.NEB NEB SCH (07:35)
[2018-08-09 08:00] VITALS: BP 114/61
[2018-08-09] MEDS: clonazePAM 1 MG TABLET PO SCH ×2 (08:58→16:24)
[2018-08-09] MEDS: MONTELUKAST SODIUM (10MG) 10 MG TABLET PO SCH (08:58)
[2018-08-09] MEDS: LEVOTHYROXINE SODIUM 100 MCG TABLET PO SCH (08:58)
[2018-08-09] MEDS: ATORVASTATIN 10 MG TABLET PO SCH (08:58)
[2018-08-09] MEDS: methylPREDNISolone SOD SUCC 40 MG/ML VIAL IV SCH ×3 (08:58→16:24)
[2018-08-09] MEDS: ENOXAPARIN SODIUM 40 MG/0.4 ML DISP.SYRIN SQ SCH (09:11)
[2018-08-09] MEDS ORDERED: DEXTROSE 50%-WATER 50 ML DISP.SYRIN IV PRN (11:30)
[2018-08-09] MEDS: ALBUTEROL FS 2.5 MG/3 ML VIAL.NEB NEB SCH ×4 (11:35→23:53)
[2018-08-09] MEDS: BLOOD SUGAR DIAGNOSTIC 1 EACH STRIP IN SCH ×2 (12:49→18:02)
[2018-08-09] MEDS: INSULIN REGULAR, HUMAN 100 UNIT/ML 3 ML VIAL SQ PRN ×2 (12:54→18:01)
--- NOTE | 2018-08-09 12:59 | NUR ---
MS/RN NOTE FOLLOW UP CALLS ARE MADE TO PHARMACY TO DELIVER BREO. PHARM HAS NOT DELIVERED THE MEDICATIONS YET. WILL CONTINUE TO FOLLOW UP.
[2018-08-09] MEDS: FLUTICASONE/VILANTEROL 1 EACH BLST.W.DEV IH SCH (14:41)
[2018-08-09 16:00] VITALS: BP 103/58
--- NOTE | 2018-08-09 18:17 | NUR ---
MS/RN CLOSING NOTE PATIENT ALERT AND ORIENTED X4. RECEIVING OXYGEN 2L/MIN VIA NASAL CANNULA AND DENIES SOB AT THIS TIME. DENIES PAIN. LEFT HAND 20 PATENT AND IV FLUIDS INFUSING WITH NO S/S INFECTION. BED LOW AND LOCKED. SIDE RAILS UP X3. CALL LIGHT WITHIN REACH. WILL ENDORSE TO OUTREACH COUNSELOR.
--- NOTE | 2018-08-09 18:48 | NUR ---
MS/RN NOTE PATIENT WAS REFUSING IV FLUIDS DURING THE SHIFT. PATIENT AGREED IV FLUIDS TO BE STARTED AT 1847. STARTED PER ORDER.
[2018-08-09 20:00] VITALS: BP 113/67
[2018-08-10] MEDS: BLOOD SUGAR DIAGNOSTIC 1 EACH STRIP IN SCH ×5 (00:01→22:28)
[2018-08-10] MEDS: INSULIN REGULAR, HUMAN 100 UNIT/ML 3 ML VIAL SQ PRN ×3 (00:02→22:28)
[2018-08-10] MEDS: IPRATROPIUM NEB FS 0.5 MG/2.5 ML AMPUL.NEB NEB SCH ×6 (03:51→23:41)
[2018-08-10] MEDS: ALBUTEROL FS 2.5 MG/3 ML VIAL.NEB NEB SCH ×6 (03:51→23:41)
[2018-08-10 06:29] LABS: HEMATOCRIT 37 % (33-45); HEMOGLOBIN 11.8 g/dL (11.5-14.8); LYMPHOCYTES # (AUTO) 0.9 /CMM (0.8-4.8); LYMPHOCYTES % (AUTO) 8.6 % (20.0-44.0); MEAN CORPUSCULAR HGB CONC 32 g/dl (31.0-36.0); MEAN CORPUSCULAR VOLUME 99 fL (82-100); MONOCYTES # (AUTO) 1.1 /CMM (0.1-1.30); MONOCYTES % (AUTO) 10.4 % (2.0-12.0); NEUTROPHILS # (AUTO) 8.5 /CMM (1.8-8.9); PLATELET COUNT (AUTO) 196 /CMM (150-450); RDW COEFFICIENT OF VARIATION 15.3 (11.5-15.0); RED BLOOD CELL COUNT(AUTO) 3.68 MIL/uL (4.0-5.2); WHITE BLOOD COUNT (AUTO) 10.5 K/uL (4.3-11.0)
[2018-08-10 06:44] LABS: CALCIUM, SERUM 8.6 mg/dL (8.5-10.1); CREATININE 0.8 mg/dL (0.6-1.3); MAGNESIUM 1.9 mg/dL (1.8-2.4); PHOSPHORUS 3.1 mg/dL (2.5-4.9); POTASSIUM 3.9 mmol/L (3.5-5.1)
--- NOTE | 2018-08-10 06:53 | NUR ---
MS/TELE/RN PATIENT AWAKE, PATIENT IS DOWNSTAIRS AT THIS TIME, PATIENT THREATENS TO GO AMA IF SHE WILL NOT ALLOWED TO GO DOWN, PATIENT REFUSED ACCU CHECK. ALL NEEDS ATTENDED AT THIS TIME. WILL CONTINUE TO MONITOR.
--- NOTE | 2018-08-10 07:54 | NUR ---
MS RN NOTES PATIENT RECEIVED RESTING INSIDE ROOM. AWAKE, ALERT AND ORIENTED. VERBALLY RESPONSIVE AND RESPONDS TO VERBAL AND TACTILE STIMULI. OXYGEN IN PLACE AT 2L/MIN VIA NC. PATIENT BREATHING EVEN AND UNLABORED. DENIES SOB, NO ACUTE DISTRESS AT THIS TIME. PATIENT DENIES ANY PAIN OR DISCOMFORT. IV INTACT AND PATENT. PATIENT VERBALIZED SHE WANTS TO SMOKE AND WANTS TO GO SOON SHE'S READY AFTER SCHEDULED BREATHING TREATMENT. PATIENT THREATENED TO LEAVE HOSPITAL AGAINST MEDICAL ADVICE IF SHE'S NOT ALLOWED TO GO OUT AND SMOKE. EXPLAINED TO PATIENT THAT SHE WAS ADMITTED TO HOSPITAL WITH COPD EXACERBATION. PATIENT VERBALIZED THAT SHE DOESNT CARE AND STILL WANTS TO SMOKE. RISKS AND BENEFITS EXPLAINED BUT TO NO AVAIL. PATIENT STILL INSISTED THAT SHE WILL SMOKE OR LEAVE AGAINST MEDICAL ADVICE. CHARGE NURSE MADE AWARE. MD MADE AWARE. WILL CONTINUE TO MONITOR. BED LOCKED AND IN LOW POSITION. BILATERAL UPPER SIDE RAILS UP AND LOCKED. CALL LIGHT WITHIN EASY REACH
[2018-08-10 08:00] VITALS: BP 109/62
[2018-08-10] MEDS: methylPREDNISolone SOD SUCC 40 MG/ML VIAL IV SCH ×3 (08:13→17:35)
[2018-08-10] MEDS: ENOXAPARIN SODIUM 40 MG/0.4 ML DISP.SYRIN SQ SCH (08:13)
[2018-08-10] MEDS: ATORVASTATIN 10 MG TABLET PO SCH (08:14)
[2018-08-10] MEDS: LEVOTHYROXINE SODIUM 100 MCG TABLET PO SCH (08:14)
[2018-08-10] MEDS: clonazePAM 1 MG TABLET PO SCH ×2 (08:14→17:35)
[2018-08-10] MEDS: MONTELUKAST SODIUM (10MG) 10 MG TABLET PO SCH (08:14)
[2018-08-10] MEDS: FLUTICASONE/VILANTEROL 1 EACH BLST.W.DEV IH SCH (08:15)
--- NOTE | 2018-08-10 10:00 | NUR ---
MS RN NOTES PATIENT VERBALIZED SHE WANTS TO LEAVE HOSPITAL AGAINST MEDICAL ADVICE, RISKS AND BENEFITS EXPLAINED BUT TO NO AVAIL. CRISTIAN SOSA MADE AWARE. WILL CONTINUE TO MONITOR
--- NOTE | 2018-08-10 12:00 | NUR ---
MS RN NOTES PATIENT SEEN AND EXAMINED BY CRISTIAN SOSA NP. WITH ORDER TO DISCHARGE PATIENT AGAINST MEDICAL ADVICE. ORDER NOTED AND CARRIED OUT. PATIENT REFUSES TO SIGN ALL PAPERWORKS, AMA FORM, BELONGINGS LIST. VERBALIZED THAT SHE WILL LEAVE SOON SON COMES AND PICKS HER UP
--- NOTE | 2018-08-10 14:30 | NUR ---
MS RN NOTES SON, VICKI, PRESENT AT UNIT. SPOKE WITH MD. VERBALIZED THAT HE WILL NOT TAKE PATIENT HOME TODAY AND WILL ATTEMPT TO CONVINCE PATIENT TO STAY AT THE HOSPITAL. CRISTIAN SOSA MADE AWARE AND GAVE OK FOR PATIENT TO STAY IF SHE CHANGES HER MIND. WILL CONTINUE TO MONITOR
[2018-08-10 16:00] VITALS: BP 129/77
--- NOTE | 2018-08-10 18:45 | NUR ---
MS RN NOTES PATIENT RESTING INSIDE ROOM. AWAKE, ALERT AND ORIENTED. NO ACUTE DISTRESS AT THIS TIME. NO CHANGES IN LOC. DENIES ANY PAIN OR DISCOMFORT. OFFERED TO ASSESS IV BUT PATIENT REFUSED AND SAID, "DONT TOUCH ME!" RISKS AND BENEFITS EXPLAINED BUT TO NO AVAIL. PATIENT ALSO REFUSES TO HAVE IV FLUIDS. SAID THAT SHE DOESNT NEED IT. PATIENT VERBALLY ABUSIVE AND NON-COOPERATIVE. MD AWARE. NO NEW ORDERS AT THIS TIME. WILL ENDORSE TO INCOMING SHIFT FOR MYRNA. BED LOCKED AND IN LOW POSITION. BILATERAL UPPER SIDE RAILS UP AND LOCKED. CALL LIGHT WITHIN EASY REACH
--- NOTE | 2018-08-10 19:30 | NUR ---
MS EMI OPENING NOTE Patient was seen sitting up in bed watching TV, AAOx3, breathing on 2L O2 NC with no SOB, and no signs of acute distress. Patient is easily agitated. I asked the patient how she was feeling, and then asked the patient if she was having any shortness of breath (dx of COPD exacerbation), and patient responded, "Stop asking me questions! Don't talk to me!" Before leaving the room, I told the patient to use her call gauthier by pressing the red button if she needed anything and she said, "I know how the freaking thing works!". IV in the left hand is intact, however, the patient is refusing IV fluids (order for NS at 75ml/hr); patient is able to drink PO liquids. The call gauthier is within reach, if the patient needs to contact me. Will continue to monitor.
--- NOTE | 2018-08-10 19:45 | NUR ---
MS RN NOTE - Refused Vital Signs The JEWELRY DEPARTMENT SUPERVISOR attempted to get the patient's vital signs, but the patient refused. I happened to be standing outside the room at the time, and I tried to educate the patient on the importance of getting her vital signs but the patient became angry and continued to refuse.
--- NOTE | 2018-08-11 01:35 | NUR ---
RN NOTES/ CONTINUITY OF CARE RECEIVED REPORT FROM KENDAL MIDDLETON, PT IS SLEEPING IN BED COMFORTABLY, NO SIGNS OF LABORED BREATHING, NO SIGNS OF DISTRESS. PT IN NASAL CANNULA 2L, TOLERATING WELL. SKIN IS INTACT. IV ACCESS LEFT HAND 20G. NO SIGNS OF PAIN, WILL CONTINUE TO MONITOR AND ASSESS PATIENT
[2018-08-11] MEDS: IPRATROPIUM NEB FS 0.5 MG/2.5 ML AMPUL.NEB NEB SCH ×4 (03:52→15:36)
[2018-08-11] MEDS: ALBUTEROL FS 2.5 MG/3 ML VIAL.NEB NEB SCH ×4 (03:52→15:36)
[2018-08-11] MEDS: BLOOD SUGAR DIAGNOSTIC 1 EACH STRIP IN SCH ×2 (06:22→12:38)
--- NOTE | 2018-08-11 06:22 | NUR ---
RN NOTES/ BLOOD SUGAR AM PT BLOOD SUGAR IS 128, NO INSULIN COVERAGE PER SLIDING SCALE
--- NOTE | 2018-08-11 06:53 | NUR ---
RN CLOSING NOTES PT AWAKE AND ALERT. PT IN O2 VIA NASAL CANNULA AT 2L, TOLERATING WELL, NO SIGNS OF DISTRESS, NO LABORED BREATHING, SLIGHTLY SOB AND COUGHING. PT DENIES ANY PAIN AT THIS MOMENT. PT WANTED TO SMOKE DOWNSTAIRS BUT TOLD HER TO WAIT A LITTLE BIT, PT IS COMPLYING. SAFETY MEASURES IN PLACED, CALL LIGHT WITHIN REACH. WILL ENDORSE CONTINUITY OF CARE TO THE ONCOMING RN
--- NOTE | 2018-08-11 07:30 | NUR ---
RN OPENING NOTES PATIENT IN BED RESTING. A/OX3, AMBULATORY. NO ACUTE DISTRESS, NO SOB. DENIED PAIN OR DISCOMFORT. NO IV ACCESS NOTED. KEPT PATIENT SAFE AND COMFORTABLE. BED IN LOW/LOCKED POSITION, CALL LIGHT IN REACH. WILL CONTINUE TO MONIOTR ACCORDINGLY.
--- NOTE | 2018-08-11 07:35 | NUR ---
RN NOTES PATIENT NOTED TO BE VERBALLY ABUSIVE
--- NOTE | 2018-08-11 07:45 | NUR ---
RN NOTES PATIENT WENT OUT FOR A SMOKE, ACCOMPANIED BY FANCY SEWER.
[2018-08-11 08:14] VITALS: BP 125/80
[2018-08-11] MEDS: LEVOTHYROXINE SODIUM 100 MCG TABLET PO SCH (08:15)
[2018-08-11] MEDS: ATORVASTATIN 10 MG TABLET PO SCH (08:16)
[2018-08-11] MEDS: clonazePAM 1 MG TABLET PO SCH (08:16)
[2018-08-11] MEDS: MONTELUKAST SODIUM (10MG) 10 MG TABLET PO SCH (08:16)
[2018-08-11] MEDS: ENOXAPARIN SODIUM 40 MG/0.4 ML DISP.SYRIN SQ SCH (08:17)
[2018-08-11] MEDS: FLUTICASONE/VILANTEROL 1 EACH BLST.W.DEV IH SCH (08:28)
[2018-08-11] MEDS: methylPREDNISolone SOD SUCC 40 MG/ML VIAL IV SCH ×2 (09:00→12:38)
--- NOTE | 2018-08-11 09:26 | NUR ---
REFUSED IV INSERTION. YELLING "I DONT WANT YOU GUYS HURTING ME AGAIN!". WILL NOTIFY
--- NOTE | 2018-08-11 09:30 | NUR ---
RN NOTES SOLUMEDROL NON ADMIN, WASTED MEDICATION. PATIENT REFUSED IV INSERTION.
--- NOTE | 2018-08-11 10:29 | NUR ---
RN NOTES PATIENT FOUND SMOKING IN THE ROOM. TOLD PATIENT THAT SMOKING IS NOT ALLOWED IN THE HOSPITAL, TOOK PATIENT'S CIGARETTE AND PUT IT OUT. PATIENT REFUSED TO HAND HER PACK OF CIGARETTES, CHARGED RN MADE AWARE AND TOOK THE PACK OF CIGARETTES, CALLED SECURITY.
[2018-08-11 15:47] VITALS: BP 129/58
--- NOTE | 2018-08-11 18:05 | NUR ---
DISCHARGED PATIENT IN STABLE CONDITION. PICKED UP BY SON VICKI, ACCOMPANIED BY PRIMARY RN TO THE LOBBY VIA WHEELCHAIR. DISCHARGE INSTRUCTIONS GIVEN, VERBALIZED UNDERSTANDING. DC PAPERWORK GIVEN. ALL BELONGINGS RETURNED, FORM SIGNED. PRESCRIPTION GIVEN. REMOVED NAME BAND.
== END 2018-08-11 17:15 | disposition home or self-care (01) | DRG 189 ==
LOC: ER 03:02 → TELE 04:53 → MED 10:02
PROVIDERS: ADMIT Internal Medicine; ATTEND Internal Medicine
DX: J96.01 Acute respiratory failure with hypoxia (principal); J44.1 Chronic obstructive pulmonary disease with (acute) exacerbation; J96.02 Acute respiratory failure with hypercapnia; I11.0 Hypertensive heart disease with heart failure; I50.9 Heart failure, unspecified; J45.909 Unspecified asthma, uncomplicated; E78.5 Hyperlipidemia, unspecified; E03.9 Hypothyroidism, unspecified; E11.9 Type 2 diabetes mellitus without complications; F17.210 Nicotine dependence, cigarettes, uncomplicated; K21.9 Gastro-esophageal reflux disease without esophagitis; Z79.84 Long term (current) use of oral hypoglycemic drugs; Z85.828 Personal history of other malignant neoplasm of skin; Z86.73 Personal history of transient ischemic attack (TIA), and cerebral infarction without residual deficits; Z99.81 Dependence on supplemental oxygen; R53.1 Weakness; I70.90 Unspecified atherosclerosis; F41.9 Anxiety disorder, unspecified
CPT/HCPCS: 36415; 71045-TC; 80048-TC; 82962-TC; 83735-TC; 84100-TC; 85025-TC; 87081-TC; A4606; J1650; J1815; J2920; J2930; J7030; Q2036; Z7610

== ENCOUNTER 2018-10-04 22:09 | Inpatient (IN) | payer MEDICARE ==
[~2018-10-04] VITALS: Ht 167.6 cm; Wt 58.7 kg
[~2018-10-04 22:09] MED LIST changes: +CLON1TAB12 PO; -CLON1TAB5 PO
--- NOTE | 2018-10-04 22:09 | NUR ---
BIBRA FROM HOME C/O SOB X 1 HR SLED MAKER. PT STATES HOME MEDICATION WITH NO RELIEF. EPI AND ALBUTEROL GIVEN EN ROUTE. PT IS TACHYCARDIC AND TACHYPNIC BUT OTHERWISE VSS NO AUCTE DISTRESS NOTED AT THIS TIME. SKIN WARM AND INTACT. PT IS ALERT AND ORIENTED X4 ABLE TO MAKE NEEDS KNOWN. WILL CONTINUE TO MONITOR FOR ANY CHANGES DURING THE SHIFT.
--- NOTE | 2018-10-04 22:10 | NUR ---
ER MD BEAL AT BEDSIDE
--- NOTE | 2018-10-04 22:20 | NUR ---
BLOOD SENT TO LAB
--- NOTE | 2018-10-04 22:21 | NUR ---
RT AT BEDSIDE
--- NOTE | 2018-10-04 22:25 | NUR ---
EKG AT BEDSIDE
[2018-10-04] MEDS ORDERED: IPRATROPIUM NEB FS 0.5 MG/2.5 ML AMPUL.NEB ONE (22:26)
[2018-10-04] MEDS ORDERED: ALBUTEROL FS 2.5 MG/3 ML VIAL.NEB ONE (22:26)
[2018-10-04] MEDS ORDERED: methylPREDNISolone SOD SUCC 125 MG/2ML VIAL ONE (22:29)
[2018-10-04] MEDS ORDERED: IPRATROPIUM NEB FS 0.5 MG/2.5 ML AMPUL.NEB NEB ONE (22:30)
[2018-10-04] MEDS ORDERED: ALBUTEROL FS 2.5 MG/3 ML VIAL.NEB CONTNEB ONE (22:30)
[2018-10-04] MEDS ORDERED: methylPREDNISolone SOD SUCC 125 MG/2ML VIAL IV ONE (22:30)
--- NOTE | 2018-10-04 22:30 | NUR ---
SYSTEMS INTEGRATOR AT BEDSIDE
[2018-10-04 22:32] LABS: BASOPHILS # (AUTO) 0.1 /CMM (0.0-0.2); BASOPHILS % (AUTO) 0.4 % (0.0-2.0); HEMATOCRIT 45 % (33-45); HEMOGLOBIN 14.8 g/dL (11.5-14.8); LYMPHOCYTES # (AUTO) 4.8 /CMM (0.8-4.8); MEAN CORPUSCULAR HGB CONC 33 g/dl (31.0-36.0); MEAN CORPUSCULAR VOLUME 100 fL (82-100); MONOCYTES # (AUTO) 1.3 /CMM (0.1-1.30); MONOCYTES % (AUTO) 9.8 % (2.0-12.0); NEUTROPHILS % (AUTO) 52.8 % (43.0-81.0); PLATELET COUNT (AUTO) 307 /CMM (150-450); RED BLOOD CELL COUNT(AUTO) 4.51 MIL/uL (4.0-5.2); WHITE BLOOD COUNT (AUTO) 13.3 K/uL (4.3-11.0)
[2018-10-04 22:43] LABS: CALCIUM, SERUM 9.3 mg/dL (8.5-10.1); CARBON DIOXIDE 29 mmol/L (21-32); CHLORIDE 105 mmol/L (98-107); CREATININE 0.8 mg/dL (0.6-1.3); GLUCOSE 178 mg/dL (74-106); POTASSIUM 4.1 mmol/L (3.5-5.1); SODIUM SERUM 143 mmol/L (136-145); UREA NITROGEN, BLOOD 17 mg/dL (7-18)
[2018-10-04 22:57] LABS: ALANINE AMINOTRANSFERASE 21 U/L (12-78); ALBUMIN 3.5 g/dL (3.4-5.0); ALKALINE PHOSPHATASE 112 U/L (46-116); ASPARTATE AMINOTRANSFERASE 19 U/L (15-37); B-TYPE NATRIURETIC PEPTIDE 69 PG/ML (0-125); BILIRUBIN,DIRECT 0.1 mg/dL (0.0-0.2); BILIRUBIN,TOTAL 0.3 mg/dL (0.2-1.0); TOTAL PROTEIN, SERUM 6.9 g/dL (6.4-8.2)
[2018-10-05] MEDS ORDERED: IV NS 0.9% 1,000 ML IV PRN (00:17)
[2018-10-05] MEDS ORDERED: Z GUARD REMEDY 2 OZ OINT TP PRN (00:30)
[2018-10-05] MEDS ORDERED: *INSULIN REGULAR(HUMULIN R)HUM 100 UNIT/ML VIAL SQ PRN (00:30)
[2018-10-05] MEDS ORDERED: MORPHINE SULFATE INJ 2 MG/ML DISP.SYRIN IV PRN (00:30)
[2018-10-05] MEDS ORDERED: IPRATROPIUM NEB FS 0.5 MG/2.5 ML AMPUL.NEB NEB PRN ×2 (00:30→01:00)
[2018-10-05] MEDS ORDERED: ACETAMINOPHEN 325 MG TABLET PO ONE (00:30)
[2018-10-05] MEDS ORDERED: ONDANSETRON HCL/PF 4 MG/2 ML VIAL IVP PRN (00:30)
[2018-10-05] MEDS ORDERED: HYDROCODONE/APAP 5/325MG 1 EACH TABLET PO PRN (00:30)
[2018-10-05] MEDS ORDERED: MAGNESIUM HYDROXIDE 30 ML UDC PO PRN (00:30)
[2018-10-05] MEDS ORDERED: DEXTROSE 50%-WATER 50 ML DISP.SYRIN IV PRN (00:30)
[2018-10-05] MEDS ORDERED: ZOLPIDEM TARTRATE 5 MG TABLET PO PRN (00:30)
[2018-10-05] MEDS ORDERED: ALBUTEROL FS 2.5 MG/3 ML VIAL.NEB NEB PRN ×2 (00:30→02:30)
[2018-10-05] MEDS ORDERED: ACETAMINOPHEN 325 MG TABLET PO PRN (00:30)
[2018-10-05] MEDS ORDERED: MAG HYDROX/AL HYDROX/SIMETH 30 ML UDC PO PRN (00:30)
[2018-10-05] MEDS ORDERED: ACETAMINOPHEN 325 MG TABLET ONE (00:42)
--- NOTE | 2018-10-05 01:33 | NUR ---
CHANGE TO 119-1 TELE
--- NOTE | 2018-10-05 01:37 | NUR ---
REPORT GIVEN TO ANNELIESE IN [place]
[2018-10-05 02:02] VITALS: BP 125/86
[2018-10-05] MEDS ORDERED: ALBUTEROL FS 2.5 MG/3 ML VIAL.NEB ONE (02:38)
[2018-10-05] MEDS: ALBUTEROL FS 2.5 MG/3 ML VIAL.NEB NEB SCH ×6 (02:39→23:30)
[2018-10-05] MEDS: IPRATROPIUM NEB FS 0.5 MG/2.5 ML AMPUL.NEB NEB SCH ×6 (02:39→23:30)
[2018-10-05 04:00] VITALS: BP 105/64
[2018-10-05] MEDS: methylPREDNISolone SOD SUCC 40 MG/ML VIAL IV SCH ×3 (05:43→21:00)
[2018-10-05] MEDS ORDERED: FLUTICASONE/SALMETEROL DISKUS IH SCH (07:05)
--- NOTE | 2018-10-05 07:14 | NUR ---
received care of patient. a/ox3 tolerating low flow 02. vss at this time. ivf running per order. iv site c/d/i/p. safety, skin, aspiration precautions in place and will monitor. tele nsr/st low 100's
[2018-10-05] MEDS ORDERED: PANTOPRAZOLE 40 MG TABLET.DR PO SCH (07:30)
[2018-10-05] MEDS ORDERED: LEVOTHYROXINE SODIUM 100 MCG TABLET PO SCH (07:30)
[2018-10-05 07:37] LABS: BASOPHILS % (AUTO) 0.1 % (0.0-2.0); HEMATOCRIT 40 % (33-45); HEMOGLOBIN 13.2 g/dL (11.5-14.8); LYMPHOCYTES # (AUTO) 0.3 /CMM (0.8-4.8); LYMPHOCYTES % (AUTO) 6.5 % (20.0-44.0); MEAN CORPUSCULAR HGB CONC 33 g/dl (31.0-36.0); MEAN CORPUSCULAR VOLUME 99 fL (82-100); MONOCYTES # (AUTO) 0.1 /CMM (0.1-1.30); MONOCYTES % (AUTO) 1.2 % (2.0-12.0); NEUTROPHILS # (AUTO) 3.9 /CMM (1.8-8.9); NEUTROPHILS % (AUTO) 92.2 % (43.0-81.0); PLATELET COUNT (AUTO) 206 /CMM (150-450); RED BLOOD CELL COUNT(AUTO) 4.06 MIL/uL (4.0-5.2); WHITE BLOOD COUNT (AUTO) 4.2 K/uL (4.3-11.0)
[2018-10-05 08:00] VITALS: BP 102/70
[2018-10-05] MEDS: BLOOD SUGAR DIAGNOSTIC 1 EACH STRIP VI SCH ×4 (08:00→22:00)
[2018-10-05 08:06] LABS: CALCIUM, SERUM 8.9 mg/dL (8.5-10.1); PHOSPHORUS 3.3 mg/dL (2.5-4.9)
[2018-10-05] MEDS: INSULIN REGULAR, HUMAN 100 UNIT/ML 3 ML VIAL SQ PRN ×3 (08:08→17:45)
[2018-10-05] MEDS: clonazePAM 1 MG TABLET PO SCH ×2 (08:09→16:27)
[2018-10-05] MEDS ORDERED: ATORVASTATIN 10 MG TABLET PO SCH (09:00)
[2018-10-05] MEDS ORDERED: NICOTINE PATCH (14MG) 14 MG PATCH.TD24 TD SCH (09:00)
[2018-10-05] MEDS ORDERED: LISINOPRIL (5MG) 5 MG TABLET PO SCH (09:00)
[2018-10-05 12:00] VITALS: BP 105/68
[2018-10-05 16:00] VITALS: BP 96/52
--- NOTE | 2018-10-05 19:16 | NUR ---
CARE ENDORSED TO EMI SOLARES. ALL DUE MEDS GIVEN AND ALL NEEDS MET. VSS. ROOM AIR STABLE. SAFETY, SKIN, ASPIRATION PRECAUTIONS IN PLACE AND MONITORED THROUGHOUT DAY. IV SITE C/D/I/P
--- NOTE | 2018-10-05 19:30 | NUR ---
[facility] NOTES. RECEIVED PT SITTING ON SIDE OF BED,VERY ANGRY,PT STATES "I DID NOT GET A CARE FROM THIS THIS MORNING,THEY JUST KEPT IGNORING ME".I TRIED TO EXPLAIN TO HER REGARDING CONDITION,AND PT GOT ANGRIER.DEMANDING FOR CIGARETTES,ABL TO FIN ONE BUT UNABLE TO SMOKE FOR NOW DUE TO RAIN,WILL ATTEMPT LATER.PT ON O2 AT 2LPM SAT 90%.
[2018-10-05 20:00] VITALS: BP 102/47
--- NOTE | 2018-10-05 20:30 | NUR ---
CLARA NOTES CONTINUES TO BE ANGRY AND DEMANDING TO SPEAK TO OSTOMY RN.
--- NOTE | 2018-10-05 20:45 | NUR ---
[place] NOTES SIGNING AGENT JANETH AT BEDSIDE.INSISTING ON GOING HOME.
--- NOTE | 2018-10-05 21:17 | NUR ---
[place] NOTES AMA SIGNED BY PATIENT AFTER MD NOTIFIED.
--- NOTE | 2018-10-05 21:18 | NUR ---
RN NOTES 2104 PATIENT VERY UPSET LOOKING FOR HER CIGARETTES; EXPLAINED TO HER AND SHOWED BELONGING LIST DOES NOT INCLUDE CIGARETTES. OFFERED ANOTHER BRAND OF CIGARETTE BUT STARTED YELLING THAT SHE WANTS TO GET OUT OF THE HOSPITAL . TRIED TO TALK TO HER CALMLY ASKED HER HOW SHE'S GOING HOME. STATED SHE WILL CALL TAXI OR HER SON TO PICK HER UP. PRIMARY RN ALSO TALKED TO HER 2109 SON CAME AND BROUGHT IN HER CIGARETTES AND SPOKE TO NURSE THAT HE WILL NOT TAKE HER HOME. OFFERED TO TAKE HER OUT TO SMOKE WITH A NURSE, BUT STILL UPSET AND WANTS TO LEAVE. JANETH COMPUTER PATTERNMAKER CAME IN TO TALK TO HER. NOTIFIED ELENA LÓPEZ NP OF THE SITUATION 2115 PATIENT STILL INSISTED TO LEAVE AND SIGNED AMA FORM. ELENA LÓPEZ NP NOTIFIED.
[2018-10-05] MEDS: MONTELUKAST SODIUM (10MG) 10 MG TABLET PO SCH ×2 (21:38→21:52)
--- NOTE | 2018-10-05 23:38 | NUR ---
CLARA/RN ATTEMPTED TO CALL SON TO PICK HER UP,BUT DOES NOT CHARM FILTER OPERATOR HELPER.THREATENED NURSE THAT SHE WILL BE WRITING ADMINISTRATION,OR WORLD RENOWNED CHEF AND RESTAURANT OWNER.PT VERY ABUSIVE AND VERBALLY USING "F" WORDS AT ME,CALLED ME A LIAR..
--- NOTE | 2018-10-05 23:40 | NUR ---
CLARA NOTES PT ACCOMPANIED BY SUPERVISOR PAINT DEPARTMENT TO SMOKE AND WAIT AT ER LOBBY FOR A CAB.
[2018-10-06] MEDS ORDERED: FLUTICASONE/VILANTEROL 1 EACH BLST.W.DEV IH SCH (09:00)
== END 2018-10-05 23:50 | disposition left against medical advice (07) | DRG 192 ==
LOC: ER 22:11 → TELE-TD 10-05 01:42
DX: J44.1 Chronic obstructive pulmonary disease with (acute) exacerbation (principal); F41.9 Anxiety disorder, unspecified; I10 Essential (primary) hypertension; E78.5 Hyperlipidemia, unspecified; E03.9 Hypothyroidism, unspecified; E11.9 Type 2 diabetes mellitus without complications; F17.210 Nicotine dependence, cigarettes, uncomplicated; K21.9 Gastro-esophageal reflux disease without esophagitis; Z79.84 Long term (current) use of oral hypoglycemic drugs; Z85.828 Personal history of other malignant neoplasm of skin; Z86.73 Personal history of transient ischemic attack (TIA), and cerebral infarction without residual deficits
CPT/HCPCS: 36415; 71045-TC; 80048-TC; 80061-TC; 80076-TC; 82962-TC; 83605-TC; 83735-TC; 83880; 84100-TC; 84484-TC; 85025-TC; 85730-TC; 87040-TC; A4606; G0378; J1815; J2920; J2930; J7030; Z7610

== ENCOUNTER 2018-10-06 22:20 | Emergency (ER) | payer MEDICARE ==
[~2018-10-06] VITALS: Ht 165.1 cm; Wt 64.9 kg
[2018-10-06 22:24] VITALS: BP 161/89
--- NOTE | 2018-10-06 22:25 | NUR ---
TO BED 4 BIB PARAMEDICS C/O SOB WITH WHEEZING S/P SMOKING A PACK OF CIGARETTES, PT REPORTS HX. OF COPD. NOTED PT O2 SAT 88% ON RA. PLACE PT ON CARDIAC MONITORING, CONTINUOUS POX, O2@2L/NC. PT AAOX4, NO ACUTE DISTRESS NOTED, RESP EVEN AND UNLABORED. PT VERBALIZE RELIEF OF SOB POST HHN TX BY EMS GUT SNATCHER. SKIN WARM NONDIAPHORETIC. PENDING ER MD JOYNER.
--- NOTE | 2018-10-06 22:31 | NUR ---
ER MD AT BEDSIDE TO EVAL PT. PT BECAME REALLY UPSET AND VERBALLY ABUSIVE TO ER MD WHEN PT WAS ASKED IF SHE SMOKED AND HOW MUCH SHE SMOKED BEFORE THE SOB ATTACK.
[2018-10-06] MEDS ORDERED: IPRATROPIUM NEB FS 0.5 MG/2.5 ML AMPUL.NEB NEB ONE (23:00)
[2018-10-06] MEDS ORDERED: ALBUTEROL FS 2.5 MG/3 ML VIAL.NEB CONTNEB ONE (23:00)
[2018-10-06] MEDS ORDERED: DEXAMETHASONE SOD PHOSPHATE 4 MG/ML VIAL IM ONE (23:00)
--- NOTE | 2018-10-06 23:10 | NUR ---
Patient does not wish to proceed with medical care recommended by Dr. Jules). Patient given information related to possible complications, up to and including , which could occur as a result of leaving the hospital at this time. Patient verbalizes understanding of risks involved due to leaving against medical advice. Patient has signed AMA form. PT AAOX4 refused hhn treatment water vessel captain signing AMA. IV removed. Catheter intact and site benign. Pressure and 4x4 applied to site. No bleeding noted. pt ambulatory with steady gait to waiting room.
== END 2018-10-06 23:18 | disposition left against medical advice (07) ==
LOC: ER 22:24
DX: J44.1 Chronic obstructive pulmonary disease with (acute) exacerbation (principal); F17.200 Nicotine dependence, unspecified, uncomplicated; I10 Essential (primary) hypertension; Z60.2 Problems related to living alone
CPT/HCPCS: 99283; A4606; Z7610

== ENCOUNTER 2018-11-28 22:39 | Inpatient (IN) | payer MEDICARE ==
[~2018-11-28] VITALS: Ht 160 cm; Wt 56.2 kg
--- NOTE | 2018-11-28 22:58 | NUR ---
PT BIB RA WITH A C/O SOB. PT ARRIVED ON A BREATHING TX. PT APPEARS TACHYPNEIC, CAN SPEAK IN FULL SENTENCES, RECTRATIONS NOTED, BILATERAL WHEEZES NOTED. PT IS ON 2-3L O2 VIA NC AT HOME. PT IS SATURATING AT 89% ON RA. PT PLACED ON 2L LITERS AND IS SATURATING AT 90%. PT PLACED ON 3L O2 AND IS SATURATING AT 96%. PT IS C/O FEELING COLD. WARM BLANKETS WERE APPLIED.
[2018-11-28] MEDS ORDERED: IPRATROPIUM NEB FS 0.5 MG/2.5 ML AMPUL.NEB NEB ONE (23:30)
[2018-11-28] MEDS ORDERED: IV NS 0.9% 500 ML BAG IV ONE (23:30)
[2018-11-28] MEDS ORDERED: methylPREDNISolone SOD SUCC 125 MG/2ML VIAL IV ONE (23:30)
[2018-11-28] MEDS ORDERED: ALBUTEROL FS 2.5 MG/3 ML VIAL.NEB CONTNEB ONE (23:30)
--- NOTE | 2018-11-28 23:30 | NUR ---
PT C/O FEELING COLD. WARM BLANKETS APPLIED.
[2018-11-28 23:40] LABS: BASOPHILS % (AUTO) 0.1 % (0.0-2.0); EOSINOPHILS % (AUTO) 0.1 % (0.0-6.0); HEMATOCRIT 44 % (33-45); HEMOGLOBIN 14.5 g/dL (11.5-14.8); LYMPHOCYTES # (AUTO) 0.6 /CMM (0.8-4.8); LYMPHOCYTES % (AUTO) 3.1 % (20.0-44.0); MEAN CORPUSCULAR HGB CONC 33 g/dl (31.0-36.0); MEAN CORPUSCULAR VOLUME 99 fL (82-100); MONOCYTES # (AUTO) 0.9 /CMM (0.1-1.30); MONOCYTES % (AUTO) 4.5 % (2.0-12.0); NEUTROPHILS # (AUTO) 18.4 /CMM (1.8-8.9); NEUTROPHILS % (AUTO) 92.2 % (43.0-81.0); PLATELET COUNT (AUTO) 233 /CMM (150-450); RED BLOOD CELL COUNT(AUTO) 4.41 MIL/uL (4.0-5.2)
[2018-11-28] MEDS ORDERED: methylPREDNISolone SOD SUCC 125 MG/2ML VIAL ONE (23:46)
[2018-11-28 23:50] LABS: CALCIUM, SERUM 9.2 mg/dL (8.5-10.1); CREATININE 0.8 mg/dL (0.6-1.3); POTASSIUM 3.9 mmol/L (3.5-5.1)
[2018-11-28] MEDS ORDERED: ALBUTEROL FS 2.5 MG/3 ML VIAL.NEB ONE (23:55)
[2018-11-28] MEDS ORDERED: IPRATROPIUM NEB FS 0.5 MG/2.5 ML AMPUL.NEB ONE (23:55)
[2018-11-28 23:56] LABS: ALBUMIN 3.3 g/dL (3.4-5.0); BILIRUBIN,DIRECT 0.1 mg/dL (0.0-0.2); BILIRUBIN,TOTAL 0.6 mg/dL (0.2-1.0); TOTAL PROTEIN, SERUM 6.6 g/dL (6.4-8.2)
[2018-11-29] VITALS (23 sets, daily range): BP systolic 90–125; BP diastolic 29–74
--- NOTE | 2018-11-29 00:05 | NUR ---
Todd CORREA NP IS AT THE BEDSIDE.
--- NOTE | 2018-11-29 00:12 | NUR ---
RT CALLED FOR ABG.
--- NOTE | 2018-11-29 00:13 | NUR ---
SENDY CORREA IS AT THE BEDSIDE
--- NOTE | 2018-11-29 00:15 | NUR ---
CAT RT IS AT THE BEDSIDE.
[2018-11-29] MEDS ORDERED: AZITHROMYCIN 500 MG in IV D5W 250 ML IV ONE (01:00)
[2018-11-29] MEDS ORDERED: CEFTRIAXONE 1 G in IV D5W 50 ML IV ONE (01:00)
--- NOTE | 2018-11-29 01:00 | NUR ---
PT IS COUGHING AND APPEARS TO BE LABORED BREATHING. PT C/O FEELING COLD. PT REC'D WARM BLANKETS.
[2018-11-29] MEDS ORDERED: CEFTRIAXONE 1GM BAG (ER ONLY) 50 ML IV ONE (01:35)
--- NOTE | 2018-11-29 01:55 | NUR ---
IN AND OUT CATH DONE. APPROS 15OML ABMER COLORED URINE OUTPUT NOTED.
--- NOTE | 2018-11-29 01:57 | NUR ---
REPORT GIVEN TO EMI CALDERON FOR MYRNA.
[2018-11-29] MEDS ORDERED: AZITHROMYCIN 500 MG VIAL ONE (02:05)
[2018-11-29 02:19] LABS: APPEARANCE,URINE CLEAR (CLEAR); BILIRUBIN,URINE NEGATIVE (NEGATIVE); BLOOD, URINE TRACE-INTA Ery/uL (NEGATIVE); COLOR,URINE YELLOW (YELLOW); KETONES,URINE 1+ (NEGATIVE); LEUKOCYTE ESTERASE ,URINE NEGATIVE (NEGATIVE); NITRITE, URINE NEGATIVE (NEGATIVE); PROTEIN,URINE 1+ mg/dl (NEGATIVE); UGLUCOSE NEGATIVE (NEGATIVE); UROBILINOGEN,URINE 0.2 EU/dL (0.2)
--- NOTE | 2018-11-29 02:27 | NUR ---
ICU/RN-ADMITTED THIS 67 Y/O FEMALE FROM ER BY SHANNA ACCOMPANIED BY ER STUFF PER ACLS PROTOCOL. ROUTINE ICU ADMISSION CARE INITIATED. NURSING FOCUS:ALTERED RESPIRATORY STATUS R/T DIAGNOSIS-COPD EXACERBATION. PT. IS AWAKE , ALERT, BREATHING IS SHALLOW, SOB W/ MINIMAL EXERTION. ON 2L/NC, SATS.-95%, NOT IN ANY DISTRESS. PT. IS A FULL CODE. AFEBRILE. WILL MONITOR CLOSELY PER PROTOCOL.
[2018-11-29] MEDS ORDERED: FLUTICASONE/SALMETEROL DISKUS IH SCH (02:30)
[2018-11-29] MEDS ORDERED: IPRATROPIUM NEB FS 0.5 MG/2.5 ML AMPUL.NEB NEB PRN (02:30)
[2018-11-29] MEDS ORDERED: DEXTROSE 50%-WATER 50 ML DISP.SYRIN IV PRN ×2 (02:30→12:00)
[2018-11-29 02:45] LABS: RBC,URINE 0-2 /HPF (0-2); WBC,URINE 0-2 /HPF (0-3)
[2018-11-29 02:46] LABS: BACTERIA,URINE None seen /HPF (None Seen); MUCUS,URINE Many /LPF (None Seen); SQUAMOUS EPITHELIAL CELL,UR Few /HPF (None Seen)
[2018-11-29] MEDS: ALBUTEROL FS 2.5 MG/0.5 ML VIAL.NEB NEB SCH ×6 (03:13→22:44)
--- NOTE | 2018-11-29 03:15 | NUR ---
ICU/RN- RT HERE TO GIVE BREATHING TREATMENT TO PT.
--- NOTE | 2018-11-29 03:20 | NUR ---
ICU/RN- ACCU CHECK DONE 214MG/DL. REGULAR INSULIN 4 UNITS SQ GIVEN PER MILD SLIDING SCALE.
[2018-11-29] MEDS: BLOOD SUGAR DIAGNOSTIC 1 EACH STRIP IN SCH ×2 (03:26→07:58)
[2018-11-29] MEDS: INSULIN REGULAR, HUMAN 100 UNIT/ML 3 ML VIAL SQ PRN ×4 (03:28→18:13)
--- NOTE | 2018-11-29 04:00 | NUR ---
ICU/RN- ON CARDIAC DIET, CONSUMED 95% OF TUNA SANDWICH, W/ 1 CUP APPLE JUICE. TOLERATED WELL.
[2018-11-29] MEDS ORDERED: INSULIN REGULAR, HUMAN 100 UNIT/ML 3 ML VIAL ONE (05:12)
--- NOTE | 2018-11-29 06:15 | NUR ---
ICU/RN- SLEEPING, BREATHING COMES EASY W/ O2 SUPPORT OF 2L/NC, SATS.-97%. NO S/S OF DISTRESS OR PAIN. WILL CONTINUE TO MONITOR CLOSELY PER PROTOCOL.
[2018-11-29] MEDS: methylPREDNISolone SOD SUCC 125 MG/2ML VIAL IV SCH ×2 (08:00→16:02)
--- NOTE | 2018-11-29 08:18 | NUR ---
INITIAL CREDIT CARD SPECIALIST NOTE PT AWAKE AND ALERT, APPEARS SOB WHILE SPEAKING, SR ON MONITOR, O2 VIA NC. RIGHT AC #20 C/D/I/PATENT, NO S/O INFILTRATION/PHLEBITIS OBSERVED UPON FLUSHING LINE. PT OBSERVED HAVING NON-PRODUCTIVE COUGH. WILL CONTINUE TO MONITOR PT FOR SAFETY AND COMFORT. BED IN LOW AND LOCKED POSITION. CALL LIGHT WITHIN REACH. PT REQUESTING TO GET OUT OF BED TO GO TO BATHROOM, PT ADVISED TO USE BSC INSTEAD SINCE VERY SHORT OF BREATH WHILE HAVING BREAKFAST AND SPEAKING. BEDSIDE COMMODE (BSC) REQUESTED AND PLACED IN ROOM. PT INSTRUCTED TO CALL FOR ASSISTANCE WHEN GETTING OUR OF BED. PT ACKNOWLEDGED, NON-SKID SOCKS AT BEDSIDE. PT DOES NOT WANT SOCKS WHILE IN BED.
[2018-11-29] MEDS: FLUTICASONE/VILANTEROL 1 EACH BLST.W.DEV IH SCH (09:43)
[2018-11-29] MEDS: IPRATROPIUM NEB FS 0.5 MG/2.5 ML AMPUL.NEB NEB SCH ×4 (10:09→22:44)
[2018-11-29] MEDS: BLOOD SUGAR DIAGNOSTIC 1 EACH STRIP VI SCH ×3 (11:56→22:00)
--- NOTE | 2018-11-29 14:36 | NUR ---
RINK RAT NOTE PT REQUESTED TO GO OUT TO SMOKE, PT WAS EXPLAINED THAT SHE NEEDS TO BE CONTINUOUSLY MONITORED, PT WAS OFFERED BY RN TO CONTACT HOSPITALIST TO GET NICOTINE PATCH, PT DECLINED STATING THAT HE DOESN'T WORK. PT WAS VERY UPSET AND WAS OFFERED TO SPEAK WITH THE INFECTION PREVENTION PRACTITIONER OR ESTIMATOR AND DRAFTER SUPERVISOR. PT DECLINED. WILL CONTINUE TO MONITOR.
[2018-11-29] MEDS: ACETAMINOPHEN 325 MG TABLET PO PRN ×2 (16:18→21:26)
--- NOTE | 2018-11-29 18:54 | NUR ---
ANESTHESIOLOGY TECHNOLOGIST NOTE PT REMAINS STABLE AWAKE/ALERT AND ORIENTED, SHOWING NO S/O DISTRESS, TOLERATING O2 VIA NC. SOB ON EXERTION WHEN AMBULATING TO BATHROOM. SR ON MONITOR. IV SITE REMAINS C/D/I/PATENT, NO S/O INFILTRATION/PHLEBITIS OBSERVED UPON FLUSHING. PT'S CARE WILL BE ENDORSED TO COMMODITY MANAGEMENT SPECIALIST RN FOR CONTINUITY OF CARE. BED IN LOW AND LOCKED POSITION. CALL LIGHT WITHIN REACH.
--- NOTE | 2018-11-29 19:15 | NUR ---
ICU/DRY ICE MAKER RECEIVED REPORT FROM DAY NURSE. PT IS BE TRANSFERRED TO [facility]-TELE RM 103. WILL CONTINUE TO MONITOR THIS PT. NO ACUTE DISTRESS SEEN.
--- NOTE | 2018-11-29 20:05 | NUR ---
ICU/ELECTRONICS REPAIR TECHNICIAN TRANSFER ORDERS RECEIVED FOR PT TO GO TO RM 103, REPORT GIVEN TO JOSELINE IN [place] FOR THIS PT. [place] NURSE WILL RESUME CARE OF THIS PT AND ASSESSMENTS.
--- NOTE | 2018-11-29 22:00 | NUR ---
CROWN AND BRIDGE TECHNICIAN PT DECLINED ACCU CHECK SHE IS EATING AND HAS A HEADACHE. EXPLAINED THE RISKS AND BENEFITS. PT VERBALIZED UNDERSTANDING. CONTINUE TO MONITOR.
--- NOTE | 2018-11-29 23:00 | NUR ---
SPOOL SANDER PT AMBULATED TO RESTROOM W/NC ON UPON RETURNING TO BED PT WAS EXTREMELY AGITATED STRUGGLING TO BREATH; CALLED FOR STAT BREATHING TREATMENT. CONTINUE TO MONITOR.
[2018-11-30] VITALS (7 sets, daily range): BP systolic 95–117; BP diastolic 41–77
[2018-11-30] MEDS ORDERED: IV NS 0.9% 250 ML IV PRN
[2018-11-30] MEDS: AZITHROMYCIN 500 MG in IV D5W 250 ML IV SCH (00:30)
[2018-11-30] MEDS: methylPREDNISolone SOD SUCC 125 MG/2ML VIAL IV SCH ×2 (00:30→08:23)
[2018-11-30] MEDS: ALBUTEROL FS 2.5 MG/0.5 ML VIAL.NEB NEB SCH ×6 (03:06→23:19)
[2018-11-30] MEDS: IPRATROPIUM NEB FS 0.5 MG/2.5 ML AMPUL.NEB NEB SCH ×6 (03:07→23:19)
[2018-11-30 06:34] LABS: BASOPHILS % (AUTO) 0.3 % (0.0-2.0); CALCIUM, SERUM 8.8 mg/dL (8.5-10.1); HEMATOCRIT 37 % (33-45); HEMOGLOBIN 12.5 g/dL (11.5-14.8); LYMPHOCYTES # (AUTO) 0.8 /CMM (0.8-4.8); LYMPHOCYTES % (AUTO) 5.9 % (20.0-44.0); MEAN CORPUSCULAR HGB CONC 34 g/dl (31.0-36.0); MEAN CORPUSCULAR VOLUME 99 fL (82-100); MONOCYTES # (AUTO) 0.9 /CMM (0.1-1.30); MONOCYTES % (AUTO) 6.7 % (2.0-12.0); NEUTROPHILS # (AUTO) 11.5 /CMM (1.8-8.9); NEUTROPHILS % (AUTO) 87.1 % (43.0-81.0); PLATELET COUNT (AUTO) 182 /CMM (150-450); POTASSIUM 4.6 mmol/L (3.5-5.1); RED BLOOD CELL COUNT(AUTO) 3.77 MIL/uL (4.0-5.2); WHITE BLOOD COUNT (AUTO) 13.2 K/uL (4.3-11.0)
--- NOTE | 2018-11-30 06:48 | NUR ---
BIOFUELS TECHNOLOGY MANAGER PT NOTED TO SLEEP WELL SINCE 2299; PT ALSO REQUESTING EXTRA FOOD STATING WHEN SHE IS IN THE HOSPITAL SHE GETS VERY HUNGRY.
[2018-11-30] MEDS: BLOOD SUGAR DIAGNOSTIC 1 EACH STRIP VI SCH ×4 (08:23→22:00)
[2018-11-30] MEDS: FLUTICASONE/VILANTEROL 1 EACH BLST.W.DEV IH SCH (08:23)
[2018-11-30 08:56] LABS: ABG BASE EXCESS 3.7 mmol/L; ABG OXYGEN SATURATION 51.4 % (92.0-98.5); ABG PCO2 46.6 mmHg (35.0-45.0); ABG PH 7.413 (7.350-7.450); ABG PO2 28.6 mmHg (75.0-100.0); AaDO2 116.1 mmHg; COHb 0.9 % (0.5-1.5); MetHb 0.6 % (0.0-1.5); O2Hb 50.6 % (94.0-97.0); SITE, ABG Right Radial
--- NOTE | 2018-11-30 10:42 | NUR ---
CLARA RN NOTE PT RECEIVED IN BED AND AWAKE. VS STABLE, A/O X 4, NO S/O DISTRESS. 2 LITERS O2 VIA NC. SOB ON EXERTION WHEN AMBULATING TO BATHROOM. SR ON MONITOR. IV INTACT AND PATENT, BED IN LOW AND LOCKED POSITION. CALL LIGHT WITHIN REACH.
[2018-11-30] MEDS: INSULIN REGULAR, HUMAN 100 UNIT/ML 3 ML VIAL SQ PRN ×2 (11:57→17:33)
[2018-11-30] MEDS ORDERED: methylPREDNISolone SOD SUCC 125 MG/2ML VIAL IV ONE (17:00)
--- NOTE | 2018-11-30 18:56 | NUR ---
CLARA RN NOTES PT CURRENTLY SITTING UP IN IN BED AND AWAKE. VS STABLE, A/O X 4, AFEBRILE, NO SOB OR APPARENT DISTRESS. 2 LITERS O2 VIA NC. SOB ON EXERTION WHEN AMBULATING TO BATHROOM. SR ON MONITOR. IV INTACT AND PATENT, SAFETY MEASURES IN PLACE, BED IN LOW AND LOCKED POSITION. CALL LIGHT WITHIN REACH.
[2018-11-30] MEDS: ACETAMINOPHEN 325 MG TABLET PO PRN (22:29)
[2018-11-30] MEDS: *INSULIN REGULAR(HUMULIN R)HUM 100 UNIT/ML VIAL SQ PRN (22:35)
[2018-11-30] MEDS: CEFTRIAXONE 1 G in IV D5W 50 ML IV SCH ×3 (23:04)
[2018-11-30] MEDS: methylPREDNISolone SOD SUCC 40 MG/ML VIAL IV SCH (23:10)
[2018-12-01] VITALS: BP 126/43
[2018-12-01] MEDS: AZITHROMYCIN 500 MG in IV D5W 250 ML IV SCH (01:11)
[2018-12-01] MEDS: ALBUTEROL FS 2.5 MG/0.5 ML VIAL.NEB NEB SCH ×7 (03:34→22:43)
[2018-12-01] MEDS: IPRATROPIUM NEB FS 0.5 MG/2.5 ML AMPUL.NEB NEB SCH ×7 (03:34→22:43)
[2018-12-01 04:00] VITALS: BP 129/60
--- NOTE | 2018-12-01 06:56 | NUR ---
RN NOTES PATIENT IN BED, AWAKE. ALERT AND ORIENTED. ABLE TO VERBALIZE NEEDS. NOTED WITH EPISODES OF SHORTNESS OF BREATH. AMBULATORY WITH BATHROOM PRIVILEGES. COMPLAINED OF HEADACHE, TYLENOL GIVEN WITH RELIEF. PATIENT IS VERY ANXIOUS, COMBATIVE AND THREATENING WITH EPISODES OF FORGETFULNESS. NEEDS ATTENDED. KEPT CLEAN AND DRY. WILL ENDORSE TO NEXT SHIFT FOR CONTINUITY OF CARE.
[2018-12-01] MEDS: BLOOD SUGAR DIAGNOSTIC 1 EACH STRIP VI SCH ×4 (07:28→21:59)
--- NOTE | 2018-12-01 07:30 | NUR ---
RN NOTES AT ABOUT 6AM PATIENT CLAIMED SHE HEARD SOMEBODY MASTURBATING, AND WHEN TOLD TO A MALE RN, HE JUST SMILED. PATIENT IS THREATENING TO GO TO THE ADMINISTRATION TO COMPLAIN. DID NOT ARGUE WITH THE PATIENT SHE TENDS TO BE VERY AGITATED. TIM
[2018-12-01] MEDS: INSULIN REGULAR, HUMAN 100 UNIT/ML 3 ML VIAL SQ PRN ×4 (07:34→21:57)
[2018-12-01 08:00] VITALS: BP 116/53
[2018-12-01] MEDS: methylPREDNISolone SOD SUCC 40 MG/ML VIAL IV SCH ×2 (08:35→16:49)
[2018-12-01] MEDS: FLUTICASONE/VILANTEROL 1 EACH BLST.W.DEV IH SCH (08:35)
[2018-12-01 12:00] VITALS: BP 130/59
[2018-12-01 16:00] VITALS: BP 134/50
--- NOTE | 2018-12-01 18:55 | NUR ---
PATIENT IN BED, AWAKE. ALERT AND ORIENTED. SR98 WITH PVC. IV LINE INTACT AND PATENT . ABLE TO VERBALIZE NEEDS. AMBULATORY WITH BATHROOM PRIVILEGES. NEEDS ATTENDED. SAFETY PRECAUTIONS IN PLACE , CALL LIGHT WITHIN REACH. KEPT CLEAN AND DRY. WILL ENDORSE TO NEXT SHIFT FOR CONTINUITY OF CARE.
--- NOTE | 2018-12-01 19:40 | NUR ---
RT NOTES PT REFUSED TX AT THIS TIME. TOLD MULTIPLE TIMES ABOUT THE BENEFITS, BUT STILL REFUSED DESPITE ADVISEMENT. NO SOB/ RESP DISTRESS NOTED. WILL CONT. TO MONITOR
[2018-12-01 20:00] VITALS: BP_SYST 133; BP_SYST 141; BP_DIAS 70; BP_DIAS 73
--- NOTE | 2018-12-01 20:00 | NUR ---
TELE NOTES RECEIVED PT.AWAKE,ACCOMPANIED BY METAL FABRICATOR APPRENTICE OUTSIDE TO SMOKE,VERY ANGRY THAT DAY SHIFT REFUSED TO TAKE HER OUTSIDE TO SMOKE.TRIED TO EDUCATE PT REGARDING SMOKING HABIT AND EFFECTS OF IT.
[2018-12-01] MEDS: MUPIROCIN OINT 2% 22 GM TUBE SCH (20:30)
[2018-12-02] VITALS: BP 98/47
[2018-12-02] MEDS: CEFTRIAXONE 1 G in IV D5W 50 ML IV SCH ×2 (00:02→23:08)
[2018-12-02] MEDS: methylPREDNISolone SOD SUCC 40 MG/ML VIAL IV SCH ×4 (00:49→21:15)
[2018-12-02] MEDS: AZITHROMYCIN 500 MG in IV D5W 250 ML IV SCH (00:50)
--- NOTE | 2018-12-02 01:30 | NUR ---
TELE NOTES WENT IN PT'S ROOM TO HUNG IVPB.C/O SEVERE PAIN AT SITE RT A/C.DC/D AND CHANGE IVPB TO LT FOREARM AFTER 30 MIN COMPLAINED THAT IV IS LEAKING. I AM ADMITTING ANOTHER PT. I ASKED MY C.N.TO PLEASE START AN IV FOR ME.PT IS VERBALLY ABUSIVE AND STATED THAT I HAVE NOT CHECK ON HER FOR 4HRS.
[2018-12-02] MEDS: ALBUTEROL FS 2.5 MG/0.5 ML VIAL.NEB NEB SCH ×5 (03:20→19:26)
[2018-12-02] MEDS: IPRATROPIUM NEB FS 0.5 MG/2.5 ML AMPUL.NEB NEB SCH ×5 (03:21→19:26)
--- NOTE | 2018-12-02 03:30 | NUR ---
TELE NOTES Corina STARTED ANGIO CATH #22 W/ DIFFICULTY.WENT AND CHECK PT AND SHE SCREAMED GET OUT!WHEEL CHAIRED AND SANDBLAST OPERATOR TOOK PT TO OUTSIDE TO SMOKE
[2018-12-02 04:00] VITALS: BP 146/69
--- NOTE | 2018-12-02 05:00 | NUR ---
TELE NOTES STILL SCREAMING AT ME WHEN ATTEMPTED TO CHECK IV
--- NOTE | 2018-12-02 06:30 | NUR ---
TELE NOTES SLEEPING AT PRESENT MONITOR SHOWS SR.STILL DOES NOT WANT ME IN THE ROOM.
--- NOTE | 2018-12-02 07:44 | NUR ---
DIRECTOR WRITING NOTES RECEIVED PT. ASLEEP. PT ON 2L NC. NO SOB. NO DIFFICULTY BREATHING. HAS A TELE MONITOR SR. BED ON LOWEST POSITION. CALL LIGHT WITHIN REACH. WILL MONITOR CLOSELY.
[2018-12-02 08:00] VITALS: BP 136/62
[2018-12-02] MEDS: FLUTICASONE/VILANTEROL 1 EACH BLST.W.DEV IH SCH (08:17)
[2018-12-02] MEDS: INSULIN REGULAR, HUMAN 100 UNIT/ML 3 ML VIAL SQ PRN ×2 (08:28→12:04)
[2018-12-02] MEDS: BLOOD SUGAR DIAGNOSTIC 1 EACH STRIP VI SCH ×4 (09:02→21:31)
[2018-12-02] MEDS: MUPIROCIN OINT 2% 22 GM TUBE SCH ×2 (10:30→21:32)
--- NOTE | 2018-12-02 11:03 | NUR ---
STUDIO ARTIST NOTES ROUNDS MADE. PT COMPLAINED OF PAIN ON RIGHT HAND. WAS GIVEN ICE PACK TO RELIEVE THE PAIN. ALL NEEDS MET. PT AMBULATED TO GO TO THE BATHROOM. BED LOCKED AND ON LOWEST POSITION. CALL LIGHT WITHIN REACH. WILL MONITOR CLOSELY.
[2018-12-02] MEDS: ACETAMINOPHEN 325 MG TABLET PO PRN (11:11)
--- NOTE | 2018-12-02 11:36 | NUR ---
CUPOLA REPAIRER NOTE PT IS STILL COMPLAINING OF RIGHT ARM PAIN. WAS GIVEN TYLENOL 650 MG.
[2018-12-02 12:00] VITALS: BP 116/51
[2018-12-02] MEDS ORDERED: GUAIFENESIN/D-METHORPHAN HB 5 ML UDC PO PRN (12:30)
--- NOTE | 2018-12-02 12:43 | NUR ---
TALENT ACQUISITION LEAD NOTE SEEN BY DR GILMORE ,C\O FLOR, DERRICK DM GIVEN ORDERED ,ALSO RT AT BEDSIDE ON BREATHING TX
--- NOTE | 2018-12-02 14:09 | NUR ---
SOA ARCHITECT NOTE PATIENT WENT OUT TO SMOKE. CRISTIAN MIDDLETON INFORMATION SECURITY OFFICER IS AWARE AND EDUCATED THE PATIENT ABOUT SMOKING. PT STILL INSISTED TO SMOKE. CRISTIAN MIDDLETON INFORMATION SECURITY OFFICER ALLOWED THE PT TO SMOKE.
--- NOTE | 2018-12-02 14:26 | NUR ---
ANTHROPOLOGY AND ARCHEOLOGY INSTRUCTOR NOTES PT COMPLAINED PAIN OF THE RIGHT ARM AND IS COMPLAINING THAT THE TYLENOL DID NOT WORK. CRISTIAN MIDDLETON METAL TURNER ORDERED ULTRAM FOR PAIN. WILL FOLLOW UP
[2018-12-02] MEDS ORDERED: TRAMADOL HCL 50 MG TABLET PO PRN (14:30)
[2018-12-02 16:00] VITALS: BP 131/63
--- NOTE | 2018-12-02 17:00 | NUR ---
HEAD COACH NOTE ROUNDS MADE. NOT IN DISTRESS. CONT ON O2. SIGNED CONSENT FOR SMOKING. WILL CONT TO MONITOR.
[2018-12-02] MEDS: *INSULIN REGULAR(HUMULIN R)HUM 100 UNIT/ML VIAL SQ PRN ×2 (17:10→21:25)
--- NOTE | 2018-12-02 18:47 | NUR ---
BATTERY CONTAINER FINISHING HAND NOTE HAVING DINNER. ABLE TO FEED HERSELF. CALL LIGHT WITHIN REACH. WILL CONT TO MONITOR. ENDORSE CARE TO NEXT SHIFT.
--- NOTE | 2018-12-02 19:10 | NUR ---
TELE/RN INITIAL NOTES RECEIVED PT IN BED, A/O X4. SR HR 80S ON TELEMONITOR. DENIES ANY PAIN AT THIS TIME. ON 2L O2 VIA NC, NO SOB NOTED. (R)FOREARM G22 HEPLOCK INTACT AND PATENT. HOB ELEVATED. SAFETY MEASURES IN PLACED. CALL LIGHT WITHIN EASY REACH. WILL CONT TO MONITOR
[2018-12-02 20:00] VITALS: BP 112/62
[2018-12-03] VITALS: BP 103/48
[2018-12-03] MEDS: AZITHROMYCIN 500 MG in IV D5W 250 ML IV SCH (00:13)
[2018-12-03] MEDS: ALBUTEROL FS 2.5 MG/0.5 ML VIAL.NEB NEB SCH ×3 (00:13→07:28)
[2018-12-03] MEDS: IPRATROPIUM NEB FS 0.5 MG/2.5 ML AMPUL.NEB NEB SCH ×3 (00:13→07:28)
[2018-12-03 04:00] VITALS: BP 119/63
--- NOTE | 2018-12-03 06:43 | NUR ---
RN NOTES PT IN STABLE CONDITION. NO ACUTE CHANGES NOTED. ALL NEEDS ANTICIPATED. ALL NEEDS ANTICIPATED. SAFETY MEASURES IN PLACED. ENDORSED TO AM SHIFT RN FOR MYRNA
[2018-12-03 08:00] VITALS: BP 118/54
--- NOTE | 2018-12-03 08:00 | NUR ---
COMPOUNDING TECHNICIAN NOTE RECEIVED PATIENT IN BED, ALL NEEDS ATTENDED, ON 2L NC, NO SOB NOTED, CHEST X RAY DONE ORDERED, ON TELE MONITOR, SR . BED IN LOWEST AND LOCKED POSITION , CALL LIGHT WITHIN REACH , RT FA HL INTACT, NO S\S INFECTION NOTED , PLAN OF DISCUSSED WITH PATIENT
[2018-12-03] MEDS: FLUTICASONE/VILANTEROL 1 EACH BLST.W.DEV IH SCH (08:43)
[2018-12-03] MEDS: methylPREDNISolone SOD SUCC 40 MG/ML VIAL IV SCH (08:43)
[2018-12-03] MEDS: MUPIROCIN OINT 2% 22 GM TUBE SCH (08:44)
[2018-12-03] MEDS: *INSULIN REGULAR(HUMULIN R)HUM 100 UNIT/ML VIAL SQ PRN (08:45)
[2018-12-03] MEDS: BLOOD SUGAR DIAGNOSTIC 1 EACH STRIP VI SCH (08:48)
--- NOTE | 2018-12-03 09:31 | NUR ---
FARM TRACTOR OPERATOR NOTE WANTS TO GO AMA REFUSED TO SIGNED FORM , ALSO CALLED TO ELECTRICAL CONSTRUCTION PROJECT MANAGER TO ARRANGE AMBULANCE, PATIENT NEEDS O2 ,WILL F\U Marin BARRERA NURSE NOTIFIED
--- NOTE | 2018-12-03 10:00 | NUR ---
ANIMAL ATTENDANT NOTE CRISTIAN RN WELLNESS NURSE RN AT BEDSIDE, SEEN AND EXAMINED PATIENT OK TO DISCHARGE HOME , DISCHARGE INSTRUCTION GIVEN , HL REMOVED .TELE REMOVED, SON NOTIFIED ,AWARE THAT PATIENT WILL BE DISCHARGE HOME , WILL COME TO GLACING MACHINE TENDER AND WILL BRING O2 TANK
--- NOTE | 2018-12-03 11:39 | NUR ---
MANUFACTURING ENGINEERING DIRECTOR NOTE DISCHARGE INSTRUCTION GIVEN, PX GIVEN AND EXPLAINED HOW TO TAKE HOME MEDS AND NEW PX AND POSSIBLE SIDE EFFECTS , INSTRUCTED TO FOLLOW UP WITH PRIMARY CARE DOCTOR AND INSTRUCTED TO STOP SMOKING ,PLACED ON W\C WITH O2 ,TAKEN TO LOBBY WITH DENSITOMETER READER ,SON AT BEDSIDE
== END 2018-12-03 11:25 | disposition home or self-care (01) | DRG 871 ==
LOC: ER 22:40 → ICU 11-29 01:33 → TELE1 11-29 20:09
PROVIDERS: ADMIT Nurse Practitioner Acute Care; ATTEND Nurse Practitioner Acute Care
DX: A41.9 Sepsis, unspecified organism (principal); J15.9 Unspecified bacterial pneumonia; J96.01 Acute respiratory failure with hypoxia; J44.1 Chronic obstructive pulmonary disease with (acute) exacerbation; E44.1 Mild protein-calorie malnutrition; J44.0 Chronic obstructive pulmonary disease with (acute) lower respiratory infection; D72.829 Elevated white blood cell count, unspecified; K21.9 Gastro-esophageal reflux disease without esophagitis; E03.9 Hypothyroidism, unspecified; E11.9 Type 2 diabetes mellitus without complications; E78.5 Hyperlipidemia, unspecified; F17.210 Nicotine dependence, cigarettes, uncomplicated; F41.9 Anxiety disorder, unspecified; I10 Essential (primary) hypertension; Z85.828 Personal history of other malignant neoplasm of skin; Z86.73 Personal history of transient ischemic attack (TIA), and cerebral infarction without residual deficits; E88.09 Other disorders of plasma-protein metabolism, not elsewhere classified; Z68.22 Body mass index [BMI] 22.0-22.9, adult; Z71.6 Tobacco abuse counseling; Z79.84 Long term (current) use of oral hypoglycemic drugs
CPT/HCPCS: 36415; 36600; 71045-TC; 80048-TC; 80076-TC; 81000-TC; 82378; 82962-TC; 83605-TC; 84443-TC; 85025-TC; 87040-TC; 87081-TC; 87086-TC; 87400; 94799-TC; G0378; J0456; J0696; J1815; J2920; J2930; J7040; J7050; J7060

== ENCOUNTER 2019-02-04 06:23 | Inpatient (IN) | payer MEDICARE ==
[~2019-02-04] VITALS: Ht 162.6 cm; Wt 63.5 kg
[~2019-02-04 06:23] MED LIST changes: -LEVO500T2 PO
[2019-02-04] MEDS ORDERED: ALBUTEROL FS 2.5 MG/3 ML VIAL.NEB ONE (06:27)
[2019-02-04] MEDS ORDERED: IPRATROPIUM NEB FS 0.5 MG/2.5 ML AMPUL.NEB ONE (06:27)
[2019-02-04] MEDS ORDERED: methylPREDNISolone SOD SUCC 125 MG/2ML VIAL IV ONE (06:30)
[2019-02-04] MEDS ORDERED: IPRATROPIUM NEB FS 0.5 MG/2.5 ML AMPUL.NEB NEB ONE (06:30)
[2019-02-04] MEDS ORDERED: ALBUTEROL FS 2.5 MG/3 ML VIAL.NEB CONTNEB ONE (06:30)
--- NOTE | 2019-02-04 06:32 | NUR ---
PT IS ON A BREATHING TX. NA, RT IS AT THE BEDSIDE.
--- NOTE | 2019-02-04 06:32 | NUR ---
PT BIB RA 102 WITH A C/O SOB. PT ARRIVED ON A BREATHING TX. PT HAS BILATERAL WHEEZES. 20G IV IN THE RT WRIST ELECTRICIAN YARD. IV IS PATENT AND BENIGN. FLUSHED IV WITH 10ML NS. PT IS AA&O X 4. PT STATED THAT SHE WAS SMOKING. PT IS ON O2 AT HOME. PT WAS PLACED ON THE MONITOR AND CONTINUOUS PULSE OX. PT IS USING ACCESSORY MUSCLES TO BREATH.
[2019-02-04] MEDS ORDERED: methylPREDNISolone SOD SUCC 125 MG/2ML VIAL ONE (06:35)
--- NOTE | 2019-02-04 06:41 | NUR ---
PRECISION ASSEMBLY INSPECTOR IS AT THE BEDSIDE FOR BLOOD DRAW.
[2019-02-04 06:49] LABS: BASOPHILS % (AUTO) 0.6 % (0.0-2.0); EOSINOPHILS % (AUTO) 1.3 % (0.0-6.0); HEMATOCRIT 44 % (33-45); HEMOGLOBIN 14.7 g/dL (11.5-14.8); LYMPHOCYTES # (AUTO) 1.7 /CMM (0.8-4.8); LYMPHOCYTES % (AUTO) 37.1 % (20.0-44.0); MEAN CORPUSCULAR HGB CONC 33 g/dl (31.0-36.0); MEAN CORPUSCULAR VOLUME 99 fL (82-100); MONOCYTES # (AUTO) 0.4 /CMM (0.1-1.30); MONOCYTES % (AUTO) 8.4 % (2.0-12.0); NEUTROPHILS # (AUTO) 2.5 /CMM (1.8-8.9); NEUTROPHILS % (AUTO) 52.6 % (43.0-81.0); PLATELET COUNT (AUTO) 184 /CMM (150-450); RED BLOOD CELL COUNT(AUTO) 4.47 MIL/uL (4.0-5.2); WHITE BLOOD COUNT (AUTO) 4.7 K/uL (4.3-11.0)
[2019-02-04 06:55] LABS: CALCIUM, SERUM 9.1 mg/dL (8.5-10.1); CARBON DIOXIDE 32 mmol/L (21-32); CHLORIDE 107 mmol/L (98-107); CREATININE 0.7 mg/dL (0.6-1.3); GLUCOSE 118 mg/dL (74-106); POTASSIUM 3.9 mmol/L (3.5-5.1); SODIUM SERUM 142 mmol/L (136-145); UREA NITROGEN, BLOOD 17 mg/dL (7-18)
[2019-02-04 07:09] LABS: ALANINE AMINOTRANSFERASE 24 U/L (12-78); ALBUMIN 3.5 g/dL (3.4-5.0); ALKALINE PHOSPHATASE 87 U/L (46-116); ASPARTATE AMINOTRANSFERASE 20 U/L (15-37); B-TYPE NATRIURETIC PEPTIDE 79 PG/ML (0-125); BILIRUBIN,DIRECT 0.1 mg/dL (0.0-0.2); BILIRUBIN,TOTAL 0.3 mg/dL (0.2-1.0); TOTAL PROTEIN, SERUM 6.2 g/dL (6.4-8.2)
--- NOTE | 2019-02-04 07:21 | NUR ---
PT APPEARS TO BE RESTING COMFORTABLY WITH NO S/S OF PAIN OR DISTRESS. PT'S RESP ARE 20. PT IS STILL ON A BREATHING TX.
--- NOTE | 2019-02-04 07:40 | NUR ---
REPORT GIVEN TO EMI BETANCOURT.
--- NOTE | 2019-02-04 07:47 | NUR ---
PANEL ON-CALL PAGED
[2019-02-04] MEDS ORDERED: IPRA3AMP23 IH (07:55)
--- NOTE | 2019-02-04 11:04 | NUR ---
REPORT GIVEN TO MARITO MIDDLETON FOR MYRNA
[2019-02-04] MEDS ORDERED: MAGNESIUM HYDROXIDE 30 ML UDC PO PRN (11:30)
[2019-02-04] MEDS ORDERED: clonazePAM 1 MG TABLET PO PRN (11:30)
[2019-02-04] MEDS ORDERED: ZOLPIDEM TARTRATE 5 MG TABLET PO PRN (11:30)
[2019-02-04] MEDS ORDERED: HYDROCODONE/APAP 5/325MG 1 EACH TABLET PO PRN (11:30)
[2019-02-04] MEDS ORDERED: Z GUARD REMEDY 2 OZ OINT TP PRN (11:30)
[2019-02-04] MEDS ORDERED: MONTELUKAST SODIUM (10MG) 10 MG TABLET PO PRN (11:30)
[2019-02-04] MEDS ORDERED: ONDANSETRON HCL/PF 4 MG/2 ML VIAL IVP PRN (11:30)
[2019-02-04] MEDS ORDERED: MAG HYDROX/AL HYDROX/SIMETH 30 ML UDC PO PRN (11:30)
[2019-02-04] MEDS: IPRATROPIUM NEB FS 0.5 MG/2.5 ML AMPUL.NEB NEB PRN ×2 (12:58→20:41)
[2019-02-04] MEDS: ALBUTEROL FS 2.5 MG/0.5 ML VIAL.NEB NEB PRN ×2 (12:58→20:41)
--- NOTE | 2019-02-04 13:00 | NUR ---
SCHOOL LIBRARIAN RECEIVING NOTES RECEIVED PT FROM ER TO ROOM 117-1 VIA GENWI BY CHARGE NURSE @1230.ALERT/ORIENTED X2 WITH ANXIOUS AND FORGETFULNESS.NOTED WITH 2 L O2 VIA NC CONTINUOUSLY,SOB WITH EXERTION.ON TELE HR IS 80;S WITH SR.NO SOB AND ACUTE DISTRESS NOTED FOR NOW.IV LINE IS ON RIGHT WRIST G20,SITE SI CLEAN,DRY AND INTACT.NO INFILTRATION NOTED.CAN AMBULATE TO THE RESTROOM,MILD SOB NOTED.SKIN ASSESSMENT IS DONE,PICTURE HAS TAKEN.VITAL SIGNS CHECKED AND RECORDED.BELONGING LIST HAS SIGNED BY THE PT.SAFETY IS MAINTAINED AT ALL TIMES,BED IS IN LOW POSITION AND LOCKED.CALL LIGHT IS WITHIN REACH.WILL CONTINUE TO MONITOR THE PT CLOSELY.
[2019-02-04] MEDS: methylPREDNISolone SOD SUCC 125 MG/2ML VIAL IV SCH ×3 (13:26→23:14)
[2019-02-04] MEDS: ENOXAPARIN SODIUM 40 MG/0.4 ML DISP.SYRIN SQ SCH (13:31)
[2019-02-04 16:00] VITALS: BP 110/46
--- NOTE | 2019-02-04 18:45 | NUR ---
TRUCK DRIVER SALESPERSON NOTES DVT PUMP PLACED TO PT,NO COMPLICATIONS NOTED.
--- NOTE | 2019-02-04 18:56 | NUR ---
ROLLER COASTER OPERATOR CLOSING NOTES PT IS LYING ON BED.ALERT/ORIENTED X2 WITH ANXIOUS AND FORGETFULNESS.NOTED WITH 2 L O2 VIA NC CONTINUOUSLY,SOB WITH EXERTION.ON TELE HR IS 85 WITH SR.NO SOB AND ACUTE DISTRESS NOTED FOR NOW.IV LINE IS ON RIGHT WRIST G20,SITE SI CLEAN,DRY AND INTACT.NO INFILTRATION NOTED.CAN AMBULATE TO THE RESTROOM,MILD SOB NOTED.NO SIGNIFICANT CHANGES NOTED IN THE SHIFT.ALL THE DUE MEDS ARE GIVEN.SAFETY IS MAINTAINED AT ALL TIMES,BED IS IN LOW POSITION AND LOCKED.CALL LIGHT IS WITHIN REACH.WILL CONTINUE TO MONITOR THE PT CLOSELY
--- NOTE | 2019-02-04 19:35 | NUR ---
SENIOR SOFTWARE QA ENGINEER OPENING NOTES RECEIVED PT IN BED, AWAKE ALERT ORIENTED X3-4, BREATHING EVEN AND UNLABORED ON 2L OF O2 VIA NC, NO DISTRESS NOTED AT THE MOMENT, NO COMPLAINT OF PAIN, OR PHYSICAL DISCOMFORT. IV ACCESS ON THE R WRIST 20G SL PATENT AND FLUSHING. BED IN LOWEST LOCKED POSITION, CALL LIGHT WITHIN REACH AT ALL TIMES, WILL CONTINUE TO MONITOR
--- NOTE | 2019-02-04 21:21 | NUR ---
MOVED PT TO ROOM 109 PER PT REQUEST
[2019-02-04 22:00] VITALS: BP 110/67
[2019-02-04] MEDS: ACETAMINOPHEN 325 MG TABLET PO PRN (23:13)
[2019-02-04 23:33] VITALS: BP 110/67
[2019-02-05] VITALS (9 sets, daily range): BP systolic 108–150; BP diastolic 62–80
[2019-02-05] MEDS: methylPREDNISolone SOD SUCC 125 MG/2ML VIAL IV SCH ×4 (05:30→17:01)
--- NOTE | 2019-02-05 06:07 | NUR ---
CRAB MEAT PROCESSOR CLOSING NOTES RECEIVED MOMENT, NO COMPLAINT OF PAIN, OR PHYSICAL DISCOMFORT. IV ACCESS ON THE R WRIST 20G SL PATENT AND FLUSHING. BED IN LOWEST LOCKED POSITION, CALL LIGHT WITHIN REACH AT ALL TIMES, WILL CONTINUE TO MONITOR Addendum: 02/05/19 at 0608 by TAITANA JOEL RN ERROR
--- NOTE | 2019-02-05 06:08 | NUR ---
CAUSTIC OPERATOR CLOSING NOTES PT REMAINS IN BED, AWAKE ALERT ORIENTED X3-4, BREATHING EVEN AND UNLABORED ON 2L O2 NC NO COUGH OR CONGESTION AT THE MOMENT, NO COMPLAINT OF PAIN, OR PHYSICAL DISCOMFORT. IV ACCESS ON THE R WRIST 20G SL PATENT AND FLUSHING. BED IN LOWEST LOCKED POSITION, CALL LIGHT WITHIN REACH AT ALL TIMES, WILL ENDORSE TO DAY SHIFT FOR MYRNA
[2019-02-05 06:42] LABS: BASOPHILS % (AUTO) 0.2 % (0.0-2.0); EOSINOPHILS % (AUTO) 0.1 % (0.0-6.0); HEMATOCRIT 41 % (33-45); HEMOGLOBIN 13.4 g/dL (11.5-14.8); LYMPHOCYTES # (AUTO) 0.6 /CMM (0.8-4.8); LYMPHOCYTES % (AUTO) 10.3 % (20.0-44.0); MEAN CORPUSCULAR HGB CONC 33 g/dl (31.0-36.0); MEAN CORPUSCULAR VOLUME 100 fL (82-100); MONOCYTES # (AUTO) 0.2 /CMM (0.1-1.30); MONOCYTES % (AUTO) 2.9 % (2.0-12.0); NEUTROPHILS # (AUTO) 4.9 /CMM (1.8-8.9); NEUTROPHILS % (AUTO) 86.5 % (43.0-81.0); PLATELET COUNT (AUTO) 185 /CMM (150-450); RED BLOOD CELL COUNT(AUTO) 4.07 MIL/uL (4.0-5.2); WHITE BLOOD COUNT (AUTO) 5.7 K/uL (4.3-11.0)
[2019-02-05 06:51] LABS: CALCIUM, SERUM 9.3 mg/dL (8.5-10.1); CREATININE 0.7 mg/dL (0.6-1.3); MAGNESIUM 2.3 mg/dL (1.8-2.4); POTASSIUM 5.2 mmol/L (3.5-5.1)
[2019-02-05 06:55] LABS: THYROID STIMULATING HORMONE 1.585 uIU/mL (0.358-3.74)
[2019-02-05] MEDS: IPRATROPIUM NEB FS 0.5 MG/2.5 ML AMPUL.NEB NEB PRN (07:33)
[2019-02-05] MEDS: ALBUTEROL FS 2.5 MG/0.5 ML VIAL.NEB NEB PRN (07:33)
--- NOTE | 2019-02-05 07:33 | NUR ---
RT NOTE PT GIVEN PRN TX. ASKED BY KY MIDDLETON TO GIVE PT TX I WALKED BY ROOM. PT IS VERY UPSET SAYS SHES BEEN WAITING FOR OVER AN HOUR FOR TREATMENT AND ASSIGNED RT HAS NOT SHOWN UP. ASSIGNED RT HAS BEEN NOTIFIED ACCORDING TO RN. PT FOUND ON NC AT 3L. SP02 98% HR 72. WHEEZING HEARD UPON AUSCULTATION. Addendum: 02/05/19 at 0743 by TEE ZULETA RT Amended: Links added.
--- NOTE | 2019-02-05 07:34 | NUR ---
WINDOWS DEPLOYMENT TECHNICIAN NOTES RECEIVED BEDSIDE REPOT PATIENT SCREAMING AND YELLING SHE NEEDS HER BREATHING TREATMENT AND WANTS TO FILE A COMPLAINT AND [facility]. TOLD PATIENT I WOULD TRY AND HELP HER MUCH I CAN. I CALLED RT WELL INFORMED RT. PATIENT IS EXTREMELY ABUSIVE TO STAFF. REFUSE TO HAVE VITALS TAKEN. SINUS ON THE MONITOR 80'S. NO COMPLAINTS OF PAIN RIGHT WRIST #20 GAUGE SL. SAFETY PRECAUTIONS IN PLACE BED IN LOW POSITION CALL LIGHT WITH REACH WILL CONT TO MONITOR
[2019-02-05] MEDS: ATORVASTATIN 10 MG TABLET PO SCH (08:39)
[2019-02-05] MEDS: LEVOTHYROXINE SODIUM 100 MCG TABLET PO SCH (08:40)
[2019-02-05] MEDS: ENOXAPARIN SODIUM 40 MG/0.4 ML DISP.SYRIN SQ SCH (08:54)
--- NOTE | 2019-02-05 08:55 | NUR ---
BULK FLUIDS HANDLER NOTES PT REFUSED LOVENOX EDUCATED PT IMPORTANCE OF MED STILL REFUSED
--- NOTE | 2019-02-05 09:00 | NUR ---
GRADING CLERK NOTES REPORT GIVEN TO ELIJAH MIDDLETON
[2019-02-05] MEDS: IPRATROPIUM NEB FS 0.5 MG/2.5 ML AMPUL.NEB NEB SCH ×3 (10:58→19:54)
[2019-02-05] MEDS: ALBUTEROL FS 2.5 MG/0.5 ML VIAL.NEB NEB SCH ×3 (10:58→19:54)
--- NOTE | 2019-02-05 13:00 | NUR ---
VIDEO GAME DESIGNER NOTES PT C/O PAIN ON IV LINE ON RIGHT WRIST ,NO BLEEDING AND INFILTRATION NOTED,DISCONTINUED IT AND INSERT NEW IV LINE ON RIGHT FA G22,SITE IS CLEAN,DRY AND INTACT AND NO INFILTRATION NOTED.
[2019-02-05] MEDS: ACETAMINOPHEN 325 MG TABLET PO PRN (20:07)
--- NOTE | 2019-02-05 20:15 | NUR ---
MEAT TEAM LEAD NOTE: PATIENT RESTING IN BED, NO ACUTE DISTRESS NOTED. BREATHING EVEN AND UNLABORED, NO SOB NOTED. OXYGEN AT 2 LPM VIA NASAL CANNULA IN PLACE. 02 SAT 95%. IV TO RFA IN PLACE. PATIENT COMPLAINS OF HEADACHE, TYLENOL 650MG ORAL GIVEN PER MD ORDER. BED LOCKED AND IN LOWEST POSITION, CALL LIGHT IN REACH. WILL CONTINUE TO MONITOR
[2019-02-06] VITALS: BP 112/63
[2019-02-06] MEDS: methylPREDNISolone SOD SUCC 125 MG/2ML VIAL IV SCH ×3 (00:14→12:00)
[2019-02-06] MEDS: IPRATROPIUM NEB FS 0.5 MG/2.5 ML AMPUL.NEB NEB SCH ×5 (00:26→15:35)
[2019-02-06] MEDS: ALBUTEROL FS 2.5 MG/0.5 ML VIAL.NEB NEB SCH ×5 (00:26→15:35)
[2019-02-06 01:05] VITALS: BP 112/63
--- NOTE | 2019-02-06 01:30 | NUR ---
PT BECAME VERY BELLIGERENT BECAUSE SHE STATED SHE WANTED TO HAVE ANOTHER BREATHING TREATMENT. PT HAS BREATHING TREATMENT ALBUTEROL/ATROVENT Q4H. PT RECEIVED THE PRESCRIBED BREATHING TREATMENT @ 2330 AND WAS NOT DUE FOR ANOTHER ONE UNTIL 0330. PT NOTIFIED THAT SHE HAD ANOTHER BREATHING TREATMENT AT 0330. SHE STATED THAT SHE WANTED HER BREATHING TREATMENT NOW AND DID NOT WANT TO WAIT UNTIL 0330. NOTIFIED PT THAT WE CAN GET THE RT TO GIVE HER BREATHING TREATMENT EARLY @ 0230. PT BEGAN YELLING AND SCREAMING AT STAFF. LOOKING AT PT MEDICATION LIST THERE WAS NO PRN BREATHING TREATMENT BECAUSE IT WAS D/C ON 02/05/2019. 0200: NOTIFIED DR. FINN THAT PT WAS REQUESTED PT'S HOME MEDICATION PROAIR (ALBUTEROL). PER DR. FINN PT HAS ALBUTEROL ON HER MED LIST ALREADY. 0210: NOTIFIED PT THAT WE CAN GIVE HER MEDICATION AT 0230. PT STATED THAT IT HAS TAKEN TOO LONG TO GET HER BREATHING TREATMENT. PT THREATENED TO GO AMA AND GO HOME TO GET HER MEDICATION. WAS ABLE TO TALK TO PT AND STATED THAT WE CAN CALL THE RT TO GET THE BREATHING TREATMENT EARLY. PT AGREED BUT VOICED THAT SHE WAS VERY ANGRY AND CONTINUED TO YELL AT STAFF. 0230: RT AT BEDSIDE TO GIVE PT BREATHING TREATMENT.
--- NOTE | 2019-02-06 02:35 | NUR ---
ORDER DISPATCHER NOTE: PATIENT COMPLAINS OF UNABLE TO BREATH, ALTHOUGH PATIENT ALREADY ON OXYGEN. PATIENT ALREADY RECEIVED BREATHING TREATMENT AT 0030 AND INFORMED PATIENT THAT HER BREATHING TREATMENTS ARE SCHEDULED EVERY 4 HOURS. PATIENT INSIST ON RECEIVING HER PROAIR HER RESCUE INHALER. INFORMED PATIENT THAT HER PROAIR WAS NOT CONTINUED SINCE SHE IS RECEIVING SCHEDULED, ATROVENT AND VENTOLIN EVERY 4 HOURS, WHICH IS SIMILAR TO HER PROAIR. PATIENT CONTINUES TO YELL AND NOT UNDERSTAND THAT PATIENT IS ALREADY RECEIVE BREATHING TREATMENTS EVERY 4 HOURS AND WANT MEDICATIONS CHANGED. CALLED MD DIRECTOR OF CORPORATE SPONSORSHIPS AND WAITED FOR CALL BACK FROM DR. FINN. RECEIVED CALL BACK FROM DR. FINN AFTER 30 MINS AND INFORMED ABOUT THE SITUATION. RECEIVED ORDER TO EITHER CONTINUE WITH CURRENT BREATHING TREATMENT OR TO HAVE PROAIR 2 PUFFS EVERY 4 HOURS SCHEDULED, SINCE THEY ARE SIMILAR BREATHING TREATMENTS. CHECKED WITH SUPERINTENDENT MEASUREMENT, AZAM, WE DO NOT CARRY PROAIR IN NIGHT LOCKER AND WOULD HAVE TO BE GIVEN FROM PHARMACY DURING DAY. AT THIS TIME PATIENT SCHEDULED BREATHING TREATMENT AVAILABLE. CALLED RT AND REQUEST FOR PATIENT TO RECEIVE BREATHING TREATMENT ALREADY ORDERED. NA, RT ON FLOOR AND ADMINISTERED BREATHING TREATMENT. WILL CONTINUE TO MONITOR.
[2019-02-06 05:15] VITALS: BP 113/58
--- NOTE | 2019-02-06 06:10 | NUR ---
SEWER LINE REPAIRER NOTE: PATIENT RESTING IN BED, NO ACUTE DISTRESS NOTED. BREATHING EVEN AND UNLABORED, NO SOB NOTED. OXYGEN AT 2 LPM VIA NASAL CANNULA IN PLACE. IV TO RFA IN PLACE. BED LOCKED AND IN LOWEST POSITION, CALL LIGHT IN REACH. WILL ENDORSE TO DAY NURSE TO CONTINUE WITH PLAN OF CARE.
--- NOTE | 2019-02-06 07:25 | NUR ---
PACKER INSPECTOR NOTES RECEIVED BEDSIDE REPOT PATIENT SCREAMING AND YELLING PATIENT IS EXTREMELY ABUSIVE TO STAFF STATING SHE WANTS TO LEAVE AMA AND [facility].NO SIGNS OR SYMPTOMS OF RESPIRATORY DISTRESS ON 2LTRS N/C SINUS ON THE MONITOR 80'S. NO COMPLAINTS OF PAIN RFA # 22 GAUGE SL. SAFETY PRECAUTIONS IN PLACE BED IN LOW POSITION CALL LIGHT WITH REACH WILL CONT TO MONITOR
--- NOTE | 2019-02-06 07:30 | NUR ---
CHARGE NURSE HORACE WAS ABLE TO GET PT PRN ALBUTEROL REINSTATED. NOTIFIED PT, BUT CONTINUES TO YELL AT STAFF.
[2019-02-06 08:00] VITALS: BP 127/52
[2019-02-06] MEDS: ATORVASTATIN 10 MG TABLET PO SCH (08:18)
[2019-02-06] MEDS: LEVOTHYROXINE SODIUM 100 MCG TABLET PO SCH (08:18)
[2019-02-06] MEDS ORDERED: ALBUTEROL FS 2.5 MG/0.5 ML VIAL.NEB NEB PRN (08:30)
[2019-02-06] MEDS ORDERED: IPRATROPIUM NEB FS 0.5 MG/2.5 ML AMPUL.NEB NEB PRN (08:30)
[2019-02-06 09:00] VITALS: BP 127/52
[2019-02-06] MEDS: ENOXAPARIN SODIUM 40 MG/0.4 ML DISP.SYRIN SQ SCH (09:00)
--- NOTE | 2019-02-06 09:35 | NUR ---
RN MS NOTES PATIENT CONTINUES TO YELL AND SCREAM CLAIMING SHE IS GOING TO [facility] WANTS TO SPEAK TO MATE FOURTH OR HIGHER. WANTS TO LEAVE AMA DUE TO NOT SEEING A DOCTOR. WOULD LIKE HOSPITAL TO ARRANGE TRANSPORTATION OXYGEN AND A CIGARETTE NURSING LEVI MAKER SPOKE WITH PATIENT.
--- NOTE | 2019-02-06 10:42 | NUR ---
RN MS NOTES CHARGE HORACE AND MYSELF ATTENDED TO PATIENT AT BEDSIDE. PATIENT VULGAR AND RUDE REFUSING TO SIGN AMA INFORMED THAT SHE IS LEAVING AGAINST MEDICAL ADVICE AND WOULD HOPE SHE WOULD STAY UNTL MD CAN PROPERLY DISCHARGE HER. PT REFUSED AND IV REMOVED.
[2019-02-06] MEDS ORDERED: PRED20TA PO (11:01)
--- NOTE | 2019-02-06 15:49 | NUR ---
RN MS NOTES PATIENT VERY DIFFICULT DISCHARGE. WHILE EMS AT BEDSIDE REQUESTING BREATHING TREATMENT AND MEDS. NO PERSONAL MEDS IN PHARMACY ABLE TO FAX OVER RX TO [facility] ON [address] AND CONFIRMED WILL BE DELIVERED TO HER HOME. REFUSED TO HAVE PHOTOS CONT TO THREATEN TO [facility] AND HAVE FACULTIES JOBS TO BE FIRED. VITAL STABLE 118/79 55 RR 18 ON 2 LTRS NASAL CANNULA. PATIENT INFORMED THAT HOME HEALTH WILL FOLLOW UP WITH HER. ALL EXIT CARE AND EDUCATION GIVEN TO PATIENT AND EXPLAINED. PATIENT RECEPTIVE .
== END 2019-02-06 15:45 | disposition home or self-care (01) | DRG 191 ==
LOC: ER 06:26 → TELE1 10:57 → MEDSG1 02-06 09:09
DX: J44.1 Chronic obstructive pulmonary disease with (acute) exacerbation (principal); E44.1 Mild protein-calorie malnutrition; E78.5 Hyperlipidemia, unspecified; F17.210 Nicotine dependence, cigarettes, uncomplicated; E11.9 Type 2 diabetes mellitus without complications; E03.9 Hypothyroidism, unspecified; K21.9 Gastro-esophageal reflux disease without esophagitis; Z86.73 Personal history of transient ischemic attack (TIA), and cerebral infarction without residual deficits; I10 Essential (primary) hypertension; Z85.828 Personal history of other malignant neoplasm of skin; Z79.51 Long term (current) use of inhaled steroids; Z79.899 Other long term (current) drug therapy; E87.5 Hyperkalemia
CPT/HCPCS: 36415; 71045-TC; 80048-TC; 80061-TC; 80076-TC; 83735-TC; 83880; 84100-TC; 84443-TC; 84484-TC; 85025-TC; 87081-TC; 97110-TC; 97116-TC; 97530-TC; A6402; G0378; J1650; J2930

== ENCOUNTER 2019-03-31 06:07 | Inpatient (IN) | payer MEDICARE ==
[~2019-03-31] VITALS: Ht 162.6 cm; Wt 52.2 kg
[~2019-03-31 06:07] MED LIST changes: -ALBU2.5V13 NEB; -IPRA0.2S9 NEB; +IPRA3AMP23 IH; -LISI2.5T2 PO; -METF-440 PO; -METH4TAB17 PO; +PRED20TA PO
[2019-03-31] MEDS ORDERED: Magnesium 1GM/D5W 100ML PREMIX 200 ML IV ONE ×2 (06:17→06:27)
--- NOTE | 2019-03-31 06:18 | NUR ---
BIBRA FROM HOME C/O SOB FOR COUPLE OF DAYS.ON HHN TX ENROUTE TO HOSPITAL,ALBUTEROL GIVEN X2.ADMITTED TO BED 8.VS STABLE.SR PER TELE MONITORING.AWAITING FOR ORDERS.
[2019-03-31] MEDS ORDERED: EPINEPHRINE (1:1000) 1 MG/ML AMPUL ONE (06:27)
[2019-03-31] MEDS ORDERED: methylPREDNISolone SOD SUCC 125 MG/2ML VIAL ONE (06:27)
[2019-03-31] MEDS ORDERED: TERBUTALINE SULFATE 1 MG/ML VIAL ONE (06:27)
[2019-03-31] MEDS ORDERED: TERBUTALINE SULFATE 1 MG/ML VIAL SQ ONE (06:30)
[2019-03-31] MEDS ORDERED: IPRATROPIUM NEB FS 0.5 MG/2.5 ML AMPUL.NEB ONE (06:30)
[2019-03-31] MEDS ORDERED: ALBUTEROL FS 2.5 MG/3 ML VIAL.NEB ONE (06:30)
[2019-03-31] MEDS ORDERED: IPRATROPIUM NEB FS 0.5 MG/2.5 ML AMPUL.NEB NEB ONE (06:30)
[2019-03-31] MEDS ORDERED: ALBUTEROL FS 2.5 MG/3 ML VIAL.NEB CONTNEB ONE (06:30)
[2019-03-31] MEDS ORDERED: EPINEPHRINE (1:1000) 1 MG/ML AMPUL SUBCUT ONE (06:30)
[2019-03-31] MEDS ORDERED: methylPREDNISolone SOD SUCC 125 MG/2ML VIAL IV ONE (06:30)
[2019-03-31] MEDS ORDERED: IV NS 0.9% 1,000 ML BAG IV ONE (06:30)
--- NOTE | 2019-03-31 06:35 | NUR ---
IV LINE OBTAINED ON L AC 20G. BLOOD DRAW3N AND SENT TO LAB
--- NOTE | 2019-03-31 07:00 | NUR ---
PATIENT RESTING WITH CONTINUOUS HHN TX.VERBALIZED FEELS BETTER.WILL ENDORSE TO DAY SHIFT FOR MYRNA.
[2019-03-31 07:07] LABS: BASOPHILS # (AUTO) 0.1 /CMM (0.0-0.2); BASOPHILS % (AUTO) 0.7 % (0.0-2.0); EOSINOPHILS % (AUTO) 1.7 % (0.0-6.0); HEMATOCRIT 46 % (33-45); HEMOGLOBIN 15.2 g/dL (11.5-14.8); LYMPHOCYTES # (AUTO) 1.6 /CMM (0.8-4.8); LYMPHOCYTES % (AUTO) 20.7 % (20.0-44.0); MEAN CORPUSCULAR HGB CONC 33 g/dl (31.0-36.0); MEAN CORPUSCULAR VOLUME 100 fL (82-100); MONOCYTES # (AUTO) 0.6 /CMM (0.1-1.30); MONOCYTES % (AUTO) 7.8 % (2.0-12.0); NEUTROPHILS # (AUTO) 5.3 /CMM (1.8-8.9); NEUTROPHILS % (AUTO) 69.1 % (43.0-81.0); PLATELET COUNT (AUTO) 228 /CMM (150-450); RED BLOOD CELL COUNT(AUTO) 4.57 MIL/uL (4.0-5.2); WHITE BLOOD COUNT (AUTO) 7.7 K/uL (4.3-11.0)
[2019-03-31 07:17] LABS: CALCIUM, SERUM 8.8 mg/dL (8.5-10.1); CARBON DIOXIDE 32 mmol/L (21-32); CHLORIDE 106 mmol/L (98-107); CREATININE 1.3 mg/dL (0.6-1.3); GLUCOSE 118 mg/dL (74-106); POTASSIUM 4.2 mmol/L (3.5-5.1); SODIUM SERUM 143 mmol/L (136-145); UREA NITROGEN, BLOOD 24 mg/dL (7-18)
[2019-03-31 07:30] LABS: B-TYPE NATRIURETIC PEPTIDE 64 PG/ML (0-125)
--- NOTE | 2019-03-31 08:07 | NUR ---
PT ALERT AND AWAKE CURRENTLY FINISHING BREATHING TREATMENT COUGHING ON MONITOR AND O2 AT 3 LPM NC. PT WAITING FOR ADMISSION STATUS.
--- NOTE | 2019-03-31 09:53 | NUR ---
michael called. elpidio roberto.
--- NOTE | 2019-03-31 10:01 | NUR ---
got tele bed 321-2 nurse is berenice
[2019-03-31 10:02] VITALS: BP 106/97
--- NOTE | 2019-03-31 10:03 | NUR ---
PT GIVEN SNACKS ON O2 T 3 LPM NXC SPEAKING WITH CHOPPY SENTENCES AND ACCESSORY MUSCLE USAGE CALLING REPORT PT ADMITTED TO 321-2
--- NOTE | 2019-03-31 10:11 | NUR ---
ATTEMPTED TO CALL REPORT WILL CALL BACK
[2019-03-31 10:40] VITALS: BP 119/84
--- NOTE | 2019-03-31 10:40 | NUR ---
COMMUNITY HEALTH EDUCATION COORDINATORBAR BACK NOTE RECEIVED PT FROM ER VIA RNEY WITH DX OF SHORTNESS OF BREATH. PT IS ALERT TO NAME, PLACE, EVENT BUT NOT TO MONTH/DATE/YEAR. PT PRESENTS WITH PURSED LIP, SHALLOW BREATHING WITH ACCESSORY MUSCLE USE AND TACHYPNEA ON 2L NC. PT AMBULATED TO BATHROOM WITH 2 NURSE ASSIST WHICH EXACERBATED RESPIRATORY SYMPTOMS. PT DENIES CHEST PAIN, N/V, PT PLACED ON HIGH VOLTAGE ELECTRICIAN AND IS SINUS TACH, HR 105. VS OBTAINED PER PROTOCOL. BP: 119/84, HR: 109, SP02 97%, R: 26, T: 98.3. PT HAS A LEFT AC #20G IV THAT IS SALINE LOCKED WITHOUT REDNESS OR SWELLING. ALL BELONGINGS ACCOUNTED FOR AND REVIEWED. UNIT ORIENTATION PROVIDED INCLUDING USE OF CALL LIGHT SYSTEM AND INFORMED PT TO CALL FOR STAFF ASSISTANCE BEFORE ATTEMPTING TO GET OUT OF BED. PT VERBALIZED UNDERSTANDING AND AGREEMENT. BED IS LOCKED AND IN THE LOWEST POSITION, SIDE RAILS UP X2, BED ALARM ON, CALL LIGHT AND POSSESSIONS WITHIN REACH. DR. DONN VANN ON THE UNIT AND AWARE OF PT ARRIVAL AND NEED FOR ADMISSION ORDERS.
[2019-03-31] MEDS ORDERED: ONDANSETRON HCL/PF 4 MG/2 ML VIAL IVP PRN (11:00)
[2019-03-31] MEDS ORDERED: ZOLPIDEM TARTRATE 5 MG TABLET PO PRN (11:00)
[2019-03-31] MEDS ORDERED: MAGNESIUM HYDROXIDE 30 ML UDC PO PRN (11:00)
[2019-03-31] MEDS ORDERED: Z GUARD REMEDY 2 OZ OINT TP PRN (11:00)
[2019-03-31] MEDS ORDERED: HYDROCODONE/APAP 5/325MG 1 EACH TABLET PO PRN (11:00)
[2019-03-31] MEDS ORDERED: MAG HYDROX/AL HYDROX/SIMETH 30 ML UDC PO PRN (11:00)
[2019-03-31] MEDS ORDERED: MONTELUKAST SODIUM (10MG) 10 MG TABLET PO PRN (11:00)
--- NOTE | 2019-03-31 11:30 | NUR ---
CERTIFIED MEDICAL AIDE NOTE PT IS REFUSING FULL SKIN ASSESSMENT AT THIS TIME. EDUCATION PROVIDED, PT STILL REFUSING AT THIS TIME.
[2019-03-31] MEDS: ALBUTEROL FS 2.5 MG/3 ML VIAL.NEB NEB SCH ×4 (12:15→22:47)
[2019-03-31] MEDS: IPRATROPIUM NEB FS 0.5 MG/2.5 ML AMPUL.NEB NEB SCH ×4 (12:15→22:47)
[2019-03-31] MEDS: NICOTINE PATCH (21MG) 21 MG PATCH.TD24 TD SCH (12:37)
[2019-03-31] MEDS: methylPREDNISolone SOD SUCC 125 MG/2ML VIAL IV SCH ×2 (12:37→16:46)
--- NOTE | 2019-03-31 13:09 | NUR ---
COMPUTING MACHINE OPERATOR SHARING INFORMATION NOTE PER PT REQUEST, DO NOT SHARE ANY INFORMATION WITH SON VICKI DUNBAR. UPDATED PHYSICAL CHART AND INFORMED CHARGE NURSE. WILL ENDORSE TO ONCOMING SHIFT.
[2019-03-31] MEDS: FLUTICASONE/VILANTEROL 1 EACH BLST.W.DEV IH SCH (14:51)
[2019-03-31 16:00] VITALS: BP 112/64
[2019-03-31] MEDS: ACETAMINOPHEN 325 MG TABLET PO PRN ×2 (16:45→19:53)
--- NOTE | 2019-03-31 17:01 | NUR ---
WARRANTY ADMINISTRATOR NOTE LEFT AC PERIPHERAL IV FOUND TO BE INFILTRATED. REMOVED WITH CATHETER TIP INTACT. NEW IV INSERTED AT THE LEFT RIGHT AC #22G AND IS PATENT, CLEAN, DRY AND INTACT. MEDICATIONS ADMINISTERED ORDERED.
[2019-03-31] MEDS ORDERED: MENTHOL/CETYLPYRD (CEPACOL) 1 LOZ LOZENGE PO PRN (17:30)
--- NOTE | 2019-03-31 17:51 | NUR ---
PANAMA HAT HYDRAULIC PRESS OPERATOR NOTE INFORMED DR. VANN OF PT BECOMING MORE FORGETFUL THAN UPON ADMISSION AND THAT NO BASELINE ABG HAS BEEN OBTAINED. RECEIVED ORDERS FOR STAT ABG, INFORMED RT WHO WILL BE AT THE BEDSIDE SHORTLY.
--- NOTE | 2019-03-31 18:10 | NUR ---
COMPANY LABORER NOTE PER RT ABG RESULT SHOWS MILD HYPOXIMA AND NOTHING ACUTE.
--- NOTE | 2019-03-31 18:20 | NUR ---
DIAGNOSTICS SALES DEVELOPER CLOSING NOTE PT IN BED, RESTING WITH EYES CLOSED AND EASILY AROUSABLE. PT IS ALERT AND ORIENTED X3-4 WITH PERIODS FORGETFULNESS NECESSITATING REORIENTATION. PT WITH SHALLOW PURSED LIP BREATHING AND ACCESSORY MUSCLE USE ON 2L NC UPON EXERTION, EVEN AND UNLABORED AT REST. PT IS ON HOUSEKEEPER MANAGER WITH SINUS RHYTHM, HR 90'S FOR THE DURATION OF THE SHIFT. RIGHT AC #22G IV IS SALINE LOCKED WITHOUT REDNESS OR SWELLING. ADLS PROVIDED. ALL NEEDS ATTENDED TO. BED IS LOCKED AND IN LOWEST POSITION, SIDE RAILS UP X2, BED ALARM ON, CALL LIGHT AND POSSESSIONS WITHIN REACH. WILL ENDORSE TO CAMPUS RECRUITING INTERNSHIP NURSE FOR CONTINUITY OF CARE.
--- NOTE | 2019-03-31 19:39 | NUR ---
RN OPENING NOTES RECEIVED PATIENT AWAKE IN BED. PATIENT IS A/O X 3-4. PATIENT IS ON 2L NC, RESPIRATIONS EVEN AND UNLABORED. IV SITE RAC #22 IS SL, WITHOUT READNESS OR SWELLING. SAFETY PRECAUTIONS IMPLEMENTED. CALL LIGHT WITHIN REACH. WILL CONTINUE TO MONITOR PATIENT THROUGHOUT THE SHIFT.
[2019-03-31 20:00] VITALS: BP_SYST 110; BP_SYST 120; BP_DIAS 67; BP_DIAS 85
--- NOTE | 2019-03-31 22:18 | NUR ---
RN NOTES PATIENT REFUSES TO USE THE BEDSIDE COMMODE. FEELING SOB RIGHT NOW.
--- NOTE | 2019-03-31 22:44 | NUR ---
RN NOTES PATIENT REFUSED TO USE BEDSIDE COMMODE. PATIENT USED THE TOILET AND WAS SOB. PATIENT WAS EDUCATED AND INFORMED TO USE THE COMMODE BECAUSE SOB EXACERBATION OCCURED IN THE AM SHIFT. PATIENT IS SEEN BY THE RT AT THIS TIME. PATIENT IS REQUESTING HER INHALERS SHE CAME IN WITH BUT IT WAS CONFISCATED BY AM SHIFT AND PHARMACY.
--- NOTE | 2019-03-31 22:52 | NUR ---
RN NOTES PATIENT IS SEEN BY RESPIRATORY THERAPIST. 5618 BREATHING TREATMENT WAS ADMINISTERED. WILL CONTINUE TO MONITOR.
--- NOTE | 2019-03-31 23:05 | NUR ---
RN NOTES PATIENT TOLERATED BREATHING TX. PATIENT IS NOT COMPLAINING OF SOB AT THIS TIME. WILL CONTINUE TO MONITOR PATIENT.
[2019-04-01] VITALS: BP 115/69
[2019-04-01] MEDS: ALBUTEROL FS 2.5 MG/3 ML VIAL.NEB NEB SCH ×6 (03:34→22:41)
[2019-04-01] MEDS: IPRATROPIUM NEB FS 0.5 MG/2.5 ML AMPUL.NEB NEB SCH ×7 (03:34→22:41)
[2019-04-01 04:00] VITALS: BP 117/60
[2019-04-01] MEDS: ACETAMINOPHEN 325 MG TABLET PO PRN (05:44)
--- NOTE | 2019-04-01 06:15 | NUR ---
RN CLOSING NOTES PATIENT IS RESTING COMFORTABLY IN BED AT THIS TIME. PATIENT IS A/O X 3-4, WITH PERIODS OF FORGETFULLNESS AT TIMES. PATIENT IS ON 2L NC, RESPIRATIONS EVEN AND UNLABORED. NO SIGNS OF RESPIRATORY DISTRESS OR SOB. IV SITE: RAC #22 SL, WITHOUT REDNESS OR SWELLING. TELE READING SR 83 AT THIS TIME. ALL NEEDS MET. ALL MEDS GIVEN. SAFETY PRECAUTIONS IMPLEMENTED. CALL LIGHT WITHIN REACH. WILL ENDORSE TO AM SHIFT FOR CONTINUITY OF CARE.
[2019-04-01 06:24] LABS: HEMATOCRIT 42 % (33-45); LYMPHOCYTES # (AUTO) 0.9 /CMM (0.8-4.8); LYMPHOCYTES % (AUTO) 11.5 % (20.0-44.0); MEAN CORPUSCULAR HGB CONC 34 g/dl (31.0-36.0); MEAN CORPUSCULAR VOLUME 100 fL (82-100); MONOCYTES # (AUTO) 0.8 /CMM (0.1-1.30); MONOCYTES % (AUTO) 9.3 % (2.0-12.0); NEUTROPHILS # (AUTO) 6.4 /CMM (1.8-8.9); NEUTROPHILS % (AUTO) 79.2 % (43.0-81.0); PLATELET COUNT (AUTO) 226 /CMM (150-450); RED BLOOD CELL COUNT(AUTO) 4.18 MIL/uL (4.0-5.2); WHITE BLOOD COUNT (AUTO) 8.1 K/uL (4.3-11.0)
[2019-04-01 06:30] LABS: CALCIUM, SERUM 8.7 mg/dL (8.5-10.1); CREATININE 0.7 mg/dL (0.6-1.3); MAGNESIUM 2.2 mg/dL (1.8-2.4); PHOSPHORUS 3.5 mg/dL (2.5-4.9); POTASSIUM 4.8 mmol/L (3.5-5.1)
[2019-04-01 06:35] LABS: THYROID STIMULATING HORMONE 3.015 uIU/mL (0.358-3.74)
--- NOTE | 2019-04-01 07:25 | NUR ---
STATION ENGINEER OPENING NOTES RECEIVED PT IN BED, AWAKE, A/O X3 WITH EPISODE OF FORGETFULNESS. PT ON SUPPLEMENTAL OXYGEN AT 2LPM VIA NC, WITH NO ACUTE RESPIRATORY DISTRESS NOTED. ON TELEMONITORING SR WITH HR OF 81. WHILE DOING ROUNDS, PT STATED SHE HAS HEADACHE AND NOBODY GAVE HER TYLENOL LAST NIGHT. NIGHT NURSE REMINDED HER THAT SHE JUST GOT IT. PT DENIES QUESTIONS AND CONCERNS AT THIS MOMENT. PIV TO RAC G22 SL, FLUSHED WITH NS, INTACT AND OPERATIONAL. PT KEPT COMFORTABLE. HOB ELEVATED. PT'S BED IN LOWEST, LOCKED POSITION WITH SR X2. WILL CONTINUE PLAN OF CARE.
[2019-04-01 08:00] VITALS: BP 93/51
[2019-04-01] MEDS: LEVOTHYROXINE SODIUM 100 MCG TABLET PO SCH (08:08)
[2019-04-01] MEDS: methylPREDNISolone SOD SUCC 125 MG/2ML VIAL IV SCH ×3 (08:08→16:23)
[2019-04-01] MEDS: FLUTICASONE/VILANTEROL 1 EACH BLST.W.DEV IH SCH (08:08)
[2019-04-01] MEDS: NICOTINE PATCH (21MG) 21 MG PATCH.TD24 TD SCH (08:08)
[2019-04-01] MEDS: ATORVASTATIN 10 MG TABLET PO SCH (08:12)
[2019-04-01 08:19] VITALS: BP 93/51
[2019-04-01 09:09] LABS: ABG BASE EXCESS -3.7 mmol/L; ABG PH 7.412 (7.350-7.450); ABG PO2 101.2 mmHg (75.0-100.0); AaDO2 46.3 mmHg; COHb 0.3 % (0.5-1.5); MetHb 0.6 % (0.0-1.5); O2Hb 96.1 % (94.0-97.0); SITE, ABG Right Radial; VENT MODE, BG NC 2L
[2019-04-01] MEDS ORDERED: ALBUTEROL FS 2.5 MG/3 ML VIAL.NEB CONTNEB ONE (10:30)
[2019-04-01] MEDS ORDERED: ALBUTEROL FS 2.5 MG/3 ML VIAL.NEB NEB SCH (10:30)
[2019-04-01 16:12] VITALS: BP 113/73
--- NOTE | 2019-04-01 18:47 | NUR ---
MS RN CLOSING NOTES PT REMAINS IN BED, AWAKE, A/O X3 WITH EPISODES OF FORGETFULNESS. PT ON SUPPLEMENTAL OXYGEN AT 2LPM VIA NC, WITH NO ACUTE RESPIRATORY DISTRESS NOTED. PT DENIES OF ANY PAIN OR ANY DISCOMFORT AT THIS TIME. PIV TO RAC G22 SL, FLUSHED WITH NS, INTACT AND OPERATIONAL. ALL NEEDS AND CARE PROVIDED. PT ABLE TO MAKE NEEDS KNOWN. PT KEPT COMFORTABLE. HOB ELEVATED. PT'S BED IN LOWEST, LOCKED POSITION WITH SR X2. WILL ENDORSE TO INCOMING NIGHT NURSE FOR MYRNA.
--- NOTE | 2019-04-01 19:33 | NUR ---
MS RN OPENING NOTES: RECEIVED PT ON 2LPM VIA NC AND IS TOLERATING WELL. NO S/S OF DISTRESS. PT SITTING UP AT THIS TIME AND ON HER PHONE. PT APPEARS TO BE FORGETFUL I EXPLAINED TO HER THAT THE RT JUST GAVE HER BREATHING TX AND SHE SAID SHE DOES NOT REMEMBER. WILL REORIENT PT PRN. BED KEPT IN LOW, LOCKED POSITION, AND SIDE RAILS X 2UP. OFFERED PT HOSPITAL SOCKS BUT PT REFUSING. WILL CONTINUE TO MONITOR PT.
[2019-04-01 20:01] VITALS: BP 147/76
[2019-04-02] MEDS: ALBUTEROL FS 2.5 MG/3 ML VIAL.NEB NEB SCH ×4 (01:25→10:59)
[2019-04-02] MEDS: IPRATROPIUM NEB FS 0.5 MG/2.5 ML AMPUL.NEB NEB SCH ×4 (01:25→10:58)
--- NOTE | 2019-04-02 01:37 | NUR ---
MS RN NOTES: WAS NOTIFIED BY RT THAT PT IS REFUSING BREATHING TX. PT WOULD LIKE TO SLEEP FOR NOW.
--- NOTE | 2019-04-02 05:19 | NUR ---
MS RN NOTES: VOLLEYBALL ASSISTANT COACH AT BEDSIDE. ALSO, PT REQUESTING FOR BREATHING TX SINCE SHE DID NOT RECEIVE HER LAST ONE. NOTIFIED RT.
[2019-04-02] MEDS: ACETAMINOPHEN 325 MG TABLET PO PRN (05:49)
--- NOTE | 2019-04-02 05:54 | NUR ---
MS RN NOTES: PT COMPLAINING OF HEADACHE. PT WAS ADMINISTERED TYLENOL 650MG PO. WILL CONTINUE TO MONITOR. ALSO, PT REQUESTING FOR HER IPHONE TO BE CHARGED. PINK IPHONE BROUGHT UP TO NURSING STATION TO BE CHARGED.
[2019-04-02 06:25] LABS: BASOPHILS % (AUTO) 0.1 % (0.0-2.0); HEMATOCRIT 40 % (33-45); HEMOGLOBIN 13.2 g/dL (11.5-14.8); LYMPHOCYTES # (AUTO) 0.8 /CMM (0.8-4.8); LYMPHOCYTES % (AUTO) 9.3 % (20.0-44.0); MEAN CORPUSCULAR HGB CONC 33 g/dl (31.0-36.0); MEAN CORPUSCULAR VOLUME 100 fL (82-100); MONOCYTES # (AUTO) 0.7 /CMM (0.1-1.30); MONOCYTES % (AUTO) 7.6 % (2.0-12.0); NEUTROPHILS # (AUTO) 7.4 /CMM (1.8-8.9); PLATELET COUNT (AUTO) 209 /CMM (150-450); RED BLOOD CELL COUNT(AUTO) 4.01 MIL/uL (4.0-5.2); WHITE BLOOD COUNT (AUTO) 8.9 K/uL (4.3-11.0)
--- NOTE | 2019-04-02 06:43 | NUR ---
MS EMI CLOSING NOTES: ALL NEEDS WERE ATTENDED AND ANTICIPATED FOR. PT ASLEEP AT THIS TIME AND RESTING COMFORTABLY. PT ON 2LPM VIA NC AND IS TOLERATING WELL. PT VERBALIZING THAT SHE IS EXHAUSTED AND WANTS TO GO HOME. NEW AUTOS DELIVERY DRIVER AT BED SIDE FOR CHEST X RAY. IV REMAINS INTACT. CURRENTLY H/L. BED KEPT IN LOW, LOCKED POSITION, AND SIDE RAILS X 2UP. WILL ENDORSE TO AM NURSE FOR MYRNA. Addendum: 04/02/19 at 0732 by KALA SKELTON RN PT'S IPHONE STILL AT CHARGE NURSE STATION CHARGING. LABELS PLACED BEHIND IPHONE.
[2019-04-02 07:06] LABS: CALCIUM, SERUM 8.5 mg/dL (8.5-10.1); CREATININE 0.7 mg/dL (0.6-1.3); MAGNESIUM 2.2 mg/dL (1.8-2.4); PHOSPHORUS 3.3 mg/dL (2.5-4.9); POTASSIUM 4.3 mmol/L (3.5-5.1)
--- NOTE | 2019-04-02 07:28 | NUR ---
MS RN OPENING NOTES RECEIVED PATIENT AWAKE IN BED IN NO ACUTE SIGNS OF DISTRESS. A/O X4. ABLE TO MAKE NEEDS KNOWN. PT WAS AGITATED AND ASKED FOR COFFEE. COFFEE GIVEN AND SHE CALMED DOWN AFTER. ON O2 VIA N/C @ 2LPM, TOLERATING WELL WITH NO OSB NOTED. IV ACCESS ON RAC g#22 INTACT AND PATENT. SAFETY MEASURES IN PLACE. BED IN LOW LOCKED POSITION WITH SR UP X2. CALL LIGHT WITHIN EASY REACH OF PT. WILL CONTINUE TO MONITOR.
[2019-04-02] MEDS: LEVOTHYROXINE SODIUM 100 MCG TABLET PO SCH (07:39)
[2019-04-02 08:00] VITALS: BP 131/87
[2019-04-02] MEDS: FLUTICASONE/VILANTEROL 1 EACH BLST.W.DEV IH SCH (08:22)
[2019-04-02] MEDS: ATORVASTATIN 10 MG TABLET PO SCH (08:23)
[2019-04-02] MEDS: methylPREDNISolone SOD SUCC 125 MG/2ML VIAL IV SCH ×2 (08:23→13:00)
[2019-04-02] MEDS: NICOTINE PATCH (21MG) 21 MG PATCH.TD24 TD SCH (08:23)
--- NOTE | 2019-04-02 10:05 | NUR ---
RN NOTES PT'S PINK I PHONE HANDED JUST NOW TO PT AFTER GETTING FULLY CHARGE FROM THE NURSES STATION. PT REMAINS ASKING FOR CIGARETTE TO SMOKE AND WAS NOT GIVEN. WILL CONTINUE TO MONITOR.
--- NOTE | 2019-04-02 13:17 | NUR ---
RN NOTES/AMA NOTES PT WENT HOME AGAINST MEDICAL ADVICE AND WITHOUT SEEING HER MD TODAY. DONN JOHNSON MADE AWARE. PT IS A/O X4. ABLE TO MAKE NEEDS KNOWN. PT WAS SO AGITATED AND KEPT VERBALIZING THAT SHE WANTED TO SMOKE, COMPLAINING ABOUT FOOD AND ANYTHING SHE CAN THINK OF. ALSO THREATENING TO GO HOME AMA. PT WAS ENCOURAGED TO STOP SMOKING BUT VERBALIZED THAT SHE DID'NT WANT TO STOP AND THAT SMOKING IS THE ONLY THING THAT CAN MAKE HER OK. ALL NEEDS AND CARE ATTENDED WELL AND PROMPTLY. V/S TAKEN, STABLE AND RECORDED. NAME WRISTBAND REMOVED. IV ACCESS ON LAC REMOVED WITH NO BLEEDING NOTED. PATIENT LEFT UNIT AT 1230 VIA WHEELCHAIR ACCOMPANIED BY EDGING MACHINE CATCHER TO [facility] AND SON VICKI MET HER AT THE [facility] TO TAKE PT HOME.
== END 2019-04-02 12:30 | disposition left against medical advice (07) | DRG 192 ==
LOC: ER 06:09 → TELE 10:10 → MED 04-01 08:12
PROVIDERS: ADMIT Hospitalist; ATTEND Hospitalist
DX: J44.1 Chronic obstructive pulmonary disease with (acute) exacerbation (principal); E78.5 Hyperlipidemia, unspecified; E03.9 Hypothyroidism, unspecified; E11.9 Type 2 diabetes mellitus without complications; K21.9 Gastro-esophageal reflux disease without esophagitis; I10 Essential (primary) hypertension; F17.210 Nicotine dependence, cigarettes, uncomplicated; F41.9 Anxiety disorder, unspecified; R91.8 Other nonspecific abnormal finding of lung field; Z91.14 Patient's other noncompliance with medication regimen
CPT/HCPCS: 36415; 36600; 71045-TC; 80048-TC; 80061-TC; 82803-TC; 83735-TC; 83880; 84100-TC; 84443-TC; 84484-TC; 85025-TC; 87081-TC; 94799-TC; G0378; J0171; J2930; J3105; J3475; J7030

== ENCOUNTER 2019-04-06 05:30 | Inpatient (IN) | payer MEDICARE ==
[~2019-04-06] VITALS: Ht 162.6 cm; Wt 56.2 kg
[2019-04-06] VITALS (21 sets, daily range): BP systolic 81–138; BP diastolic 30–101
[~2019-04-06 05:30] MED LIST changes: -PRED20TA PO
--- NOTE | 2019-04-06 05:30 | NUR ---
PT BIB RA WITH A C/O SOB/ RESP DISTRESS. PT ARRIVED ON A BREATHING TX AND WAS TACHYPNEIC, RETRACTIONS NOTED, LABORED BREATHING. EMS STATED THAT THE PT SMOKED ALL NIGHT AND THEN USED HER NEBULIZER MACHINE WITHOUT RELIEF. PT APPEARS ANXIOUS. PT WAS PLACED ON THE MONITOR AND CONTINUOUS PULSE OX. RT IS AT THE BEDSIDE AND IS PLACING PT ON BIPAP.
--- NOTE | 2019-04-06 05:35 | NUR ---
BIPAP SETTINGS: 15/5, RT16, FIO2 40%.
[2019-04-06] MEDS ORDERED: methylPREDNISolone SOD SUCC 125 MG/2ML VIAL ONE (05:38)
--- NOTE | 2019-04-06 05:40 | NUR ---
BLOOD WAS DRAWN AND BLOOD CULTURES X 2 DRAWN. KATI, FUNCTIONAL MENTAL DISABILITY TEACHER, IS AT THE BEDSIDE.
[2019-04-06] MEDS ORDERED: ALBUTEROL FS 2.5 MG/3 ML VIAL.NEB ONE ×3 (05:48→11:14)
[2019-04-06 05:49] LABS: BASOPHILS % (AUTO) 0.4 % (0.0-2.0); EOSINOPHILS % (AUTO) 2.4 % (0.0-6.0); HEMATOCRIT 47 % (33-45); HEMOGLOBIN 15.5 g/dL (11.5-14.8); LYMPHOCYTES # (AUTO) 1.7 /CMM (0.8-4.8); LYMPHOCYTES % (AUTO) 19.8 % (20.0-44.0); MEAN CORPUSCULAR HGB CONC 33 g/dl (31.0-36.0); MEAN CORPUSCULAR VOLUME 100 fL (82-100); MONOCYTES # (AUTO) 0.6 /CMM (0.1-1.30); MONOCYTES % (AUTO) 7.1 % (2.0-12.0); NEUTROPHILS # (AUTO) 6.2 /CMM (1.8-8.9); NEUTROPHILS % (AUTO) 70.3 % (43.0-81.0); PLATELET COUNT (AUTO) 250 /CMM (150-450); RED BLOOD CELL COUNT(AUTO) 4.69 MIL/uL (4.0-5.2); WHITE BLOOD COUNT (AUTO) 8.8 K/uL (4.3-11.0)
[2019-04-06] MEDS ORDERED: ALBUTEROL FS 2.5 MG/0.5 ML VIAL.NEB ONE (05:53)
[2019-04-06 05:59] LABS: CARBON DIOXIDE 33 mmol/L (21-32); CHLORIDE 104 mmol/L (98-107); CREATININE 0.7 mg/dL (0.6-1.3); GLUCOSE 166 mg/dL (74-106); POTASSIUM 4.3 mmol/L (3.5-5.1); SODIUM SERUM 142 mmol/L (136-145); UREA NITROGEN, BLOOD 19 mg/dL (7-18)
[2019-04-06] MEDS ORDERED: ALBUTEROL FS 2.5 MG/0.5 ML VIAL.NEB NEB ONE (06:00)
[2019-04-06] MEDS ORDERED: methylPREDNISolone SOD SUCC 125 MG/2ML VIAL IV ONE (06:00)
--- NOTE | 2019-04-06 06:07 | NUR ---
RT IS AT THE BEDSIDE.
[2019-04-06 06:13] LABS: ALANINE AMINOTRANSFERASE 102 U/L (12-78); ALBUMIN 3.1 g/dL (3.4-5.0); ALKALINE PHOSPHATASE 108 U/L (46-116); ASPARTATE AMINOTRANSFERASE 36 U/L (15-37); B-TYPE NATRIURETIC PEPTIDE 132 PG/ML (0-125); BILIRUBIN,DIRECT 0.1 mg/dL (0.0-0.2); BILIRUBIN,TOTAL 0.4 mg/dL (0.2-1.0); TOTAL PROTEIN, SERUM 6.5 g/dL (6.4-8.2)
--- NOTE | 2019-04-06 06:19 | NUR ---
PT IS AA&O X4. PT FELT COLD AND REC'D 2 WARM BLANKET. PT'S BP IS 88/62. DR BATISTA WAS NOTIFIED. NO NEW ORDERS WERE GIVEN. DR BATISTA IS OK WITH PT'S CURRENT VS.
--- NOTE | 2019-04-06 06:28 | NUR ---
CALLED RT RE: DUAL NEB ORDER
[2019-04-06] MEDS ORDERED: ALBUTEROL FS 2.5 MG/3 ML VIAL.NEB NEB ONE (06:30)
[2019-04-06] MEDS ORDERED: IPRATROPIUM NEB FS 0.5 MG/2.5 ML AMPUL.NEB NEB ONE (06:30)
[2019-04-06] MEDS ORDERED: IPRATROPIUM NEB FS 0.5 MG/2.5 ML AMPUL.NEB ONE ×2 (06:38→11:14)
--- NOTE | 2019-04-06 06:40 | NUR ---
PT REQUESTED WATER. RT GAVE THE PT WATER.
--- NOTE | 2019-04-06 06:50 | NUR ---
RT STARTED THE DUAL NEB.
--- NOTE | 2019-04-06 06:53 | NUR ---
RT RECEIVED PT ON BIPAP. ABG DONE ON BIPAP AND RESULTS RELAYED TO DR BATISTA. PT AWAKE AND ALERT, ER MD ASKED PATIENT IF SHE WANTS TO TRY TO BE OFF BIPAP, PT WANTS TO STAY ON BIPAP. BREATHING TX GIVEN PER ER MD ORDER. ALARMS CHECKED AND AUDIBLE. BIPAP PLUGGED IN RED OUTLET. WILL CONTINUE TO MONITOR.
--- NOTE | 2019-04-06 06:57 | NUR ---
DR BATISTA IS AT THE BEDSIDE WITH RT. PT TO BE ADMITTED. PT IS STAYING ON BIPAP.
--- NOTE | 2019-04-06 07:22 | NUR ---
Paged Rey Haney for admission
--- NOTE | 2019-04-06 07:24 | NUR ---
REPORT GIVEN TO EMI CASILLAS FOR MYRNA.
--- NOTE | 2019-04-06 07:25 | NUR ---
REPORT RECEIVED FROM CHRISTAL FOR MYRNA, RECEIVED PATIENT IN BED AWAKE, NOT IN DISTRESS, HOOKED TO VASCULAR MANAGER AND BIPAP MACHINE W SETTINGS OF IPAP/EPAP 15/5, RATE 16, O2 30%. WILL CONTINUE TO MONITOR.
--- NOTE | 2019-04-06 07:53 | NUR ---
[facility] CALLED FOR PARKER BRYAN.
--- NOTE | 2019-04-06 08:45 | NUR ---
REPORT GIVEN TO MS YAO MIDDLETON OF ICU
--- NOTE | 2019-04-06 09:00 | NUR ---
RN NOTE PT DOES NOT WANT ANY HEALTH INFORMATION OR DECIION MAKING FROM HER SON, VICKI DUNBAR. SHE PREFERS [employer]ORS DECISIONS AND HER SISTER, LAUREN BARR, SHOULD THE PT BECOME UNABLE TO MAKE DECISIONS.
--- NOTE | 2019-04-06 09:37 | NUR ---
RN NOTE RECEIVED PT ON BED, ABLE TO TRANSFER TO BED FROM [facility], AOX3, ANXIOUS, SHORT OF BREATH WITHOUT BIPAP, PT PLACED ON BIPAP, CO BEING THIRSTY, HUNGRY AND SICK TO STOMACH (NAUSEA). DENIES ANY CHEST PAIN, SR-ST RATE OF 100 BMP ON TELEMETRY, NO FEVER. SAFETY MEASURES IN PLACE, CALL LIGHT WITHIN REACH. AWAITING FOR ADMITTING ORDERS FROM .
[2019-04-06 10:13] LABS: ABG BASE EXCESS 3.5 mmol/L; ABG OXYGEN SATURATION 98.5 % (92.0-98.5); ABG PCO2 44.3 mmHg (35.0-45.0); ABG PH 7.426 (7.350-7.450); ABG PO2 167.2 mmHg (75.0-100.0); AaDO2 67.1 mmHg; COHb 2.5 % (0.5-1.5); MetHb 0.4 % (0.0-1.5); O2Hb 95.6 % (94.0-97.0); SITE, ABG Left Radial; VENT MODE, BG ST 15/5 R 16
[2019-04-06] MEDS ORDERED: ONDANSETRON HCL/PF 4 MG/2 ML VIAL IV PRN (10:15)
[2019-04-06] MEDS ORDERED: ONDANSETRON HCL/PF 4 MG/2 ML VIAL IVP PRN (11:00)
[2019-04-06] MEDS ORDERED: ZOLPIDEM TARTRATE 5 MG TABLET PO PRN (11:00)
[2019-04-06] MEDS ORDERED: ACETAMINOPHEN 325 MG TABLET PO PRN (11:00)
[2019-04-06] MEDS ORDERED: Z GUARD REMEDY 2 OZ OINT TP PRN (11:00)
[2019-04-06] MEDS: IPRATROPIUM NEB FS 0.5 MG/2.5 ML AMPUL.NEB NEB SCH ×4 (11:20→23:04)
[2019-04-06] MEDS: ALBUTEROL FS 2.5 MG/3 ML VIAL.NEB NEB SCH ×4 (11:20→23:04)
--- NOTE | 2019-04-06 12:20 | NUR ---
RN NOTE PT HAS BEEN ON NC 2L/MIN SINCE 1100 AM, REFUSED EARLIER ABG BLOOD DRAW STATING SHE HAD THIS IN AM. PT SATURATION 94-96%. AOX3, PT ATE LATE BREAKFAST, AND NOW LUNCH. TOLERATED WELL.
[2019-04-06] MEDS: ENOXAPARIN SODIUM 40 MG/0.4 ML DISP.SYRIN SQ SCH (12:33)
[2019-04-06] MEDS: methylPREDNISolone SOD SUCC 125 MG/2ML VIAL IV SCH ×2 (12:34→17:55)
[2019-04-06] MEDS ORDERED: ALBUTEROL HALF STRENGTH 1.25 MG/3 ML VIAL.NEB NEB PRN (14:30)
[2019-04-06] MEDS: ACETYLCYSTEINE 10% SOLN 400 MG/4 ML VIAL NEB SCH ×2 (15:37→23:04)
[2019-04-06] MEDS: NICOTINE PATCH (14MG) 14 MG PATCH.TD24 TD SCH (15:38)
[2019-04-06] MEDS: LEVOFLOXACIN (500MG) 500 MG TABLET PO SCH (15:38)
--- NOTE | 2019-04-06 19:15 | NUR ---
EPIDEMIOLOGY INVESTIGATOR NOTE PATIENT RECEIVED IN BED A/O X3-4. PATIENT ABLE TO EXPRESS NEEDS. PATIENT SLIGHTLY FORGETFUL, NEEDS MINOR REORIENTATION AT THIS TIME. PATIENT ON 2L O2 SATURATION 96% PATIENT HAS NO C/O AT THIS TIME. PATIENT TALKING ON THE PHONE TO HER NIECE. PATIENT HR WNL SR NO S/SA OF CHEST PAIN PATIENT DENIES DISCOMFORT/PAIN AT THIS TIME. EXPRESSED PATIENT SHIFT GOAL TODAY, EXPRESSED TO PATIENT THAT SHE WILL NEED IV ACCESS. PATIENT EXPRESSES FEAR, ASKS IF IV CAN BE PLACED LATER. RN OBLIGES. PATIENT REFUSES TO USE TO BESIDE COMMODE DESPITE MD ORDER FOR BEDREST. AGREED TO USE WHEELCHAIR TO GO TO THE REST ROOM. SAFETY PRECAUTIONS IN PLACE. BED RAILS UP X2. RN WILL CONTINUE TO MONITOR FOR CHANGE OF STATUS.
[2019-04-06] MEDS: clonazePAM 1 MG TABLET PO PRN (20:52)
[2019-04-07] VITALS (8 sets, daily range): BP systolic 90–121; BP diastolic 52–77
--- NOTE | 2019-04-07 | NUR ---
SECRETARY NOTE PATIENT REFUSES TO HAVE IV PLACED. MICROFILM DUPLICATING UNIT SUPERVISOR ED NOTIFIED. PATIENT HAS NO IV MEDICATIONS AT THIS TIME. MD AWARE. PATIENT EDUCATED ON IMPORTANCE OF HAVING IV ACCESS IN CASE OF EMERGENCY. PATIENT STILL REFUSES RN WILL CONTINUE TO MONITOR. .
--- NOTE | 2019-04-07 02:39 | NUR ---
ELECTRIC SWITCH TESTER NOTE GIGI GAVE ORDER TO DOWNGRADE PATIENT TO [facility], REPORT GIVEN TO BRIANNE KABA
--- NOTE | 2019-04-07 02:55 | NUR ---
CUSTOMER SECURITY CLERK NOTE PATIENT TRANSFERRED TO [facility]
--- NOTE | 2019-04-07 03:00 | NUR ---
[facility]/EXCELSIOR MACHINE FEEDER NOTES PATIENT RECEIVED FROM ICU TO [facility] AT THIS TIME. PATIENT A/O X4, DENIES ANY PAIN OR DISCOMFORT AT THIS TIME. NO S/S OF ACUTE DISTRESS NOTED. RESPIRATION EVEN AND UNLABORED. NO SOB NOTED. SKIN WARM TO TOUCH. PATIENT ON 2LPM O2 VIA NASAL CANULA SATURATING 96%. SAFETY PRECAUTIONS IN PLACE. BED AT THE LOWEST POSITION, LOCKED. WILL CONTINUE TO MONITOR PATIENT PER PLAN OF CARE. CALL LIGHT WITHIN. REACH.
[2019-04-07] MEDS: IPRATROPIUM NEB FS 0.5 MG/2.5 ML AMPUL.NEB NEB SCH ×6 (04:09→23:13)
[2019-04-07] MEDS: ALBUTEROL FS 2.5 MG/3 ML VIAL.NEB NEB SCH ×6 (04:10→23:13)
--- NOTE | 2019-04-07 07:11 | NUR ---
[facility]/RN NOTES PATEINT IN NO ACUTE DISTRESS, RESTING COMFORTABLY AT THIS TIME. WILL ENDORSED AM SHIFT NURSE FOR MYRNA
[2019-04-07 07:22] LABS: BASOPHILS % (AUTO) 0.1 % (0.0-2.0); EOSINOPHILS % (AUTO) 0.1 % (0.0-6.0); HEMATOCRIT 40 % (33-45); HEMOGLOBIN 13.4 g/dL (11.5-14.8); LYMPHOCYTES % (AUTO) 9.6 % (20.0-44.0); MEAN CORPUSCULAR HGB CONC 34 g/dl (31.0-36.0); MEAN CORPUSCULAR VOLUME 99 fL (82-100); MONOCYTES # (AUTO) 0.9 /CMM (0.1-1.30); NEUTROPHILS # (AUTO) 8.1 /CMM (1.8-8.9); NEUTROPHILS % (AUTO) 81.2 % (43.0-81.0); PLATELET COUNT (AUTO) 191 /CMM (150-450); RED BLOOD CELL COUNT(AUTO) 3.98 MIL/uL (4.0-5.2); WHITE BLOOD COUNT (AUTO) 9.9 K/uL (4.3-11.0)
--- NOTE | 2019-04-07 07:26 | NUR ---
RN OPENING NOTES PATIENT IN BED AWAKE AND ALERT. WAS EAGER TO BUY CIGARETTES OUTSIDE THE HOSPITAL. PER NOC SHIFT, PATIENT REFUSES TO GET IV INSERTED. NO IV MEDS NO IVF ORDERED. PATIENT HAS REQUEST TO NOT GET CALLS FROM HER SON, VICKI DUNBAR. ALREADY ADVISED TO THE UNIT SEC/HANDLE AND VENT MACHINE OPERATOR. NO COMPLAINS OF ANY PAIN OR SOB AT THIS TIME. BED LOCKED AND IN LOWEST POSITION. CALL LIGHT WITHIN REACH. WILL CONTINUE TO MONITOR THROUGHOUT THE SHIFT
[2019-04-07] MEDS: ACETYLCYSTEINE 10% SOLN 400 MG/4 ML VIAL NEB SCH ×3 (07:37→23:13)
[2019-04-07 07:38] LABS: ALBUMIN 2.6 g/dL (3.4-5.0); BILIRUBIN,TOTAL 0.2 mg/dL (0.2-1.0); CALCIUM, SERUM 8.6 mg/dL (8.5-10.1); CREATININE 0.7 mg/dL (0.6-1.3); MAGNESIUM 2.1 mg/dL (1.8-2.4); PHOSPHORUS 2.8 mg/dL (2.5-4.9); POTASSIUM 4.6 mmol/L (3.5-5.1); TOTAL PROTEIN, SERUM 5.4 g/dL (6.4-8.2)
[2019-04-07 07:44] LABS: THYROID STIMULATING HORMONE 1.59 uIU/mL (0.358-3.74)
[2019-04-07] MEDS: NICOTINE PATCH (14MG) 14 MG PATCH.TD24 TD SCH (08:39)
[2019-04-07] MEDS: ENOXAPARIN SODIUM 40 MG/0.4 ML DISP.SYRIN SQ SCH (08:39)
--- NOTE | 2019-04-07 08:39 | NUR ---
RN NOTES PATIENT REFUSED HER NICOTINE PATCH AND LOVENOX. SOLU MEDROL ON HOLD BECAUSE NO IV ACCESS. PATIENT VERY HARD STICK AND WAS HARD TO FIND A VEIN. PATIENT COMPLAINING AND WAS ASKING FOR A MIDLINE. WILL CALL MD AND POULTRY HATCHERY MANAGER TO REQUEST FOR A MIDLINE ACCESS. CN AWARE
--- NOTE | 2019-04-07 08:43 | NUR ---
PATIENT WITH POOR PERIPHERAL IV ACCESS,PATIENT UPSET AND VERBALIZED THAT EVERYTIME SOMEBODY TRIED IV ON HER THEY JUST DO FISHING AND SHE WAS STICK MULTIPLE TIMES ALREADY.UNABLE TO START IV ,PATIENT VERY UPSET AND WANTED MIDLINE.PARKER BRYAN NOTIFIED AND WILL PLACED IT ONCE HE SAW PT. NURSING SUP MADE AWARE.
[2019-04-07] MEDS: methylPREDNISolone SOD SUCC 125 MG/2ML VIAL IV SCH ×3 (11:08→17:27)
--- NOTE | 2019-04-07 11:17 | NUR ---
RN NOTES DR BRYAN INSERTED A RIGHT UPPER ARM MIDLINE #18 TO THE PATIENT. SOLU MEDROL HAS BEEN ADMINISTERED. INTACT, PATENT AND SALINE FLUSHED. PHARMACY NOTIFIED THAT SOLU MEDROL HAS BEEN GIVEN 2 HOURS LATE AND THE NEXT DOSE WOULD BE AT 1300
[2019-04-07] MEDS: clonazePAM 1 MG TABLET PO PRN (13:41)
--- NOTE | 2019-04-07 14:37 | NUR ---
PATIENT VERY AGITATED WANTED TO SMOKE,EXPLAINED SHE HAS NICOTINE PATCH,STILL WANTED TO SMOKE,EXPLAINED SMOKE CESSATION PROTOCOL,STILL INSISTED TO SMOKE ,PARKER BRYAN NOTIFIED MADE AWARE OF SITUATION AND GAVE ORDERS FOR PATIENT TO HAVE PATIO PREVILEGE TO SMOKE. SMOKE WAIVER OBTAINED FROM PATIENT.
[2019-04-07] MEDS: LEVOFLOXACIN (500MG) 500 MG TABLET PO SCH (15:22)
--- NOTE | 2019-04-07 15:34 | NUR ---
RN NOTES PATIENT REFUSES TO GIVE HER SMOKING MATCH TO THE SECURITY. PATIENT STILL HAS IT WITH HER. EXPLAINED PROTOCOL. WOOD HEEL BACK LINER MADE AWARE, WILL TALK TO PATIENT.
--- NOTE | 2019-04-07 16:45 | NUR ---
RN NOTES PATIENT LEFT THE UNIT TO GO TO CT. TRANSPORT WHEELED HER OUT OF THE UNIT, VSS
--- NOTE | 2019-04-07 18:36 | NUR ---
RN CLOSING NOTES PATIENT AWAKE IN BED WATCHING TV. WENT OUT THE UNIT TO SMOKE, AWARE. SIGNED THE WAIVER. KNOWS THE RISKS OF SMOKING TO HER HEALTH. PATIENT NON COMPLIANT WITH HER MEDS. COMPLAINING A LOT ABOUT EVERYTHING. NO COMPLAINS OF ANY PAIN AT THIS TIME NOR SOB. ON 2L NC. DR BRYAN INSERTED A RIGHT UPPER ARM MIDLINE THIS AFTERNOON. BED LOCKED AND IN LOWEST POSITION. CALL LIGHT WITHIN REACH. WILL ENDORSE TO NOC SHIFT FOR MYRNA
--- NOTE | 2019-04-07 19:30 | NUR ---
MS1 RN NOTES RECEIVED ON BED A/O X3-4,BREATHING REGULAR,NOT IN ANY FORM OF DISTRESS.O2 IN USED AT 2L/NC TO KEEP O2 SAT ABOVE 90%.WITH RIGHT UPPER ARM MIDLINE FOR MEDS INTACT AND PATENT.AMBULATE TO THE RESTROOM WITH STAND BY ASSIST.FALL PRECAUTION OBSERVED,BED ON LOWEST POSITION AND LOCKED.CALL LIGHT IN REACH,NEEDS ANTICIPATED.
--- NOTE | 2019-04-07 19:35 | NUR ---
MS1 RN NOTES RT AT BEDSIDE ADMINISTERING BREATHING TREATMENT SCHEDULED.
--- NOTE | 2019-04-08 | NUR ---
MS1 RN NOTES AWAKE THIS TIME,CLAIMED SHE SLEPT GOOD.
--- NOTE | 2019-04-08 00:15 | NUR ---
MS1 RN NOTES PATIENT GET OUT OF BED,BED ALARM TRIGGERED AND SHE GET MAD ASKING WHY HER BED IS ON ALARM.EXPLAINED ,THAT IS FOR HER SAFETY,THAT SOMEBODY SHOULD BE WITH HER BECAUSE OF FALL RISK PRECAUTION
--- NOTE | 2019-04-08 00:48 | NUR ---
MS1 RN NOTES AWAKE,WANTS TO GO OUT TO SMOKE EXPLAINED RISK AND BENEFITS OF SMOKING WHILE UNDER TREATMENT OF COPD EXACERBATION.SHE BECAME VERBALLY ABUSIVE,THREATENING THAT SHE WILL GO OUT BY HERSELF.SHE REFUSED TO LISTEN AND SHE VERBALIZED SHE CAN MANAGE TO GOUT WITH OUT OXYGEN.ACCOMPANIED BY MOHSEN MCGARRY,SHE WENT OUT BY WHEELCHAIR,NO OXYGEN,TO SMOKE.CHARGE NURSE AWARE
--- NOTE | 2019-04-08 00:59 | NUR ---
MS1 RN NOTES BACK THIS TIME FROM SMOKING ACCOMPANIED BY MALGORZATA CONNOLLY,MONITOR FOR EPISODE OF SOB.PUT BACK ON OXYGEN 2L/NC
--- NOTE | 2019-04-08 01:15 | NUR ---
MS1 RN NOTES FEELING HUNGRY,GIVEN SNACKS PER REQUEST.
[2019-04-08] MEDS: IPRATROPIUM NEB FS 0.5 MG/2.5 ML AMPUL.NEB NEB SCH ×6 (03:14→23:10)
[2019-04-08] MEDS: ALBUTEROL FS 2.5 MG/3 ML VIAL.NEB NEB SCH ×6 (03:14→23:10)
--- NOTE | 2019-04-08 06:40 | NUR ---
MS RN NOTES CALM AFTER HAVING SNACKS,NICE TO NURSES THIS TIME.ON BED A/O X3-4,SLEEPING.NO EPISODE OF SOB NOTED.BREATHING TREATMENT TOLERATED WELL.MAINTAIN SAFE ENVIRONMENT AT ALL TIMES.NO FALL,NO INJURY.CALL LIGHT IN REACH NEEDS ATTENDED.WILL ENDORSE TO DAY NURSE FOR MYRNA.
[2019-04-08] MEDS: ACETYLCYSTEINE 10% SOLN 400 MG/4 ML VIAL NEB SCH ×3 (07:21→23:10)
[2019-04-08 07:29] LABS: BASOPHILS % (AUTO) 0.2 % (0.0-2.0); EOSINOPHILS % (AUTO) 0.1 % (0.0-6.0); HEMATOCRIT 36 % (33-45); HEMOGLOBIN 12.1 g/dL (11.5-14.8); LYMPHOCYTES # (AUTO) 1.1 /CMM (0.8-4.8); LYMPHOCYTES % (AUTO) 9.2 % (20.0-44.0); MEAN CORPUSCULAR HGB CONC 33 g/dl (31.0-36.0); MEAN CORPUSCULAR VOLUME 100 fL (82-100); MONOCYTES # (AUTO) 1.2 /CMM (0.1-1.30); MONOCYTES % (AUTO) 9.7 % (2.0-12.0); NEUTROPHILS # (AUTO) 9.6 /CMM (1.8-8.9); NEUTROPHILS % (AUTO) 80.8 % (43.0-81.0); PLATELET COUNT (AUTO) 188 /CMM (150-450); RED BLOOD CELL COUNT(AUTO) 3.65 MIL/uL (4.0-5.2); WHITE BLOOD COUNT (AUTO) 11.9 K/uL (4.3-11.0)
[2019-04-08 08:00] VITALS: BP 120/54
[2019-04-08] MEDS: NICOTINE PATCH (14MG) 14 MG PATCH.TD24 TD SCH ×2 (09:00→09:14)
[2019-04-08] MEDS: ENOXAPARIN SODIUM 40 MG/0.4 ML DISP.SYRIN SQ SCH ×2 (09:00→09:16)
[2019-04-08] MEDS: methylPREDNISolone SOD SUCC 125 MG/2ML VIAL IV SCH ×3 (09:14→17:30)
[2019-04-08] MEDS: COLCHICINE 0.6 MG TABLET PO SCH (13:33)
[2019-04-08] MEDS: LEVOFLOXACIN (500MG) 500 MG TABLET PO SCH (15:03)
[2019-04-08 16:00] VITALS: BP 121/48
[2019-04-08 17:22] LABS: CALCIUM, SERUM 7.4 mg/dL (8.5-10.1); MAGNESIUM 1.8 mg/dL (1.8-2.4); PHOSPHORUS 2.8 mg/dL (2.5-4.9); POTASSIUM 4.5 mmol/L (3.5-5.1)
[2019-04-08 20:00] VITALS: BP 122/57
[2019-04-09] VITALS: BP 117/52
[2019-04-09] MEDS: IPRATROPIUM NEB FS 0.5 MG/2.5 ML AMPUL.NEB NEB SCH ×4 (03:30→15:30)
[2019-04-09] MEDS: ALBUTEROL FS 2.5 MG/3 ML VIAL.NEB NEB SCH ×4 (03:30→15:30)
[2019-04-09 04:00] VITALS: BP 111/49
[2019-04-09] MEDS: ACETYLCYSTEINE 10% SOLN 400 MG/4 ML VIAL NEB SCH ×2 (07:27→15:30)
--- NOTE | 2019-04-09 07:40 | NUR ---
Nurse Notes: received report from the night nurse Genesis Cali RN. patient remains on nasal cannula, 2 L per minute. No complaints of pain given. In no respiratory distress.
[2019-04-09 08:00] VITALS: BP 129/89
[2019-04-09] MEDS: NICOTINE PATCH (14MG) 14 MG PATCH.TD24 TD SCH (09:00)
[2019-04-09] MEDS: ENOXAPARIN SODIUM 40 MG/0.4 ML DISP.SYRIN SQ SCH (09:00)
[2019-04-09] MEDS: methylPREDNISolone SOD SUCC 125 MG/2ML VIAL IV SCH ×3 (09:24→17:49)
[2019-04-09] MEDS: COLCHICINE 0.6 MG TABLET PO SCH (09:25)
--- NOTE | 2019-04-09 14:30 | NUR ---
Nurse Notes: patient wants to smoke. Nurse accompanied patient outside with wheelchair. Oxygen was turn off when patient started to lit up her cigarette. oxygen was turn on when cigarette was finished smoked.
--- NOTE | 2019-04-09 15:30 | NUR ---
Nurse Notes: patient very anxious and angry at the hospital for releasing her home. Patient stated did not see Piyush Saldana today, but prescription for Prednisone was written earlier and left in chart.
[2019-04-09] MEDS: LEVOFLOXACIN (500MG) 500 MG TABLET PO SCH (15:54)
[2019-04-09 16:00] VITALS: BP 134/75
--- NOTE | 2019-04-09 18:35 | NUR ---
Discharge Note: patient had to wait a little longer, nurse was discharging another patient who ambulance had came at 1645, and was ready to take the other patient to SNF. Discharge Instructions was started, but on hold for nurse to discharge the other patient. Patient was given IV solu-medrol 60 mg IV push prior to removing hep lock. Son was coming to grain picker patient with oxygen tank.
--- NOTE | 2019-04-09 19:05 | NUR ---
Nurse Notes: son Flavio was called, son had bought the oxygen tank and the tank was empty. louie Muniz said, only 7 minutes away, and he would get the other oxygen tank. louie Muniz was called, and the patient was fine, sitting at the dining table of the house, with her oxygen. patient to start Prednisone tomorrow, was given IV solu-medrol prior to removing hep lock.
== END 2019-04-09 18:16 | disposition home or self-care (01) | DRG 189 ==
LOC: ER 05:31 → ICU 07:58 → TELE-TD 04-07 02:36 → MEDSG1 04-07 11:28
PROVIDERS: ADMIT Nurse Practitioner Acute Care
PROC: 5A09357 Assistance with Respiratory Ventilation, Less than 24 Consecutive Hours, Continuous Positive Airway Pressure (ICD-10-PCS; principal; 2019-04-06)
PROC: 05H533Z Insertion of Infusion Device into Right Subclavian Vein, Percutaneous Approach (ICD-10-PCS; 2019-04-07)
PROC: B546ZZA Ultrasonography of Right Subclavian Vein, Guidance (ICD-10-PCS; 2019-04-07)
DX: J96.01 Acute respiratory failure with hypoxia (principal); J44.1 Chronic obstructive pulmonary disease with (acute) exacerbation; I31.3 Pericardial effusion (noninflammatory); J96.02 Acute respiratory failure with hypercapnia; F41.9 Anxiety disorder, unspecified; K21.9 Gastro-esophageal reflux disease without esophagitis; Z79.51 Long term (current) use of inhaled steroids; E03.9 Hypothyroidism, unspecified; D64.9 Anemia, unspecified; F17.210 Nicotine dependence, cigarettes, uncomplicated; E78.5 Hyperlipidemia, unspecified; I10 Essential (primary) hypertension; Z86.73 Personal history of transient ischemic attack (TIA), and cerebral infarction without residual deficits; E11.9 Type 2 diabetes mellitus without complications; Z99.81 Dependence on supplemental oxygen
CPT/HCPCS: 36415; 36600; 71045-TC; 71250-TC; 80048-TC; 80053-TC; 80061-TC; 80076-TC; 82803-TC; 83540-TC; 83605-TC; 83735-TC; 83880; 84100-TC; 84443-TC; 84484-TC; 85025-TC; 87040-TC; 87081-TC; 93307-TC; 93308-TC; 94799-TC; 97116-TC; 97530-TC; G0378; J1650; J2405; J2930

== ENCOUNTER 2019-05-10 11:08 | Inpatient (IN) | payer MEDICARE ==
[~2019-05-10] VITALS: Ht 161.3 cm; Wt 45.8 kg
[2019-05-10] VITALS (12 sets, daily range): BP systolic 89–139; BP diastolic 45–74
--- NOTE | 2019-05-10 11:10 | NUR ---
BIBRA60 FROM HOME FOR SOB X 2DAYS; WORSE TODAY, GIVEN ALBUTEROL X2 HYDROSTATIC TESTER. PATIENT ATTACHED TO THE MONITOR, BREATHING TX ONGOING. RT AT BEDSIDE. PATIENT TACHYCARDIC ON THE MONITOR. DENIES PAIN AT THIS TIME. WILL MONITOR.
--- NOTE | 2019-05-10 11:50 | NUR ---
BIPAP ORDERED BY DR. KAPADIA, RT AT BEDSIDE.
[2019-05-10] MEDS ORDERED: methylPREDNISolone SOD SUCC 125 MG/2ML VIAL ONE (11:57)
[2019-05-10 11:58] LABS: BASOPHILS % (AUTO) 0.6 % (0.0-2.0); EOSINOPHILS % (AUTO) 0.9 % (0.0-6.0); HEMATOCRIT 45 % (33-45); HEMOGLOBIN 15.1 g/dL (11.5-14.8); LYMPHOCYTES # (AUTO) 1.7 /CMM (0.8-4.8); LYMPHOCYTES % (AUTO) 29.8 % (20.0-44.0); MEAN CORPUSCULAR HGB CONC 33 g/dl (31.0-36.0); MEAN CORPUSCULAR VOLUME 100 fL (82-100); MONOCYTES # (AUTO) 0.5 /CMM (0.1-1.30); MONOCYTES % (AUTO) 8.8 % (2.0-12.0); NEUTROPHILS # (AUTO) 3.4 /CMM (1.8-8.9); NEUTROPHILS % (AUTO) 59.9 % (43.0-81.0); PLATELET COUNT (AUTO) 247 /CMM (150-450); RED BLOOD CELL COUNT(AUTO) 4.51 MIL/uL (4.0-5.2); WHITE BLOOD COUNT (AUTO) 5.6 K/uL (4.3-11.0)
[2019-05-10] MEDS ORDERED: IPRATROPIUM NEB FS 0.5 MG/2.5 ML AMPUL.NEB NEB ONE (12:00)
[2019-05-10] MEDS ORDERED: ALBUTEROL FS 2.5 MG/3 ML VIAL.NEB NEB ONE (12:00)
[2019-05-10] MEDS ORDERED: methylPREDNISolone SOD SUCC 125 MG/2ML VIAL IV ONE (12:00)
[2019-05-10 12:06] LABS: CALCIUM, SERUM 9.3 mg/dL (8.5-10.1); CARBON DIOXIDE 32 mmol/L (21-32); CHLORIDE 104 mmol/L (98-107); CREATININE 0.7 mg/dL (0.6-1.3); GLUCOSE 85 mg/dL (74-106); POTASSIUM 4.4 mmol/L (3.5-5.1); SODIUM SERUM 142 mmol/L (136-145); UREA NITROGEN, BLOOD 17 mg/dL (7-18)
[2019-05-10] MEDS ORDERED: LISI2.5T2 PO (12:16)
[2019-05-10 12:18] LABS: B-TYPE NATRIURETIC PEPTIDE 85 PG/ML (0-125)
--- NOTE | 2019-05-10 12:27 | NUR ---
WITH NEW ORDER FOR ABG. RT MADE AWARE. PRIMARY NURSE AWARE.
[2019-05-10 12:39] LABS: ABG OXYGEN SATURATION 96.3 % (92.0-98.5); ABG PCO2 40.9 mmHg (35.0-45.0); ABG PH 7.386 (7.350-7.450); ABG PO2 92.1 mmHg (75.0-100.0); AaDO2 290.7 mmHg; COHb 1.8 % (0.5-1.5); MetHb 0.5 % (0.0-1.5); O2Hb 94.1 % (94.0-97.0); SITE, ABG Left Radial; VENT MODE, BG ST 20/5 R 16
--- NOTE | 2019-05-10 13:18 | NUR ---
ROOM ASSIGNED [id number]
[2019-05-10] MEDS ORDERED: HYDROCODONE/APAP 5/325MG 1 EACH TABLET PO PRN (13:30)
[2019-05-10] MEDS ORDERED: MAG HYDROX/AL HYDROX/SIMETH 30 ML UDC PO PRN (13:30)
[2019-05-10] MEDS ORDERED: MORPHINE SULFATE INJ 2 MG/ML DISP.SYRIN IV PRN (13:30)
[2019-05-10] MEDS ORDERED: MAGNESIUM HYDROXIDE 30 ML UDC PO PRN (13:30)
[2019-05-10] MEDS ORDERED: ACETAMINOPHEN 325 MG TABLET PO PRN (13:30)
[2019-05-10] MEDS ORDERED: AZITHROMYCIN 500 MG in IV D5W 250 ML IV ONE (13:30)
[2019-05-10] MEDS ORDERED: ONDANSETRON HCL/PF 4 MG/2 ML VIAL IVP PRN (13:30)
[2019-05-10] MEDS ORDERED: DEXTROSE 50%-WATER 50 ML DISP.SYRIN IV PRN (14:00)
--- NOTE | 2019-05-10 14:00 | NUR ---
PATIENT TRANSFERRED TO ROOM 256. RT AT BEDSIDE.
[2019-05-10] MEDS: PANTOPRAZOLE 40 MG TABLET.DR PO SCH (14:22)
--- NOTE | 2019-05-10 15:30 | NUR ---
ICU/RN: Pt refusing BiPAP; states SOB resolved. Educated.
[2019-05-10] MEDS ORDERED: MONTELUKAST SODIUM (10MG) 10 MG TABLET PO PRN (16:00)
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
[2019-05-10] MEDS: BLOOD SUGAR DIAGNOSTIC 1 EACH STRIP IN SCH ×2 (17:02→22:45)
[2019-05-10] MEDS: methylPREDNISolone SOD SUCC 40 MG/ML VIAL IV SCH (17:02)
[2019-05-10] MEDS: INSULIN REGULAR, HUMAN 100 UNIT/ML 3 ML VIAL SQ PRN ×2 (17:13→22:46)
[2019-05-10] MEDS: clonazePAM 1 MG TABLET PO PRN (17:16)
--- NOTE | 2019-05-10 17:19 | NUR ---
ICU/RN: Blood glucose 300mg/dl. Pt ate snacks 45mins prior to checking. Pt anxious. Administered clonopin for relief; educated on relaxation techniques. On 3L/min NC tolerating well. Will cont to monitor pt.
[2019-05-10] MEDS: IPRATROPIUM NEB FS 0.5 MG/2.5 ML AMPUL.NEB NEB PRN (20:15)
[2019-05-10] MEDS: ALBUTEROL FS 2.5 MG/3 ML VIAL.NEB NEB PRN (20:15)
[2019-05-11] VITALS (15 sets, daily range): BP systolic 85–113; BP diastolic 40–72
[2019-05-11 04:36] LABS: BASOPHILS % (AUTO) 0.1 % (0.0-2.0); EOSINOPHILS % (AUTO) 0.1 % (0.0-6.0); HEMATOCRIT 41 % (33-45); HEMOGLOBIN 13.7 g/dL (11.5-14.8); LYMPHOCYTES # (AUTO) 0.5 /CMM (0.8-4.8); LYMPHOCYTES % (AUTO) 8.9 % (20.0-44.0); MEAN CORPUSCULAR HGB CONC 34 g/dl (31.0-36.0); MEAN CORPUSCULAR VOLUME 101 fL (82-100); MONOCYTES # (AUTO) 0.4 /CMM (0.1-1.30); MONOCYTES % (AUTO) 6.3 % (2.0-12.0); NEUTROPHILS # (AUTO) 4.9 /CMM (1.8-8.9); NEUTROPHILS % (AUTO) 84.6 % (43.0-81.0); PLATELET COUNT (AUTO) 238 /CMM (150-450); RED BLOOD CELL COUNT(AUTO) 4.03 MIL/uL (4.0-5.2); WHITE BLOOD COUNT (AUTO) 5.8 K/uL (4.3-11.0)
[2019-05-11 04:47] LABS: CALCIUM, SERUM 9.3 mg/dL (8.5-10.1); CREATININE 0.8 mg/dL (0.6-1.3); MAGNESIUM 1.9 mg/dL (1.8-2.4); PHOSPHORUS 3.3 mg/dL (2.5-4.9); POTASSIUM 5.2 mmol/L (3.5-5.1)
[2019-05-11] MEDS: ALBUTEROL FS 2.5 MG/3 ML VIAL.NEB NEB PRN ×2 (06:49→18:04)
[2019-05-11] MEDS: IPRATROPIUM NEB FS 0.5 MG/2.5 ML AMPUL.NEB NEB PRN (06:49)
[2019-05-11] MEDS: LEVOTHYROXINE SODIUM 100 MCG TABLET PO SCH (08:06)
[2019-05-11] MEDS: BLOOD SUGAR DIAGNOSTIC 1 EACH STRIP IN SCH ×4 (08:06→22:14)
[2019-05-11] MEDS: methylPREDNISolone SOD SUCC 40 MG/ML VIAL IV SCH ×3 (08:07→17:15)
[2019-05-11] MEDS: PANTOPRAZOLE 40 MG TABLET.DR PO SCH (08:07)
[2019-05-11] MEDS: ATORVASTATIN 10 MG TABLET PO SCH (08:09)
[2019-05-11] MEDS: LISINOPRIL (5MG) 5 MG TABLET PO SCH (08:09)
[2019-05-11] MEDS: FLUTICASONE/VILANTEROL 1 EACH BLST.W.DEV IH SCH (08:09)
[2019-05-11] MEDS ORDERED: FLUTICASONE/SALMETEROL DISKUS IH SCH (09:00)
--- NOTE | 2019-05-11 09:00 | NUR ---
ICU/RN: Marco A Lyon at bedside, updated on pt status. Social situation reviewed, pending SW consult. Pt refuses psych consult
--- NOTE | 2019-05-11 10:30 | NUR ---
ICU/RN: Pt s/b Dr Simpson at bedside. Noted with chronic wheezing (per pt). Informed MD of SOB with exertion. Cleared for downgrade by pulmunology
--- NOTE | 2019-05-11 10:45 | NUR ---
ICU/RN: Pt transferred to [facility] in stable condition. No distress noted. Assisted to bathroom, sob noted with exertion. Bedside report given to RN.
--- NOTE | 2019-05-11 11:00 | NUR ---
RN INITIAL NOTES PATIENT WAS DOWNGRADED FROM ICU. CAME IN VIA GURNEY. PATIENT ALERT AND ORIENTED X4. NO COMPLAINS OF ANY PAIN OR SOB AT THIS TIME. PATIENT ON 3L NC. AMBULATORY PER ICU NURSE. HAS A ROLLING O2 TANK AT BEDSIDE TO USE. ON REGULAR DIET BECAUSE PATIENT REFUSED CCHO/CARDIAC DIET. AWARE. HAS A LEFT FA AND RIGHT HAND BOTH #20 SALINE LOCKED. HAS A PENDING SERVICE CONSULT. BED LOCKED AND IN LOWEST POSITION. CALL LIGHT WITHIN REACH. WILL CONTINUE TO MONITOR PATIENT CLOSELY
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
[2019-05-11] MEDS: INSULIN REGULAR, HUMAN 100 UNIT/ML 3 ML VIAL SQ PRN ×3 (12:11→22:15)
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
[2019-05-11] MEDS: ALBUTEROL FS 2.5 MG/3 ML VIAL.NEB NEB SCH ×2 (12:31→19:08)
[2019-05-11] MEDS: AZITHROMYCIN 250 MG TABLET PO SCH (13:53)
--- NOTE | 2019-05-11 16:05 | NUR ---
SW met with pt. again bedside per her request. Pt. was feeling anxious and wanting to speak with SW. SW provided active listening and emotional support to the pt. SW is available, if needed.
--- NOTE | 2019-05-11 17:15 | NUR ---
RN NOTES PATIENT IS ASKING FOR PRN BREATHING TX. CALLED RT
--- NOTE | 2019-05-11 18:31 | NUR ---
RN CLOSING NOTES PATIENT IN BED, AWAKE AND ALERT. ON 3L NC. ON TELE MONITOR, SR. NO EDEMA NOTED. ALL MEDS GIVEN, INSULIN COVERAGE HAS BEEN GIVEN WELL. SKIN IS INTACT. ON REGULAR DIET BECAUSE PATIENT REFUSED CARDIAC DIET. LEFT FA #20 AND RIGHT HAND #20 SALINE LOCKED. SOCIAL SERVICE CONSULT DONE TODAY, SEE SW NOTES. PT REFUSED PSYCH CONSULT. MD AWARE. PATIENT HAS NO COMPLAINS OF ANY PAIN OR ANY SOB AT THIS TIME. BED LOCKED AND IN LOWEST POSITION. CALL LIGHT WITHIN REACH. WILL ENDORSE TO NOC SHIFT FOR MYRNA
--- NOTE | 2019-05-11 19:20 | NUR ---
BASKETBALLS AND FOOTBALLS REVERSER NOTE: RECEIVED PT ON BED ALERT AND ORIENTED X3. ABLE TO MAKE NEEDS KNOWN. NO APPARENT DISTRESS NOTED. NO COMPLAINTS OF PAIN OR DISCOMFORT AT THIS TIME. ON 3LPM NASAL CANNULA, NO SOB NOTED. ON TELE MONITOR SINUS RHYTHM HR 87BPM. IV ON LEFT FOREARM #20 AND RIGHT HAND #20 INTACT AND PATENT, FLUSHING WELL. NO SIGNS/SYMPTOMS OF INFILTRATION NOTED. CALL LIGHT PLACED WITHIN REACH. KEPT CLEAN, DRY AND COMFORTABLE. SAFETY AND FALL PRECAUTIONS OBSERVED AND MAINTAINED. WILL CONTINUE TO MONITOR PT
[2019-05-12] VITALS (7 sets, daily range): BP systolic 95–125; BP diastolic 51–69
[2019-05-12] MEDS: ALBUTEROL FS 2.5 MG/3 ML VIAL.NEB NEB SCH ×4 (03:16→19:29)
[2019-05-12 06:23] LABS: CALCIUM, SERUM 8.4 mg/dL (8.5-10.1); CREATININE 0.9 mg/dL (0.6-1.3)
--- NOTE | 2019-05-12 06:52 | NUR ---
CAMERA TUNING ENGINEER NOTE: NO CHANGES NOTED THROUGHOUT THE SHIFT. NO APPARENT DISTRESS NOTED. PT COMPLAINED HEADACHE, TYLENOL PRN GIVEN ORDERED, VERBALIZATION OF RELIEF NOTED. ON 3LPM NASAL CANNULA, NO SOB NOTED. SINUS RHYTHM ON TELE MONITOR HR 77BPM. KEPT CLEAN, DRY AND COMFORTABLE. CALL LIGHT PLACED WITHIN REACH. ALL NEEDS ATTENDED. WILL ENDORSE TO DAY SHIFT RN FOR CONTINUITY OF CARE.
--- NOTE | 2019-05-12 07:15 | NUR ---
RN INITIAL NOTES REPORT GIVEN AT BEDSIDE. PATIENT ASLEEP BUT EASILY AROUSABLE. ALERT AND ORIENTED. ON TELE MONITOR, SR. HAS A LEFT FA #20 AND RIGHT HAND #20 SALINE LOCKED. NO COMPLAINS OF ANY PAIN OR SOB. BED LOCKED AND IN LOWEST POSITION. CALL LIGHT WITHIN REACH. WILL CONTINUE TO MONITOR
[2019-05-12] MEDS: IPRATROPIUM NEB FS 0.5 MG/2.5 ML AMPUL.NEB NEB PRN ×2 (07:20→11:26)
[2019-05-12] MEDS: PANTOPRAZOLE 40 MG TABLET.DR PO SCH (07:23)
[2019-05-12] MEDS: LEVOTHYROXINE SODIUM 100 MCG TABLET PO SCH (07:23)
[2019-05-12] MEDS: BLOOD SUGAR DIAGNOSTIC 1 EACH STRIP IN SCH ×4 (08:19→21:46)
[2019-05-12] MEDS: INSULIN REGULAR, HUMAN 100 UNIT/ML 3 ML VIAL SQ PRN ×3 (08:26→17:12)
[2019-05-12] MEDS: FLUTICASONE/VILANTEROL 1 EACH BLST.W.DEV IH SCH (08:27)
[2019-05-12] MEDS: ATORVASTATIN 10 MG TABLET PO SCH (08:27)
[2019-05-12] MEDS: LISINOPRIL (5MG) 5 MG TABLET PO SCH (08:38)
[2019-05-12] MEDS ORDERED: GUAIFENESIN/D-METHORPHAN HB 5 ML UDC PO PRN (09:00)
[2019-05-12] MEDS ORDERED: methylPREDNISolone SOD SUCC 125 MG/2ML VIAL IV SCH (09:00)
--- NOTE | 2019-05-12 09:07 | NUR ---
RN NOTES DR RAMIREZ AT BEDSIDE, PATIENT COMPLAINING OF HAVING SOB MANY TIMES LAST NIGHT. DR RAMIREZ WILL INCREASE SOLU MEDROL AND GIVE PATIENT COUGH MEDICATION REQUESTED
--- NOTE | 2019-05-12 09:10 | NUR ---
RN NOTES ADMINISTERED SOLU-MEDROL 40MG. EMAR DOES NOT LET ME SCAN THE MEDICATION, IT SAID, "COULD NOT ADMINISTER MEDICATION". SCANNED ANOTHER TIME AND THE MEDICATION WAS ALREADY DC'D. DR RAMIREZ INCREASED THE DOSE TO 80MG. CALLED PHARMACY AND THEY WILL CHANGE THE NEXT DOSE TO BE GIVEN AT 1300
[2019-05-12] MEDS: ALBUTEROL FS 2.5 MG/3 ML VIAL.NEB NEB PRN (11:26)
[2019-05-12] MEDS: clonazePAM 1 MG TABLET PO PRN (11:59)
--- NOTE | 2019-05-12 12:00 | NUR ---
RN NOTES PATIENT INSISTED TO GO TO THE BATHROOM AND CLEAN HERSELF. ALSO HAD 1X BM. AFTER A FEW MINS, PATIENT IS COMPLAINING OF SOB. CALLED RT FOR A PRN BREATHING TX. ALSO ADMINISTERED KLONOPIN DUE TO PATIENT VERY ANXIOUS.
[2019-05-12] MEDS: methylPREDNISolone SOD SUCC 125 MG/2ML VIAL IV SCH ×2 (12:30→16:54)
[2019-05-12] MEDS: AZITHROMYCIN 250 MG TABLET PO SCH (13:56)
--- NOTE | 2019-05-12 18:47 | NUR ---
RN CLOSING NOTES PATIENT ASLEEP AT THIS TIME. DINNER TRAY AT BEDSIDE STATING SHE WILL EAT IT LATER WHEN SHE WAKES UP. PATIENT ALSO COMPLAINING EARLIER THAT SHE DID NOT SLEEP UNTIL 5AM YESTERDAY. ALL MEDS GIVEN. PATIENT STABLE THROUGHOUT THE SHIFT. PER MD, MYRNA. INSULIN COVERAGE GIVEN. BED LOCKED AND IN LOWEST POSITION. CALL LIGHT WITHIN REACH. WILL ENDORSE TO NOC SHIFT FOR MYRNA
--- NOTE | 2019-05-12 19:35 | NUR ---
[facility]ARA/PHARMACIST MANAGER PT DEMANDED HER CIGARETTES, SO THAT SHE CAN SMOKE. PT HAS SOB WHEN SHE GETS UP TO AMBULATE. PT SAID THAT IF SHE DOESN'T SMOKE THAT SHE WILL LEAVE AMA. SPENT 20 MINUTES IN ROOM WHILE PT WAS VENTING. MADE A CALL OUT TO PRIMARY MD DITCH TENDER.
--- NOTE | 2019-05-12 20:42 | NUR ---
CLARA/REAL ESTATE LISTING CONSULTANT PT DEMANDED HER CIGARETTES AGAIN, SO THAT SHE CAN SMOKE. PT HAS SEVER SOB WHEN SHE GETS UP TO AMBULATE. PT STATED THAT SHE SHE IS LEAVING AMA NOW BECAUSE SHE WANTS TO SMOKE. ALSO AT THIS TIME CHARGE NURSE WENT INTO ROOM TO TALK TO PT. PT IS EXTREME IN HER DEMANDS. STILL WAITING FOR MD TO CALL BACK. PT ALSO STATED THAT " I FEEL LIKE I AM IN A FOG." OXYGEN WAS AT 3 LITERS WITH HX OF COPD, IT WAS LOWERED TO 2 LITERS.
--- NOTE | 2019-05-12 21:02 | NUR ---
CLARA/SOLE BUFFER PT STATES CURRENTLY SHE IS FINE AND AWARE OF WHERE SHE IS AT. UNSURE OF PT'S ORIENTATION DUE TO AGGRESSIVE NATURE. HOUSE SUP. CALLED ABOUT LEAVING AMA, STILL WAITING FOR DELIVERY OF SHOPPING NEWS MD TO CALL BACK.
--- NOTE | 2019-05-12 21:15 | NUR ---
CLARA/DIRECTOR TARGETED MARKETING PT BEFORE SIGNING PAPER WORK TO LEAVE AMA, PT WAS TOLD THE BENEFITS OF REMAINING IN THE HOSPITAL, ALONG WITH POSSIBLE PLACEMENT OF SNF SO THAT SOMEONE IS WATCHING OVER HER. PT REFUSED TO LISTEN. ALSO EXPLAINED PT THAT SHE WAS ADMITTED FOR COPD WHICH SHOULD BE RESOLVED BEFORE LEAVING THE HOSPITAL. PT REFUSED TO LISTEN TO PRIMARY NURSE AND REFUSED TO LISTEN TO CHARGE NURSE. PT WAS GIVEN COPY OF VOSS PAPER WORK SHE SIGNED.
--- NOTE | 2019-05-12 21:20 | NUR ---
ICU/PREVENTION SPECIALIST PT SIGNED AMA PAPER WORK, PT SAID SHE SHOULD BE GIVEN OXYGEN TANK TO GO HOME WITH. HOUSE SUP. NOTIFIED ABOUT DEMANDING PT AND HER DEMANDS.
--- NOTE | 2019-05-12 21:25 | NUR ---
[facility]ARA/NANCY PT'S SON OSBALDO WAS CALLED TO NOTIFY HIM ABOUT HIS MOTHER AND HER STATUS OF LEAVING AMA. NO ANSWER. Addendum: 05/12/19 at 2141 by BROOK PENNINGTON LVN [phone] WAS THE NUMBER CALLED AND MESSAGE LEFT TO CALL HOSPITAL AND MY NAME. AWAIT CALL BACK.
--- NOTE | 2019-05-12 21:32 | NUR ---
[facility]ARA/MACHINE BRUSHER RICARDA SUP. CAME TO SEE PT, MADE DEMANDS WITH HER. RICARDA SUP. EXPLAINED TO PT THE BENEFITS OF REMAINING IN THE HOSPITAL. HOWEVER PT REFUSED TO SEE IT ANY OTHER WAY EXCEPT HER OWN.
--- NOTE | 2019-05-12 22:00 | NUR ---
CLARA/PRESS BRAKE OPERATOR PT SIGNED AMA PAPER, PT REFUSED TO HAVE PRIMARY NURSE IN ROOM. DID HAVE ANOTHER NURSE GO INTO ROOM AND GO OVER BELONGING LIST, WHICH WAS COSIGNED WITH SECOND RN NURSE HAILEY. BELONGINGS WERE GONE OVER FROM EARLIER WITH PT WHEN SHE WAS LOOKING FOR HER CIGARETTES.
--- NOTE | 2019-05-12 22:40 | NUR ---
CLARA/UX DESIGN MANAGER PT WENT HOME AMA, THE POLICE JUDGE MD KATI PISANO MADE AWARE, SAID OK. PT WAS TOLD RISK OF LEAVING AMA DUE TO ADMITTING DX OF COPD, WHICH HAD NOT CLEARLY RESOLVED ITSELF.PT WANTED TO GO OUTSIDE TO SMOKE HOWEVER PT HAS COPD AND SOB WHILE WALKING, PT UNABLE GO TO SMOKE. PT HAD BEEN HERE FOR MANY HOSPITALIZATION, PT MADE AWARE OF POLICY ON PT SMOKING. PT WAS OFFERED THE PATCH, HOWEVER REFUSED IT. PT HAD BEEN VERBALLY ABUSIVE TO STAFF AND ADMINISTRATION, WITH UNREASONABLE DEMANDS OF BEING GIVEN A OXYGEN TANK TO TAKE HOME.
== END 2019-05-12 22:50 | disposition left against medical advice (07) | DRG 189 ==
LOC: ER 11:09 → ICU 13:19 → TELE1 05-11 10:34
PROVIDERS: ADMIT Nurse Practitioner Acute Care; ATTEND Nurse Practitioner Acute Care
PROC: 5A09357 Assistance with Respiratory Ventilation, Less than 24 Consecutive Hours, Continuous Positive Airway Pressure (ICD-10-PCS; principal; 2019-05-10)
DX: J96.01 Acute respiratory failure with hypoxia (principal); J44.1 Chronic obstructive pulmonary disease with (acute) exacerbation; J44.0 Chronic obstructive pulmonary disease with (acute) lower respiratory infection; J96.02 Acute respiratory failure with hypercapnia; K21.9 Gastro-esophageal reflux disease without esophagitis; E78.5 Hyperlipidemia, unspecified; E03.9 Hypothyroidism, unspecified; E87.5 Hyperkalemia; E11.9 Type 2 diabetes mellitus without complications; F17.210 Nicotine dependence, cigarettes, uncomplicated; I10 Essential (primary) hypertension; Z91.14 Patient's other noncompliance with medication regimen; Z99.81 Dependence on supplemental oxygen; D64.9 Anemia, unspecified; J20.9 Acute bronchitis, unspecified
CPT/HCPCS: 36415; 36600; 71045-TC; 80048-TC; 82803-TC; 82962-TC; 83735-TC; 83880; 84100-TC; 84484-TC; 85025-TC; 87081-TC; 94760-TC; 94799-TC; 99082-TC; G0378; J0456; J1815; J2920; J2930; J7060

== ENCOUNTER 2019-05-13 23:18 | Emergency (ER) | payer MEDICARE ==
[~2019-05-13] VITALS: Ht 162.6 cm; Wt 66.2 kg
[~2019-05-13 23:18] MED LIST changes: +LISI2.5T2 PO
--- NOTE | 2019-05-13 23:35 | NUR ---
NILSA FROM HOME. TO ER BED 10. AAOX4. PRESENTED WITH SOB W/ DEEP BREATHING. C/O SOB. PT IS A SMOKER. HAPPENED AFTER SMOKING A CIGARETTE. NOTED WITH PRODUCTIVE COUGH. PT ARRIVED WITH BREATHING TX OF ALBUTEROL 5MG WICH WAS STARTED ON SCENE. PT O2 SAT ON SCENE WAS REPORTED AT 84% WHICH WENT UP TO 100% AFTER INITIATION OF BREATHING TX. AWAITING MD FOR EVAL
[2019-05-13] MEDS ORDERED: ALBUTEROL FS 2.5 MG/3 ML VIAL.NEB ONE (23:58)
[2019-05-13] MEDS ORDERED: IPRATROPIUM NEB FS 0.5 MG/2.5 ML AMPUL.NEB ONE (23:59)
[2019-05-14] MEDS: IPRATROPIUM NEB FS 0.5 MG/2.5 ML AMPUL.NEB NEB ONE (00:04)
[2019-05-14] MEDS ORDERED: predniSONE 10 MG TABLET ONE (00:05)
[2019-05-14] MEDS: ALBUTEROL FS 2.5 MG/3 ML VIAL.NEB NEB ONE (00:05)
[2019-05-14] MEDS ORDERED: predniSONE 20 MG TABLET ONE (00:05)
--- NOTE | 2019-05-14 00:08 | NUR ---
XRAY AT BEDSIDE
[2019-05-14] MEDS: predniSONE 20 MG TABLET PO ONE (00:15)
--- NOTE | 2019-05-14 00:54 | NUR ---
CALLED MARIANNE FOR REPORT
--- NOTE | 2019-05-14 01:04 | NUR ---
IV LINE OBTAINED ON R AC 20G. BLOOD DRAWN AND GIVEN TO MILITARY LAWYER AT BEDSIDE
[2019-05-14 01:07] LABS: BASOPHILS % (AUTO) 0.2 % (0.0-2.0); EOSINOPHILS % (AUTO) 0.3 % (0.0-6.0); HEMATOCRIT 43 % (33-45); HEMOGLOBIN 14.1 g/dL (11.5-14.8); LYMPHOCYTES # (AUTO) 1.5 /CMM (0.8-4.8); LYMPHOCYTES % (AUTO) 13.6 % (20.0-44.0); MEAN CORPUSCULAR HGB CONC 33 g/dl (31.0-36.0); MEAN CORPUSCULAR VOLUME 101 fL (82-100); MONOCYTES # (AUTO) 0.9 /CMM (0.1-1.30); MONOCYTES % (AUTO) 7.8 % (2.0-12.0); NEUTROPHILS # (AUTO) 8.7 /CMM (1.8-8.9); NEUTROPHILS % (AUTO) 78.1 % (43.0-81.0); PLATELET COUNT (AUTO) 203 /CMM (150-450); RED BLOOD CELL COUNT(AUTO) 4.21 MIL/uL (4.0-5.2); WHITE BLOOD COUNT (AUTO) 11.1 K/uL (4.3-11.0)
[2019-05-14] MEDS: ALBUTEROL FS 2.5 MG/3 ML VIAL.NEB CONTNEB ONE (01:10)
[2019-05-14 01:14] LABS: CALCIUM, SERUM 8.4 mg/dL (8.5-10.1); CREATININE 0.8 mg/dL (0.6-1.3); POTASSIUM 3.6 mmol/L (3.5-5.1)
[2019-05-14] MEDS ORDERED: ALBUTEROL FS 2.5 MG/3 ML VIAL.NEB ONE (01:18)
--- NOTE | 2019-05-14 01:58 | NUR ---
PT TO BE TRANSFERRED TO [facility]. ACCEPTING MD: DR. ANDERSON
[2019-05-14] MEDS ORDERED: ACETAMINOPHEN 325 MG TABLET ONE (02:24)
[2019-05-14] MEDS: ACETAMINOPHEN 325 MG TABLET PO ONE (02:31)
--- NOTE | 2019-05-14 02:31 | NUR ---
PT COMPLAINED OF HEADACHE AND NECK PAIN 07/17. MD MADE AWARE. ORDER RECEIVED TO GIVE TYLENOL 650MG PO X1. ORDER NOTED AND CARRIED OUT
--- NOTE | 2019-05-14 03:13 | NUR ---
SPOKE WITH BETTY, PARKING INSPECTOR, AND INFORMED PT IS REFUSING TO TRANSFER TO [facility]. PER BETTY, SHE SPOKE WITH DR. ANDERSON FOR POSSIBLE AUTHORIZATION TO STAY AT [facility] AND WAS DENIED. PT REQUESTING TO LEAVE AM. AWARE.
--- NOTE | 2019-05-14 03:44 | NUR ---
PT REFUSED TO GO TO [facility]. PT WOULD JUST GO AMA INSTEAD OF TRANSFERRING TO THERE. SPOKE WITH PATIENT AND TRIED TO CONVINCE BUT PT STILL REFUSED DESPITE EXPALINATION OF RISK AND BENEFIT. EVEN ASKED THE SON'S HELP TO MAKE HER MOTHER GO BUT PATIENT STILL REFUSED. AT THIS POINT AWAITING SON BAKERY SALES CLERK.
[2019-05-14 03:48] VITALS: BP 118/74
--- NOTE | 2019-05-14 04:06 | NUR ---
Patient does not wish to proceed with medical care recommended by Soy Frias. Patient given information related to possible complications, up to and including , which could occur as a result of leaving the hospital at this time. Patient verbalizes understanding of risks involved due to leaving against medical advice. Patient has signed AMA form. Pt picked up by son on private vehicle.
[2019-05-25] MEDS ORDERED: ALBU2.5V13 NEB (09:42)
[2019-05-25] MEDS ORDERED: IPRA0.2S9 NEB (09:42)
[2019-05-25] MEDS ORDERED: methylPREDNISolone SOD SUCC IV (09:42)
== END 2019-05-14 04:08 | disposition left against medical advice (07) ==
LOC: ER 23:20
DX: J44.1 Chronic obstructive pulmonary disease with (acute) exacerbation (principal); I10 Essential (primary) hypertension; E11.9 Type 2 diabetes mellitus without complications; E03.9 Hypothyroidism, unspecified; F17.200 Nicotine dependence, unspecified, uncomplicated; Z60.2 Problems related to living alone; Z85.828 Personal history of other malignant neoplasm of skin
CPT/HCPCS: 36415; 71045; 80048; 85025; 93005; 94644; 94645; 99285; 99406; J7512 ×2

== ENCOUNTER 2019-05-18 23:54 | Emergency (ER) | payer MEDICARE ==
[~2019-05-18] VITALS: Ht 160 cm; Wt 57.6 kg
[2019-05-19] MEDS ORDERED: IPRATROPIUM NEB FS 0.5 MG/2.5 ML AMPUL.NEB NEB ONE
[2019-05-19] MEDS ORDERED: ALBUTEROL FS 2.5 MG/3 ML VIAL.NEB CONTNEB ONE
[2019-05-19] MEDS ORDERED: DEXAMETHASONE SOD PHOSPHATE 4 MG/ML VIAL IM ONE
--- NOTE | 2019-05-19 | NUR ---
SEEN AND EXAMINED BY .
--- NOTE | 2019-05-19 00:01 | NUR ---
PT BIBRA60 FROM HOME C/O SOB X 1 DAY. PATIENT D/C FROM HERE ON TUESDAY FOR SAME COMPLAINT. SEEN EARLIER TODAY AT [facility] ER. 0.5MG EPI/NEB TX PROGRAM FACILITATOR. SAT 84% PROGRAM FACILITATOR. PT IS AAOX3, NOTED RESPIRATORY DISTRESS, HOOKED TO STILL OPERATOR BATCH OR CONTINUOUS, KEPT RESTED AND COMFORTABLE, WILL CONTINUE TO MONITOR.
[2019-05-19] MEDS ORDERED: ALBUTEROL FS 2.5 MG/3 ML VIAL.NEB ONE (00:05)
[2019-05-19] MEDS ORDERED: IPRATROPIUM NEB FS 0.5 MG/2.5 ML AMPUL.NEB ONE (00:05)
[2019-05-19] MEDS ORDERED: DEXAMETHASONE SOD PHOSPHATE 10 MG/ML VIAL ONE (00:07)
--- NOTE | 2019-05-19 02:32 | NUR ---
Patient discharged to home in stable condition. Written and verbal after care instructions given. Patient verbalizes understanding of instruction. IV removed. Catheter intact and site benign. Pressure and 4x4 applied to site. No bleeding noted.
[2019-05-19 02:33] VITALS: BP 118/53
[2019-05-20] MEDS ORDERED: ALBUTEROL FS 2.5 MG/3 ML VIAL.NEB ONE (16:30)
[2019-05-20] MEDS ORDERED: IPRATROPIUM NEB FS 0.5 MG/2.5 ML AMPUL.NEB ONE (16:30)
[2019-05-25] MEDS ORDERED: methylPREDNISolone SOD SUCC IV (09:42)
[2019-05-25] MEDS ORDERED: ALBU2.5V13 NEB (09:42)
[2019-05-25] MEDS ORDERED: IPRA0.2S9 NEB (09:42)
[2019-05-29] MEDS ORDERED: PRED10TA PO (14:08)
[2019-05-29] MEDS ORDERED: PRED20TA PO (14:08)
[2019-05-29] MEDS ORDERED: AZIT250T13 PO (14:08)
== END 2019-05-19 02:34 | disposition home or self-care (01) ==
LOC: ER 23:55
DX: J44.1 Chronic obstructive pulmonary disease with (acute) exacerbation (principal); I10 Essential (primary) hypertension; E11.9 Type 2 diabetes mellitus without complications; E03.9 Hypothyroidism, unspecified; F17.200 Nicotine dependence, unspecified, uncomplicated; Z85.828 Personal history of other malignant neoplasm of skin; Z60.2 Problems related to living alone; Z71.6 Tobacco abuse counseling
CPT/HCPCS: 94644; 96372; 99285; 99406; J1100

== ENCOUNTER 2019-05-20 16:02 | Inpatient (IN) | payer MEDICARE ==
[~2019-05-20] VITALS: Ht 160 cm; Wt 53.5 kg
--- NOTE | 2019-05-20 16:05 | NUR ---
BIB RA 102 FROM HOME,WORSENING SOB, ALBUTEROL HHN ENROUTE. PATIENT A/OX3, VERBALLY RESPONSIVE, SHORT OF BREATH, CHANGED INTO GOWN, ATTACHED TO THE PRODUCTION PATTERN MAKER, RT AT BEDSIDE.
[2019-05-20] MEDS ORDERED: methylPREDNISolone SOD SUCC 125 MG/2ML VIAL IV ONE (16:30)
[2019-05-20] MEDS ORDERED: ALBUTEROL FS 2.5 MG/3 ML VIAL.NEB NEB ONE ×2 (16:30→17:30)
[2019-05-20] MEDS ORDERED: IPRATROPIUM NEB FS 0.5 MG/2.5 ML AMPUL.NEB NEB ONE (16:30)
--- NOTE | 2019-05-20 16:35 | NUR ---
CALLED FOR ICU BED ([id number]), TURNED IN MOVE SHEET
[2019-05-20] MEDS ORDERED: methylPREDNISolone SOD SUCC 125 MG/2ML VIAL ONE (16:47)
[2019-05-20 16:48] LABS: BASOPHILS % (AUTO) 0.5 % (0.0-2.0); EOSINOPHILS % (AUTO) 1.2 % (0.0-6.0); HEMATOCRIT 44 % (33-45); HEMOGLOBIN 14.8 g/dL (11.5-14.8); LYMPHOCYTES # (AUTO) 2.2 /CMM (0.8-4.8); LYMPHOCYTES % (AUTO) 21.3 % (20.0-44.0); MEAN CORPUSCULAR HGB CONC 34 g/dl (31.0-36.0); MEAN CORPUSCULAR VOLUME 99 fL (82-100); MONOCYTES # (AUTO) 0.9 /CMM (0.1-1.30); MONOCYTES % (AUTO) 9.3 % (2.0-12.0); NEUTROPHILS # (AUTO) 6.9 /CMM (1.8-8.9); NEUTROPHILS % (AUTO) 67.7 % (43.0-81.0); PLATELET COUNT (AUTO) 238 /CMM (150-450); RED BLOOD CELL COUNT(AUTO) 4.42 MIL/uL (4.0-5.2); WHITE BLOOD COUNT (AUTO) 10.2 K/uL (4.3-11.0)
[2019-05-20 16:57] LABS: CALCIUM, SERUM 8.2 mg/dL (8.5-10.1); CREATININE 0.6 mg/dL (0.6-1.3); POTASSIUM 4.1 mmol/L (3.5-5.1)
[2019-05-20 17:03] LABS: ALBUMIN 3.2 g/dL (3.4-5.0); BILIRUBIN,DIRECT 0.1 mg/dL (0.0-0.2); BILIRUBIN,TOTAL 0.6 mg/dL (0.2-1.0); TOTAL PROTEIN, SERUM 5.8 g/dL (6.4-8.2)
[2019-05-20] MEDS ORDERED: Magnesium 1GM/D5W 100ML PREMIX 200 ML IV ONE ×2 (17:23→17:24)
[2019-05-20] MEDS: LEVOFLOXACIN 750 MG /D5W 150ML 150 ML IV ONE ×2 (17:39→17:48)
[2019-05-20] MEDS ORDERED: ALBUTEROL FS 2.5 MG/3 ML VIAL.NEB ONE ×2 (17:44→17:45)
--- NOTE | 2019-05-20 18:06 | NUR ---
REPORT GIVEN TO MANUEL MIDDLETON. PATIENT SEEN BY CRISTIAN SOSA DNP.
--- NOTE | 2019-05-20 18:06 | NUR ---
ICU/RN REPORT FROM ER RECEIVED REPORT FROM ER NURSE JOHN FOR PT TO BE ADMITTED FOR COPD EXACERBATION UNDER THE CARE OF Cruz SWIFT AWAITING FOR PT'S ARRIVAL.
--- NOTE | 2019-05-20 18:10 | NUR ---
RT RT ASKED MD IF AN ABG IS NECESSARY FOR THE PATIENT ON BIPAP. MD STATES ITS NOT NEEDED. EMERY AWARE. MONITORING PATIENT CLOSELY FOR ANY CHANGES.
[2019-05-20] MEDS ORDERED: HYDROCODONE/APAP 5/325MG 1 EACH TABLET PO PRN (18:30)
[2019-05-20] MEDS ORDERED: MAG HYDROX/AL HYDROX/SIMETH 30 ML UDC PO PRN (18:30)
[2019-05-20] MEDS ORDERED: ACETAMINOPHEN 325 MG TABLET PO PRN (18:30)
[2019-05-20] MEDS ORDERED: MORPHINE SULFATE INJ 2 MG/ML DISP.SYRIN IV PRN (18:30)
[2019-05-20] MEDS ORDERED: ONDANSETRON HCL/PF 4 MG/2 ML VIAL IVP PRN (18:30)
[2019-05-20] MEDS ORDERED: ZOLPIDEM TARTRATE 5 MG TABLET PO PRN (18:30)
[2019-05-20] MEDS ORDERED: MAGNESIUM HYDROXIDE 30 ML UDC PO PRN (18:30)
[2019-05-20] MEDS ORDERED: LORAZEPAM INJ 2 MG/ML VIAL IV PRN (18:30)
--- NOTE | 2019-05-20 19:24 | NUR ---
TRANSFERRED TO ROOM 252 VIA ACLS PROTOCOL, WITH RT ENROUTE. PATIENT IN STABLE CONDITION.
--- NOTE | 2019-05-20 19:30 | NUR ---
PT ARRIVED AT 1910, PT AWAKE, ALERT , ORIENTED, VS STABLE, PT REFUSED BIPAP, RT, CHARGE NURSE AT BEDSIDE, ON NC 2 L, O2 SAT WNL, PT NOTED WITH SOB, TACHYPNEA. PT IS AMBULATORY / WEAK , AMBULATE WITH ASSISTANCE.
[2019-05-20 19:38] VITALS: BP 130/65
[2019-05-20 20:00] VITALS: BP 90/51
[2019-05-20 20:04] VITALS: BP 90/51
[2019-05-20 21:02] VITALS: BP 94/57
[2019-05-20] MEDS: methylPREDNISolone SOD SUCC 40 MG/ML VIAL IV SCH (21:03)
[2019-05-20] MEDS: ALBUTEROL FS 2.5 MG/0.5 ML VIAL.NEB NEB PRN (21:14)
[2019-05-20] MEDS: IPRATROPIUM NEB FS 0.5 MG/2.5 ML AMPUL.NEB NEB PRN (21:15)
[2019-05-20 22:19] VITALS: BP 92/53
[2019-05-20 23:00] VITALS: BP 102/55
[2019-05-21] VITALS (8 sets, daily range): BP systolic 95–137; BP diastolic 49–79
[2019-05-21] MEDS: IPRATROPIUM NEB FS 0.5 MG/2.5 ML AMPUL.NEB NEB PRN ×2 (00:11→04:20)
[2019-05-21] MEDS: ALBUTEROL FS 2.5 MG/0.5 ML VIAL.NEB NEB PRN ×2 (00:11→04:20)
[2019-05-21] MEDS: methylPREDNISolone SOD SUCC 40 MG/ML VIAL IV SCH ×3 (04:43→21:29)
[2019-05-21 06:21] LABS: BASOPHILS % (AUTO) 0.2 % (0.0-2.0); HEMATOCRIT 39 % (33-45); HEMOGLOBIN 12.8 g/dL (11.5-14.8); LYMPHOCYTES # (AUTO) 0.3 /CMM (0.8-4.8); LYMPHOCYTES % (AUTO) 4.7 % (20.0-44.0); MEAN CORPUSCULAR HGB CONC 33 g/dl (31.0-36.0); MEAN CORPUSCULAR VOLUME 100 fL (82-100); MONOCYTES # (AUTO) 0.2 /CMM (0.1-1.30); MONOCYTES % (AUTO) 4.4 % (2.0-12.0); NEUTROPHILS % (AUTO) 90.7 % (43.0-81.0); PLATELET COUNT (AUTO) 202 /CMM (150-450); RED BLOOD CELL COUNT(AUTO) 3.84 MIL/uL (4.0-5.2); WHITE BLOOD COUNT (AUTO) 5.5 K/uL (4.3-11.0)
[2019-05-21 06:37] LABS: CALCIUM, SERUM 8.4 mg/dL (8.5-10.1); CREATININE 0.9 mg/dL (0.6-1.3); MAGNESIUM 2.5 mg/dL (1.8-2.4); PHOSPHORUS 3.1 mg/dL (2.5-4.9); POTASSIUM 4.7 mmol/L (3.5-5.1)
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
[2019-05-21] MEDS: FAMOTIDINE (20 MG) 20 MG TABLET PO SCH (08:06)
--- NOTE | 2019-05-21 09:00 | NUR ---
TD/RN SMOKE BREAK INFORMED CONSENT FOR SMOKING SIGNED BY PT, LEFT UNIT VIA WHEELCHAIR ACCOMPANIED.
--- NOTE | 2019-05-21 09:28 | NUR ---
TD/RN BACK TO ROOM PT CAME FROM SMOKING, N/C AND TELE BOX PLACED BACK. MONITORING CONTINUED.
--- NOTE | 2019-05-21 12:00 | NUR ---
TD/RN NOON ROUNDS NO CHANGE OF CONDITION. MONITORING CONTINUED.
[2019-05-21] MEDS: IPRATROPIUM NEB FS 0.5 MG/2.5 ML AMPUL.NEB NEB SCH ×4 (12:13→23:08)
[2019-05-21] MEDS: ALBUTEROL FS 2.5 MG/0.5 ML VIAL.NEB NEB SCH ×4 (12:13→23:08)
[2019-05-21] MEDS ORDERED: CEFTRIAXONE 1GM BAG (ER ONLY) 0 ML IV ONE (12:31)
--- NOTE | 2019-05-21 15:20 | NUR ---
TD/RN SMOKING PRIVILEGE PT LEFT UNIT VIA WHEELCHAIR ACCOMPANIED FOR SMOKING BREAK IN STABLE CONDITION.
[2019-05-21] MEDS ORDERED: DEXTROSE 50%-WATER 50 ML DISP.SYRIN IV PRN (16:00)
[2019-05-21] MEDS ORDERED: GUAIFENESIN 300 MG/15 ML UDC PO PRN (16:00)
[2019-05-21] MEDS ORDERED: ALBUTEROL FS 2.5 MG/0.5 ML VIAL.NEB NEB PRN ×2 (16:30)
[2019-05-21] MEDS ORDERED: IPRATROPIUM NEB FS 0.5 MG/2.5 ML AMPUL.NEB NEB PRN (16:30)
[2019-05-21] MEDS: LEVOFLOXACIN (500MG) 500 MG TABLET PO SCH (16:38)
[2019-05-21] MEDS: BLOOD SUGAR DIAGNOSTIC 1 EACH STRIP IN SCH ×2 (16:42→21:29)
[2019-05-21] MEDS: INSULIN REGULAR, HUMAN 100 UNIT/ML 3 ML VIAL SQ PRN ×2 (18:03→21:30)
--- NOTE | 2019-05-21 19:12 | NUR ---
TD/RN AM SHIFT END NOTES NO ACUTE RESPIRATORY DISTRESS NOTED DURING THE SHIFT. ALL NEEDS MET. ON 2L VIA N/C. PT ENDORSED TO PM NURSE TO CONTINUE CARE. CL WITHIN REACHED AND SAFETY MAINTAINED.
--- NOTE | 2019-05-21 19:46 | NUR ---
CLARA RN OPENING NOTES RECEIVED REPORT FROM [facility]. PATIENT A/A/O X3, ABLE TO MAKE NEEDS KNOWN. BREATHING EVEN & UNLABORED, TOLERATING O2 @ 2LPM VIA NC. DENIES ANY SOB OR DIFFICULTY BREATHING. ON TELE W/ SINUS RHYTHM & PACS, HR 80S. RIGHT WRIST IV #22 INTACT & PATENT W/ DRESSING CDI, SALINE LOCKED. NO SIGNS OF INFILTRATION NOTED. DENIES ANY PAIN OR DISCOMFORT @ THIS TIME. SAFETY MEASURES IN PLACE W/ SIDE RAILS UP & BED ALARM ON. CALL LIGHT PLACED WITHIN REACH & INSTRUCTED TO CALL FOR ASSISTANCE. WILL CONTINUE TO MONITOR CLOSELY.
[2019-05-22] VITALS: BP 132/61
[2019-05-22] MEDS: ALBUTEROL FS 2.5 MG/0.5 ML VIAL.NEB NEB SCH ×6 (02:51→22:59)
[2019-05-22] MEDS: IPRATROPIUM NEB FS 0.5 MG/2.5 ML AMPUL.NEB NEB SCH ×6 (02:51→22:59)
[2019-05-22 04:00] VITALS: BP 121/52
[2019-05-22] MEDS: methylPREDNISolone SOD SUCC 40 MG/ML VIAL IV SCH ×3 (05:06→20:55)
[2019-05-22 08:00] VITALS: BP 116/61
--- NOTE | 2019-05-22 08:00 | NUR ---
TD/RN AM SHIFT INITIAL NOTES RECEIVED PT ASLEEP IN BED, EASILY AROUSED, PT A/O X 3, NO ACUTE RESPIRATORY DISTRESS NOTED, DENIES SOB. ON 2L O2 VIA N/C SATURATING @ 99%, RESPIRATIONS EVEN AND UNLABORED, LUNG SOUNDS DIMINISHED. ON TELE MONITORING, HR 70. IV SITE FLUSHED, PATENT WITH NO S/S OF INFECTION, SL. BS CHECKED, 258, NO S/S OF HYPERGLYCEMIA, INSULIN COVERAGE TO BE GIVEN PER SLIDING SCALE. PT IS COMFORTABLE, SCHEDULED AM MEDS TO BE GIVEN. CL WITHIN REACHED AND SAFETY MAINTAINED. ON GOING MONITORING.
[2019-05-22] MEDS: BLOOD SUGAR DIAGNOSTIC 1 EACH STRIP IN SCH (08:11)
[2019-05-22] MEDS: INSULIN REGULAR, HUMAN 100 UNIT/ML 3 ML VIAL SQ PRN ×5 (08:15→21:04)
[2019-05-22] MEDS: FAMOTIDINE (20 MG) 20 MG TABLET PO SCH (09:08)
--- NOTE | 2019-05-22 10:54 | NUR ---
TD/RN HIGH BLOOD SUGAR ON ROUNDS, NOTED PT SHAKING, BLOOD GLUCOSE CHECKED, FIRST RESULT 410, SECOND CHECK, 359. NEW ORDER RECEIVED TO CHANGE SLIDING SCALE TO MODERATE AND GIVE COVERAGE PER NEW SCALE AND RE-CHECK BLOOD GLUCOSE AT SCHEDULED TIME. ORDER NOTED AND CARRIED OUT.
[2019-05-22] MEDS ORDERED: DEXTROSE 50%-WATER 50 ML DISP.SYRIN IV PRN (11:00)
[2019-05-22] MEDS ORDERED: *INSULIN REGULAR(HUMULIN R)HUM 100 UNIT/ML VIAL SQ PRN (11:00)
[2019-05-22] MEDS: BLOOD SUGAR DIAGNOSTIC 1 EACH STRIP VI SCH ×3 (12:00→21:02)
--- NOTE | 2019-05-22 13:45 | NUR ---
MS1/RN ROUNDS - DR. DE LEON UPDATED PT'S CONDITION. PT SEEN & EXAMINED BY DR. DE LEON. WITH ORDER TO KEEP PT ON 2L O2 VIA N/C AND KEEP SATURATION BETWEEN 88-92%. ORDER NOTED AND CARRIED.
[2019-05-22 16:00] VITALS: BP 153/70
[2019-05-22] MEDS: LEVOFLOXACIN (500MG) 500 MG TABLET PO SCH (16:15)
--- NOTE | 2019-05-22 19:29 | NUR ---
AM RN CLOSING NOTES PATIENT HAS BEEN ENDORSED TO PM NURSE FOR CONTINUED CARE. PATIENTS NEEDS HAVE BEEN MET. SAFETY MEASURES WERE IMPLEMENTED
--- NOTE | 2019-05-22 19:40 | NUR ---
RN NOTES RECEIVED PATIENT SETTING ON BED ASKING TO GO OUTSIDE TO SMOKE, A/O X4, NO SOB/ACUTE RESPIRATORY DISTRESS NOTED, ON 2L O2 VIA WITH OPTIMAL O2 SAT LEVEL, RIGHT HAND IV ACCESS, PATENT AND INTACT, NO S/S OF INFECTION NOTED AT THIS TIME, CALL LIGHT WITHIN REACHED, ALL SAFETY MEASURES MAINTAINED, WILL CONTINUE TO MONITOR CLOSELY.
[2019-05-22 20:00] VITALS: BP 139/82
[2019-05-23] MEDS: IPRATROPIUM NEB FS 0.5 MG/2.5 ML AMPUL.NEB NEB SCH ×5 (03:14→21:27)
[2019-05-23] MEDS: ALBUTEROL FS 2.5 MG/0.5 ML VIAL.NEB NEB SCH ×5 (03:14→21:27)
[2019-05-23 04:00] VITALS: BP 103/73
[2019-05-23] MEDS: methylPREDNISolone SOD SUCC 40 MG/ML VIAL IV SCH ×2 (05:19→21:31)
[2019-05-23 06:41] LABS: BASOPHILS % (AUTO) 0.1 % (0.0-2.0); HEMATOCRIT 38 % (33-45); HEMOGLOBIN 12.5 g/dL (11.5-14.8); LYMPHOCYTES # (AUTO) 0.5 /CMM (0.8-4.8); LYMPHOCYTES % (AUTO) 4.2 % (20.0-44.0); MEAN CORPUSCULAR HGB CONC 33 g/dl (31.0-36.0); MEAN CORPUSCULAR VOLUME 99 fL (82-100); MONOCYTES # (AUTO) 0.4 /CMM (0.1-1.30); MONOCYTES % (AUTO) 2.8 % (2.0-12.0); NEUTROPHILS % (AUTO) 92.9 % (43.0-81.0); PLATELET COUNT (AUTO) 202 /CMM (150-450); RED BLOOD CELL COUNT(AUTO) 3.79 MIL/uL (4.0-5.2); WHITE BLOOD COUNT (AUTO) 12.9 K/uL (4.3-11.0)
--- NOTE | 2019-05-23 06:51 | NUR ---
RN NOTES PATIENT AWAKE A/O X4, AGAIN ASKING TO GO OUTSIDE TO SMOKE, NO SOB/ACUTE RESPIRATORY DISTRESS NOTED, ON 2L O2 VIA WITH OPTIMAL O2 SAT LEVEL, NO SIGNIFICANT CHANGE IN CONDITION DURING THE NIGHT, CALL LIGHT WITHIN REACHED, ALL SAFETY MEASURES MAINTAINED, WILL ENDORSE CONTINUITY OF CARE TO ONCOMING NURSE.
[2019-05-23 07:05] LABS: CALCIUM, SERUM 8.3 mg/dL (8.5-10.1); CREATININE 0.7 mg/dL (0.6-1.3); POTASSIUM 4.7 mmol/L (3.5-5.1)
--- NOTE | 2019-05-23 07:20 | NUR ---
MS RN OPENING NOTES PATIENT AWAKE A/O X4, ASKING TO GO OUTSIDE TO SMOKE, MILD SOB NOTED, ON 2L O2 VIA NASAL CANULA. WITH O2 SAT 92%.IV IS INTACT AND PATENT. CALL LIGHT WITHIN REACHED, BED IS LOW AND IN LOCKED POSITION.ALL SAFETY MEASURES MAINTAINED, WILL CONTINUE TO MONITOR.
[2019-05-23 07:29] LABS: LYMPHOCYTES % (MANUAL) 3 % (16-48); MONOCYTES % (MANUAL) 3 % (0-11.0); NEUTROPHILS % (MANUAL) 93 (42-76)
[2019-05-23 08:00] VITALS: BP 132/72
[2019-05-23] MEDS: BLOOD SUGAR DIAGNOSTIC 1 EACH STRIP VI SCH ×4 (08:07→21:35)
[2019-05-23] MEDS: INSULIN REGULAR, HUMAN 100 UNIT/ML 3 ML VIAL SQ PRN ×4 (08:09→21:58)
[2019-05-23] MEDS: FAMOTIDINE (20 MG) 20 MG TABLET PO SCH (08:12)
--- NOTE | 2019-05-23 10:15 | NUR ---
MS Opening Notes DIRECTOR DATA MANAGEMENT Received Pt lying supine position HOB elevated resting eyes closed arrousable to touch 2L Nasal cannula, Respiratory rate 20 Chest rise and fall even non-labored right wrist Heplock clean dry 22g skin warm dry intact bilateral lower arm ecchymosis right inner forarm redness Bed in lowest position to floor two upper side rails raised call light within reach
--- NOTE | 2019-05-23 10:30 | NUR ---
MS RN NOTE REPORT GIVEN TO GREGORIA GARCIA RN FOR MYRNA.PATIENT IN STABLE CONDITION.
[2019-05-23 12:00] VITALS: BP_SYST 148; BP_SYST 149; BP_DIAS 70; BP_DIAS 88
[2019-05-23] MEDS: LORAZEPAM INJ 2 MG/ML VIAL IV PRN (15:27)
[2019-05-23] MEDS ORDERED: methylPREDNISolone SOD SUCC 40 MG/ML VIAL IV ONE (15:30)
[2019-05-23 16:00] VITALS: BP 149/70
--- NOTE | 2019-05-23 16:06 | NUR ---
PATIENT NONCOMPLIANT WANTED TO SMOKE ON WAIVER,DR. DE LEON MADE AWARE.
--- NOTE | 2019-05-23 16:08 | NUR ---
OFFERED SMOKING CESSATION EDUCATION PATIENT REFUSED.
[2019-05-23] MEDS: LEVOFLOXACIN (500MG) 500 MG TABLET PO SCH (18:26)
--- NOTE | 2019-05-23 19:30 | NUR ---
MS RN NOTE PATIENT REPORT GIVEN BEDSIDE PATIENT RETURNED FROM SMOKING, SMOKING CESSATION OFFERED PATIENT REFUSED. PATIENT A/O X 4. ON 2 L. NO S/S OF RESP DISTRESS AT THIS TIME. PATIENT DENIES CHEST PAIN. PATIENT HAS MIDLINE AMY/RFA 22G BOTH PATENT INTACT. PATIENT DENIES C/O AT THIS TIME. PATIENT REQUESTS A TUNA SANDWICH. CHAIN SPLITTER GAVE TUNA SANDWICH. RN WILL CONTINUE TO MONITOR. SAFETY PRECAUTIONS IN PLACE. CALL LIGHT WITHIN REACH.
[2019-05-23 20:00] VITALS: BP 120/70
[2019-05-24] MEDS: ALBUTEROL FS 2.5 MG/0.5 ML VIAL.NEB NEB SCH ×6 (01:40→19:34)
[2019-05-24] MEDS: IPRATROPIUM NEB FS 0.5 MG/2.5 ML AMPUL.NEB NEB SCH ×6 (01:40→19:34)
[2019-05-24 04:00] VITALS: BP 120/71
[2019-05-24] MEDS: methylPREDNISolone SOD SUCC 40 MG/ML VIAL IV SCH ×3 (05:42→20:44)
[2019-05-24 07:18] LABS: HEMATOCRIT 39 % (33-45); LYMPHOCYTES # (AUTO) 0.4 /CMM (0.8-4.8); MEAN CORPUSCULAR HGB CONC 34 g/dl (31.0-36.0); MEAN CORPUSCULAR VOLUME 100 fL (82-100); MONOCYTES # (AUTO) 0.2 /CMM (0.1-1.30); MONOCYTES % (AUTO) 1.7 % (2.0-12.0); NEUTROPHILS # (AUTO) 9.7 /CMM (1.8-8.9); NEUTROPHILS % (AUTO) 94.3 % (43.0-81.0); PLATELET COUNT (AUTO) 191 /CMM (150-450); RED BLOOD CELL COUNT(AUTO) 3.89 MIL/uL (4.0-5.2); WHITE BLOOD COUNT (AUTO) 10.3 K/uL (4.3-11.0)
[2019-05-24 07:28] LABS: CALCIUM, SERUM 8.4 mg/dL (8.5-10.1); CREATININE 0.6 mg/dL (0.6-1.3); POTASSIUM 4.6 mmol/L (3.5-5.1)
[2019-05-24 08:00] VITALS: BP 130/72
[2019-05-24] MEDS: BLOOD SUGAR DIAGNOSTIC 1 EACH STRIP VI SCH ×4 (08:07→21:02)
[2019-05-24 08:28] LABS: LYMPHOCYTES % (MANUAL) 5 % (16-48); MONOCYTES % (MANUAL) 2 % (0-11.0); NEUTROPHILS % (MANUAL) 93 (42-76)
[2019-05-24] MEDS: FAMOTIDINE (20 MG) 20 MG TABLET PO SCH (08:34)
[2019-05-24] MEDS: INSULIN REGULAR, HUMAN 100 UNIT/ML 3 ML VIAL SQ PRN ×3 (08:37→17:19)
[2019-05-24 12:00] VITALS: BP 124/65
[2019-05-24 16:00] VITALS: BP 133/78
[2019-05-24] MEDS: LEVOFLOXACIN (500MG) 500 MG TABLET PO SCH (16:49)
--- NOTE | 2019-05-24 17:46 | NUR ---
NURSING NOTE PATIENT AAOX4 ALL FOLLOW COMMANDS INTERMITTENTLY ANXIOUS O2 2L N/C NO SOB NON LABORED BREATHING ABDOMEN SOFT NON TENDER DIET TOLERATED PT DENIED CHEST PAIN ANY PAIN SKIN IS DRY INTACT MULTIPLE AREA BRUSING OBSERVED PT ABLE TO OUT OF BED WITH ASSISTANCE CALL LIGHT WITHIN REACH CLOSE OBSERVATION
--- NOTE | 2019-05-24 19:17 | NUR ---
MS RN RECEIVE PT IN BED A/O X 3 ANGRY AND WANTED TO SMOKE AT THIS TIME EXPLAINED IT IS ENDORSEMENT TIME, STABLE, RESPIRATIONS EVEN AND UNLABORED, SAFETY MEASURES IN PLACE. WILL CONTINUE TO MONITOR
[2019-05-24 20:00] VITALS: BP 155/54
--- NOTE | 2019-05-24 20:00 | NUR ---
PT NOW CALM AND HAD HER SMOKE WITH JEWELRY DRILL OPERATOR. WILL CONT TO MTR
[2019-05-25] MEDS: ALBUTEROL FS 2.5 MG/0.5 ML VIAL.NEB NEB SCH ×5 (00:15→15:30)
[2019-05-25] MEDS: IPRATROPIUM NEB FS 0.5 MG/2.5 ML AMPUL.NEB NEB SCH ×5 (00:15→15:30)
[2019-05-25 04:00] VITALS: BP 110/53
[2019-05-25] MEDS: methylPREDNISolone SOD SUCC 40 MG/ML VIAL IV SCH ×2 (05:23→13:00)
--- NOTE | 2019-05-25 06:20 | NUR ---
MS RN ASLEEP AND EASILY AWAKEN, RESPIRATIONS EVEN AND UNLABORED. STABLE, SLEPT WELL THROUGHOUT THE NIGHT. KEPT CLEAN AND DRY AND COMFORTABLE. NEEDS ATTENDED AND ANTICIPATED. NURSING CARE RENDERED, SAFETY MEASURES AT ALL TIMES. ENDORSE TO THE NEXT SHIFT.
[2019-05-25 07:16] LABS: CALCIUM, SERUM 8.3 mg/dL (8.5-10.1); CREATININE 0.8 mg/dL (0.6-1.3)
[2019-05-25] MEDS: BLOOD SUGAR DIAGNOSTIC 1 EACH STRIP VI SCH ×2 (07:46→12:56)
[2019-05-25] MEDS: FAMOTIDINE (20 MG) 20 MG TABLET PO SCH (07:59)
[2019-05-25 08:00] VITALS: BP 136/49
[2019-05-25] MEDS: INSULIN REGULAR, HUMAN 100 UNIT/ML 3 ML VIAL SQ PRN ×2 (08:01→13:00)
[2019-05-25 08:31] LABS: BASOPHILS % (AUTO) 0.3 % (0.0-2.0); HEMATOCRIT 40 % (33-45); HEMOGLOBIN 13.3 g/dL (11.5-14.8); LYMPHOCYTES # (AUTO) 0.2 /CMM (0.8-4.8); LYMPHOCYTES % (AUTO) 1.6 % (20.0-44.0); MEAN CORPUSCULAR HGB CONC 33 g/dl (31.0-36.0); MEAN CORPUSCULAR VOLUME 100 fL (82-100); MONOCYTES # (AUTO) 0.3 /CMM (0.1-1.30); NEUTROPHILS # (AUTO) 13.3 /CMM (1.8-8.9); NEUTROPHILS % (AUTO) 96.1 % (43.0-81.0); PLATELET COUNT (AUTO) 190 /CMM (150-450); RED BLOOD CELL COUNT(AUTO) 4.02 MIL/uL (4.0-5.2); WHITE BLOOD COUNT (AUTO) 13.9 K/uL (4.3-11.0)
[2019-05-25] MEDS ORDERED: IPRA0.2S9 NEB (09:42)
[2019-05-25] MEDS ORDERED: ALBU2.5V13 NEB (09:42)
[2019-05-25] MEDS ORDERED: methylPREDNISolone SOD SUCC IV (09:42)
[2019-05-25 09:57] LABS: LYMPHOCYTES % (MANUAL) 4 % (16-48); MONOCYTES % (MANUAL) 3 % (0-11.0); NEUTROPHILS % (MANUAL) 93 (42-76)
[2019-05-25] MEDS: LORAZEPAM INJ 2 MG/ML VIAL IV PRN (10:16)
[2019-05-25] MEDS ORDERED: BUDESONIDE RESPULE INH 0.25 MG/2 ML AMPUL.NEB NEB SCH (10:30)
[2019-05-25] MEDS ORDERED: THEOPHYLLINE ANHYDROUS 300 MG CAP.SR.24H PO SCH (10:30)
--- NOTE | 2019-05-25 14:08 | NUR ---
PATIENT REFUSED TO GO TO SNF WANTED TO GO HOME,DR. DE LEON NOTIFIED ABOUT SITUATION,PER MD PATIENT NEED TO SIGN AMA IF CHOOSES TO GO HOME.
--- NOTE | 2019-05-25 14:12 | NUR ---
PATIENT GOT UPSET AND WANTED TO SEE ANOTHER DOCTOR,GAVE EPIC NUMBER DR. DE LEON OFFICE NUMBER,NURSING SHAILA MAURICIO MADE AWARE OF SITUATION.
--- NOTE | 2019-05-25 15:30 | NUR ---
RN D/C NOTE RECEIVED ORDERS FOR SNF PLACEMENT. PATIENT STATED THAT SHE FEELS LIKE SHE'S BEING "BOUNCED AROUND" AND SAYS SHE WANTS TO STAY HERE AND THAT "IT'S NOT FAIR THAT THAT P OF S DOCTOR (DR. DE LEON) GETS TO STAY BUT I AM BEING KICKED OUT". WHEN EXPLAINED THAT SHE HAS BEEN MEDICALLY CLEARED TO GO TO A LOWER LEVEL OF CARE, SHE REPEATS THE ABOVE. AFTER SMOKING A CIGARETTE, PATIENT AGREED TO GO TO SNF. REPORT GIVEN TO [facility]. PATIENT IN STABLE PHYSICAL CONDITION. NO SOB NOTED. PATIENT REPORTS BEING ANGRY. EDUCATION R/T TO SMOKING CESSATION, MEDICATIONS, CORE TOPICS AND EMERGENCY SYMPTOMS PROVIDED, HOWEVER PATIENT IS REFUSING TO SIGN ALL PAPERWORK SAYING "SHE CAN'T READ IT". WHEN THE PAPERWORK WAS SUMMARIZED, PATIENT STATES "I WASN'T LISTENING BECAUSE I DON'T GIVE A S". IV CATHETER REMOVED, INTACT, NO S/S BLEEDING, PRESSURE DRESSING APPLIED. NO WOUND PICTURES TO BE TAKEN, SKIN INTACT. BELONGINGS WITH PATIENT, ALTHOUGH SHE IS REFUSING TO SIGN THE PAPER (WITNESS = SUJATHA MCGARRY).
[2019-05-26] MEDS ORDERED: METF-440 PO (16:26)
[2019-05-29] MEDS ORDERED: PRED20TA PO (14:08)
[2019-05-29] MEDS ORDERED: AZIT250T13 PO (14:08)
[2019-05-29] MEDS ORDERED: PRED10TA PO (14:08)
== END 2019-05-25 15:30 | DRG 189 ==
LOC: ER 16:10 → ICU 18:25 → TELE-TD 05-21 03:00 → MEDSG1 05-22 10:50
PROVIDERS: ADMIT Nurse Practitioner Acute Care; ATTEND Family Medicine
PROC: 05HB33Z Insertion of Infusion Device into Right Basilic Vein, Percutaneous Approach (ICD-10-PCS; principal; 2019-05-23)
DX: J96.01 Acute respiratory failure with hypoxia (principal); N17.0 Acute kidney failure with tubular necrosis; J44.1 Chronic obstructive pulmonary disease with (acute) exacerbation; E44.0 Moderate protein-calorie malnutrition; J98.11 Atelectasis; R64 Cachexia; J96.02 Acute respiratory failure with hypercapnia; K21.9 Gastro-esophageal reflux disease without esophagitis; E11.9 Type 2 diabetes mellitus without complications; E03.9 Hypothyroidism, unspecified; E78.5 Hyperlipidemia, unspecified; Z86.73 Personal history of transient ischemic attack (TIA), and cerebral infarction without residual deficits; I10 Essential (primary) hypertension; F41.9 Anxiety disorder, unspecified; F17.200 Nicotine dependence, unspecified, uncomplicated; Z79.51 Long term (current) use of inhaled steroids; Z79.899 Other long term (current) drug therapy; D64.9 Anemia, unspecified; Z91.19 Patient's noncompliance with other medical treatment and regimen; Z91.14 Patient's other noncompliance with medication regimen; Z99.81 Dependence on supplemental oxygen; E11.65 Type 2 diabetes mellitus with hyperglycemia; Z86.79 Personal history of other diseases of the circulatory system; Z85.828 Personal history of other malignant neoplasm of skin
CPT/HCPCS: 36415; 71045-TC; 80048-TC; 80076-TC; 82962-TC; 83605-TC; 83735-TC; 84100-TC; 85025-TC; 85730-TC; 87040-TC; 87081-TC; 94799-TC; 97116-TC; 97530-TC; G0378; J0696; J1815; J1956; J2060; J2920; J2930; J3475

== ENCOUNTER 2019-05-26 15:45 | Inpatient (IN) | payer MEDICARE ==
[~2019-05-26] VITALS: Ht 160 cm; Wt 53.5 kg
[2019-05-26] VITALS (16 sets, daily range): BP systolic 89–117; BP diastolic 46–82
[~2019-05-26 15:45] MED LIST changes: +ALBU2.5V13 NEB; +IPRA0.2S9 NEB; +methylPREDNISolone SOD SUCC IV
--- NOTE | 2019-05-26 15:52 | NUR ---
BIBRA FROM HOME FOR SOB; 72% ROOM AIR, ON BIPAP, GIVEN IM 1/2 EPI RESIDENTIAL FINISH CARPENTER. DISCHARGED FROM INPATIENT FLOOR 05/25/19. PT IS TACHYPNEIC AND IN RESPIRATORY DISTRESS. RT AT BEDSIDE, BIPAP SETTINGS: ST 15/5, BUR 12, 40% O2. HAS ECCHYMOSES ON BOTH ARMS. AOX4. SEEN BY DR ZULETA. AWAITING ORDERS
[2019-05-26] MEDS ORDERED: Magnesium 1GM/D5W 100ML PREMIX 200 ML IV ONE ×2 (15:56→16:07)
[2019-05-26] MEDS ORDERED: IPRATROPIUM NEB FS 0.5 MG/2.5 ML AMPUL.NEB NEB ONE (16:00)
[2019-05-26] MEDS ORDERED: ALBUTEROL FS 2.5 MG/3 ML VIAL.NEB CONTNEB ONE (16:00)
[2019-05-26] MEDS ORDERED: methylPREDNISolone SOD SUCC 125 MG/2ML VIAL IV ONE (16:00)
--- NOTE | 2019-05-26 16:05 | NUR ---
RT ABG RESULTS SHOWN TO DR. ZULETA. NO CHANGE IN SETTINGS. RN NOTIFIED AND AWARE. Addendum: 05/26/19 at 1637 by ANIYAH AMBROCIO RT Amended: Links added.
--- NOTE | 2019-05-26 16:05 | NUR ---
RT PLACED PT ON BIPAP PER MD ORDER. RN AT BEDSIDE. PT AWAKE, ALERT AND VERBALLY RESPONSIVE. SpO2 98-99%. HR 93. WILL CONTINUE TO MONITOR THE PATIENT FOR ANY CHANGE OF CONDITION. Addendum: 05/26/19 at 1830 by ANIYAH AMBROCIO RT Amended: Links added.
[2019-05-26] MEDS ORDERED: methylPREDNISolone SOD SUCC 125 MG/2ML VIAL ONE (16:07)
[2019-05-26 16:10] LABS: ABG BASE EXCESS 7.2 mmol/L; ABG OXYGEN SATURATION 98.2 % (92.0-98.5); ABG PCO2 54.2 mmHg (35.0-45.0); ABG PH 7.409 (7.350-7.450); ABG PO2 148.7 mmHg (75.0-100.0); AaDO2 74.2 mmHg; COHb 2.4 % (0.5-1.5); MetHb 0.5 % (0.0-1.5); O2Hb 95.4 % (94.0-97.0); SITE, ABG Left Radial
--- NOTE | 2019-05-26 16:15 | NUR ---
CALLED HOUSE SUPREVISOR FOR ICU BED.
[2019-05-26 16:16] LABS: BASOPHILS % (AUTO) 0.2 % (0.0-2.0); EOSINOPHILS % (AUTO) 0.2 % (0.0-6.0); HEMATOCRIT 41 % (33-45); HEMOGLOBIN 13.7 g/dL (11.5-14.8); LYMPHOCYTES % (AUTO) 11.4 % (20.0-44.0); MEAN CORPUSCULAR HGB CONC 33 g/dl (31.0-36.0); MEAN CORPUSCULAR VOLUME 100 fL (82-100); MONOCYTES # (AUTO) 1.2 /CMM (0.1-1.30); MONOCYTES % (AUTO) 6.8 % (2.0-12.0); NEUTROPHILS # (AUTO) 14.2 /CMM (1.8-8.9); NEUTROPHILS % (AUTO) 81.4 % (43.0-81.0); PLATELET COUNT (AUTO) 234 /CMM (150-450); RED BLOOD CELL COUNT(AUTO) 4.13 MIL/uL (4.0-5.2); WHITE BLOOD COUNT (AUTO) 17.4 K/uL (4.3-11.0)
[2019-05-26] MEDS ORDERED: IPRATROPIUM NEB FS 0.5 MG/2.5 ML AMPUL.NEB ONE (16:19)
[2019-05-26] MEDS ORDERED: ALBUTEROL FS 2.5 MG/3 ML VIAL.NEB ONE (16:19)
[2019-05-26] MEDS ORDERED: METF-440 PO (16:26)
[2019-05-26 16:29] LABS: CALCIUM, SERUM 8.1 mg/dL (8.5-10.1); CARBON DIOXIDE 34 mmol/L (21-32); CHLORIDE 101 mmol/L (98-107); CREATININE 0.6 mg/dL (0.6-1.3); GLUCOSE 135 mg/dL (74-106); POTASSIUM 4.4 mmol/L (3.5-5.1); SODIUM SERUM 140 mmol/L (136-145); UREA NITROGEN, BLOOD 28 mg/dL (7-18)
--- NOTE | 2019-05-26 16:38 | NUR ---
XRAY AT BEDSIDE
[2019-05-26 16:42] LABS: ALANINE AMINOTRANSFERASE 271 U/L (12-78); ALBUMIN 3.1 g/dL (3.4-5.0); ALKALINE PHOSPHATASE 66 U/L (46-116); ASPARTATE AMINOTRANSFERASE 60 U/L (15-37); B-TYPE NATRIURETIC PEPTIDE 417 PG/ML (0-125); BILIRUBIN,DIRECT 0.1 mg/dL (0.0-0.2); BILIRUBIN,TOTAL 0.5 mg/dL (0.2-1.0); TOTAL PROTEIN, SERUM 5.6 g/dL (6.4-8.2)
[2019-05-26] MEDS ORDERED: AZITHROMYCIN 500 MG in IV D5W 250 ML IV ONE (17:00)
[2019-05-26] MEDS ORDERED: CEFTRIAXONE 1GM BAG (ER ONLY) 50 ML IV ONE (17:00)
[2019-05-26] MEDS ORDERED: DEXTROSE 50%-WATER 50 ML DISP.SYRIN IV PRN (17:30)
[2019-05-26] MEDS ORDERED: Z GUARD REMEDY 2 OZ OINT TP PRN (17:30)
[2019-05-26] MEDS ORDERED: HYDROCODONE/APAP 5/325MG 1 EACH TABLET PO PRN (17:30)
[2019-05-26] MEDS ORDERED: MAG HYDROX/AL HYDROX/SIMETH 30 ML UDC PO PRN (17:30)
[2019-05-26] MEDS ORDERED: MAGNESIUM HYDROXIDE 30 ML UDC PO PRN (17:30)
[2019-05-26] MEDS ORDERED: MONTELUKAST SODIUM (10MG) 10 MG TABLET PO PRN (17:30)
[2019-05-26] MEDS ORDERED: ACETAMINOPHEN 325 MG TABLET PO PRN (17:30)
[2019-05-26] MEDS ORDERED: ONDANSETRON HCL/PF 4 MG/2 ML VIAL IVP PRN (17:30)
[2019-05-26] MEDS ORDERED: ZOLPIDEM TARTRATE 5 MG TABLET PO PRN (17:30)
--- NOTE | 2019-05-26 17:42 | NUR ---
REPORT GIVEN TO EMI VITALE FOR MYRNA, ICU 259
--- NOTE | 2019-05-26 17:57 | NUR ---
PT TRANSFERRED TO UNIT VIA GURNEY. IVF AND ABX CONTINUE TO INFUSE ON THE FLOOR.
[2019-05-26 17:58] LABS: NEUTROPHILS % (MANUAL) 88 (42-76)
[2019-05-26 17:59] LABS: LYMPHOCYTES % (MANUAL) 8 % (16-48); MONOCYTES % (MANUAL) 3 % (0-11.0); MYELOCYTES % 1 % (0-0)
--- NOTE | 2019-05-26 18:15 | NUR ---
received pt from ER, s/p respiratory distress, a/o x4, SR, on bipap, sat well, lungs diminished, no edema, v/s stable, no pain, pt cleaned and changed.
[2019-05-26] MEDS: methylPREDNISolone SOD SUCC 125 MG/2ML VIAL IV SCH ×2 (18:30→23:36)
[2019-05-26] MEDS: BLOOD SUGAR DIAGNOSTIC 1 EACH STRIP VI SCH ×2 (18:30→22:28)
[2019-05-26] MEDS: *INSULIN REGULAR(HUMULIN R)HUM 100 UNIT/ML VIAL SQ PRN ×2 (18:41→22:31)
[2019-05-26] MEDS: IPRATROPIUM NEB FS 0.5 MG/2.5 ML AMPUL.NEB NEB SCH ×2 (19:54→23:26)
--- NOTE | 2019-05-26 19:55 | NUR ---
PT RCVD ON BIPAP 15/5,RATE 12, FIO2 40%. PT IS ALERT AND AWAKE. NO RESPIRATORY DISTRESS NOTED AT THIS TIME. BIPAP PLUGGED INTO RED OUTLET AND ALARMS ARE ON AND AUDIBLE. BREATHING TX GIVEN PER MD'S ORDERED. NO ADVERSE REACTION NOTED. WILL CONTINUE TO MONITOR THE PT.
--- NOTE | 2019-05-26 20:17 | NUR ---
TOOK OFF BIPAP PER PT REQUEST. PLACED PT ON 2L EMI SUAZO NOTIFIED. NO RESPIRATORY DISTRESS NOTED AT THIS TIME. WILL CONTINUE TO MONITOR THE PT.
[2019-05-26] MEDS: ALBUTEROL FS 2.5 MG/0.5 ML VIAL.NEB NEB PRN (23:37)
[2019-05-27] VITALS (34 sets, daily range): BP systolic 93–141; BP diastolic 55–78
[2019-05-27] MEDS: IPRATROPIUM NEB FS 0.5 MG/2.5 ML AMPUL.NEB NEB SCH ×6 (03:28→23:32)
[2019-05-27] MEDS: ALBUTEROL FS 2.5 MG/0.5 ML VIAL.NEB NEB PRN ×2 (03:32→07:32)
[2019-05-27 04:41] LABS: HEMATOCRIT 36 % (33-45); HEMOGLOBIN 12.3 g/dL (11.5-14.8); LYMPHOCYTES # (AUTO) 0.3 /CMM (0.8-4.8); LYMPHOCYTES % (AUTO) 3.1 % (20.0-44.0); MEAN CORPUSCULAR HGB CONC 34 g/dl (31.0-36.0); MEAN CORPUSCULAR VOLUME 100 fL (82-100); MONOCYTES # (AUTO) 0.1 /CMM (0.1-1.30); MONOCYTES % (AUTO) 1.2 % (2.0-12.0); NEUTROPHILS % (AUTO) 95.7 % (43.0-81.0); PLATELET COUNT (AUTO) 160 /CMM (150-450); WHITE BLOOD COUNT (AUTO) 8.4 K/uL (4.3-11.0)
[2019-05-27 04:55] LABS: CALCIUM, SERUM 7.9 mg/dL (8.5-10.1); CREATININE 0.5 mg/dL (0.6-1.3); MAGNESIUM 2.6 mg/dL (1.8-2.4); PHOSPHORUS 3.8 mg/dL (2.5-4.9); POTASSIUM 4.5 mmol/L (3.5-5.1)
[2019-05-27] MEDS: methylPREDNISolone SOD SUCC 125 MG/2ML VIAL IV SCH ×4 (05:09→23:01)
--- NOTE | 2019-05-27 06:31 | NUR ---
PT REMAINS IN NO ACUTE DISTRESS IN BED. PT DID NOT HAVE ANY SIGNIFICANT CHANGE IN CONDITION DURING SHIFT. PT TOLERATED BEING OFF BIPAP AND ON 2L NC. ALL NEEDS MET, ALL ORDERS CARRIED OUT. WILL ENDORSE CARE TO AM RN FOR CONTINUITY OF CARE.
--- NOTE | 2019-05-27 07:30 | NUR ---
BUCKET CHUCKER INITIAL NOTE RECEIVED PATIENT AWAKE A/OX4, ABLE TO MAKE NEEDS KNOWN. NO RESPIRATORY DISTRESS NOTED AT THIS TIME. ON TLEE MONITOR SR. DENIES SOB. STATES SHE ONLY HAS SOB ON EXERTION. DENIES PAIN OR DISCOMFORT AT THIS TIME. SKIN WARM AND DRY TO TOUCH. IV LINES PATENT AND INTACT. HOB ELEVATED. SIDE RAILS UP AND LOCKED. BED KEPT AT LOWEST POSITION. CALL LIGHT KEPT WITHIN EASY REACH. WILL CONTINUE TO MONITOR.
[2019-05-27] MEDS: BLOOD SUGAR DIAGNOSTIC 1 EACH STRIP VI SCH ×4 (07:58→23:04)
[2019-05-27] MEDS: LEVOTHYROXINE SODIUM 100 MCG TABLET PO SCH (07:58)
[2019-05-27] MEDS: *INSULIN REGULAR(HUMULIN R)HUM 100 UNIT/ML VIAL SQ PRN ×2 (08:07→23:06)
[2019-05-27] MEDS: ATORVASTATIN 10 MG TABLET PO SCH (09:12)
[2019-05-27] MEDS: METFORMIN 500 MG TABLET PO SCH (09:12)
[2019-05-27] MEDS: FLUTICASONE/VILANTEROL 1 EACH BLST.W.DEV IH SCH (09:12)
[2019-05-27] MEDS: INSULIN REGULAR, HUMAN 100 UNIT/ML 3 ML VIAL SQ PRN ×2 (12:25→17:14)
--- NOTE | 2019-05-27 15:30 | NUR ---
ASSISTED LIVING ASSOCIATE NOTE PATIENT NON-COMPLIANT WITH DIET, EDUCATED ON DIABETIC DIET. PATIENT STATES SHE IS NOT DIABETIC AND IS VERY HUNGRY. SANDWICH GIVEN REQUESTED
[2019-05-27] MEDS: CEFTRIAXONE 1 G in IV D5W 50 ML IV SCH (17:13)
[2019-05-27] MEDS: AZITHROMYCIN 500 MG in IV D5W 250 ML IV SCH (17:13)
--- NOTE | 2019-05-27 18:00 | NUR ---
MERCHANDISE FLOW MANAGER NOTE PATIENT TRANSFERRED TO ROOM 120-1, REPORT GIVEN TO CLARA RN GREGORY. NO DISTRESS NOTED, TOLERATING 2LPMO2 VIA NC. NO C/O PAIN OR DISCOMFORT. ALL BELONGINGS BROUGHT WITH PATIENT INCLUDING PURSE AND CELL PHONE. PATIENT IN STABLE CONDITION.
--- NOTE | 2019-05-27 18:30 | NUR ---
TD RN NOTES RECEIVED PT FROM ICU, ARRIVED AT THE UNIT AT 1810 TRANSPORTED VIA BED. REPORT GIVEN BY RN/SAUNDRA. PT A/O X3-4. PT ON SUPPLEMENTAL OXYGEN AT 2LPM, WITH NO ACUTE RESPIRATORY DISTRESS NOTED. PT DENIES ANY PAIN OR DISCOMFORT AT THIS TIME. ON TELE MONITORING WITH SR WITH HR 97. PT ON GOING WITH AZITHRO IV TO LAC G20, INFUSING WELL WITH NO INFILTRATIONS NOTED. PT KEPT COMFORTABLE. PT'S BED IN LOWEST, LOCKED POSITION WITH SR X2. CALL LIGHT KEPT WITHIN REACH. WILL CONTINUE PLAN OF CARE.
--- NOTE | 2019-05-27 19:10 | NUR ---
TD RN NOTES PT A/O X3-4. PT ON SUPPLEMENTAL OXYGEN AT 2LPM, WITH NO ACUTE RESPIRATORY DISTRESS NOTED. PT DENIES ANY PAIN OR DISCOMFORT AT THIS TIME. ON TELE MONITORING WITH SR WITH HR 95. PIV TO LAC G20, INTACT AND OPERATIONAL. ALL NEEDS AND CARE ATTENDED. PT KEPT COMFORTABLE. PT'S BED IN LOWEST, LOCKED POSITION WITH SR X2. CALL LIGHT KEPT WITHIN REACH. ENDORSED TO INCOMING NIGHT NURSE FOR MYRNA.
--- NOTE | 2019-05-27 19:56 | NUR ---
TD RN NOTES PT WANTS TO SMOKE, AGITATED AND RESTLESS. EXPLAINED TO THE PT THE RISK OF SMOKING X3. PT STILL WANTS TO SMOKE. PT SIGNED SMOKING WAIVER FORMED. CHARGE NURSE INFORMED.
--- NOTE | 2019-05-27 20:00 | NUR ---
TD RN NOTES RECEIVED PT ON BED. A/O X 4. ON TELE MONITOR SR. ANXIOUS AND RESTLESS WANTS TO SMOKE. ON NASAL CANNULA 3LPM NO RESPIRATORY DISTRESS NOTED. IV ACCESS ON LAC G20 SL. HEAD OF BED ELEVATED. SIDE RAILS UP. CALL LIGHT WITHIN REACH. BED ALARM ON. WILL CONTINUE TO MONITOR PT CLOSELY.
[2019-05-28] VITALS: BP 126/59
[2019-05-28] MEDS: IPRATROPIUM NEB FS 0.5 MG/2.5 ML AMPUL.NEB NEB SCH ×6 (03:30→23:48)
[2019-05-28 04:00] VITALS: BP 131/71
[2019-05-28] MEDS: methylPREDNISolone SOD SUCC 125 MG/2ML VIAL IV SCH ×4 (05:06→23:03)
--- NOTE | 2019-05-28 06:47 | NUR ---
TD RN NOTES NO RESPIRATORY DISTRESS NOTED DURING THE SHIFT. PT SMOKED X2 ACCOMPANIED BY FIRST AID NURSE, EXPLAINED RISK OF SMOKING, PT STILL AGITATED AND WANTS TO SMOKE. WILL ENDORSE TO THE AM NURSE FOR CONTINUITY OF CARE.
[2019-05-28 06:50] LABS: ALBUMIN 2.5 g/dL (3.4-5.0); BILIRUBIN,TOTAL 0.4 mg/dL (0.2-1.0); CREATININE 0.6 mg/dL (0.6-1.3); MAGNESIUM 2.2 mg/dL (1.8-2.4); PHOSPHORUS 3.9 mg/dL (2.5-4.9); POTASSIUM 4.6 mmol/L (3.5-5.1); TOTAL PROTEIN, SERUM 4.9 g/dL (6.4-8.2)
[2019-05-28 07:10] LABS: HEMATOCRIT 37 % (33-45); HEMOGLOBIN 12.2 g/dL (11.5-14.8); LYMPHOCYTES # (AUTO) 0.3 /CMM (0.8-4.8); LYMPHOCYTES % (AUTO) 2.3 % (20.0-44.0); MEAN CORPUSCULAR HGB CONC 33 g/dl (31.0-36.0); MEAN CORPUSCULAR VOLUME 99 fL (82-100); MONOCYTES # (AUTO) 0.3 /CMM (0.1-1.30); MONOCYTES % (AUTO) 2.8 % (2.0-12.0); NEUTROPHILS # (AUTO) 10.6 /CMM (1.8-8.9); NEUTROPHILS % (AUTO) 94.9 % (43.0-81.0); PLATELET COUNT (AUTO) 153 /CMM (150-450); RED BLOOD CELL COUNT(AUTO) 3.72 MIL/uL (4.0-5.2); WHITE BLOOD COUNT (AUTO) 11.2 K/uL (4.3-11.0)
[2019-05-28 07:27] LABS: THYROID STIMULATING HORMONE 1.281 uIU/mL (0.358-3.74)
[2019-05-28 08:00] VITALS: BP_SYST 123; BP_SYST 128; BP_DIAS 60
[2019-05-28] MEDS: ATORVASTATIN 10 MG TABLET PO SCH (08:44)
[2019-05-28] MEDS: METFORMIN 500 MG TABLET PO SCH (08:44)
[2019-05-28] MEDS: BLOOD SUGAR DIAGNOSTIC 1 EACH STRIP VI SCH ×4 (08:44→21:16)
[2019-05-28] MEDS: LEVOTHYROXINE SODIUM 100 MCG TABLET PO SCH (08:44)
[2019-05-28] MEDS: FLUTICASONE/VILANTEROL 1 EACH BLST.W.DEV IH SCH (08:44)
[2019-05-28] MEDS: NICOTINE PATCH (21MG) 21 MG PATCH.TD24 TD SCH (08:45)
[2019-05-28] MEDS: INSULIN REGULAR, HUMAN 100 UNIT/ML 3 ML VIAL SQ PRN ×2 (08:46→12:36)
[2019-05-28 12:00] VITALS: BP 140/61
[2019-05-28] MEDS: LORAZEPAM INJ 2 MG/ML VIAL IV PRN (14:21)
[2019-05-28 16:00] VITALS: BP 140/54
--- NOTE | 2019-05-28 16:30 | NUR ---
RECEIVED ORDER FROM DONN VANN UPSCALE SECURITY OFFICER TO NOT TAKE PATIENT OUTSIDE TO SMOKE CIGARETTES. PATIENT STATES SHE WANTS TO TALK TO UPSCALE SECURITY OFFICER. VERBALIZED TO UPSCALE SECURITY OFFICER THAT SHE WANTS TO TALK TO HIM. PATIENT IS AGITATED. HAS NICOTINE PATCH ON. REFUSING ADMINISTRATION OF ATIVAN. SAYING "I AM GOING TO CALL MY CARBURETOR SPECIALIST"
[2019-05-28] MEDS: AZITHROMYCIN 500 MG in IV D5W 250 ML IV SCH (17:00)
--- NOTE | 2019-05-28 17:40 | NUR ---
ANTIBIOTICS X2, ACCUCHECK AND STEROID DUE. PATIENT REFUSES, STATING "GET OUT OF MY ROOM RIGHT NOW". WHEN ATTEMPTING TO EDUCATE ON RISKS, PATIENT YELLS, "I DON'T WANT TO HEAR IT. GET OUT NOW. YOU ARE A DUMB LITTLE GIRL"
[2019-05-28] MEDS: CEFTRIAXONE 1 G in IV D5W 50 ML IV SCH (17:43)
--- NOTE | 2019-05-28 19:25 | NUR ---
TELE/RN OPENING NOTES PT RECEIVED AWAKE, SITTING UP IN BED, EATING DINNER. ON 1L O2, BREATHING EVEN AND UNLABORED. DENIES SOB AND PAIN AT THIS TIME. ON TELE MONITOR SHOWING SR 89. IV TO LAC PATENT AND INTACT. BED IN LOW/LOCKED POSITION WITH CALL LIGHT IN REACH. HIGH FOWLERS, BILAT. UPPER SIDE RAILS IN PLACE. WILL CONTINUE TO MONITOR
[2019-05-28 20:00] VITALS: BP 131/48
[2019-05-28] MEDS: *INSULIN REGULAR(HUMULIN R)HUM 100 UNIT/ML VIAL SQ PRN (21:19)
[2019-05-29] VITALS: BP 139/64
--- NOTE | 2019-05-29 01:21 | NUR ---
TELE/RN NOTES PT ROUNDING PERFORMED. PT ASLEEP, BREATHING EVEN AND UNLABORED. IN NO ACUTE DISTRESS. WILL CONTINUE TO MONITOR
[2019-05-29] MEDS: IPRATROPIUM NEB FS 0.5 MG/2.5 ML AMPUL.NEB NEB SCH ×6 (03:30→23:30)
[2019-05-29 04:00] VITALS: BP 142/61
[2019-05-29] MEDS: methylPREDNISolone SOD SUCC 125 MG/2ML VIAL IV SCH ×3 (06:00→18:41)
[2019-05-29 06:35] LABS: BASOPHILS % (AUTO) 0.4 % (0.0-2.0); HEMATOCRIT 38 % (33-45); HEMOGLOBIN 12.9 g/dL (11.5-14.8); LYMPHOCYTES # (AUTO) 0.3 /CMM (0.8-4.8); LYMPHOCYTES % (AUTO) 3.3 % (20.0-44.0); MEAN CORPUSCULAR HGB CONC 34 g/dl (31.0-36.0); MEAN CORPUSCULAR VOLUME 99 fL (82-100); MONOCYTES # (AUTO) 0.3 /CMM (0.1-1.30); MONOCYTES % (AUTO) 2.8 % (2.0-12.0); NEUTROPHILS # (AUTO) 9.6 /CMM (1.8-8.9); NEUTROPHILS % (AUTO) 93.5 % (43.0-81.0); PLATELET COUNT (AUTO) 147 /CMM (150-450); RED BLOOD CELL COUNT(AUTO) 3.82 MIL/uL (4.0-5.2); WHITE BLOOD COUNT (AUTO) 10.3 K/uL (4.3-11.0)
[2019-05-29 06:59] LABS: CALCIUM, SERUM 8.1 mg/dL (8.5-10.1); CREATININE 0.6 mg/dL (0.6-1.3); POTASSIUM 4.5 mmol/L (3.5-5.1)
--- NOTE | 2019-05-29 07:04 | NUR ---
TELE/RN CLOSING NOTES PT RESTING COMFORTABLY IN BED. A/OX3. CURRENTLY ON ROOM AIR, BREATHING EVEN AND UNLABORED. DENIES SOB AND PAIN AT THIS TIME. IV TO LAC PATENT AND INTACT. NO SIGNIFICANT CHANGES OVERNIGHT. BED REMAINS IN LOW/LOCKED POSITION WITH CALL LIGHT IN REACH. HOB ELEVATED. BILAT. UPPER SIDE RAILS IN PLACE. ON TELE MONITOR SHOWING SR 70. WILL ENDORSE TO DAY SHIFT RN MYRNA.
[2019-05-29] MEDS: ALBUTEROL FS 2.5 MG/0.5 ML VIAL.NEB NEB PRN (07:43)
[2019-05-29 08:00] VITALS: BP 131/65
[2019-05-29] MEDS: INSULIN REGULAR, HUMAN 100 UNIT/ML 3 ML VIAL SQ PRN ×3 (09:29→18:41)
[2019-05-29] MEDS: LEVOTHYROXINE SODIUM 100 MCG TABLET PO SCH (09:30)
[2019-05-29] MEDS: LACTOBACILLUS RHAMNOSUS GG 1 EACH CAP.SPRINK PO SCH ×2 (09:30→16:53)
[2019-05-29] MEDS: FLUTICASONE/VILANTEROL 1 EACH BLST.W.DEV IH SCH (09:31)
[2019-05-29] MEDS: BLOOD SUGAR DIAGNOSTIC 1 EACH STRIP VI SCH ×4 (09:31→21:47)
[2019-05-29] MEDS: ATORVASTATIN 10 MG TABLET PO SCH (09:32)
[2019-05-29] MEDS: METFORMIN 500 MG TABLET PO SCH (09:32)
[2019-05-29] MEDS: NICOTINE PATCH (21MG) 21 MG PATCH.TD24 TD SCH (09:32)
[2019-05-29] MEDS: ALBUTEROL FS 2.5 MG/0.5 ML VIAL.NEB NEB SCH ×4 (13:00→23:30)
[2019-05-29] MEDS ORDERED: PRED20TA PO (14:08)
[2019-05-29] MEDS ORDERED: AZIT250T13 PO (14:08)
[2019-05-29] MEDS ORDERED: PRED10TA PO (14:08)
[2019-05-29 16:00] VITALS: BP 140/68
--- NOTE | 2019-05-29 16:00 | NUR ---
MS RN NOTES PT NOTIFIED HOSPICE NURSE THAT SHE WILL HAVE NO ONE TO RECEIVE HER AT HOME; PT REQUESTED CM TO DISCHARGE IN AM. KATI DAO PAGED AND NOTIFIED. PT WILL BE DISCHARGED AT 0800 TMRW.
[2019-05-29] MEDS: AZITHROMYCIN 500 MG in IV D5W 250 ML IV SCH (16:53)
[2019-05-29] MEDS: CEFTRIAXONE 1 G in IV D5W 50 ML IV SCH (18:35)
[2019-05-29] MEDS: LORAZEPAM INJ 2 MG/ML VIAL IV PRN (18:41)
--- NOTE | 2019-05-29 19:15 | NUR ---
MS RN NOTES PT RESTING IN BED, DISCHARGE SCHEDULED FOR AM. ENDORSED TO PM NURSE FOR MYRNA.
--- NOTE | 2019-05-29 19:20 | NUR ---
RN M/S NOTE PATIENT IS AOX3, RESTING WITH HOB ELEVATED ON 2L O2 VIA NC, NO S/SX OF CARDIAC OR RESPIRATORY DISTRESS, PT SKIN KEPT CLEAN AND DRY, RFA #22G SL, PATENT FLUSHING WELL, SAFETY MAINTAINED AT ALL TIMES, BED IN LOW LOCKED POSITION, CALL LIGHT WITHIN REACH, WILL CONTINUE TO MONITOR FOR ANY CHANGES.
[2019-05-29 20:00] VITALS: BP 131/54
[2019-05-29] MEDS: *INSULIN REGULAR(HUMULIN R)HUM 100 UNIT/ML VIAL SQ PRN (21:48)
[2019-05-30] MEDS: methylPREDNISolone SOD SUCC 125 MG/2ML VIAL IV SCH ×2 (00:37→05:29)
[2019-05-30] MEDS: ALBUTEROL FS 2.5 MG/0.5 ML VIAL.NEB NEB SCH ×3 (01:57→07:18)
[2019-05-30] MEDS: IPRATROPIUM NEB FS 0.5 MG/2.5 ML AMPUL.NEB NEB SCH ×3 (01:57→07:18)
[2019-05-30 04:00] VITALS: BP 140/58
--- NOTE | 2019-05-30 04:00 | NUR ---
MS RN NOTE RECEIVED MIDSHIFT REPORT FROM [facility]. PT IN STABLE CONDITION, A&O X4. CURRENTLY AWAKE IN BED. NO SIGNS OF SOB OR DISTRESS, NO C/O PAIN. ALL CURRENT NEEDS MET. BED LOW, LOCKED, UPPER RAILS UP AND CALL LIGHT WITHIN REACH. WILL CONT. TO MONITOR.
--- NOTE | 2019-05-30 06:16 | NUR ---
MS RN NOTE PT IN STABLE CONDITION, A&O X4. CURRENTLY AWAKE IN BED. NO SIGNS OF SOB OR DISTRESS, NO C/O PAIN. ALL CURRENT NEEDS MET. BED LOW, LOCKED, UPPER RAILS UP AND CALL LIGHT WITHIN REACH. WILL CONT. TO MONITOR AND ENDORSE TO NEXT SHIFT FOR MYRNA.
--- NOTE | 2019-05-30 07:40 | NUR ---
ms rn received on bed, awake,alert,oriented x4,not in any form of distress, respirations even and unlabored,no sob noted, lungs are clear,abdomen soft,positive bowel sounds,denies pain at this time, all needs attended.
[2019-05-30 08:00] VITALS: BP 115/55
[2019-05-30] MEDS: NICOTINE PATCH (21MG) 21 MG PATCH.TD24 TD SCH (08:16)
[2019-05-30] MEDS: ATORVASTATIN 10 MG TABLET PO SCH (08:16)
[2019-05-30] MEDS: BLOOD SUGAR DIAGNOSTIC 1 EACH STRIP VI SCH (08:16)
[2019-05-30] MEDS: LACTOBACILLUS RHAMNOSUS GG 1 EACH CAP.SPRINK PO SCH (08:16)
[2019-05-30] MEDS: METFORMIN 500 MG TABLET PO SCH (08:16)
[2019-05-30] MEDS: LEVOTHYROXINE SODIUM 100 MCG TABLET PO SCH (08:16)
[2019-05-30] MEDS: FLUTICASONE/VILANTEROL 1 EACH BLST.W.DEV IH SCH (08:17)
[2019-05-30] MEDS: INSULIN REGULAR, HUMAN 100 UNIT/ML 3 ML VIAL SQ PRN (08:26)
--- NOTE | 2019-05-30 08:30 | NUR ---
ms giuseppe breakfast served,due meds given,tolerated well, will be discharge today.
--- NOTE | 2019-05-30 09:10 | NUR ---
ms electrician journeyman wireman instructions given and understood, was discharge via ambulance under hospice care.
== END 2019-05-30 09:09 | disposition hospice, home (50) | DRG 189 ==
LOC: ER 15:48 → ICU 17:31 → TELE-TD 05-27 18:03 → TELE1 05-28 17:05 → MEDSG1 05-29 10:05
PROVIDERS: ADMIT Internal Medicine; ATTEND Nurse Practitioner Acute Care
PROC: 5A09357 Assistance with Respiratory Ventilation, Less than 24 Consecutive Hours, Continuous Positive Airway Pressure (ICD-10-PCS; principal; 2019-05-26)
DX: J96.21 Acute and chronic respiratory failure with hypoxia (principal); E43 Unspecified severe protein-calorie malnutrition; J44.1 Chronic obstructive pulmonary disease with (acute) exacerbation; J96.22 Acute and chronic respiratory failure with hypercapnia; F17.210 Nicotine dependence, cigarettes, uncomplicated; I10 Essential (primary) hypertension; F41.9 Anxiety disorder, unspecified; K21.9 Gastro-esophageal reflux disease without esophagitis; Z85.828 Personal history of other malignant neoplasm of skin; E11.9 Type 2 diabetes mellitus without complications; E03.9 Hypothyroidism, unspecified; E88.09 Other disorders of plasma-protein metabolism, not elsewhere classified; M62.50 Muscle wasting and atrophy, not elsewhere classified, unspecified site; Z68.20 Body mass index [BMI] 20.0-20.9, adult
CPT/HCPCS: 36415; 36600; 71045-TC; 80048-TC; 80053-TC; 80076-TC; 82803-TC; 82962-TC; 83605-TC; 83735-TC; 83880; 84100-TC; 84443-TC; 84484-TC; 85025-TC; 85730-TC; 87040-TC; 87081-TC; 94799-TC; 99082-TC; G0378; J0456; J0696; J1815; J2060; J2930; J3475; J7060

== ENCOUNTER 2019-06-01 01:01 | Emergency (ER) | payer MEDICARE ==
[~2019-06-01] VITALS: Ht 162.6 cm; Wt 54.4 kg
[~2019-06-01 01:01] MED LIST changes: -ALBU2.5V13 NEB; +AZIT250T13 PO; -CLON1TAB12 PO; -IPRA3AMP23 IH; -LISI2.5T2 PO; +METF-440 PO; +PRED10TA PO; +PRED20TA PO; -methylPREDNISolone SOD SUCC IV
--- NOTE | 2019-06-01 01:05 | NUR ---
Pt BIBA for SOB. A/o x3, noted wt mild expiratory wheezing on bilat. lungs. Placed on high-higginbotham's & 2l 02 via NC. 02 sat 92%. Placed on tele monitor. V/s checked. Safety precaution noted. Awaiting MD aly.
[2019-06-01] MEDS ORDERED: Magnesium 1GM/D5W 100ML PREMIX 200 ML IV ONE (01:10)
[2019-06-01] MEDS ORDERED: IPRATROPIUM NEB FS 0.5 MG/2.5 ML AMPUL.NEB ONE (01:18)
[2019-06-01] MEDS ORDERED: ALBUTEROL FS 2.5 MG/3 ML VIAL.NEB ONE (01:18)
[2019-06-01 01:29] LABS: BASOPHILS # (AUTO) 0.1 /CMM (0.0-0.2); BASOPHILS % (AUTO) 0.5 % (0.0-2.0); EOSINOPHILS % (AUTO) 0.2 % (0.0-6.0); HEMATOCRIT 45 % (33-45); HEMOGLOBIN 14.8 g/dL (11.5-14.8); LYMPHOCYTES % (AUTO) 6.8 % (20.0-44.0); MEAN CORPUSCULAR HGB CONC 33 g/dl (31.0-36.0); MEAN CORPUSCULAR VOLUME 100 fL (82-100); MONOCYTES # (AUTO) 0.4 /CMM (0.1-1.30); NEUTROPHILS # (AUTO) 12.8 /CMM (1.8-8.9); NEUTROPHILS % (AUTO) 89.5 % (43.0-81.0); PLATELET COUNT (AUTO) 213 /CMM (150-450); RED BLOOD CELL COUNT(AUTO) 4.49 MIL/uL (4.0-5.2); WHITE BLOOD COUNT (AUTO) 14.3 K/uL (4.3-11.0)
[2019-06-01] MEDS ORDERED: ALBUTEROL FS 2.5 MG/3 ML VIAL.NEB NEB ONE (01:30)
[2019-06-01] MEDS ORDERED: methylPREDNISolone SOD SUCC 125 MG/2ML VIAL IV ONE (01:30)
[2019-06-01] MEDS ORDERED: IPRATROPIUM NEB FS 0.5 MG/2.5 ML AMPUL.NEB NEB ONE (01:30)
[2019-06-01] MEDS ORDERED: methylPREDNISolone SOD SUCC 125 MG/2ML VIAL ONE (01:32)
[2019-06-01] MEDS ORDERED: Magnesium 1GM/D5W 100ML PREMIX 100 ML IV ONE ×2 (01:33→02:38)
[2019-06-01 01:40] LABS: CALCIUM, SERUM 8.2 mg/dL (8.5-10.1); CARBON DIOXIDE 32 mmol/L (21-32); CHLORIDE 100 mmol/L (98-107); CREATININE 0.9 mg/dL (0.6-1.3); GLUCOSE 331 mg/dL (74-106); POTASSIUM 4.7 mmol/L (3.5-5.1); SODIUM SERUM 137 mmol/L (136-145); UREA NITROGEN, BLOOD 30 mg/dL (7-18)
[2019-06-01 01:54] LABS: ALANINE AMINOTRANSFERASE 108 U/L (12-78); ALBUMIN 2.9 g/dL (3.4-5.0); ALKALINE PHOSPHATASE 137 U/L (46-116); ASPARTATE AMINOTRANSFERASE 13 U/L (15-37); B-TYPE NATRIURETIC PEPTIDE 127 PG/ML (0-125); BILIRUBIN,TOTAL 0.4 mg/dL (0.2-1.0); TOTAL PROTEIN, SERUM 5.6 g/dL (6.4-8.2)
--- NOTE | 2019-06-01 03:59 | NUR ---
Pt discharge to home in stable condition. Exit care rendered and verbalized understanding. All needs met.
[2019-06-01 04:10] VITALS: BP 102/69
== END 2019-06-01 04:00 | disposition home or self-care (01) ==
LOC: ER 01:06
DX: R06.03 Acute respiratory distress (principal); J44.9 Chronic obstructive pulmonary disease, unspecified; F17.200 Nicotine dependence, unspecified, uncomplicated; I10 Essential (primary) hypertension; E11.9 Type 2 diabetes mellitus without complications; E03.9 Hypothyroidism, unspecified; Z85.828 Personal history of other malignant neoplasm of skin; Z60.2 Problems related to living alone; Z79.899 Other long term (current) drug therapy; Z79.84 Long term (current) use of oral hypoglycemic drugs
CPT/HCPCS: 36415; 71045; 80053; 83880; 84484; 85025; 93005; 94640; 96365; 96366; 96375; 99284; J2930; J3475 ×2

== ENCOUNTER 2019-08-30 00:47 | Inpatient (IN) | payer MEDICARE ==
[~2019-08-30] VITALS: Ht 162.6 cm; Wt 65.8 kg
[2019-08-30] MEDS ORDERED: methylPREDNISolone SOD SUCC 125 MG/2ML VIAL IV ONE (01:00)
[2019-08-30] MEDS ORDERED: IPRATROPIUM NEB FS 0.5 MG/2.5 ML AMPUL.NEB NEB ONE (01:00)
[2019-08-30] MEDS ORDERED: Magnesium 1GM/D5W 100ML PREMIX 200 ML IV ONE ×2 (01:00→01:33)
[2019-08-30] MEDS ORDERED: ALBUTEROL FS 2.5 MG/3 ML VIAL.NEB CONTNEB ONE (01:00)
[2019-08-30] MEDS ORDERED: IPRATROPIUM NEB FS 0.5 MG/2.5 ML AMPUL.NEB ONE (01:10)
[2019-08-30] MEDS ORDERED: ALBUTEROL FS 2.5 MG/3 ML VIAL.NEB ONE (01:10)
[2019-08-30] MEDS ORDERED: methylPREDNISolone SOD SUCC 125 MG/2ML VIAL ONE (01:33)
[2019-08-30] MEDS ORDERED: ACETAMINOPHEN ES 500 MG TABLET ONE (01:45)
[2019-08-30] MEDS ORDERED: ACETAMINOPHEN 325 MG TABLET PO ONE (02:00)
[2019-08-30 02:26] LABS: BASOPHILS % (AUTO) 0.6 % (0.0-2.0); EOSINOPHILS % (AUTO) 0.4 % (0.0-6.0); HEMATOCRIT 42 % (33-45); HEMOGLOBIN 13.6 g/dL (11.5-14.8); LYMPHOCYTES # (AUTO) 1.9 /CMM (0.8-4.8); LYMPHOCYTES % (AUTO) 22.8 % (20.0-44.0); MEAN CORPUSCULAR HGB CONC 33 g/dl (31.0-36.0); MEAN CORPUSCULAR VOLUME 100 fL (82-100); MONOCYTES # (AUTO) 0.8 /CMM (0.1-1.30); MONOCYTES % (AUTO) 9.9 % (2.0-12.0); NEUTROPHILS # (AUTO) 5.4 /CMM (1.8-8.9); NEUTROPHILS % (AUTO) 66.3 % (43.0-81.0); PLATELET COUNT (AUTO) 257 /CMM (150-450); RED BLOOD CELL COUNT(AUTO) 4.19 MIL/uL (4.0-5.2); WHITE BLOOD COUNT (AUTO) 8.1 K/uL (4.3-11.0)
[2019-08-30 02:39] LABS: CALCIUM, SERUM 8.3 mg/dL (8.5-10.1); CARBON DIOXIDE 29 mmol/L (21-32); CHLORIDE 107 mmol/L (98-107); CREATININE 0.8 mg/dL (0.6-1.3); GLUCOSE 178 mg/dL (74-106); POTASSIUM 3.5 mmol/L (3.5-5.1); SODIUM SERUM 144 mmol/L (136-145); UREA NITROGEN, BLOOD 19 mg/dL (7-18)
[2019-08-30 02:48] LABS: ALANINE AMINOTRANSFERASE 19 U/L (12-78); ALBUMIN 3.3 g/dL (3.4-5.0); ALKALINE PHOSPHATASE 73 U/L (46-116); ASPARTATE AMINOTRANSFERASE 9 U/L (15-37); B-TYPE NATRIURETIC PEPTIDE 204 PG/ML (0-125); BILIRUBIN,TOTAL 0.2 mg/dL (0.2-1.0); TOTAL PROTEIN, SERUM 6.2 g/dL (6.4-8.2)
[2019-08-30] MEDS ORDERED: ALBUTEROL FS 2.5 MG/3 ML VIAL.NEB NEB SCH (05:00)
[2019-08-30] MEDS ORDERED: ACETAMINOPHEN 325 MG TABLET PO PRN (05:00)
[2019-08-30] MEDS ORDERED: MORPHINE SULFATE INJ 2 MG/ML DISP.SYRIN IV PRN (05:00)
[2019-08-30] MEDS ORDERED: ONDANSETRON HCL/PF 4 MG/2 ML VIAL IVP PRN (05:00)
[2019-08-30] MEDS ORDERED: MONTELUKAST SODIUM (10MG) 10 MG TABLET PO PRN (05:00)
[2019-08-30] MEDS ORDERED: LEVOFLOXACIN 500 MG /D5W 100ML 100 ML IV ONE (06:12)
[2019-08-30] MEDS: methylPREDNISolone SOD SUCC 40 MG/ML VIAL IV SCH ×3 (06:14→21:36)
[2019-08-30] MEDS: LEVOFLOXACIN 500 MG /D5W 100ML 500 MG in PREMIX 1 EA IV SCH (06:15)
[2019-08-30] MEDS: IPRATROPIUM NEB FS 0.5 MG/2.5 ML AMPUL.NEB NEB SCH ×5 (07:35→23:50)
[2019-08-30 08:00] VITALS: BP 113/72
[2019-08-30] MEDS: LEVOTHYROXINE SODIUM 100 MCG TABLET PO SCH (08:28)
[2019-08-30] MEDS: METFORMIN 500 MG TABLET PO SCH (08:28)
[2019-08-30] MEDS: PANTOPRAZOLE 40 MG TABLET.DR PO SCH (08:28)
[2019-08-30] MEDS ORDERED: FLUTICASONE/VILANTEROL 1 EACH BLST.W.DEV IH SCH (09:00)
[2019-08-30] MEDS: ALBUTEROL FS 2.5 MG/3 ML VIAL.NEB NEB SCH ×4 (11:37→23:50)
[2019-08-30 20:00] VITALS: BP 103/65
[2019-08-30 20:39] VITALS: BP 103/56
[2019-08-30] MEDS: ATORVASTATIN 10 MG TABLET PO SCH (21:36)
[2019-08-31] VITALS (8 sets, daily range): BP systolic 107–127; BP diastolic 61–70
[2019-08-31] MEDS: IPRATROPIUM NEB FS 0.5 MG/2.5 ML AMPUL.NEB NEB SCH ×6 (04:04→21:22)
[2019-08-31] MEDS: ALBUTEROL FS 2.5 MG/3 ML VIAL.NEB NEB SCH ×6 (04:04→21:22)
[2019-08-31] MEDS: methylPREDNISolone SOD SUCC 40 MG/ML VIAL IV SCH ×3 (05:09→21:50)
[2019-08-31] MEDS: LEVOFLOXACIN 500 MG /D5W 100ML 500 MG in PREMIX 1 EA IV SCH (05:29)
[2019-08-31] MEDS: PANTOPRAZOLE 40 MG TABLET.DR PO SCH (08:31)
[2019-08-31] MEDS: METFORMIN 500 MG TABLET PO SCH (08:31)
[2019-08-31] MEDS: LEVOTHYROXINE SODIUM 100 MCG TABLET PO SCH (08:31)
[2019-08-31] MEDS: GUAIFENESIN/CODEINE 10 ML UDC PO PRN (11:28)
[2019-08-31] MEDS: ATORVASTATIN 10 MG TABLET PO SCH (21:51)
[2019-09-01] VITALS: BP 135/80
[2019-09-01] MEDS: ALBUTEROL FS 2.5 MG/3 ML VIAL.NEB NEB SCH ×7 (00:08→23:30)
[2019-09-01] MEDS: IPRATROPIUM NEB FS 0.5 MG/2.5 ML AMPUL.NEB NEB SCH ×7 (00:08→23:30)
[2019-09-01 04:00] VITALS: BP 119/66
[2019-09-01] MEDS: methylPREDNISolone SOD SUCC 40 MG/ML VIAL IV SCH ×3 (05:00→21:08)
[2019-09-01] MEDS: LEVOFLOXACIN 500 MG /D5W 100ML 500 MG in PREMIX 1 EA IV SCH (05:08)
[2019-09-01 06:37] LABS: BASOPHILS % (AUTO) 0.1 % (0.0-2.0); HEMATOCRIT 36 % (33-45); HEMOGLOBIN 12.1 g/dL (11.5-14.8); LYMPHOCYTES # (AUTO) 0.6 /CMM (0.8-4.8); LYMPHOCYTES % (AUTO) 5.7 % (20.0-44.0); MEAN CORPUSCULAR HGB CONC 33 g/dl (31.0-36.0); MEAN CORPUSCULAR VOLUME 99 fL (82-100); MONOCYTES # (AUTO) 0.4 /CMM (0.1-1.30); MONOCYTES % (AUTO) 3.6 % (2.0-12.0); NEUTROPHILS # (AUTO) 9.2 /CMM (1.8-8.9); NEUTROPHILS % (AUTO) 90.6 % (43.0-81.0); PLATELET COUNT (AUTO) 229 /CMM (150-450); RED BLOOD CELL COUNT(AUTO) 3.67 MIL/uL (4.0-5.2); WHITE BLOOD COUNT (AUTO) 10.1 K/uL (4.3-11.0)
[2019-09-01 06:55] LABS: CALCIUM, SERUM 8.5 mg/dL (8.5-10.1); CREATININE 0.6 mg/dL (0.6-1.3); POTASSIUM 4.1 mmol/L (3.5-5.1)
[2019-09-01 08:00] VITALS: BP 129/56
[2019-09-01] MEDS: LEVOTHYROXINE SODIUM 100 MCG TABLET PO SCH (08:15)
[2019-09-01] MEDS: PANTOPRAZOLE 40 MG TABLET.DR PO SCH (08:15)
[2019-09-01] MEDS: METFORMIN 500 MG TABLET PO SCH (08:15)
[2019-09-01] MEDS: GUAIFENESIN/CODEINE 10 ML UDC PO PRN ×3 (08:22→23:27)
[2019-09-01] MEDS: ALBUTEROL FS 2.5 MG/3 ML VIAL.NEB NEB PRN ×2 (09:44→17:02)
[2019-09-01] MEDS: IPRATROPIUM NEB FS 0.5 MG/2.5 ML AMPUL.NEB NEB PRN ×2 (09:44→17:02)
[2019-09-01 16:00] VITALS: BP 133/67
[2019-09-01 20:00] VITALS: BP 123/73
[2019-09-01] MEDS: ATORVASTATIN 10 MG TABLET PO SCH (21:10)
[2019-09-02] VITALS: BP 135/77
[2019-09-02] MEDS: ALBUTEROL FS 2.5 MG/3 ML VIAL.NEB NEB SCH ×6 (03:30→23:19)
[2019-09-02] MEDS: IPRATROPIUM NEB FS 0.5 MG/2.5 ML AMPUL.NEB NEB SCH ×6 (03:30→23:18)
[2019-09-02] MEDS: methylPREDNISolone SOD SUCC 40 MG/ML VIAL IV SCH ×3 (04:51→21:53)
[2019-09-02] MEDS: LEVOFLOXACIN 500 MG /D5W 100ML 500 MG in PREMIX 1 EA IV SCH (05:13)
[2019-09-02] MEDS: METFORMIN 500 MG TABLET PO SCH (07:51)
[2019-09-02] MEDS: PANTOPRAZOLE 40 MG TABLET.DR PO SCH (07:51)
[2019-09-02] MEDS: LEVOTHYROXINE SODIUM 100 MCG TABLET PO SCH (07:51)
[2019-09-02 08:00] VITALS: BP 126/57
[2019-09-02 16:00] VITALS: BP 120/64
[2019-09-02 20:00] VITALS: BP 135/88
[2019-09-02] MEDS: IPRATROPIUM NEB FS 0.5 MG/2.5 ML AMPUL.NEB NEB PRN (20:49)
[2019-09-02] MEDS: ALBUTEROL FS 2.5 MG/3 ML VIAL.NEB NEB PRN (20:49)
[2019-09-02] MEDS: ATORVASTATIN 10 MG TABLET PO SCH (21:56)
[2019-09-03] MEDS: ALBUTEROL FS 2.5 MG/3 ML VIAL.NEB NEB SCH ×6 (03:21→23:15)
[2019-09-03] MEDS: IPRATROPIUM NEB FS 0.5 MG/2.5 ML AMPUL.NEB NEB SCH ×6 (03:21→23:15)
[2019-09-03 04:00] VITALS: BP 118/68
[2019-09-03] MEDS: methylPREDNISolone SOD SUCC 40 MG/ML VIAL IV SCH ×2 (05:23→10:58)
[2019-09-03] MEDS: LEVOTHYROXINE SODIUM 100 MCG TABLET PO SCH (07:56)
[2019-09-03] MEDS: PANTOPRAZOLE 40 MG TABLET.DR PO SCH (07:56)
[2019-09-03 08:00] VITALS: BP 127/59
[2019-09-03] MEDS ORDERED: LEVOFLOXACIN (500MG) 500 MG TABLET PO SCH (08:00)
[2019-09-03] MEDS: LORAZEPAM 0.5 MG TABLET PO SCH ×2 (10:35→17:16)
[2019-09-03] MEDS: METFORMIN 500 MG TABLET PO SCH (10:35)
[2019-09-03 16:00] VITALS: BP 133/66
[2019-09-03 20:00] VITALS: BP 140/81
[2019-09-03] MEDS: ATORVASTATIN 10 MG TABLET PO SCH (21:09)
[2019-09-04] MEDS: ALBUTEROL FS 2.5 MG/3 ML VIAL.NEB NEB SCH ×6 (03:13→23:43)
[2019-09-04] MEDS: IPRATROPIUM NEB FS 0.5 MG/2.5 ML AMPUL.NEB NEB SCH ×6 (03:13→23:43)
[2019-09-04 04:00] VITALS: BP 133/75
[2019-09-04 07:01] LABS: BASOPHILS % (AUTO) 0.1 % (0.0-2.0); EOSINOPHILS % (AUTO) 0.1 % (0.0-6.0); HEMATOCRIT 38 % (33-45); HEMOGLOBIN 12.6 g/dL (11.5-14.8); LYMPHOCYTES # (AUTO) 1.7 /CMM (0.8-4.8); LYMPHOCYTES % (AUTO) 17.2 % (20.0-44.0); MEAN CORPUSCULAR HGB CONC 33 g/dl (31.0-36.0); MEAN CORPUSCULAR VOLUME 98 fL (82-100); MONOCYTES % (AUTO) 10.8 % (2.0-12.0); NEUTROPHILS # (AUTO) 6.9 /CMM (1.8-8.9); NEUTROPHILS % (AUTO) 71.8 % (43.0-81.0); PLATELET COUNT (AUTO) 200 /CMM (150-450); RED BLOOD CELL COUNT(AUTO) 3.92 MIL/uL (4.0-5.2); WHITE BLOOD COUNT (AUTO) 9.6 K/uL (4.3-11.0)
[2019-09-04 07:26] LABS: CALCIUM, SERUM 8.2 mg/dL (8.5-10.1); CREATININE 0.6 mg/dL (0.6-1.3); MAGNESIUM 2.1 mg/dL (1.8-2.4); PHOSPHORUS 3.1 mg/dL (2.5-4.9); POTASSIUM 4.1 mmol/L (3.5-5.1)
[2019-09-04 08:00] VITALS: BP 127/85
[2019-09-04] MEDS: PANTOPRAZOLE 40 MG TABLET.DR PO SCH (08:04)
[2019-09-04] MEDS: LEVOTHYROXINE SODIUM 100 MCG TABLET PO SCH (08:04)
[2019-09-04 08:49] LABS: BAND % (MANUAL) 3 % (0.0-5.0); LYMPHOCYTES % (MANUAL) 15 % (16-48); METAMYELOCYTES % 2 % (0-0); MONOCYTES % (MANUAL) 10 % (0-11.0); MYELOCYTES % 3 % (0-0); NEUTROPHILS % (MANUAL) 67 (42-76)
[2019-09-04] MEDS: METFORMIN 500 MG TABLET PO SCH (09:06)
[2019-09-04] MEDS: LORAZEPAM 0.5 MG TABLET PO SCH ×2 (09:06→16:28)
[2019-09-04] MEDS: methylPREDNISolone SOD SUCC 40 MG/ML VIAL IV SCH ×3 (09:06→22:13)
[2019-09-04] MEDS ORDERED: methylPREDNISolone SOD SUCC 40 MG/ML VIAL IV SCH (09:30)
[2019-09-04 16:00] VITALS: BP 130/71
[2019-09-04 20:00] VITALS: BP 144/72
[2019-09-04] MEDS: ATORVASTATIN 10 MG TABLET PO SCH (22:13)
[2019-09-05] MEDS: IPRATROPIUM NEB FS 0.5 MG/2.5 ML AMPUL.NEB NEB SCH ×7 (03:34→20:56)
[2019-09-05] MEDS: ALBUTEROL FS 2.5 MG/3 ML VIAL.NEB NEB SCH ×7 (03:35→20:56)
[2019-09-05 04:00] VITALS: BP 116/63
[2019-09-05] MEDS: methylPREDNISolone SOD SUCC 40 MG/ML VIAL IV SCH ×3 (05:19→20:52)
[2019-09-05 06:28] LABS: HEMATOCRIT 37 % (33-45); HEMOGLOBIN 12.4 g/dL (11.5-14.8); LYMPHOCYTES # (AUTO) 0.5 /CMM (0.8-4.8); LYMPHOCYTES % (AUTO) 6.3 % (20.0-44.0); MEAN CORPUSCULAR HGB CONC 33 g/dl (31.0-36.0); MEAN CORPUSCULAR VOLUME 98 fL (82-100); MONOCYTES # (AUTO) 0.3 /CMM (0.1-1.30); MONOCYTES % (AUTO) 4.1 % (2.0-12.0); NEUTROPHILS # (AUTO) 6.8 /CMM (1.8-8.9); NEUTROPHILS % (AUTO) 89.6 % (43.0-81.0); PLATELET COUNT (AUTO) 187 /CMM (150-450); RED BLOOD CELL COUNT(AUTO) 3.81 MIL/uL (4.0-5.2); WHITE BLOOD COUNT (AUTO) 7.6 K/uL (4.3-11.0)
[2019-09-05 06:50] LABS: CALCIUM, SERUM 8.3 mg/dL (8.5-10.1); CREATININE 0.5 mg/dL (0.6-1.3); MAGNESIUM 2.3 mg/dL (1.8-2.4); PHOSPHORUS 3.5 mg/dL (2.5-4.9); POTASSIUM 4.6 mmol/L (3.5-5.1)
[2019-09-05 08:00] VITALS: BP 137/70
[2019-09-05] MEDS: PANTOPRAZOLE 40 MG TABLET.DR PO SCH (08:03)
[2019-09-05] MEDS: LEVOTHYROXINE SODIUM 100 MCG TABLET PO SCH (08:04)
[2019-09-05] MEDS: LORAZEPAM 0.5 MG TABLET PO SCH ×2 (08:04→16:22)
[2019-09-05] MEDS: METFORMIN 500 MG TABLET PO SCH (08:04)
[2019-09-05 16:00] VITALS: BP_SYST 115; BP_SYST 137; BP_DIAS 49; BP_DIAS 72
[2019-09-05] MEDS: ATORVASTATIN 10 MG TABLET PO SCH (21:58)
== END 2019-09-05 23:08 | disposition left against medical advice (07) | DRG 190 ==
LOC: ER 00:47 → TELE1 04:53 → MEDSG1 09-01 10:18
PROVIDERS: ADMIT Family Medicine; ATTEND Registered Nurse
DX: J44.1 Chronic obstructive pulmonary disease with (acute) exacerbation (principal); N17.0 Acute kidney failure with tubular necrosis; E44.1 Mild protein-calorie malnutrition; J45.901 Unspecified asthma with (acute) exacerbation; E03.9 Hypothyroidism, unspecified; E11.9 Type 2 diabetes mellitus without complications; I10 Essential (primary) hypertension; Z86.73 Personal history of transient ischemic attack (TIA), and cerebral infarction without residual deficits; I25.10 Atherosclerotic heart disease of native coronary artery without angina pectoris; K21.9 Gastro-esophageal reflux disease without esophagitis; F17.210 Nicotine dependence, cigarettes, uncomplicated; E88.09 Other disorders of plasma-protein metabolism, not elsewhere classified; Z68.24 Body mass index [BMI] 24.0-24.9, adult; F43.22 Adjustment disorder with anxiety; Z79.84 Long term (current) use of oral hypoglycemic drugs
CPT/HCPCS: 36415; 71045-TC; 80048-TC; 80053-TC; 83735-TC; 83880; 84100-TC; 84484-TC; 85025-TC; 87081-TC; 94760-TC; 94762-TC; 94799-TC; 97116-TC; 97530-TC; A4216; G0378; J1956; J2920; J2930; J3475; J7030; J7050

== ENCOUNTER 2019-09-07 00:30 | Emergency (ER) | payer MEDICARE ==
[~2019-09-07] VITALS: Ht 162.6 cm; Wt 57.2 kg
--- NOTE | 2019-09-07 00:35 | NUR ---
BIBA FOR X/O SOB SINCE YESTERDAY. PT W/ HX OF ASTHMA AND WAS DISCHARGED FROM [facility] YESTERDAY FOR THE SAME DX AND COMPLAINT
--- NOTE | 2019-09-07 00:37 | NUR ---
DR BEAL AT THE BED SIDE
--- NOTE | 2019-09-07 00:38 | NUR ---
CALLED RT FOR BREATHING TX
[2019-09-07] MEDS ORDERED: DEXAMETHASONE SOD PHOSPHATE 10 MG/ML VIAL ONE (00:41)
[2019-09-07] MEDS ORDERED: ALBUTEROL FS 2.5 MG/0.5 ML VIAL.NEB ONE (00:44)
[2019-09-07] MEDS ORDERED: DEXAMETHASONE SOD PHOSPHATE 4 MG/ML VIAL IM ONE (01:00)
[2019-09-07] MEDS ORDERED: ALBUTEROL FS 2.5 MG/0.5 ML VIAL.NEB NEB ONE (01:00)
--- NOTE | 2019-09-07 01:22 | NUR ---
pt in bed resting comfortably with eyes closed. Easily aroused. VSS. will cont to monitor,
--- NOTE | 2019-09-07 01:40 | NUR ---
PT IN MEDICALLY CLEARED TO BE DISCHARGED HOME. PT W/ STABLE VS , HOLDING O2 SAT OF 97% ON R/A. NO COUGH OR SOB. NOTED. CALLED SON TO OIL FIELD EQUIPMENT MECHANIC SUPERVISOR THE PT.
--- NOTE | 2019-09-07 03:10 | NUR ---
pt was picked up by son in stable condition. pt was assisted to the car w/ a WC. Patient discharged to home in stable condition. Written and verbal after care instructions given. Patient verbalized understanding of instruction.
[2019-09-07 03:26] VITALS: BP 102/58
== END 2019-09-07 03:10 | disposition home or self-care (01) ==
LOC: ER 00:33
DX: J44.9 Chronic obstructive pulmonary disease, unspecified (principal); F17.200 Nicotine dependence, unspecified, uncomplicated; I10 Essential (primary) hypertension; E11.9 Type 2 diabetes mellitus without complications; E03.9 Hypothyroidism, unspecified; Z60.2 Problems related to living alone; Z85.828 Personal history of other malignant neoplasm of skin; Z79.899 Other long term (current) drug therapy; Z79.84 Long term (current) use of oral hypoglycemic drugs
CPT/HCPCS: 94640; 96372; 99283; 99406; J1100

== ENCOUNTER 2019-09-19 18:13 | Emergency (ER) | payer MEDICARE ==
[~2019-09-19] VITALS: Ht 167.6 cm; Wt 59.4 kg
--- NOTE | 2019-09-19 18:16 | NUR ---
PT [id number] FRM HOME FOR SOB. D/C HOME FROM [facility] 2 HOURS AGO GIVEN 1 AMP EPI, AND ON BREATHING TREATMENT FITNESS CLUB MANAGER. PT O2 SAT @ 97 ON ROOM AIR W/ NO ACUTE DISTRESS NOTED. PT AAOX4 AND CONNECTED TO THE MONITOR. AWAITING FOR MD JOYNER
[2019-09-19] MEDS ORDERED: Magnesium 1GM/D5W 100ML PREMIX 200 ML IV ONE (18:24)
[2019-09-19] MEDS ORDERED: ALBUTEROL FS 2.5 MG/3 ML VIAL.NEB NEB ONE ×3 (18:30→21:30)
[2019-09-19] MEDS ORDERED: methylPREDNISolone SOD SUCC 125 MG/2ML VIAL IV ONE (18:30)
[2019-09-19] MEDS ORDERED: IPRATROPIUM NEB FS 0.5 MG/2.5 ML AMPUL.NEB NEB ONE ×3 (18:30→21:30)
[2019-09-19] MEDS ORDERED: IV NS 0.9% 1,000 ML BAG IV ONE (18:30)
[2019-09-19] MEDS ORDERED: methylPREDNISolone SOD SUCC 125 MG/2ML VIAL ONE (18:43)
[2019-09-19] MEDS ORDERED: ALBUTEROL FS 2.5 MG/3 ML VIAL.NEB ONE ×2 (18:50→21:28)
[2019-09-19] MEDS ORDERED: IPRATROPIUM NEB FS 0.5 MG/2.5 ML AMPUL.NEB ONE (18:50)
[2019-09-19] MEDS ORDERED: Magnesium 1GM/D5W 100ML PREMIX 100 ML IV ONE ×2 (18:51→19:27)
--- NOTE | 2019-09-19 18:56 | NUR ---
RT AT BEDSIDE FOR BREATHING TX
--- NOTE | 2019-09-19 20:12 | NUR ---
GIVEN 1G OF MAGNESIUM IVPB. END TIME: 2111
[2019-09-19 21:43] LABS: BASOPHILS % (AUTO) 0.3 % (0.0-2.0); EOSINOPHILS % (AUTO) 0.1 % (0.0-6.0); HEMATOCRIT 40 % (33-45); HEMOGLOBIN 13.1 g/dL (11.5-14.8); LYMPHOCYTES # (AUTO) 0.4 /CMM (0.8-4.8); LYMPHOCYTES % (AUTO) 2.4 % (20.0-44.0); MEAN CORPUSCULAR HGB CONC 32 g/dl (31.0-36.0); MEAN CORPUSCULAR VOLUME 100 fL (82-100); MONOCYTES # (AUTO) 0.2 /CMM (0.1-1.30); MONOCYTES % (AUTO) 1.2 % (2.0-12.0); NEUTROPHILS # (AUTO) 14.8 /CMM (1.8-8.9); PLATELET COUNT (AUTO) 300 /CMM (150-450); RED BLOOD CELL COUNT(AUTO) 4.04 MIL/uL (4.0-5.2); WHITE BLOOD COUNT (AUTO) 15.4 K/uL (4.3-11.0)
--- NOTE | 2019-09-19 21:46 | NUR ---
PT GETTING BREATHING TX. PT MASON WELL.
[2019-09-19 21:58] LABS: CALCIUM, SERUM 8.2 mg/dL (8.5-10.1); CREATININE 0.6 mg/dL (0.6-1.3); POTASSIUM 4.2 mmol/L (3.5-5.1)
--- NOTE | 2019-09-19 22:54 | NUR ---
PT SITTING UP, VSS. DENIES CP, SOB, DIZZINESS, N/V @ THIS TIME. O2 SAT 96% ON 2L OF O2. WILL CONT TO MONITOR.
[2019-09-19 22:56] VITALS: BP 131/58
--- NOTE | 2019-09-19 23:58 | NUR ---
PT ACCEPTED TO [facility] BY DR URBINA, [place] 5754, # FOR REPORT [phone]. BLS ETA 1 HR.
[2019-09-20] MEDS ORDERED: HYDROCODONE/APAP 5/325MG 1 EACH TABLET PO PRN
[2019-09-20] MEDS ORDERED: ZOLPIDEM TARTRATE 5 MG TABLET PO PRN
[2019-09-20] MEDS ORDERED: Z GUARD REMEDY 2 OZ OINT TP PRN
[2019-09-20] MEDS ORDERED: ACETAMINOPHEN 325 MG TABLET PO PRN
[2019-09-20] MEDS ORDERED: methylPREDNISolone SOD SUCC 40 MG/ML VIAL IV SCH
[2019-09-20] MEDS ORDERED: MAG HYDROX/AL HYDROX/SIMETH 30 ML UDC PO PRN
[2019-09-20] MEDS ORDERED: ONDANSETRON HCL/PF 4 MG/2 ML VIAL IVP PRN
[2019-09-20] MEDS ORDERED: MAGNESIUM HYDROXIDE 30 ML UDC PO PRN
--- NOTE | 2019-09-20 00:25 | NUR ---
REPORT GIVEN TO HAROLDO MIDDLETON FOR CONTINUATION OF CARE
--- NOTE | 2019-09-20 00:31 | NUR ---
[facility] AT BEDSIDE FOR TRANSPORT TO [facility].
[2019-09-20] MEDS ORDERED: PANTOPRAZOLE 40 MG TABLET.DR PO SCH (07:30)
== END 2019-09-20 00:41 | disposition short-term general hospital (02) ==
LOC: ER 18:16
DX: J44.1 Chronic obstructive pulmonary disease with (acute) exacerbation (principal); I10 Essential (primary) hypertension; E11.9 Type 2 diabetes mellitus without complications; E03.9 Hypothyroidism, unspecified; F17.200 Nicotine dependence, unspecified, uncomplicated; Z60.2 Problems related to living alone; Z85.828 Personal history of other malignant neoplasm of skin; Z79.899 Other long term (current) drug therapy
CPT/HCPCS: 36415; 71045; 80048; 85025; 87081; 93005; 94640 ×2; 96365; 96375; 99285; J2930; J3475 ×2

== ENCOUNTER 2020-03-06 22:08 | Emergency (ER) | payer MEDICARE ==
[~2020-03-06] VITALS: Ht 167.6 cm; Wt 59.4 kg
[2020-03-06] MEDS ORDERED: IPRATROPIUM NEB FS 0.5 MG/2.5 ML AMPUL.NEB ONE (22:19)
[2020-03-06] MEDS ORDERED: ALBUTEROL FS 2.5 MG/0.5 ML VIAL.NEB ONE ×2 (22:19→23:11)
[2020-03-06] MEDS ORDERED: ALBUTEROL FS 2.5 MG/0.5 ML VIAL.NEB NEB ONE ×2 (22:30→23:30)
[2020-03-06] MEDS ORDERED: IPRATROPIUM NEB FS 0.5 MG/2.5 ML AMPUL.NEB NEB ONE (22:30)
--- NOTE | 2020-03-06 22:30 | NUR ---
NILSA 102 FROM HOME SOB X 30MINS, PT SMOKED 1/2 PACK TODAY, STARTED GETTING SOB TO ER BED 6
--- NOTE | 2020-03-06 23:42 | NUR ---
RACHEL COHEN [phone]
--- NOTE | 2020-03-07 00:29 | NUR ---
PT READY FOR DISCHARGE AWAITING FOR SON HOUSE ADMIN
--- NOTE | 2020-03-07 00:50 | NUR ---
Patient discharged to home in stable condition. Written and verbal after care instructions given. Patient verbalizes understanding of instruction.
[2020-03-07 01:48] VITALS: BP 110/56
== END 2020-03-07 01:48 | disposition home or self-care (01) ==
LOC: ER 22:26
DX: J44.9 Chronic obstructive pulmonary disease, unspecified (principal); F17.210 Nicotine dependence, cigarettes, uncomplicated; E03.9 Hypothyroidism, unspecified; I10 Essential (primary) hypertension; E11.9 Type 2 diabetes mellitus without complications; Z60.2 Problems related to living alone; Z79.899 Other long term (current) drug therapy; Z79.84 Long term (current) use of oral hypoglycemic drugs
CPT/HCPCS: 71045-TC

== ENCOUNTER 2020-06-13 17:25 | Inpatient (IN) | payer MEDICARE ==
[~2020-06-13] VITALS: Ht 162.6 cm; Wt 63.5 kg
--- NOTE | 2020-06-13 17:42 | NUR ---
JANETH [phone]
--- NOTE | 2020-06-13 18:17 | NUR ---
NILSA FROM HOME TO ER BED 6. AAOX4. IN MODERATE DISTRESS, SOB, DYSPNEIC. BROUGHT IN FOR SHORTNESS OF BREATH. PT NOTED WITH BILAT WHEEZING. "PUFFING". PT NOTED SATTING AT 89% ON RA PLACED ON 02 VIA NC @ 2LPM SATTING AT 94%. MD WAS AT THE BEDSIDE FOR EVAL. ORDERS RECEIVED NOTED AND CARRIED OUT. IV LINE ESTABLISHED ON R HAND 20G. BLOOD DRAWN AND GIVEN TO RECONDITIONER AT BEDSIDE
[2020-06-13 18:24] LABS: BASOPHILS # (AUTO) 0.1 /CMM (0.0-0.2); BASOPHILS % (AUTO) 0.8 % (0.0-2.0); EOSINOPHILS % (AUTO) 0.7 % (0.0-6.0); HEMATOCRIT 47 % (33-45); HEMOGLOBIN 15.3 g/dL (11.5-14.8); LYMPHOCYTES # (AUTO) 2.1 /CMM (0.8-4.8); LYMPHOCYTES % (AUTO) 22.8 % (20.0-44.0); MEAN CORPUSCULAR HGB CONC 33 g/dl (31.0-36.0); MEAN CORPUSCULAR VOLUME 102 fL (82-100); MONOCYTES # (AUTO) 0.9 /CMM (0.1-1.30); MONOCYTES % (AUTO) 9.7 % (2.0-12.0); NEUTROPHILS # (AUTO) 6.1 /CMM (1.8-8.9); PLATELET COUNT (AUTO) 262 /CMM (150-450); RED BLOOD CELL COUNT(AUTO) 4.63 MIL/uL (4.0-5.2); WHITE BLOOD COUNT (AUTO) 9.3 K/uL (4.3-11.0)
[2020-06-13 18:43] LABS: CALCIUM, SERUM 9.5 mg/dL (8.5-10.1); CARBON DIOXIDE 32 mmol/L (21-32); CHLORIDE 103 mmol/L (98-107); CREATININE 0.6 mg/dL (0.6-1.3); GLUCOSE 122 mg/dL (74-106); POTASSIUM 3.9 mmol/L (3.5-5.1); SODIUM SERUM 140 mmol/L (136-145); UREA NITROGEN, BLOOD 15 mg/dL (7-18)
[2020-06-13] MEDS ORDERED: IPRATROPIUM NEB FS 0.5 MG/2.5 ML AMPUL.NEB ONE (18:44)
[2020-06-13] MEDS ORDERED: ALBUTEROL FS 2.5 MG/3 ML VIAL.NEB ONE ×2 (18:44→22:55)
[2020-06-13 18:47] LABS: ALANINE AMINOTRANSFERASE 19 U/L (12-78); ALBUMIN 3.8 g/dL (3.4-5.0); ALKALINE PHOSPHATASE 82 U/L (46-116); ASPARTATE AMINOTRANSFERASE 15 U/L (15-37); B-TYPE NATRIURETIC PEPTIDE 49 PG/ML (0-125); BILIRUBIN,DIRECT 0.1 mg/dL (0.0-0.2); BILIRUBIN,TOTAL 0.3 mg/dL (0.2-1.0)
[2020-06-13] MEDS ORDERED: ALBUTEROL FS 2.5 MG/3 ML VIAL.NEB CONTNEB ONE ×2 (19:00→22:30)
[2020-06-13] MEDS ORDERED: IPRATROPIUM NEB FS 0.5 MG/2.5 ML AMPUL.NEB NEB ONE (19:00)
[2020-06-13] MEDS ORDERED: methylPREDNISolone SOD SUCC 125 MG/2ML VIAL IV ONE (19:00)
[2020-06-13 19:31] LABS: D-DIMER 0.77 mg/L(FEU (0.17-0.50)
[2020-06-13] MEDS ORDERED: AZITHROMYCIN 250 MG TABLET PO ONE (21:30)
[2020-06-13] MEDS ORDERED: AZITHROMYCIN 250 MG TABLET ONE (21:43)
[2020-06-13] MEDS ORDERED: HYDROCODONE/APAP 5/325MG 1 EACH TABLET PO PRN (23:00)
[2020-06-13] MEDS ORDERED: Z GUARD REMEDY 2 OZ OINT TP PRN (23:00)
[2020-06-13] MEDS ORDERED: MAGNESIUM HYDROXIDE 30 ML UDC PO PRN (23:00)
[2020-06-13] MEDS ORDERED: TEMAZEPAM 15 MG CAPSULE PO PRN (23:00)
[2020-06-13] MEDS ORDERED: ONDANSETRON HCL/PF 4 MG/2 ML VIAL IVP PRN (23:00)
[2020-06-13] MEDS ORDERED: MAG HYDROX/AL HYDROX/SIMETH 30 ML UDC PO PRN (23:00)
[2020-06-13] MEDS ORDERED: MONTELUKAST SODIUM (10MG) 10 MG TABLET PO PRN (23:00)
--- NOTE | 2020-06-14 00:45 | NUR ---
REPORT GIVEN TO EMI DEE FOR MYRNA
[2020-06-14 01:00] VITALS: BP 143/77
--- NOTE | 2020-06-14 01:00 | NUR ---
MS RN ADMITTING NOTES RECEIVED PT FROM ER VIA SHANNA. PT A/O X3 AND ABLE TO MAKE NEEDS KNOWN. PT ON 2L VIA OK. NO COMPLAINTS OF PAIN AT THIS TIME. PT NOTED WITH MISBAH #20G PATENT AND INTACT AND SL. SAFETY MEASURES IN PLACE WITH BED IN LOWEST LOCKED POSITION WITH SIDE RAILS UP X2. CALL LIGHT WITHIN REACH. WILL CONTINUE TO MONITOR.
--- NOTE | 2020-06-14 01:10 | NUR ---
MS RN NOTES PT REFUSED SKIN ASSESSMENT WELL PICTURES AT THIS TIME. PT ALSO REFUSED TO HAVE MONEY $60 PUT INTO SAFE. WILL CONTINUE TO MONITOR.
--- NOTE | 2020-06-14 01:10 | NUR ---
PT TRANSFERRED TO 312 IN STABLE CONDITION
--- NOTE | 2020-06-14 01:45 | NUR ---
MS RN NOTES PT NOTED ANXIOUS. MD MADE AWARE, NEW ORDER FOR 1X ONLY FOR ATIVAN 1MG. WILL CONTINUE TO MONITOR.
[2020-06-14] MEDS ORDERED: LORAZEPAM 1 MG TABLET PO ONE (02:00)
[2020-06-14] MEDS: ALBUTEROL FS 2.5 MG/0.5 ML VIAL.NEB NEB PRN ×2 (02:49→07:56)
--- NOTE | 2020-06-14 05:00 | NUR ---
MS RN NOTES PT REFUSED SCD'S AT THIS TIME. WILL CONTINUE TO MONITOR.
--- NOTE | 2020-06-14 07:00 | NUR ---
MS RN NOTES PT IN BED AWAKE AND ABLE TO MAKE NEEDS KNOWN. PT A/O X3. NO COMPLAINTS OF PAIN AT THIS TIME. SAFETY MEASURES IN PLACE WITH BED IN LOWEST LOCKED POSITION WITH SIDE RAILS UP X2. CALL LIGHT WITHIN REACH. WILL ENDORSE TO ONCOMING NURSE FOR MYRNA.
--- NOTE | 2020-06-14 07:20 | NUR ---
MS RN OPENING NOTE PATIENT IN BED RESTING COMFORTABLY. PATIENT IN NO ACUTE DISTRESS. NO SOB NOTED. PATIENT BREATHING IS EVEN AND UNLABORED. EDUCATED PATIENT TO USE CALL LIGHT FOR ASSISTANCE. PATIENT BED ALARM IS ON. SAFETY PRECAUTIONS IN PLACE. PATIENT BED IS LOCKED AND IN LOWEST POSITION. CALL LIGHT WITHIN REACH. WILL CONTINUE TO MONITOR.
[2020-06-14 07:34] LABS: BASOPHILS % (AUTO) 0.3 % (0.0-2.0); HEMATOCRIT 46 % (33-45); HEMOGLOBIN 14.8 g/dL (11.5-14.8); LYMPHOCYTES # (AUTO) 0.5 /CMM (0.8-4.8); LYMPHOCYTES % (AUTO) 10.1 % (20.0-44.0); MEAN CORPUSCULAR HGB CONC 32 g/dl (31.0-36.0); MEAN CORPUSCULAR VOLUME 102 fL (82-100); MONOCYTES # (AUTO) 0.3 /CMM (0.1-1.30); NEUTROPHILS # (AUTO) 3.8 /CMM (1.8-8.9); NEUTROPHILS % (AUTO) 83.6 % (43.0-81.0); PLATELET COUNT (AUTO) 224 /CMM (150-450); RED BLOOD CELL COUNT(AUTO) 4.53 MIL/uL (4.0-5.2); WHITE BLOOD COUNT (AUTO) 4.5 K/uL (4.3-11.0)
--- NOTE | 2020-06-14 07:43 | NUR ---
MS RN NOTE PATIENT REQUESTING BREATHING TREATMENT. RT CONTACTED AND WILL SEE PATIENT.
[2020-06-14 08:03] VITALS: BP 155/90
[2020-06-14] MEDS: LEVOTHYROXINE SODIUM 100 MCG TABLET PO SCH (08:14)
[2020-06-14] MEDS: METFORMIN 500 MG TABLET PO SCH (08:14)
[2020-06-14] MEDS: methylPREDNISolone SOD SUCC 40 MG/ML VIAL IV SCH ×3 (08:15→16:54)
[2020-06-14] MEDS: ENOXAPARIN SODIUM 40 MG/0.4 ML DISP.SYRIN SQ SCH ×2 (08:16→08:25)
--- NOTE | 2020-06-14 08:26 | NUR ---
MS RN NOTE PATIENT REFUSING LOVENOX 0900 DOSE. EDUCATED RISKS VS BENEFITS. PATIENT CONTINUED TO REFUSE.
[2020-06-14 08:38] LABS: CALCIUM, SERUM 9.9 mg/dL (8.5-10.1); CREATININE 0.8 mg/dL (0.6-1.3); MAGNESIUM 2.3 mg/dL (1.8-2.4); PHOSPHORUS 3.8 mg/dL (2.5-4.9); POTASSIUM 4.3 mmol/L (3.5-5.1)
[2020-06-14] MEDS ORDERED: FLUTICASONE/SALMETEROL 1 DISK IH SCH (09:00)
--- NOTE | 2020-06-14 09:20 | NUR ---
MS RN NOTE SPOKE WITH DR. SANCHEZ ABOUT PATIENT REQUEST FOR SCHEDULED BREATHING TREATMENTS. PER DR. DANIEL URIBE ORDER FOR SCHEDULED ALBUTEROL NEB Q4H AND ATROVENT NEB Q4H. Addendum: 06/14/20 at 0930 by ION RAMIREZ RN RN NOTE SPOKE WITH DR. SANCHEZ ABOUT PATIENT REQUEST FOR SCHEDULED BREATHING TREATMENTS. PER DR. DANIEL URIBE ORDER FOR SCHEDULED ALBUTEROL NEB Q4H AND ATROVENT NEB Q4H AND TO DISCONTINUE ALBUTEROL NEB PRN.
[2020-06-14] MEDS: FLUTICASONE/VILANTEROL 1 EACH BLST.W.DEV IH SCH (10:25)
[2020-06-14] MEDS ORDERED: DEXTROSE 50%-WATER 50 ML DISP.SYRIN IV PRN (10:30)
[2020-06-14] MEDS: IPRATROPIUM NEB FS 0.5 MG/2.5 ML AMPUL.NEB NEB SCH ×4 (11:12→23:52)
[2020-06-14] MEDS: ALBUTEROL FS 2.5 MG/0.5 ML VIAL.NEB NEB SCH ×4 (11:12→23:52)
[2020-06-14] MEDS: BLOOD SUGAR DIAGNOSTIC 1 EACH STRIP IN SCH ×3 (12:09→21:22)
[2020-06-14] MEDS: INSULIN REGULAR, HUMAN 100 UNIT/ML 3 ML VIAL SQ PRN ×3 (12:20→21:31)
[2020-06-14] MEDS: ACETAMINOPHEN 325 MG TABLET PO PRN ×2 (14:12→20:32)
--- NOTE | 2020-06-14 14:12 | NUR ---
MS RN NOTE PATIENT COMPLAINS OF HEADACHE 04/16. PATIENT REQUESTING TYLENOL PRN ORDERED. TYLENOL PRN GIVEN ORDERED.
[2020-06-14 15:00] VITALS: BP 122/81
[2020-06-14 16:00] VITALS: BP 120/76
--- NOTE | 2020-06-14 18:43 | NUR ---
MS RN CLOSING NOTE PATIENT IN BED RESTING COMFORTABLY. PATIENT IN NO ACUTE DISTRESS. NO SOB NOTED. PATIENT BREATHING IS EVEN AND UNLABORED. PATIENT KEPT CLEAN, DRY, AND COMFORTABLE THROUGHOUT SHIFT. NEEDS AND CONCERNS ADDRESSED. PATIENT STATES NO PAIN AT THIS TIME. PATIENT BED ALARM IS ON. SAFETY PRECAUTIONS IN PLACE. PATIENT BED IS LOCKED AND IN LOWEST POSITION. CALL LIGHT WITHIN REACH. WILL ENDORSE CARE TO PM SHIFT FOR MYRNA.
[2020-06-14 20:00] VITALS: BP 108/53
--- NOTE | 2020-06-14 20:00 | NUR ---
MS RN OPENING NOTES RECEIVED PATIENT IN BED, AWAKE, CONSCIOUS, COOPERATIVE, O2 @ 2LPM VIA NASAL CANNULA, UNLABBORED BREATHING, NO SIGNS OF RESPIRATORY DISTRESS, LFA #22G SL INTACT, SIDE RAILS UP FOR SAFETY.
--- NOTE | 2020-06-14 21:10 | NUR ---
MS RN NOTES PATIENT VERBALIZED THAT SHE HAS DIFFICULTY IN BREATHING. O2 SAT CHECKED AT 97%. ADVISED PATIENT TO USE HER OWN INHALER AT BEDSIDE WITH 1 PUFF. WILL CONTINUE TO MONITOR.
[2020-06-14] MEDS: ATORVASTATIN 10 MG TABLET PO SCH (21:34)
--- NOTE | 2020-06-14 22:05 | NUR ---
MS RN NOTES 02 SAT. 97%.
--- NOTE | 2020-06-14 22:07 | NUR ---
MS RN NOTES PATIENT VERBALIZED THAT HER BREATHING IS OK. IT IS MORE ON THE COUGHING ITSELF THAT MAKES HER BREATHING DIFFICULT.
--- NOTE | 2020-06-15 01:00 | NUR ---
MS RN NOTES CHECKED PATIENT. PATIENT IS ASLEEP, UNLABORED BREATHING, NO SIGNS OF RESPIRATORY DISTRESS, 02 @ 2LPM VIA NASAL CANNULA.
[2020-06-15] MEDS: IPRATROPIUM NEB FS 0.5 MG/2.5 ML AMPUL.NEB NEB SCH ×6 (03:13→22:39)
[2020-06-15] MEDS: ALBUTEROL FS 2.5 MG/0.5 ML VIAL.NEB NEB SCH ×6 (03:13→22:39)
--- NOTE | 2020-06-15 03:40 | NUR ---
MS RN NOTES ASSESS PATIENT AFTER NEB WAS GIVEN BY RT. NOTED UNLABORED BREATHING, NO SIGNS OF RESPIRATORY DISTRESS. PATIENT VERBALIZED SHE IS DOING OK. NO SHORTNESS OF BREATH NOTED.
[2020-06-15] MEDS: methylPREDNISolone SOD SUCC 40 MG/ML VIAL IV SCH ×3 (06:15→16:47)
[2020-06-15] MEDS: LEVOTHYROXINE SODIUM 100 MCG TABLET PO SCH (06:16)
[2020-06-15 06:17] LABS: BASOPHILS % (AUTO) 0.1 % (0.0-2.0); HEMATOCRIT 43 % (33-45); HEMOGLOBIN 13.8 g/dL (11.5-14.8); LYMPHOCYTES # (AUTO) 1.2 /CMM (0.8-4.8); LYMPHOCYTES % (AUTO) 16.7 % (20.0-44.0); MEAN CORPUSCULAR HGB CONC 32 g/dl (31.0-36.0); MEAN CORPUSCULAR VOLUME 102 fL (82-100); MONOCYTES # (AUTO) 0.8 /CMM (0.1-1.30); MONOCYTES % (AUTO) 11.7 % (2.0-12.0); NEUTROPHILS # (AUTO) 5.2 /CMM (1.8-8.9); NEUTROPHILS % (AUTO) 71.5 % (43.0-81.0); PLATELET COUNT (AUTO) 202 /CMM (150-450); RED BLOOD CELL COUNT(AUTO) 4.17 MIL/uL (4.0-5.2); WHITE BLOOD COUNT (AUTO) 7.2 K/uL (4.3-11.0)
[2020-06-15] MEDS ORDERED: PIPERACILLIN /TAZOBACTAM 3.375 G VIAL IV ONE (06:24)
[2020-06-15] MEDS: BLOOD SUGAR DIAGNOSTIC 1 EACH STRIP IN SCH ×4 (06:30→21:41)
[2020-06-15 06:51] LABS: CALCIUM, SERUM 9.5 mg/dL (8.5-10.1); CREATININE 0.6 mg/dL (0.6-1.3); MAGNESIUM 2.5 mg/dL (1.8-2.4); PHOSPHORUS 3.8 mg/dL (2.5-4.9); POTASSIUM 4.7 mmol/L (3.5-5.1)
--- NOTE | 2020-06-15 07:08 | NUR ---
MS RN CLOSING NOTES ENDORSED PATIENT IN BED, AWAKE, CONSCIOUS, COOPERATIVE, O2 @ 2LPM VIA NASAL CANNULA, UNLABBORED BREATHING, NO SIGNS OF RESPIRATORY DISTRESS, RIGHT HAND #244G SL INTACT, SIDE RAILS UP FOR SAFETY, DUE MEDS GIVEN.
--- NOTE | 2020-06-15 07:22 | NUR ---
MS RN OPENING NOTE PATIENT IN BED RESTING COMFORTABLY. PATIENT IN NO ACUTE DISTRESS. NO SOB NOTED. PATIENT BREATHING IS EVEN AND UNLABORED. EDUCATED PATIENT TO USE CALL LIGHT FOR ASSISTANCE. DONN VANN SEEN AND EVALUATED PATIENT. PATIENT BED ALARM IS ON. SAFETY PRECAUTIONS IN PLACE. PATIENT BED IS LOCKED AND IN LOWEST POSITION. CALL LIGHT WITHIN REACH. WILL CONTINUE TO MONITOR.
[2020-06-15] MEDS ORDERED: ZOLPIDEM TARTRATE 5 MG TABLET PO PRN (07:30)
[2020-06-15 08:00] VITALS: BP 116/71
--- NOTE | 2020-06-15 08:24 | NUR ---
MS RN NOTE PER DONN VANN MD ORDER FOR ZOSYN 3.375G 3 DOSES MAX Q8H FOR TODAY ONLY. ZOSYN 0624 DOSE NOT GIVEN BY JEWEL CORNER BRUSHING MACHINE OPERATOR. PER HOWARD AU JEWEL CORNER BRUSHING MACHINE OPERATOR RN SHE VERIFIED AND CONFIRMED WITH PHARMACY RAMSEY THAT ZOSYN WAS NOT TAKEN AND CHARGED TO PATIENT. ROE WALTON AWARE AND CONFIRMED WITH DONN VANN ORDER FOR ZOSYN. Addendum: 06/15/20 at 0830 by ION RAMIREZ RN MS RN NOTE PER DONN VANN MD ORDER FOR ZOSYN 3.375G 3 DOSES MAX FOR TODAY ONLY, PHARMACY RAMSEY DOSING FREQUENCY. ZOSYN 0624 DOSE NOT GIVEN BY JEWEL CORNER BRUSHING MACHINE OPERATOR. PER HOWARD AU JEWEL CORNER BRUSHING MACHINE OPERATOR RN SHE VERIFIED AND CONFIRMED WITH PHARMACY RAMSEY THAT ZOSYN WAS NOT TAKEN AND CHARGED TO PATIENT. ROE WALTON AWARE AND CONFIRMED WITH DONN VANN ORDER FOR ZOSYN.
[2020-06-15] MEDS: ENOXAPARIN SODIUM 40 MG/0.4 ML DISP.SYRIN SQ SCH (09:00)
[2020-06-15] MEDS: METFORMIN 500 MG TABLET PO SCH (09:05)
[2020-06-15] MEDS: FLUTICASONE/VILANTEROL 1 EACH BLST.W.DEV IH SCH (09:05)
[2020-06-15] MEDS: PIPERACILLIN /TAZOBACTAM 3.375 G in IV D5W 50 ML IV SCH ×3 (09:05→20:04)
--- NOTE | 2020-06-15 09:06 | NUR ---
MS RN NOTE PATIENT REFUSING LOVENOX 0900 DOSE. EDUCATED RISKS VS BENEFITS 3x. PATIENT CONTINUED TO REFUSE.
[2020-06-15] MEDS: INSULIN REGULAR, HUMAN 100 UNIT/ML 3 ML VIAL SQ PRN ×3 (11:45→21:51)
--- NOTE | 2020-06-15 13:25 | NUR ---
MS/RN NOTES Received report from EMI Smith. Patient in bed, A&O x 3. Breathing even and non-labored on 3L via NC. No respiratory or cardiac distress noted. IV access noted on L FA, #22 gauge, patent and intact and running zosyn @ 100mls/hr. No infection, bleeding, or infiltration noted on site. Instructed patient to use call light when in need of assistance. Fall precautions maintained. Will continue to monitor for any changes in condition.
--- NOTE | 2020-06-15 13:25 | NUR ---
MS RN NOTE PATIENT IN NO ACUTE DISTRESS. PATIENT KEPT CLEAN, DRY, AND COMFORTABLE THROUGHOUT MY CARE. NEEDS AND CONCERNS ADDRESSED. PATIENT STATES NO PAIN AT THIS TIME. ENDORSED TRANSFER OF ALL CARE TO [facility] FOR MYRNA.
[2020-06-15 16:00] VITALS: BP 157/47
--- NOTE | 2020-06-15 18:32 | NUR ---
MS/RN CLOSING NOTES Patient resting in bed, A&O x 3. Denies any pain/discomfort throughout shift. Breathing even and non-labored on 3L via NC. No respiratory or cardiac distress noted. IV access noted on L FA, #22 gauge, patent and intact, and flushing well. No infection, bleeding, or infiltration noted on site. Sensation from all peripheral extremities intact. Instructed patient to use call light when in need of assistance. Patient expresses appreciation of care, "thank you so much for your help today." Fall precautions maintained. Will endorse to credit support counselor nurse.
--- NOTE | 2020-06-15 19:30 | NUR ---
ms rn opening note received patient in bed. a/ox3. on oxygen 3l/min via nasal cannula. respirations are even and unlabored. no s/s sob noted at this time. no c/o pain at this time. in no apparent distress. iv access in LFA#22 patent and saline locked. bed is low and locked, hob elevated in high fowlers, side rial sup x2. call light within reach. will continue to monitor.
[2020-06-15 20:56] VITALS: BP 119/63
[2020-06-15] MEDS: ATORVASTATIN 10 MG TABLET PO SCH (21:41)
[2020-06-15 22:00] VITALS: BP 119/63
--- NOTE | 2020-06-15 23:33 | NUR ---
MS RN NOTE ADMINISTERED PRN SINGULAR TO PATIENT SHE C/O OF WHEEZING AND SOB. BREATHING TREATMENT WAS ALREADY GIVEN AND DID NOT SEEM TO HELP ACCORDING TO PATIENT. WILL CONTINUE TO MONITOR.
--- NOTE | 2020-06-16 00:15 | NUR ---
MS RN NOTE REASSESSED PATIENT AFTER SINGULAR. PATIENT IS COMFORTABLE IN BED. NO S/S OF WHEEZING OR SOB AT THIS TIME. STATES SHE DOES FEEL BETTER. WILL CONTINUE TO MONITOR.
[2020-06-16] MEDS: ALBUTEROL FS 2.5 MG/0.5 ML VIAL.NEB NEB SCH ×4 (04:21→16:17)
[2020-06-16] MEDS: IPRATROPIUM NEB FS 0.5 MG/2.5 ML AMPUL.NEB NEB SCH ×4 (04:21→16:17)
--- NOTE | 2020-06-16 05:34 | NUR ---
ms rn note patient refused to take pictures of skin wounds as protocol.
[2020-06-16] MEDS: LEVOTHYROXINE SODIUM 100 MCG TABLET PO SCH (06:29)
[2020-06-16] MEDS: BLOOD SUGAR DIAGNOSTIC 1 EACH STRIP IN SCH ×2 (06:31→12:30)
[2020-06-16 06:57] LABS: BASOPHILS % (AUTO) 0.1 % (0.0-2.0); HEMATOCRIT 43 % (33-45); HEMOGLOBIN 13.8 g/dL (11.5-14.8); LYMPHOCYTES # (AUTO) 1.5 /CMM (0.8-4.8); LYMPHOCYTES % (AUTO) 19.1 % (20.0-44.0); MEAN CORPUSCULAR HGB CONC 32 g/dl (31.0-36.0); MEAN CORPUSCULAR VOLUME 101 fL (82-100); MONOCYTES # (AUTO) 0.8 /CMM (0.1-1.30); MONOCYTES % (AUTO) 10.6 % (2.0-12.0); NEUTROPHILS # (AUTO) 5.5 /CMM (1.8-8.9); NEUTROPHILS % (AUTO) 70.2 % (43.0-81.0); PLATELET COUNT (AUTO) 196 /CMM (150-450); RED BLOOD CELL COUNT(AUTO) 4.24 MIL/uL (4.0-5.2); WHITE BLOOD COUNT (AUTO) 7.8 K/uL (4.3-11.0)
--- NOTE | 2020-06-16 07:30 | NUR ---
RN Opening note Received patient AO x 3, able to responds all stimuli. Denies pain but c/o cough. Skin is warm to touch, keep clean/dry, intact IV site. Respiratory even and unlabored with oxygen at 3LPM, no distress observed. Keep bed in locked with elevated HOB for ensure airway and aspiration precaution, call light within reach, will continue to monitor.
--- NOTE | 2020-06-16 07:30 | NUR ---
ms rn Closing note patient in bed. a/ox3. on oxygen 3l/min via nasal cannula. had an episode of sob last night, treated with scheduled breathing treatment and singular. no c/o pain t/o shift. no distress. iv access maintianed in LFA#22 patent and saline locked. bed remains low and locked, hob elevated in high fowlers, side rials up x2. call light within reach. will endorse to next shift.
[2020-06-16 07:41] LABS: CALCIUM, SERUM 9.2 mg/dL (8.5-10.1); CREATININE 0.6 mg/dL (0.6-1.3); MAGNESIUM 2.3 mg/dL (1.8-2.4); PHOSPHORUS 3.6 mg/dL (2.5-4.9); POTASSIUM 4.1 mmol/L (3.5-5.1)
--- NOTE | 2020-06-16 08:15 | NUR ---
WOUND CARE CONSULT: PT REFUSED SKIN ASSESSMENT AND DENIES HAVING ANY WOUNDS OR SKIN ISSUES. PT NOTED TO HAVE DISCOLORATIONS TO HER ARMS. WILL SEE PRN. CURRENT LIBRA SCORE IS 19.
[2020-06-16] MEDS: METFORMIN 500 MG TABLET PO SCH (08:25)
[2020-06-16] MEDS: FLUTICASONE/VILANTEROL 1 EACH BLST.W.DEV IH SCH (08:25)
[2020-06-16] MEDS: methylPREDNISolone SOD SUCC 40 MG/ML VIAL IV SCH (08:25)
[2020-06-16] MEDS: ENOXAPARIN SODIUM 40 MG/0.4 ML DISP.SYRIN SQ SCH (08:26)
[2020-06-16] MEDS ORDERED: GUAIFENESIN 300 MG/15 ML UDC PO PRN (09:30)
[2020-06-16 09:46] VITALS: BP 118/76
--- NOTE | 2020-06-16 16:00 | NUR ---
Given discharge instruction include f/u PCP in 1 week and tapering off steroid as indicated. Patient in stable condition. O2sat 98% with ovygen at 3LPM, no distress observed.
[2020-06-16 17:57] VITALS: BP 123/87
== END 2020-06-16 18:51 | disposition home or self-care (01) | DRG 192 ==
LOC: ER 17:32 → MED 06-14 00:38
PROVIDERS: ADMIT Nurse Practitioner Acute Care; ATTEND Hospitalist
DX: J44.1 Chronic obstructive pulmonary disease with (acute) exacerbation (principal); F17.210 Nicotine dependence, cigarettes, uncomplicated; E03.9 Hypothyroidism, unspecified; E11.9 Type 2 diabetes mellitus without complications; E78.5 Hyperlipidemia, unspecified; F41.9 Anxiety disorder, unspecified; Z91.19 Patient's noncompliance with other medical treatment and regimen; Z99.81 Dependence on supplemental oxygen; I10 Essential (primary) hypertension; Z71.6 Tobacco abuse counseling; K21.9 Gastro-esophageal reflux disease without esophagitis; Z79.84 Long term (current) use of oral hypoglycemic drugs
CPT/HCPCS: 36415; 71045-TC; 80048-TC; 80076-TC; 82962-TC; 83735-TC; 83880; 84100-TC; 84484-TC; 85025-TC; 85378-TC; 85730-TC; 87081-TC; 94799-TC; 97110-TC; 97116-TC; 97530-TC; G0378; J1650; J1815; J2543; J2920; J7050; J7060

== ENCOUNTER 2020-11-10 16:25 | Emergency (ER) | payer MEDICARE ==
[~2020-11-10] VITALS: Ht 167.6 cm; Wt 64.4 kg
--- NOTE | 2020-11-10 16:32 | NUR ---
BIB [facility] 860 FROM HOME, LEFT UPPER EXTREMITY BRUISE/SWELLING, S/P GLF 2 DAYS AGO. TO ER BED 14, HOOKED TO BP CUFF AND POX. CHANGED TO HOSP GOWN, WARM BLANKET PROVIDED, DR LOVELACE AT BEDSIDE
--- NOTE | 2020-11-10 16:49 | NUR ---
POA/SON CALLED, STATES THAT PT IS IN EXTREME PAIN AND WANTS CALL BACK [phone] ABOUT PT CONDITION
[2020-11-10] MEDS ORDERED: ACETAMINOPHEN 325 MG TABLET ONE (17:30)
--- NOTE | 2020-11-10 17:44 | NUR ---
CALLED SON ASKED TO BE CALLED AT [phone] AND IS SPEAKING WITH RN.
[2020-11-10] MEDS: ACETAMINOPHEN 325 MG TABLET PO ONE (18:08)
--- NOTE | 2020-11-10 20:00 | NUR ---
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
--- NOTE | 2020-11-11 08:05 | NUR ---
SPOKE WITH JENN, AWAITING PLACEMENT.
[2020-11-11 12:25] VITALS: BP 132/79
== END 2020-11-11 12:47 ==
LOC: ER 16:33
DX: S42.412A Displaced simple supracondylar fracture without intercondylar fracture of left humerus, initial encounter for closed fracture (principal); W01.0XXA Fall on same level from slipping, tripping and stumbling without subsequent striking against object, initial encounter; Y92.89 Other specified places as the place of occurrence of the external cause; I10 Essential (primary) hypertension; E03.9 Hypothyroidism, unspecified; Z85.828 Personal history of other malignant neoplasm of skin; J44.9 Chronic obstructive pulmonary disease, unspecified; Z99.81 Dependence on supplemental oxygen; Z20.822 Contact with and (suspected) exposure to COVID-19
CPT/HCPCS: 29105; 73030; 73060; 73080; 87426; 99285; C9803

== ENCOUNTER 2021-09-06 10:34 | Emergency (ER) | payer MEDICARE, OTHER ==
[~2021-09-06] VITALS: Ht 165.1 cm; Wt 54.4 kg
--- NOTE | 2021-09-06 10:50 | NUR ---
NILSA PT FELL IN THE BATHROOM WHERE SHE SUSTAINED A LACERATION ABOVER HER LEFT EYE AND HER SON CALLED 911. RA STATED THAT WHEN ARRIVING ON SCENE SHE WAS SITTING UP. PT IS ON HOSPICE. PT HAS A HISTORY OF COPD AND HAS DEMENTIA. PT WAS PLACED ON 6L ON NASAL CANNULA. PT WAS TAKEN TO ER BED 3.
--- NOTE | 2021-09-06 11:06 | NUR ---
PT TAKEN TO RADIOLOGY VIA [facility]
[2021-09-06 11:12] LABS: BASOPHILS % (AUTO) 0.5 % (0.0-2.0); EOSINOPHILS % (AUTO) 2.5 % (0.0-6.0); HEMATOCRIT 46 % (33-45); HEMOGLOBIN 14.5 g/dL (11.5-14.8); LYMPHOCYTES # (AUTO) 1.4 K/uL (0.8-4.8); LYMPHOCYTES % (AUTO) 13.7 % (20.0-44.0); MEAN CORPUSCULAR HGB CONC 32 g/dl (31.0-36.0); MEAN CORPUSCULAR VOLUME 103 fL (82-100); MONOCYTES # (AUTO) 0.6 K/uL (0.1-1.30); MONOCYTES % (AUTO) 6.3 % (2.0-12.0); NEUTROPHILS # (AUTO) 7.6 K/uL (1.8-8.9); PLATELET COUNT (AUTO) 294 K/uL (150-450); RED BLOOD CELL COUNT(AUTO) 4.45 MIL/uL (4.0-5.2); WHITE BLOOD COUNT (AUTO) 9.9 K/uL (4.3-11.0)
--- NOTE | 2021-09-06 11:50 | NUR ---
ATTEMPTED TO CALL PT SON FOR ADDITIONAL INFORMATION. NO RESPONSE.
[2021-09-06] MEDS ORDERED: LIDOCAINE 0.5% HCL 50 ML VIAL ONE (11:54)
[2021-09-06] MEDS: TDAP [DIPH/PERTUSSIS/TET] 0.5 ML VIAL IM ONE ×2 (12:00→18:16)
[2021-09-06 12:07] LABS: CARBON DIOXIDE 27 mmol/L (21-32); CHLORIDE 103 mmol/L (98-107); CREATININE 0.6 mg/dL (0.6-1.3); GLUCOSE 108 mg/dL (74-106); POTASSIUM 4.8 mmol/L (3.5-5.1); SODIUM SERUM 142 mmol/L (136-145); UREA NITROGEN, BLOOD 16 mg/dL (7-18)
[2021-09-06 12:24] LABS: ALANINE AMINOTRANSFERASE 28 U/L (12-78); ALBUMIN 3.2 g/dL (3.4-5.0); ALKALINE PHOSPHATASE 109 U/L (46-116); ASPARTATE AMINOTRANSFERASE 21 U/L (15-37); BILIRUBIN,DIRECT 0.1 mg/dL (0.0-0.2); BILIRUBIN,TOTAL 0.4 mg/dL (0.2-1.0); TOTAL PROTEIN, SERUM 6.8 g/dL (6.4-8.2)
[2021-09-06] MEDS ORDERED: TDAP [DIPH/PERTUSSIS/TET] 0.5 ML VIAL IM ONE ×2 (12:25→18:08)
--- NOTE | 2021-09-06 14:31 | NUR ---
CALLED [facility] FOR TRANSPORT ETA 60 PER [facility].
--- NOTE | 2021-09-06 14:41 | NUR ---
CANCELED TRANSPORT HOSPICE WITH [facility] PER JAKOB AT [facility] [phone] WILL CALL WITH ETA. 10 STEPS.
--- NOTE | 2021-09-06 17:27 | NUR ---
VICKI RIVERA [facility]ED TRANSPORT FOR [phone]
--- NOTE | 2021-09-06 17:28 | NUR ---
VICKI WOULD LIKE MOM TO GET T-DAP CHIOMA RN INFORMED.
--- NOTE | 2021-09-06 20:00 | NUR ---
PATIENT IN BED RESTING, WATCHING TV AT THIS TIME. PATIENT V/S ARE STABLE AT TIME. PATIENT CONNECETED TO CARDIAC MONIOTR AND POX. WILL CONTINUE TO MONITOR.
--- NOTE | 2021-09-06 21:00 | NUR ---
PATIENT TAKEN OFF O2, STAT AT 95% RA, PATIENT PLACED ON BED WILLIS. PATIENT CLEANED AND CHANGED. VSS. WILL CONTINUE TO MONITOR. NO ACUTE DISTRESS NOTED.
[2021-09-06 22:38] VITALS: BP 129/68
--- NOTE | 2021-09-06 22:38 | NUR ---
Patient discharged to home in stable condition. Written and verbal after care instructions given. Patient verbalizes understanding of instruction.
== END 2021-09-06 22:39 | disposition home or self-care (01) ==
LOC: ER 10:40
DX: S01.81XA Laceration without foreign body of other part of head, initial encounter (principal); S51.011A Laceration without foreign body of right elbow, initial encounter; S51.811A Laceration without foreign body of right forearm, initial encounter; F03.90 Unspecified dementia, unspecified severity, without behavioral disturbance, psychotic disturbance, mood disturbance, and anxiety; J44.9 Chronic obstructive pulmonary disease, unspecified; E03.9 Hypothyroidism, unspecified; F17.200 Nicotine dependence, unspecified, uncomplicated; Z79.899 Other long term (current) drug therapy; W19.XXXA Unspecified fall, initial encounter; Y93.89 Activity, other specified; Y92.89 Other specified places as the place of occurrence of the external cause; Y99.8 Other external cause status
CPT/HCPCS: 12011; 36415; 70450; 70486; 71045; 72125; 73080; 73090; 80048; 80076; 84484; 85025; 90471; 90715; 93005; 99285; J3490